=== PATIENT | female | born 1935 | race Caucasian/White ===

== ENCOUNTER 2017-10-03 05:16 | Inpatient (IN) | payer MEDICARE ==
[~2017-10-03] VITALS: Ht 157.5 cm; Wt 90.9 kg
[2017-10-03 06:01] VITALS: BP 129/74
[2017-10-03] MEDS ORDERED: MAG HYDROX/AL HYDROX/SIMETH 30 ML ORAL.SUSP PO PRN (06:30)
[2017-10-03] MEDS ORDERED: ACETAMINOPHEN 325 MG TABLET PO PRN (06:30)
[2017-10-03] MEDS ORDERED: MAGNESIUM HYDROXIDE 2,400 MG/30 ML ORAL.SUSP. PO PRN (06:30)
[2017-10-03] MEDS ORDERED: METHYL SALICYLATE/MENTHOL TOPICAL OINTMENT 29GM TUBE. TP PRN (06:30)
[2017-10-03 06:57] LABS: BASO % 0 % (0-3); EOS % 0 % (0-3); HEMATOCRIT 40.8 % (36.0-47.0); HEMOGLOBIN 14.2 g/dL (12.0-15.5); LYMPH # 0.6 x10^3/uL (1.0-4.8); LYMPH % 6 % (24-48); MEAN CORPUSCULAR HEMOGLOBIN 34 pg (25-35); MEAN CORPUSCULAR HGB CONC 35 g/dL (31-37); MEAN CORPUSCULAR VOLUME 96 fL (79-100); MONO # 0.4 x10^3/uL (0.0-1.1); MONO % 4 % (0-9); NEUT # 8.6 x10^3uL (1.8-7.7); NEUT % 89 % (31-73); PLATELET COUNT 323 x10^3/uL (140-400); RED BLOOD COUNT 4.23 x10^6/uL (3.50-5.40); RED CELL DISTRIBUTION WIDTH 13.4 % (11.5-14.5); WHITE BLOOD COUNT 9.6 x10^3/uL (4.0-11.0)
[2017-10-03 07:06] LABS: ALBUMIN 3.9 g/dL (3.4-5.0); ALBUMIN/GLOBULIN RATIO 0.9 (1.0-1.7); CALCIUM 9.6 mg/dL (8.5-10.1); CREATININE 1.3 mg/dL (0.6-1.0); GFR 39.4; POTASSIUM 4.4 mmol/L (3.5-5.1); TOTAL BILIRUBIN 0.4 mg/dL (0.2-1.0); TOTAL PROTEIN 8.3 g/dL (6.4-8.2)
[2017-10-03] MEDS ORDERED: SENNOSIDES/DOCUSATE 8.6/50MG TABLET. PO PRN (07:45)
[2017-10-03] MEDS ORDERED: ALBUTEROL SULFATE 8GM INHALER. IH PRN (07:45)
[2017-10-03] MEDS ORDERED: CYCL1DRO OU (08:06)
[2017-10-03] MEDS ORDERED: SENN-37 PO (08:06)
[2017-10-03] MEDS ORDERED: ALBU18HF IH (08:06)
[2017-10-03] MEDS ORDERED: DICL100G28 TP (08:06)
[2017-10-03] MEDS ORDERED: MUPI22OI2 TP (08:06)
[2017-10-03] MEDS ORDERED: ASPI1TAB31 PO (08:06)
[2017-10-03] MEDS ORDERED: TRIA15CR50 TP (08:06)
[2017-10-03] MEDS ORDERED: CLON0.5T11 PO (08:06)
[2017-10-03] MEDS ORDERED: POLY17PO5 PO (08:06)
[2017-10-03] MEDS ORDERED: BACL10TA PO (08:06)
[2017-10-03] MEDS ORDERED: CALC-30 PO (08:06)
[2017-10-03] MEDS ORDERED: CARB1DRO OU (08:06)
[2017-10-03] MEDS ORDERED: GLUC1TAB33 PO (08:06)
[2017-10-03] MEDS ORDERED: FLUT9.9S NS (08:06)
[2017-10-03] MEDS ORDERED: FISH12002 PO (08:06)
[2017-10-03] MEDS ORDERED: CYAN10005 PO (08:06)
[2017-10-03] MEDS ORDERED: MAGN400T3 PO (08:06)
[2017-10-03] MEDS ORDERED: LEVO112T2 PO (08:06)
[2017-10-03] MEDS ORDERED: CARB200T PO (08:06)
[2017-10-03] MEDS ORDERED: HYDR-963 PO (08:06)
[2017-10-03] MEDS ORDERED: NYST15CR TP (08:06)
[2017-10-03] MEDS ORDERED: RISP2TAB3 PO (08:06)
[2017-10-03] MEDS ORDERED: ESTR42.53 VG (08:06)
[2017-10-03] MEDS ORDERED: CLON2TAB9 PO (08:11)
[2017-10-03] MEDS ORDERED: LIDO700A39 TP (08:13)
[2017-10-03] MEDS ORDERED: clonazePAM 0.5 MG TABLET PO SCH ×3 (09:00→21:00)
[2017-10-03] MEDS: FLUTICASONE 50MCG/NASAL SPRAY 16GM BOTTLE. NS SCH (09:00)
[2017-10-03] MEDS ORDERED: NYSTATIN 100,000 UNIT/GM TOPICAL CREAM 15GM TUBE. TP PRN (09:00)
[2017-10-03] MEDS ORDERED: TRIAMCINOLONE ACETONIDE 0.1% TOPICAL CREAM 15GM TUBE. TP PRN (09:00)
[2017-10-03] MEDS: cycloSPORINE 0.05% OPTH 1 DROP DROPERETTE OU SCH ×2 (09:00→19:49)
[2017-10-03] MEDS ORDERED: ASA/APAP/CAFFEINE 250/250/65MG TABLET. PO PRN (09:00)
[2017-10-03] MEDS ORDERED: ALBUTEROL SULFATE 2.5 MG/3 ML NEBU. NEB PRN (09:00)
[2017-10-03] MEDS: LEVOTHYROXINE 112 MCG TABLET PO SCH (09:00)
[2017-10-03] MEDS ORDERED: MUPIROCIN 2% TOPICAL OINTMENT 22GM TUBE. TP PRN (09:00)
[2017-10-03] MEDS ORDERED: ONDANSETRON ODT 4 MG TAB.RAPDIS PO PRN (09:45)
--- NOTE | 2017-10-03 10:33 | EKG ---
[address] [address] Test Date: 2017-10-03 Test Time: 10:29:35 Pat Name: DINAH NEAL Department: Room: [facility] 1 Gender: F Client Services Director: : [id number] Requested By: JOHN HORTON Order Number: [id number] Reading MD: Nikos Chan MD Measurements Intervals [facility] Rate: 90 P: 44 ND: 150 QRS: -32 QRSD: 84 T: 27 QT: 378 QTc: 467 Interpretive Statements SINUS RHYTHM NON-SPECIFIC ST/T CHANGES Electronically Signed On 10-04-2017 7:52:45 CDT by Nikos Chan MD
[2017-10-03] MEDS: POLYETHYLENE GLYCOL 3350 17 GM PACKET. PO SCH (11:17)
[2017-10-03] MEDS: LIDOCAINE (700MG/PATCH) PATCH. TD SCH (11:17)
[2017-10-03] MEDS: CYANOCOBALAMIN (VITAMIN B-12) 1,000 MCG TABLET. PO SCH (11:18)
[2017-10-03] MEDS: MAGNESIUM OXIDE 400 MG TABLET PO SCH (11:18)
[2017-10-03] MEDS: CALCIUM CARB/VIT D3 500/200 TABLET PO SCH (11:18)
[2017-10-03] MEDS: OMEGA-3 FATTY ACIDS/FISH OIL 1,000 MG CAPSULE. PO SCH (11:18)
[2017-10-03] MEDS: GLUCOSAMINE/CHOND 500/400MG CAPSULE PO SCH (11:18)
[2017-10-03] MEDS: carBAMazepine 200 MG TABLET PO SCH ×2 (11:18→19:51)
[2017-10-03] MEDS ORDERED: BACLOFEN 10 MG TABLET PO SCH ×2 (12:00)
[2017-10-03 15:57] VITALS: BP 120/62
[2017-10-03] MEDS ORDERED: ESTRADIOL 0.01% VAGINAL CREAM 42.5GM TUBE. VG SCH (16:00)
[2017-10-03] MEDS ORDERED: ESTRADIOL 0.01% VAGINAL CREAM 42.5GM TUBE. VG PRN (16:00)
[2017-10-03 16:20] LABS: CARBAM 5.4 mcg/mL (4.0-12.0); THYROID STIM HORMONE (TSH) 1.733 uIU/mL (0.358-3.740)
[2017-10-03 17:08] LABS: BILIRUBIN,URINE NEG (NEG); CLARITY,URINE HAZY; COLOR,URINE YELLOW; GLUCOSE,URINE NEG (NEG)
[2017-10-03 17:09] LABS: BACTERIA,URINE FEW /HPF (0-FEW); HYALINE CASTS, URINE OCC /HPF; NITRITE,URINE NEG (NEG); SQUAMOUS EPITHELIAL CELL,UR MANY /LPF; UROBILINOGEN,URINE 0.2 mg/dL (0.2 mg/dL)
[2017-10-03] MEDS: HYDROcodone/APAP 10/325 1 TAB TABLET PO PRN (17:49)
[2017-10-03] MEDS: risperiDONE 2 MG TABLET. PO SCH (19:49)
[2017-10-03] MEDS: clonazePAM 1 MG TABLET PO SCH (19:49)
[2017-10-03] MEDS: BACLOFEN 10 MG TABLET PO SCH (19:50)
[2017-10-03 20:09] LABS: THYROXINE 6.1 ug/dL (4.5-12.0)
--- NOTE | 2017-10-03 20:35 | PDOC ---
Exam Note: Jermaine Note: Please also refer to the separate dictated note~for this date of service dictated separately.~Patient seen individually. Discussed the patient with Nursing staff reviewed the chart.~Reviewed interim history and current functioning. Reviewed vital signs,~Labs/ Radiology~and current medications noted below. Continue current treatment with the changes noted in the dictated addendum note Assessment: Vital Signs: Vital Signs Date Time Temp Pulse Resp B/P (MAP) Pulse Ox O2 Delivery O2 Flow Rate FiO2 10/03/17 18:49 16 95 Room Air 10/03/17 15:57 97.9 79 120/62 (81) Labs: Laboratory Tests Test 10/03/17 06:43 10/03/17 16:55 White Blood Count 9.6 x10^3/uL (4.0-11.0) Red Blood Count 4.23 x10^6/uL (3.50-5.40) Hemoglobin 14.2 g/dL (12.0-15.5) Hematocrit 40.8 % (36.0-47.0) Mean Corpuscular Volume 96 fL (79-100) Mean Corpuscular Hemoglobin 34 pg (25-35) Mean Corpuscular Hemoglobin Concent 35 g/dL (31-37) Red Cell Distribution Width 13.4 % (11.5-14.5) Platelet Count 323 x10^3/uL (140-400) Neutrophils (%) (Auto) 89 % (31-73) H Lymphocytes (%) (Auto) 6 % (24-48) L Monocytes (%) (Auto) 4 % (0-9) Eosinophils (%) (Auto) 0 % (0-3) Basophils (%) (Auto) 0 % (0-3) Neutrophils # (Auto) 8.6 x10^3uL (1.8-7.7) H Lymphocytes # (Auto) 0.6 x10^3/uL (1.0-4.8) L Monocytes # (Auto) 0.4 x10^3/uL (0.0-1.1) Eosinophils # (Auto) 0.0 x10^3/uL (0.0-0.7) Basophils # (Auto) 0.0 x10^3/uL (0.0-0.2) Sodium Level 139 mmol/L (136-145) Potassium Level 4.4 mmol/L (3.5-5.1) Chloride Level 100 mmol/L (98-107) Carbon Dioxide Level 33 mmol/L (21-32) H Anion Gap 6 (6-14) Blood Urea Nitrogen 12 mg/dL (7-20) Creatinine 1.3 mg/dL (0.6-1.0) H Estimated GFR (Cockcroft-Gault) 39.4 BUN/Creatinine Ratio 9 (6-20) Glucose Level 164 mg/dL (70-99) H Calcium Level 9.6 mg/dL (8.5-10.1) Magnesium Level 2.0 mg/dL (1.8-2.4) Total Bilirubin 0.4 mg/dL (0.2-1.0) Aspartate Amino Transferase (AST) 20 U/L (15-37) Alanine Aminotransferase (ALT) 22 U/L (14-59) Alkaline Phosphatase 109 U/L (46-116) Total Protein 8.3 g/dL (6.4-8.2) H Albumin 3.9 g/dL (3.4-5.0) Albumin/Globulin Ratio 0.9 (1.0-1.7) L Triglycerides Level 57 mg/dL (0-150) Cholesterol Level 284 mg/dL (0-200) H LDL Cholesterol, Calculated 201 mg/dL (0-100) H VLDL Cholesterol, Calculated 11 mg/dL (0-40) Non-HDL Cholesterol Calculated 212 mg/dL (0-129) H HDL Cholesterol 72 mg/dL (40-60) H Cholesterol/HDL Ratio 3.0 Thyroid Stimulating Hormone (TSH) 1.733 uIU/mL (0.358-3.740) Thyroxine (T4) 6.1 ug/dL (4.5-12.0) Total Triiodothyronine (TT3) 69 ng/dL (71-180) L Carbamazepine (Tegretol) Level 5.4 mcg/mL (4.0-12.0) Carbamazepine Last Dose Date 10/03/17 Carbamazepine Last Dose Time 1130 Treponema pallidum Antibody Nonreactive (Nonreactive) Urine Collection Type Unknown Urine Color Yellow Urine Clarity Hazy Urine pH 6.5 Urine Specific [place] 1.010 Urine Protein 100 mg/dl (NEG-TRACE) Urine Glucose (UA) Neg mg/dL (NEG) Urine Ketones (Stick) Neg mg/dL (NEG) Urine Blood Small (NEG) Urine Nitrite Neg (NEG) Urine Bilirubin Neg (NEG) Urine Urobilinogen Dipstick 0.2 mg/dL (0.2 mg/dL) Urine Leukocyte Esterase Neg (NEG) Urine RBC 1-2 /HPF (0-2) Urine WBC 1-4 /HPF (0-4) Urine Squamous Epithelial Cells Many /LPF Urine Bacteria Few /HPF (0-FEW) Urine Hyaline Casts Occ /HPF Urine Mucus Slight /LPF Current Medications: Meds: Current Medications Acetaminophen (Tylenol) 650 mg PRN Q6HRS PRN PO PAIN / TEMP; Start 10/03/17 at 06:30 Multi-Ingredient Ointment (Analgesic [place]) 1 stepan PRN QID PRN TP MUSCLE PAIN; Start 10/03/17 at 06:30 Al Hydroxide/Mg Hydroxide (Mylanta Plus Xs) 15 ml PRN AFTMEALHC PRN PO DYSPEPSIA; Start 10/03/17 at 06:30 Magnesium Hydroxide (Milk Of Magnesia) 2,400 mg PRN QHS PRN PO CONSTIPATION; Start 10/03/17 at 06:30 Albuterol Sulfate (Ventolin Hfa Inhaler) 2 puff PRN Q6HRS PRN IH FOR ASTHMA; Start 10/03/17 at 07:45; Status UNV Carbamazepine (TEGretol) 200 mg BID PO Last administered on 10/03/17at 19:51; Start 10/03/17 at 09:00 Clonazepam (KlonoPIN) 0.5 mg BID@0900,1700 PO Last administered on 10/03/17at 11 :18; Start 10/03/17 at 09:00; Stop 10/03/17 at 16:55; Status DC Clonazepam (KlonoPIN) 2 mg QHS PO ; Start 10/03/17 at 21:00; Stop 10/03/17 at 21 :00; Status DC Cyanocobalamin (Vitamin B-12) 1,000 mcg DAILY PO Last administered on at 11:18; Start 10/03/17 at 09:00 Cyclosporine (Restasis) 1 drop BID OU Last administered on 10/03/17at 19:49; Start 10/03/17 at 09:00 Diclofenac Sodium (Voltaren) 1 stepan PRN TID TP ; Start 10/03/17 at 07:45 Estradiol (Estrace) 1 stepan QSUTUTH VG ; Start 10/03/17 at 16:00; Stop 10/03/17 at 16:00; Status DC Levothyroxine Sodium (Synthroid) 112 mcg DAILY06 PO ; Start 10/03/17 at 09:00 Senna/Docusate Sodium (Senna Plus) 1 tab PRN BID PRN PO CONSTIPATION; Start at 07:45 Acetaminophen/ Aspirin/Caffeine (Excedrin Migraine) 2 tab Q24H PRN PO MIGRAINE HEADACHE; Start 10/03/17 at 09:00 Baclofen (Lioresal) 10 mg Q4HRS PO ; Start 10/03/17 at 12:00; Status Cancel Calcium/Vitamin D (Oscal D 500mg/ 200uts) 1 tab DAILY PO Last administered on at 11:18; Start 10/03/17 at 09:00 Artificial Tears (Refresh Classic) 1 drop PRN BID PRN OU DRY EYE; Start at 07:45 Fish Oil (Fish Oil) 1,000 mg DAILY PO Last administered on 10/03/17at 11:18; Start 10/03/17 at 09:00 Fluticasone Propionate (Flonase) 1 spray DAILY NS ; Start 10/03/17 at 09:00 Glucosamine/ Chondroitin (Glucosamine-Chondroitin 500/400mg) 1 cap DAILY PO Last administered on 10/03/17at 11:18; Start 10/03/17 at 09:00 Acetaminophen/ Hydrocodone Bitart (Lortab 10/325) 1 tab PRN Q4HRS PRN PO PAIN Last administered on 10/03/17at 17:49; Start 10/03/17 at 07:45 Lidocaine (Lidoderm) 1 patch DAILY TD Last administered on 10/03/17at 11:17; Start 10/03/17 at 09:00 Magnesium Oxide (Magnesium Oxide) 400 mg DAILY PO Last administered on at 11:18; Start 10/03/17 at 09:00 Mupirocin (Bactroban) 1 stepan PRN BID PRN TP NOSE SORES; Start 10/03/17 at 09:00 Nystatin (Mycostatin) 1 stepan PRN BID PRN TP YEAST/RASH; Start 10/03/17 at 09:00 Polyethylene Glycol (miraLAX) 17 gm DAILY PO Last administered on 10/03/17at 11: 17; Start 10/03/17 at 09:00 Risperidone (RisperDAL) 2 mg QHS PO Last administered on 10/03/17at 19:49; Start 10/03/17 at 21:00 Triamcinolone Acetonide (Kenalog) 1 stepan PRN TID PRN TP VAGINAL PAIN; Start at 09:00 Estradiol (Estrace) 1 stepan QSUTUTH PRN VG ITCHING; Start 10/03/17 at 16:00 Albuterol Sulfate (Ventolin) 2.5 mg PRN Q6HRS PRN NEB SHORTNESS OF BREATH; Start 10/03/17 at 09:00 Baclofen (Lioresal) 5 mg Q4HRS PO Last administered on 10/03/17at 11:21; Start 10/03/17 at 12:00; Stop 10/03/17 at 15:51; Status DC Ondansetron HCl (Zofran Odt) 4 mg PRN Q8HRS PRN PO NAUSEA/VOMITING Last administered on 10/03/17at 10:16; Start 10/03/17 at 09:45 Clonazepam (KlonoPIN) 1.5 mg QHS PO ; Start 10/03/17 at 21:00; Stop 10/03/17 at 21:00; Status DC Clonazepam (KlonoPIN) 1 mg QHS PO ; Start 10/06/17 at 21:00; Stop 10/06/17 at 21 :00; Status DC Clonazepam (KlonoPIN) 0.5 mg QHS PO ; Start 10/03/17 at 21:00; Stop 10/03/17 at 21:00; Status DC Clonazepam (KlonoPIN) 0.5 mg DAILY@1700 PO ; Start 10/03/17 at 17:00; Stop 10/03 at 17:00; Status DC Baclofen (Lioresal) 5 mg TID PO Last administered on 10/03/17at 19:50; Start at 21:00 Clonazepam (KlonoPIN) 0.5 mg DAILY PO ; Start 10/04/17 at 09:00; Stop 10/09/17 at 00:00 Clonazepam (KlonoPIN) 0.5 mg DAILY@1700 PO ; Start 10/04/17 at 17:00; Stop at 00:00 Clonazepam (KlonoPIN) 1.5 mg Taper QHS PO Last administered on 10/03/17at 19:49 ; Start 10/03/17 at 21:00; Stop 10/18/17 at 20:59 Olanzapine (ZyPREXA ZYDIS) 2.5 mg PRN Q2HR PRN PO PSYCHOSIS Last administered on 10/03/17at 17:43; Start 10/03/17 at 17:45 Divalproex Sodium (Depakote Er) 250 mg QHS PO Last administered on 10/03/17at 19 :49; Start 10/03/17 at 21:00; Stop 10/03/17 at 21:01 Divalproex Sodium (Depakote Er) 500 mg QHS PO ; Start 10/04/17 at 21:00 Active Scripts Active Reported Lidocaine 1 Each Adh..patch 1 Each TP DAILY Clonazepam 2 Mg Tablet 2 Mg PO QHS Diclofenac Sodium 100 Gm Gel..gram. 100 Gm TP PRN TID Estrace (Estradiol) 42.5 Gm Cream.appl 1 Stepan VG PRN 2X/WEEK Magnesium Oxide 400 Mg Tablet 400 Mg PO DAILY Baclofen 10 Mg Tablet 5 Mg PO Q4HRS Tegretol (Carbamazepine) 200 Mg Tablet 200 Mg PO BID Excedrin Migraine Caplet (Aspirin/Acetaminophen/Caffeine) 1 Each Tablet 2 Each PO PRN Q24HRS PRN Risperidone 2 Mg Tablet 2 Mg PO QHS Miralax (Polyethylene Glycol 3350) 17 Gm Powd.pack 1 Packet PO DAILY Synthroid (Levothyroxine Sodium) 112 Mcg Tablet 112 Mcg PO DAILYAC [place] 3-6-9 1,200 mg Softgel (Fish Oil/Borage/Flax/Om3,6,9#1) 1,200 Mg Capsule 1 Cap PO DAILY Vitamin B-12 (Cyanocobalamin (Vitamin B-12)) 1,000 Mcg Tablet 1,000 Mcg PO DAILY Calcium 500 + Vit D 400 Tablet (Calcium Carbonate/Vitamin D3) 1 Each Tablet 1 Tab PO DAILY Glucosamine Chondroitin Tab (Gluc Stephen/Chondro Stephen A/Vit C/Mn) 1 Each Tablet 1 Tab PO DAILY [place] 10-325 Tablet (Hydrocodone Bit/Acetaminophen) 1 Each Tablet 1 Tab PO PRN Q4HRS PRN Senokot-S Tablet (Sennosides/Docusate Sodium) 1 Each Tablet 1 Tab PO PRN BID PRN Flonase Allergy Relief (Fluticasone Propionate) 9.9 Ml [place].susp 1 Sprays NS DAILY Refresh Plus (Carboxymethylcellulose Sodium) 1 Each Droperette 1 Drop OU PRN BID PRN Restasis (Cyclosporine) 1 Each Droperette 1 Each OU BID Triamcinolone Acetonide 15 Gm Cream..g. 1 Stepan TP PRN TID PRN Mupirocin 22 Gm Oint...g. 1 Stepan TP PRN BID PRN Nystatin 15 Gm Cream..g. 1 Stepan TP PRN BID PRN Clonazepam 0.5 Mg Tablet 0.5 Mg PO BID@0900,1700 Ventolin Hfa Inhaler (Albuterol Sulfate) 18 Gm Hfa.aer.ad 2 Puff IH PRN Q6HRS PRN I have reviewed the current psychotropics carefully including drug interactions. Risk benefit ratio favors no change other than as noted in my dictated progress note. Diagnosis: Problems: (1) Delusion (2) Confusion RACHANA BENNETT MD Oct 03, 2017 20:35
[2017-10-03] MEDS ORDERED: clonazePAM 2 MG TABLET PO SCH ×2 (21:00)
[2017-10-03] MEDS ORDERED: DIVALPROEX ER 250 MG TAB.ER.24H. PO SCH (21:00)
--- NOTE | 2017-10-03 22:52 | HP ---
ADMIT DATE: 10/03/2017 PSYCHIATRIC ADMISSION HISTORY/EVALUATION This note covers elements not covered in my initial of 10/03/2017. IDENTIFYING DATA: The patient is an 82-year-old female who is referred to us from the Emergency Room at [facility] by the ER physician on a referral from Dr. Ronald Mcleod, the patient's outpatient psychiatrist after she was brought to the Emergency Room with worsening psychosis within the context of her history of schizoaffective disorder, bipolar type. The patient had been paranoid, had not slept in about 3 or 4 days. Her daughter recently and the was just 5 days back resulting in marked recurrence of her psychosis within the context of her above diagnosis. She believes people were trying to hurt her. She had barged into her neighbor's apartment and was brought into the Emergency Room, evaluated. She remained psychotic, hopeless, worthless, helpless. She lives alone at home and it was felt unsafe for her to be at home and she is referred for inpatient psychiatric stabilization, admitted by herself and coordination with her family. CHIEF COMPLAINT: ''My caregiver has been trying to poison me." HISTORY OF PRESENT ILLNESS: The patient has a long history of bipolar disorder, mixed with psychotic features versus schizoaffective disorder, bipolar type. Reportedly, [facility], one of which lasted about 6 months. More recently, she has been stable, going to outpatient treatment at [facility] in [place] by Dr. Mcleod. Following the of her daughter and the 5 days ago, she has had marked deterioration in her psychosis, paranoia, marked insomnia vacillation in appetite. No active suicidal or homicidal ideation. She had mood swings as well. Cognitively, she is reasonably intact. PAST PSYCHIATRIC HISTORY: As above and the patient was additionally hospitalized at the [facility] in 2017 and has been in outpatient psychiatric treatment at the [facility]. PAST MEDICAL HISTORY: Medical history is positive for chronic back pain, chronic kidney disease stage 2. ALLERGIES: DEMEROL, STADOL. CODE STATUS: Full code. ACCU-CHEKS: None. DIET: Regular. Takes medications whole. Ambulates ad yovanny with walker. CURRENT PSYCHOTROPICS: Risperdal 2 mg daily, Tegretol 200 mg b.i.d., Klonopin 0.5 mg 9:00 a.m., 5:00 p.m., 2 mg at bedtime. FAMILY HISTORY: Positive for bipolar disorder in her sister. SOCIAL HISTORY: The patient lives by herself. She has three living children, one who recently as noted above, and she has a fairly significant past history of alcohol abuse, none for perhaps 20 or 30 years. She lives alone in her apartment and has a caregiver who does her grocery, shopping and she states she does much of grocery shopping online and these are delivered to her at her apartment. REACTION TO HOSPITALIZATION: The patient accepting of it. ASSETS: Supportive family. She is cognitively reasonably intact. Had been called by the nursing staff around 2:00 a.m. this morning as the patient presented to the Emergency Room. Discussed with nursing staff at that time and earlier in the day today and she was also staffed at a treatment team meeting, meeting with the entire team morning of 10/03/2017, seen individually in the evening. REVIEW OF SYSTEMS: No CV, , pulmonary, eye, ENT system symptoms on review. Gait is unsteady with walker. MENTAL STATUS EXAM: Reasonably oriented. Speech is coherent, abstraction fair, computation impaired, language function intact, attention span short. Mood and affect remain somewhat labile and she is quite tearful, hopeless, worthless, depressed. Denies an active suicidal or homicidal ideation. She is extremely paranoid, psychotic. Intellect average. Insight fair. Judgment intact to standard questioning. IMPRESSION: Schizoaffective disorder, bipolar type, mixed with psychotic features versus depressed with psychotic features; anxiety disorder, unspecified; impulse control disorder, unspecified; past history of alcohol abuse. Rest as above. PLAN: Admit to Geropsychiatry Unit at [facility]. I will see the patient daily individually from a psychiatric standpoint, medical followup per Dr. Loera/Dr. Yates. We will reduce the bedtime Klonopin from 2 mg to 1.5 mg for 3 days, then 1 mg for 3 days, and after that stop the 9:00 a.m. Klonopin 0.5 mg in 3-day, after that stop the 5:00 p.m. Klonopin 0.5 mg, and then reduce the bedtime Klonopin gradually further till it is discontinued. She has a history of significant mood swings, schizoaffective disorder, and we will initiate treatment on Depakote ER 250 mg at bedtime 1 day, increasing to 500 mg at bedtime. Check CBC, CMP, valproic acid level, ammonia level in 4 days. Start Zyprexa 2.5 mg q. 2 hours p.r.n. psychosis, agitation, max 10 mg in 24 hours, and for now, continue Risperdal and Tegretol. Once the Depakote is stable, we will stop the Tegretol. Consider reducing Risperdal, but she remains psychotic. Estimated length of stay 10-12 days. DISCHARGE DISPOSITION: Back to her home to outpatient psychiatric followup. RACHANA BENNETT MD DR: GIGI/taya JOB#: [id number] / [id number]
--- NOTE | 2017-10-04 00:53 | CONS ---
DATE OF CONSULTATION: 10/03/2017 REASON FOR CONSULTATION: Medical management. HISTORY OF PRESENT ILLNESS: The patient is an 82-year-old female patient, who apparently was evaluated at [facility] Emergency Room. Apparently, her daughter called 911 as the patient reportedly have left her apartment in a halfway complex while in an escalated state and passed into another resident room and sat down. The patient has existing diagnosis of bipolar disorder for which she has received treatment at [facility] for many years. Her psychiatrist is Dr. Mcleod. She also has a long history of hospitalization at [facility], [facility] that was closed years ago and most recently at [facility] in 2017. The patient was extremely anxious and demanding. Her caregiver and her family were with her. She apparently has had suicidal ideation before; however, she currently denied any suicidal ideation, but family members report that the patient has been talking about joining Christina. Apparently her daughter, Christina recently with a late diagnosed illness. The was on 09/28/2017. She apparently was very close to her daughter, who lived in [place] and would spend time with the patient. Her daughters were fearful that their mother is now in a manic state after she lost her daughter and apparently the patient was agreed to be admitted for inpatient psychiatric stabilization. PAST MEDICAL HISTORY: Significant for hypothyroidism. She is known to have bipolar disorder as well as advanced osteoarthritis of her left hip joint. She is known to have hypothyroidism, chronic headache, stage 2 chronic kidney disease and chronic back pain. PAST SURGICAL HISTORY: Significant for total abdominal hysterectomy and bilateral salpingo-oophorectomy. She has had also colonoscopy. FAMILY HISTORY: Her daughter has mental illness and lung cancer. Her father also has had a malignant tumor. SOCIAL HISTORY: She is retired. She apparently does not drink alcohol and quit smoking years ago. She is currently living alone with home health aide. She started smoking when she was 37 years old and stopped when she was 52 years old. PHYSICAL EXAMINATION: GENERAL: When I examined her this afternoon, she was resting slightly propped up in bed, in no apparent distress. She was somewhat pale, but no jaundice or cyanosis. No lymphadenopathy, no thyromegaly. No jugular venous distension. No lower limb edema. VITAL SIGNS: Her heart rate was 79, blood pressure 120/62, temperature was 97.9, respiratory rate was 18 and oxygen saturation was 95%. HEAD, EYES, EARS, NOSE, and THROAT: Showed normocephalic, atraumatic. NECK: Supple. HEART: Showed normal first and second sounds. No gallop, rub or murmur. CHEST: Clear to auscultation. No crepitation or rhonchi. ABDOMEN: Distended, soft, and nontender. No guarding or rigidity. No organomegaly. Hernial orifice intact. Bowel sounds normal. NEUROLOGIC: She was awake, alert, and responding appropriately. Cranial nerves intact. EXTREMITIES: She moves her extremities without difficulty. LABORATORY DATA: Her lab work showed a white cell count 9600, hemoglobin 14, hematocrit 41, MCV 96, and platelet count of 323,000. Her chemistry showed a serum sodium of 139, potassium 4.4, chloride 100, bicarbonate 33, anion gap of 6, BUN 12, creatinine 1.3, estimated GFR was 39 mL per minute. Her glucose was 164, calcium was 9.6, magnesium 2. Total bilirubin, AST, ALT, and alkaline phosphatase were normal. Total protein was 8.3, albumin was 3.9. Her treponema pallidum antibody is nonreactive. IMPRESSION: In summary, this is an 82-year-old female patient, who was [facility] on account of increasing anxiety, bipolar disorder with eric. The patient has had suicidal ideation before and was admitted to [facility] in 2017. She lost her daughter only recently and was making comments that she would like to join her daughter, Christina. The patient signed self into voluntary psychiatric hospitalization. She has multiple medical problems including hypothyroidism, chronic kidney disease, chronic pain syndrome as well as constipation, so far, her lab work confirmed that she has chronic kidney disease with estimated GFR of 39 mL per minute. She is currently on levothyroxine; however, the TSH, T3 and T4 are still pending at the time of this dictation. From a medical point of view, the patient seems to be stable. I will obviously make sure that her thyroid function test is done. She is already on polyethylene glycol as well as Senna-S 1 capsule twice a day. She is also on milk of magnesia 30 mL p.o. daily p.r.n. for constipation. If she has not had any bowel movement by tomorrow, we will probably consider magnesium citrate. Thank you, Dr. Morales for allowing me to participate in the care of this patient. JOHN HORTON MD DR: JYOTI/taya JOB#: [id number] / [id number]
[2017-10-04 05:14] LABS: HEMOGLOBIN A1C 5.1 % (4.8-5.6)
[2017-10-04] MEDS: LEVOTHYROXINE 112 MCG TABLET PO SCH (05:38)
[2017-10-04 05:53] VITALS: BP 133/59
[2017-10-04] MEDS: cycloSPORINE 0.05% OPTH 1 DROP DROPERETTE OU SCH ×2 (07:54→20:00)
[2017-10-04] MEDS: carBAMazepine 200 MG TABLET PO SCH ×2 (07:54→20:08)
[2017-10-04] MEDS: GLUCOSAMINE/CHOND 500/400MG CAPSULE PO SCH (07:54)
[2017-10-04] MEDS: CYANOCOBALAMIN (VITAMIN B-12) 1,000 MCG TABLET. PO SCH (07:54)
[2017-10-04] MEDS: CALCIUM CARB/VIT D3 500/200 TABLET PO SCH (07:54)
[2017-10-04] MEDS: BACLOFEN 10 MG TABLET PO SCH ×3 (07:55→20:08)
[2017-10-04] MEDS: OMEGA-3 FATTY ACIDS/FISH OIL 1,000 MG CAPSULE. PO SCH (07:55)
[2017-10-04] MEDS: FLUTICASONE 50MCG/NASAL SPRAY 16GM BOTTLE. NS SCH (07:55)
[2017-10-04] MEDS: POLYETHYLENE GLYCOL 3350 17 GM PACKET. PO SCH (07:55)
[2017-10-04] MEDS: LIDOCAINE (700MG/PATCH) PATCH. TD SCH (07:57)
[2017-10-04] MEDS: MAGNESIUM OXIDE 400 MG TABLET PO SCH (07:57)
[2017-10-04] MEDS: clonazePAM 0.5 MG TABLET PO SCH ×2 (07:57→17:26)
[2017-10-04] MEDS: HYDROcodone/APAP 10/325 1 TAB TABLET PO PRN (15:00)
[2017-10-04 16:36] VITALS: BP 121/76
[2017-10-04] MEDS: DIVALPROEX ER 500 MG TAB.ER.24H PO SCH (20:00)
[2017-10-04] MEDS: clonazePAM 1 MG TABLET PO SCH (20:01)
[2017-10-04] MEDS: risperiDONE 2 MG TABLET. PO SCH (20:08)
[2017-10-05] MEDS: LEVOTHYROXINE 112 MCG TABLET PO SCH (05:50)
[2017-10-05 06:25] VITALS: BP 158/73
[2017-10-05] MEDS: LIDOCAINE (700MG/PATCH) PATCH. TD SCH (07:52)
[2017-10-05] MEDS: FLUTICASONE 50MCG/NASAL SPRAY 16GM BOTTLE. NS SCH (07:52)
[2017-10-05] MEDS: POLYETHYLENE GLYCOL 3350 17 GM PACKET. PO SCH (07:52)
[2017-10-05] MEDS: MAGNESIUM OXIDE 400 MG TABLET PO SCH (07:53)
[2017-10-05] MEDS: cycloSPORINE 0.05% OPTH 1 DROP DROPERETTE OU SCH ×2 (07:53→19:39)
[2017-10-05] MEDS: carBAMazepine 200 MG TABLET PO SCH ×2 (07:53→19:36)
[2017-10-05] MEDS: BACLOFEN 10 MG TABLET PO SCH ×3 (07:53→19:37)
[2017-10-05] MEDS: GLUCOSAMINE/CHOND 500/400MG CAPSULE PO SCH (07:53)
[2017-10-05] MEDS: CALCIUM CARB/VIT D3 500/200 TABLET PO SCH (07:53)
[2017-10-05] MEDS: OMEGA-3 FATTY ACIDS/FISH OIL 1,000 MG CAPSULE. PO SCH (07:53)
[2017-10-05] MEDS: CYANOCOBALAMIN (VITAMIN B-12) 1,000 MCG TABLET. PO SCH (07:53)
[2017-10-05] MEDS: clonazePAM 0.5 MG TABLET PO SCH ×2 (07:55→17:00)
[2017-10-05] MEDS: HYDROcodone/APAP 10/325 1 TAB TABLET PO PRN ×2 (10:34→19:47)
[2017-10-05 16:10] VITALS: BP 121/73
[2017-10-05] MEDS: DIVALPROEX ER 500 MG TAB.ER.24H PO SCH (19:37)
[2017-10-05] MEDS: risperiDONE 2 MG TABLET. PO SCH (19:37)
[2017-10-05] MEDS: clonazePAM 1 MG TABLET PO SCH (19:39)
[2017-10-05] MEDS: DICLOFENAC SODIUM 1% TOPICAL GEL 100GM TUBE. TP SCH (21:56)
--- NOTE | 2017-10-05 22:24 | PDOC ---
Exam Note: Jermaine Note: Please also refer to the separate dictated note~for this date of service dictated separately.~Patient seen individually. Discussed the patient with Nursing staff reviewed the chart.~Reviewed interim history and current functioning. Reviewed vital signs,~Labs/ Radiology~and current medications noted below. Continue current treatment with the changes noted in the dictated addendum note Assessment: Vital Signs: Vital Signs Date Time Temp Pulse Resp B/P (MAP) Pulse Ox O2 Delivery O2 Flow Rate FiO2 10/05/17 22:00 95 10/05/17 16:10 97.3 70 18 121/73 (89) 10/05/17 12:16 Room Air I&O Intake and Output 10/05/17 07:00 Intake Total 1080 ml Balance 1080 ml Intake Oral 1080 ml Current Medications: Meds: Current Medications Acetaminophen (Tylenol) 650 mg PRN Q6HRS PRN PO PAIN / TEMP; Start 10/03/17 at 06:30 Multi-Ingredient Ointment (Analgesic [place]) 1 stepan PRN QID PRN TP MUSCLE PAIN; Start 10/03/17 at 06:30 Al Hydroxide/Mg Hydroxide (Mylanta Plus Xs) 15 ml PRN AFTMEALHC PRN PO DYSPEPSIA; Start 10/03/17 at 06:30 Magnesium Hydroxide (Milk Of Magnesia) 2,400 mg PRN QHS PRN PO CONSTIPATION Last administered on 10/04/17at 08:01; Start 10/03/17 at 06:30 Albuterol Sulfate (Ventolin Hfa Inhaler) 2 puff PRN Q6HRS PRN IH FOR ASTHMA; Start 10/03/17 at 07:45; Status UNV Carbamazepine (TEGretol) 200 mg BID PO Last administered on 10/05/17at 19:36; Start 10/03/17 at 09:00 Clonazepam (KlonoPIN) 0.5 mg BID@0900,1700 PO Last administered on 10/03/17at 11 :18; Start 10/03/17 at 09:00; Stop 10/03/17 at 16:55; Status DC Clonazepam (KlonoPIN) 2 mg QHS PO ; Start 10/03/17 at 21:00; Stop 10/03/17 at 21 :00; Status DC Cyanocobalamin (Vitamin B-12) 1,000 mcg DAILY PO Last administered on 07:53; Start 10/03/17 at 09:00 Cyclosporine (Restasis) 1 drop BID OU Last administered on 10/05/17 19:39; Start 10/03/17 at 09:00 Diclofenac Sodium (Voltaren) 1 stepan PRN TID TP Last administered on 10/05/17 21:56; Start 10/03/17 at 07:45 Estradiol (Estrace) 1 stepan QSUTUTH VG ; Start 10/03/17 at 16:00; Stop 10/03/17 at 16:00; Status DC Levothyroxine Sodium (Synthroid) 112 mcg DAILY06 PO Last administered on 05:50; Start 10/03/17 at 09:00 Senna/Docusate Sodium (Senna Plus) 1 tab PRN BID PRN PO CONSTIPATION; Start at 07:45 Acetaminophen/ Aspirin/Caffeine (Excedrin Migraine) 2 tab Q24H PRN PO MIGRAINE HEADACHE Last administered on 10/05/17 14:16; Start 10/03/17 at 09:00 Baclofen (Lioresal) 10 mg Q4HRS PO ; Start 10/03/17 at 12:00; Status Cancel Calcium/Vitamin D (Oscal D 500mg/ 200uts) 1 tab DAILY PO Last administered on 07:53; Start 10/03/17 at 09:00 Artificial Tears (Refresh Classic) 1 drop PRN BID PRN OU DRY EYE; Start at 07:45 Fish Oil (Fish Oil) 1,000 mg DAILY PO Last administered on 10/05/17 07:53; Start 10/03/17 at 09:00 Fluticasone Propionate (Flonase) 1 spray DAILY NS Last administered on 07:52; Start 10/03/17 at 09:00 Glucosamine/ Chondroitin (Glucosamine-Chondroitin 500/400mg) 1 cap DAILY PO Last administered on 10/05/17 07:53; Start 10/03/17 at 09:00 Acetaminophen/ Hydrocodone Bitart (Lortab 10/325) 1 tab PRN Q4HRS PRN PO PAIN Last administered on 10/05/17 19:47; Start 10/03/17 at 07:45 Lidocaine (Lidoderm) 1 patch DAILY TD Last administered on 10/05/17at 07:52; Start 10/03/17 at 09:00 Magnesium Oxide (Magnesium Oxide) 400 mg DAILY PO Last administered on at 07:53; Start 10/03/17 at 09:00 Mupirocin (Bactroban) 1 stepan PRN BID PRN TP NOSE SORES; Start 10/03/17 at 09:00 Nystatin (Mycostatin) 1 stepan PRN BID PRN TP YEAST/RASH; Start 10/03/17 at 09:00 Polyethylene Glycol (miraLAX) 17 gm DAILY PO Last administered on 10/05/17at 07: 52; Start 10/03/17 at 09:00 Risperidone (RisperDAL) 2 mg QHS PO Last administered on 10/05/17at 19:37; Start 10/03/17 at 21:00 Triamcinolone Acetonide (Kenalog) 1 stepan PRN TID PRN TP VAGINAL PAIN; Start at 09:00 Estradiol (Estrace) 1 stepan QSUTUTH PRN VG ITCHING; Start 10/03/17 at 16:00 Albuterol Sulfate (Ventolin) 2.5 mg PRN Q6HRS PRN NEB SHORTNESS OF BREATH; Start 10/03/17 at 09:00 Baclofen (Lioresal) 5 mg Q4HRS PO Last administered on 10/03/17at 11:21; Start 10/03/17 at 12:00; Stop 10/03/17 at 15:51; Status DC Ondansetron HCl (Zofran Odt) 4 mg PRN Q8HRS PRN PO NAUSEA/VOMITING Last administered on 10/03/17at 10:16; Start 10/03/17 at 09:45 Clonazepam (KlonoPIN) 1.5 mg QHS PO ; Start 10/03/17 at 21:00; Stop 10/03/17 at 21:00; Status DC Clonazepam (KlonoPIN) 1 mg QHS PO ; Start 10/06/17 at 21:00; Stop 10/06/17 at 21 :00; Status DC Clonazepam (KlonoPIN) 0.5 mg QHS PO ; Start 10/03/17 at 21:00; Stop 10/03/17 at 21:00; Status DC Clonazepam (KlonoPIN) 0.5 mg DAILY@1700 PO ; Start 10/03/17 at 17:00; Stop 10/03 at 17:00; Status DC Baclofen (Lioresal) 5 mg TID PO Last administered on 10/05/17at 19:37; Start at 21:00 Clonazepam (KlonoPIN) 0.5 mg DAILY PO Last administered on 10/05/17at 07:55; Start 10/04/17 at 09:00; Stop 10/09/17 at 00:00 Clonazepam (KlonoPIN) 0.5 mg DAILY@1700 PO Last administered on 10/05/17 17:00 ; Start 10/04/17 at 17:00; Stop 10/12/17 at 00:00 Clonazepam (KlonoPIN) 1.5 mg Taper QHS PO Last administered on 10/05/17at 19:39 ; Start 10/03/17 at 21:00; Stop 10/18/17 at 20:59 Olanzapine (ZyPREXA ZYDIS) 2.5 mg PRN Q2HR PRN PO PSYCHOSIS Last administered on 10/04/17 15:00; Start 10/03/17 at 17:45 Divalproex Sodium (Depakote Er) 250 mg QHS PO Last administered on 10/03/17 19 :49; Start 10/03/17 at 21:00; Stop 10/03/17 at 21:01; Status DC Divalproex Sodium (Depakote Er) 500 mg QHS PO Last administered on 10/05/17 19 :37; Start 10/04/17 at 21:00 Active Scripts Active Reported Lidocaine 1 Each Adh..patch 1 Each TP DAILY Clonazepam 2 Mg Tablet 2 Mg PO QHS Diclofenac Sodium 100 Gm Gel..gram. 100 Gm TP PRN TID Estrace (Estradiol) 42.5 Gm Cream.appl 1 Stepan VG PRN 2X/WEEK Magnesium Oxide 400 Mg Tablet 400 Mg PO DAILY Baclofen 10 Mg Tablet 5 Mg PO Q4HRS Tegretol (Carbamazepine) 200 Mg Tablet 200 Mg PO BID Excedrin Migraine Caplet (Aspirin/Acetaminophen/Caffeine) 1 Each Tablet 2 Each PO PRN Q24HRS PRN Risperidone 2 Mg Tablet 2 Mg PO QHS Miralax (Polyethylene Glycol 3350) 17 Gm Powd.pack 1 Packet PO DAILY Synthroid (Levothyroxine Sodium) 112 Mcg Tablet 112 Mcg PO DAILYAC [place] 3-6-9 1,200 mg Softgel (Fish Oil/Borage/Flax/Om3,6,9#1) 1,200 Mg Capsule 1 Cap PO DAILY Vitamin B-12 (Cyanocobalamin (Vitamin B-12)) 1,000 Mcg Tablet 1,000 Mcg PO DAILY Calcium 500 + Vit D 400 Tablet (Calcium Carbonate/Vitamin D3) 1 Each Tablet 1 Tab PO DAILY Glucosamine Chondroitin Tab (Gluc Stephen/Chondro Stephen A/Vit C/Mn) 1 Each Tablet 1 Tab PO DAILY [place] 10-325 Tablet (Hydrocodone Bit/Acetaminophen) 1 Each Tablet 1 Tab PO PRN Q4HRS PRN Senokot-S Tablet (Sennosides/Docusate Sodium) 1 Each Tablet 1 Tab PO PRN BID PRN Flonase Allergy Relief (Fluticasone Propionate) 9.9 Ml [place].susp 1 Sprays NS DAILY Refresh Plus (Carboxymethylcellulose Sodium) 1 Each Droperette 1 Drop OU PRN BID PRN Restasis (Cyclosporine) 1 Each Droperette 1 Each OU BID Triamcinolone Acetonide 15 Gm Cream..g. 1 Stepan TP PRN TID PRN Mupirocin 22 Gm Oint...g. 1 Stepan TP PRN BID PRN Nystatin 15 Gm Cream..g. 1 Stepan TP PRN BID PRN Clonazepam 0.5 Mg Tablet 0.5 Mg PO BID@0900,1700 Ventolin Hfa Inhaler (Albuterol Sulfate) 18 Gm Hfa.aer.ad 2 Puff IH PRN Q6HRS PRN I have reviewed the current psychotropics carefully including drug interactions. Risk benefit ratio favors no change other than as noted in my dictated progress note. Diagnosis: Problems: (1) Confusion (2) Delusion (3) Bipolar affective, mixed, sev w/ psych (4) Anxiety disorder (5) Impulse control disorder RACHANA BENNETT MD Oct 05, 2017 22:24
[2017-10-06] MEDS: HYDROcodone/APAP 10/325 1 TAB TABLET PO PRN ×4 (04:42→22:11)
[2017-10-06] MEDS: LEVOTHYROXINE 112 MCG TABLET PO SCH (05:46)
[2017-10-06 06:09] VITALS: BP 161/89
[2017-10-06] MEDS: cycloSPORINE 0.05% OPTH 1 DROP DROPERETTE OU SCH ×2 (10:16→19:36)
[2017-10-06] MEDS: GLUCOSAMINE/CHOND 500/400MG CAPSULE PO SCH (10:16)
[2017-10-06] MEDS: LIDOCAINE (700MG/PATCH) PATCH. TD SCH (10:16)
[2017-10-06] MEDS: BACLOFEN 10 MG TABLET PO SCH ×3 (10:16→19:37)
[2017-10-06] MEDS: OMEGA-3 FATTY ACIDS/FISH OIL 1,000 MG CAPSULE. PO SCH (10:16)
[2017-10-06] MEDS: CYANOCOBALAMIN (VITAMIN B-12) 1,000 MCG TABLET. PO SCH (10:16)
[2017-10-06] MEDS: POLYETHYLENE GLYCOL 3350 17 GM PACKET. PO SCH ×2 (10:16→10:46)
[2017-10-06] MEDS: FLUTICASONE 50MCG/NASAL SPRAY 16GM BOTTLE. NS SCH (10:16)
[2017-10-06] MEDS: carBAMazepine 200 MG TABLET PO SCH ×2 (10:17→19:35)
[2017-10-06] MEDS: clonazePAM 0.5 MG TABLET PO SCH ×2 (10:17→16:24)
[2017-10-06] MEDS: MAGNESIUM OXIDE 400 MG TABLET PO SCH (10:17)
[2017-10-06] MEDS: CALCIUM CARB/VIT D3 500/200 TABLET PO SCH (10:17)
[2017-10-06 16:33] VITALS: BP 145/85
[2017-10-06] MEDS: risperiDONE 2 MG TABLET. PO SCH (19:35)
[2017-10-06] MEDS: DIVALPROEX ER 500 MG TAB.ER.24H PO SCH (19:35)
[2017-10-06] MEDS: clonazePAM 1 MG TABLET PO SCH (19:37)
--- NOTE | 2017-10-06 20:07 | PDOC ---
Exam Note: Jermaine Note: Late entry for date of service September.Please also refer to the separate dictated note~for this date of service dictated separately.~Patient seen individually. Discussed the patient with Nursing staff reviewed the chart.~ Reviewed interim history and current functioning. Reviewed vital signs,~Labs/ Radiology~and current medications noted below. Continue current treatment with the changes noted in the dictated addendum note Assessment: Vital Signs: VS - Last 72 Hours, by Label Date Time Temp Pulse Resp B/P (MAP) Pulse Ox O2 Delivery O2 Flow Rate FiO2 10/06/17 17:48 97 10/06/17 16:33 97.9 59 20 145/85 (105) 97 10/06/17 16:25 18 97 10/06/17 10:45 20 97 Room Air 10/06/17 06:09 97.1 76 20 161/89 (113) 96 Room Air 10/06/17 04:42 95 10/05/17 19:47 95 10/05/17 16:10 97.3 70 18 121/73 (89) 95 10/05/17 12:16 16 Room Air 10/05/17 10:34 16 Room Air 10/05/17 06:25 97.6 69 18 158/73 (101) 93 Room Air 10/04/17 16:36 97.7 80 22 121/76 (91) 96 Room Air 10/04/17 15:00 96 10/04/17 05:53 97.2 69 18 133/59 (83) 93 Vital Signs Date Time Temp Pulse Resp B/P (MAP) Pulse Ox O2 Delivery O2 Flow Rate FiO2 10/06/17 17:48 97 10/06/17 16:33 97.9 59 20 145/85 (105) 10/06/17 10:45 Room Air I&O Intake and Output 10/06/17 07:00 Intake Total 1678 ml Balance 1678 ml Intake Oral 1678 ml # Bowel Movements 2 Current Medications: Meds: Current Medications Acetaminophen (Tylenol) 650 mg PRN Q6HRS PRN PO PAIN / TEMP; Start 10/03/17 at 06:30 Multi-Ingredient Ointment (Analgesic [place]) 1 stepan PRN QID PRN TP MUSCLE PAIN; Start 10/03/17 at 06:30 Al Hydroxide/Mg Hydroxide (Mylanta Plus Xs) 15 ml PRN AFTMEALHC PRN PO DYSPEPSIA; Start 10/03/17 at 06:30 Magnesium Hydroxide (Milk Of Magnesia) 2,400 mg PRN QHS PRN PO CONSTIPATION Last administered on 10/04/17at 08:01; Start 10/03/17 at 06:30 Albuterol Sulfate (Ventolin Hfa Inhaler) 2 puff PRN Q6HRS PRN IH FOR ASTHMA; Start 10/03/17 at 07:45; Status UNV Carbamazepine (TEGretol) 200 mg BID PO Last administered on 10/06/17at 19:35; Start 10/03/17 at 09:00 Clonazepam (KlonoPIN) 0.5 mg BID@0900,1700 PO Last administered on 10/03/17at 11 :18; Start 10/03/17 at 09:00; Stop 10/03/17 at 16:55; Status DC Clonazepam (KlonoPIN) 2 mg QHS PO ; Start 10/03/17 at 21:00; Stop 10/03/17 at 21 :00; Status DC Cyanocobalamin (Vitamin B-12) 1,000 mcg DAILY PO Last administered on at 10:16; Start 10/03/17 at 09:00 Cyclosporine (Restasis) 1 drop BID OU Last administered on 10/06/17at 19:36; Start 10/03/17 at 09:00 Diclofenac Sodium (Voltaren) 1 stepan PRN TID TP Last administered on 10/05/17at 21:56; Start 10/03/17 at 07:45 Estradiol (Estrace) 1 stepan QSUTUTH VG ; Start 10/03/17 at 16:00; Stop 10/03/17 at 16:00; Status DC Levothyroxine Sodium (Synthroid) 112 mcg DAILY06 PO Last administered on at 05:46; Start 10/03/17 at 09:00 Senna/Docusate Sodium (Senna Plus) 1 tab PRN BID PRN PO CONSTIPATION; Start at 07:45 Acetaminophen/ Aspirin/Caffeine (Excedrin Migraine) 2 tab Q24H PRN PO MIGRAINE HEADACHE Last administered on 10/05/17at 14:16; Start 10/03/17 at 09:00 Baclofen (Lioresal) 10 mg Q4HRS PO ; Start 10/03/17 at 12:00; Status Cancel Calcium/Vitamin D (Oscal D 500mg/ 200uts) 1 tab DAILY PO Last administered on 10:17; Start 10/03/17 at 09:00 Artificial Tears (Refresh Classic) 1 drop PRN BID PRN OU DRY EYE; Start at 07:45 Fish Oil (Fish Oil) 1,000 mg DAILY PO Last administered on 10/06/17 10:16; Start 10/03/17 at 09:00 Fluticasone Propionate (Flonase) 1 spray DAILY NS Last administered on 10:16; Start 10/03/17 at 09:00 Glucosamine/ Chondroitin (Glucosamine-Chondroitin 500/400mg) 1 cap DAILY PO Last administered on 10/06/17 10:16; Start 10/03/17 at 09:00 Acetaminophen/ Hydrocodone Bitart (Lortab 10/325) 1 tab PRN Q4HRS PRN PO PAIN Last administered on 10/06/17 16:25; Start 10/03/17 at 07:45 Lidocaine (Lidoderm) 1 patch DAILY TD Last administered on 10/06/17 10:16; Start 10/03/17 at 09:00 Magnesium Oxide (Magnesium Oxide) 400 mg DAILY PO Last administered on 10:17; Start 10/03/17 at 09:00 Mupirocin (Bactroban) 1 stepan PRN BID PRN TP NOSE SORES; Start 10/03/17 at 09:00 Nystatin (Mycostatin) 1 stepan PRN BID PRN TP YEAST/RASH; Start 10/03/17 at 09:00 Polyethylene Glycol (miraLAX) 17 gm DAILY PO Last administered on 10/05/17 07: 52; Start 10/03/17 at 09:00 Risperidone (RisperDAL) 2 mg QHS PO Last administered on 10/06/17at 19:35; Start 10/03/17 at 21:00 Triamcinolone Acetonide (Kenalog) 1 stepan PRN TID PRN TP VAGINAL PAIN; Start at 09:00 Estradiol (Estrace) 1 stepan QSUTUTH PRN VG ITCHING; Start 10/03/17 at 16:00 Albuterol Sulfate (Ventolin) 2.5 mg PRN Q6HRS PRN NEB SHORTNESS OF BREATH; Start 10/03/17 at 09:00 Baclofen (Lioresal) 5 mg Q4HRS PO Last administered on 10/03/17at 11:21; Start 10/03/17 at 12:00; Stop 10/03/17 at 15:51; Status DC Ondansetron HCl (Zofran Odt) 4 mg PRN Q8HRS PRN PO NAUSEA/VOMITING Last administered on 10/03/17at 10:16; Start 10/03/17 at 09:45 Clonazepam (KlonoPIN) 1.5 mg QHS PO ; Start 10/03/17 at 21:00; Stop 10/03/17 at 21:00; Status DC Clonazepam (KlonoPIN) 1 mg QHS PO ; Start 10/06/17 at 21:00; Stop 10/06/17 at 21 :00; Status DC Clonazepam (KlonoPIN) 0.5 mg QHS PO ; Start 10/03/17 at 21:00; Stop 10/03/17 at 21:00; Status DC Clonazepam (KlonoPIN) 0.5 mg DAILY@1700 PO ; Start 10/03/17 at 17:00; Stop 10/03 at 17:00; Status DC Baclofen (Lioresal) 5 mg TID PO Last administered on 10/06/17at 19:37; Start at 21:00 Clonazepam (KlonoPIN) 0.5 mg DAILY PO Last administered on 10/06/17at 10:17; Start 10/04/17 at 09:00; Stop 10/09/17 at 00:00 Clonazepam (KlonoPIN) 0.5 mg DAILY@1700 PO Last administered on 10/06/17at 16:24 ; Start 10/04/17 at 17:00; Stop 10/12/17 at 00:00 Clonazepam (KlonoPIN) 1.5 mg Taper QHS PO Last administered on 10/06/17at 19:37 ; Start 10/03/17 at 21:00; Stop 10/18/17 at 20:59 Olanzapine (ZyPREXA ZYDIS) 2.5 mg PRN Q2HR PRN PO PSYCHOSIS Last administered on 10/04/17at 15:00; Start 10/03/17 at 17:45 Divalproex Sodium (Depakote Er) 250 mg QHS PO Last administered on 10/03/17at 19 :49; Start 10/03/17 at 21:00; Stop 10/03/17 at 21:01; Status DC Divalproex Sodium (Depakote Er) 500 mg QHS PO Last administered on 10/06/17at 19 :35; Start 10/04/17 at 21:00 Active Scripts Active Reported Lidocaine 1 Each Adh..patch 1 Each TP DAILY Clonazepam 2 Mg Tablet 2 Mg PO QHS Diclofenac Sodium 100 Gm Gel..gram. 100 Gm TP PRN TID Estrace (Estradiol) 42.5 Gm Cream.appl 1 Stepan VG PRN 2X/WEEK Magnesium Oxide 400 Mg Tablet 400 Mg PO DAILY Baclofen 10 Mg Tablet 5 Mg PO Q4HRS Tegretol (Carbamazepine) 200 Mg Tablet 200 Mg PO BID Excedrin Migraine Caplet (Aspirin/Acetaminophen/Caffeine) 1 Each Tablet 2 Each PO PRN Q24HRS PRN Risperidone 2 Mg Tablet 2 Mg PO QHS Miralax (Polyethylene Glycol 3350) 17 Gm Powd.pack 1 Packet PO DAILY Synthroid (Levothyroxine Sodium) 112 Mcg Tablet 112 Mcg PO DAILYAC [place] 3-6-9 1,200 mg Softgel (Fish Oil/Borage/Flax/Om3,6,9#1) 1,200 Mg Capsule 1 Cap PO DAILY Vitamin B-12 (Cyanocobalamin (Vitamin B-12)) 1,000 Mcg Tablet 1,000 Mcg PO DAILY Calcium 500 + Vit D 400 Tablet (Calcium Carbonate/Vitamin D3) 1 Each Tablet 1 Tab PO DAILY Glucosamine Chondroitin Tab (Gluc Stephen/Chondro Stephen A/Vit C/Mn) 1 Each Tablet 1 Tab PO DAILY [place] 10-325 Tablet (Hydrocodone Bit/Acetaminophen) 1 Each Tablet 1 Tab PO PRN Q4HRS PRN Senokot-S Tablet (Sennosides/Docusate Sodium) 1 Each Tablet 1 Tab PO PRN BID PRN Flonase Allergy Relief (Fluticasone Propionate) 9.9 Ml [place].susp 1 Sprays NS DAILY Refresh Plus (Carboxymethylcellulose Sodium) 1 Each Droperette 1 Drop OU PRN BID PRN Restasis (Cyclosporine) 1 Each Droperette 1 Each OU BID Triamcinolone Acetonide 15 Gm Cream..g. 1 Stepan TP PRN TID PRN Mupirocin 22 Gm Oint...g. 1 Stepan TP PRN BID PRN Nystatin 15 Gm Cream..g. 1 Stepan TP PRN BID PRN Clonazepam 0.5 Mg Tablet 0.5 Mg PO BID@0900,1700 Ventolin Hfa Inhaler (Albuterol Sulfate) 18 Gm Hfa.aer.ad 2 Puff IH PRN Q6HRS PRN I have reviewed the current psychotropics carefully including drug interactions. Risk benefit ratio favors no change other than as noted in my dictated progress note. Diagnosis: Problems: (1) Confusion (2) Delusion (3) Bipolar affective, mixed, sev w/ psych (4) Anxiety disorder (5) Impulse control disorder RACHANA BENNETT MD Oct 06, 2017 20:07
--- NOTE | 2017-10-06 20:10 | PDOC ---
Exam Note: Jermaine Note: Please also refer to the separate dictated note~for this date of service dictated separately.~Patient seen individually. Discussed the patient with Nursing staff reviewed the chart.~Reviewed interim history and current functioning. Reviewed vital signs,~Labs/ Radiology~and current medications noted below. Continue current treatment with the changes noted in the dictated addendum note Assessment: Vital Signs: Vital Signs Date Time Temp Pulse Resp B/P (MAP) Pulse Ox O2 Delivery O2 Flow Rate FiO2 10/06/17 17:48 97 10/06/17 16:33 97.9 59 20 145/85 (105) 10/06/17 10:45 Room Air I&O Intake and Output 10/06/17 07:00 Intake Total 1678 ml Balance 1678 ml Intake Oral 1678 ml # Bowel Movements 2 Current Medications: Meds: Current Medications Acetaminophen (Tylenol) 650 mg PRN Q6HRS PRN PO PAIN / TEMP; Start 10/03/17 at 06:30 Multi-Ingredient Ointment (Analgesic [place]) 1 stepan PRN QID PRN TP MUSCLE PAIN; Start 10/03/17 at 06:30 Al Hydroxide/Mg Hydroxide (Mylanta Plus Xs) 15 ml PRN AFTMEALHC PRN PO DYSPEPSIA; Start 10/03/17 at 06:30 Magnesium Hydroxide (Milk Of Magnesia) 2,400 mg PRN QHS PRN PO CONSTIPATION Last administered on 10/04/17at 08:01; Start 10/03/17 at 06:30 Albuterol Sulfate (Ventolin Hfa Inhaler) 2 puff PRN Q6HRS PRN IH FOR ASTHMA; Start 10/03/17 at 07:45; Status UNV Carbamazepine (TEGretol) 200 mg BID PO Last administered on 10/06/17at 19:35; Start 10/03/17 at 09:00 Clonazepam (KlonoPIN) 0.5 mg BID@0900,1700 PO Last administered on 10/03/17at 11 :18; Start 10/03/17 at 09:00; Stop 10/03/17 at 16:55; Status DC Clonazepam (KlonoPIN) 2 mg QHS PO ; Start 10/03/17 at 21:00; Stop 10/03/17 at 21 :00; Status DC Cyanocobalamin (Vitamin B-12) 1,000 mcg DAILY PO Last administered on 10:16; Start 10/03/17 at 09:00 Cyclosporine (Restasis) 1 drop BID OU Last administered on 10/06/17 19:36; Start 10/03/17 at 09:00 Diclofenac Sodium (Voltaren) 1 stepan PRN TID TP Last administered on 10/05/17 21:56; Start 10/03/17 at 07:45 Estradiol (Estrace) 1 stepan QSUTUTH VG ; Start 10/03/17 at 16:00; Stop 10/03/17 at 16:00; Status DC Levothyroxine Sodium (Synthroid) 112 mcg DAILY06 PO Last administered on 05:46; Start 10/03/17 at 09:00 Senna/Docusate Sodium (Senna Plus) 1 tab PRN BID PRN PO CONSTIPATION; Start at 07:45 Acetaminophen/ Aspirin/Caffeine (Excedrin Migraine) 2 tab Q24H PRN PO MIGRAINE HEADACHE Last administered on 10/05/17 14:16; Start 10/03/17 at 09:00 Baclofen (Lioresal) 10 mg Q4HRS PO ; Start 10/03/17 at 12:00; Status Cancel Calcium/Vitamin D (Oscal D 500mg/ 200uts) 1 tab DAILY PO Last administered on 10:17; Start 10/03/17 at 09:00 Artificial Tears (Refresh Classic) 1 drop PRN BID PRN OU DRY EYE; Start at 07:45 Fish Oil (Fish Oil) 1,000 mg DAILY PO Last administered on 10/06/17 10:16; Start 10/03/17 at 09:00 Fluticasone Propionate (Flonase) 1 spray DAILY NS Last administered on 10:16; Start 10/03/17 at 09:00 Glucosamine/ Chondroitin (Glucosamine-Chondroitin 500/400mg) 1 cap DAILY PO Last administered on 10/06/17 10:16; Start 10/03/17 at 09:00 Acetaminophen/ Hydrocodone Bitart (Lortab 10/325) 1 tab PRN Q4HRS PRN PO PAIN Last administered on 10/06/17 16:25; Start 10/03/17 at 07:45 Lidocaine (Lidoderm) 1 patch DAILY TD Last administered on 10/06/17at 10:16; Start 10/03/17 at 09:00 Magnesium Oxide (Magnesium Oxide) 400 mg DAILY PO Last administered on at 10:17; Start 10/03/17 at 09:00 Mupirocin (Bactroban) 1 stepan PRN BID PRN TP NOSE SORES; Start 10/03/17 at 09:00 Nystatin (Mycostatin) 1 stepan PRN BID PRN TP YEAST/RASH; Start 10/03/17 at 09:00 Polyethylene Glycol (miraLAX) 17 gm DAILY PO Last administered on 10/05/17at 07: 52; Start 10/03/17 at 09:00 Risperidone (RisperDAL) 2 mg QHS PO Last administered on 10/06/17at 19:35; Start 10/03/17 at 21:00 Triamcinolone Acetonide (Kenalog) 1 stepan PRN TID PRN TP VAGINAL PAIN; Start at 09:00 Estradiol (Estrace) 1 stepan QSUTUTH PRN VG ITCHING; Start 10/03/17 at 16:00 Albuterol Sulfate (Ventolin) 2.5 mg PRN Q6HRS PRN NEB SHORTNESS OF BREATH; Start 10/03/17 at 09:00 Baclofen (Lioresal) 5 mg Q4HRS PO Last administered on 10/03/17at 11:21; Start 10/03/17 at 12:00; Stop 10/03/17 at 15:51; Status DC Ondansetron HCl (Zofran Odt) 4 mg PRN Q8HRS PRN PO NAUSEA/VOMITING Last administered on 10/03/17at 10:16; Start 10/03/17 at 09:45 Clonazepam (KlonoPIN) 1.5 mg QHS PO ; Start 10/03/17 at 21:00; Stop 10/03/17 at 21:00; Status DC Clonazepam (KlonoPIN) 1 mg QHS PO ; Start 10/06/17 at 21:00; Stop 10/06/17 at 21 :00; Status DC Clonazepam (KlonoPIN) 0.5 mg QHS PO ; Start 10/03/17 at 21:00; Stop 10/03/17 at 21:00; Status DC Clonazepam (KlonoPIN) 0.5 mg DAILY@1700 PO ; Start 10/03/17 at 17:00; Stop 10/03 at 17:00; Status DC Baclofen (Lioresal) 5 mg TID PO Last administered on 10/06/17at 19:37; Start at 21:00 Clonazepam (KlonoPIN) 0.5 mg DAILY PO Last administered on 10/06/17at 10:17; Start 10/04/17 at 09:00; Stop 10/09/17 at 00:00 Clonazepam (KlonoPIN) 0.5 mg DAILY@1700 PO Last administered on 10/06/17 16:24 ; Start 10/04/17 at 17:00; Stop 10/12/17 at 00:00 Clonazepam (KlonoPIN) 1.5 mg Taper QHS PO Last administered on 10/06/17at 19:37 ; Start 10/03/17 at 21:00; Stop 10/18/17 at 20:59 Olanzapine (ZyPREXA ZYDIS) 2.5 mg PRN Q2HR PRN PO PSYCHOSIS Last administered on 10/04/17at 15:00; Start 10/03/17 at 17:45 Divalproex Sodium (Depakote Er) 250 mg QHS PO Last administered on 10/03/17 19 :49; Start 10/03/17 at 21:00; Stop 10/03/17 at 21:01; Status DC Divalproex Sodium (Depakote Er) 500 mg QHS PO Last administered on 10/06/17at 19 :35; Start 10/04/17 at 21:00 Active Scripts Active Reported Lidocaine 1 Each Adh..patch 1 Each TP DAILY Clonazepam 2 Mg Tablet 2 Mg PO QHS Diclofenac Sodium 100 Gm Gel..gram. 100 Gm TP PRN TID Estrace (Estradiol) 42.5 Gm Cream.appl 1 Stepan VG PRN 2X/WEEK Magnesium Oxide 400 Mg Tablet 400 Mg PO DAILY Baclofen 10 Mg Tablet 5 Mg PO Q4HRS Tegretol (Carbamazepine) 200 Mg Tablet 200 Mg PO BID Excedrin Migraine Caplet (Aspirin/Acetaminophen/Caffeine) 1 Each Tablet 2 Each PO PRN Q24HRS PRN Risperidone 2 Mg Tablet 2 Mg PO QHS Miralax (Polyethylene Glycol 3350) 17 Gm Powd.pack 1 Packet PO DAILY Synthroid (Levothyroxine Sodium) 112 Mcg Tablet 112 Mcg PO DAILYAC [place] 3-6-9 1,200 mg Softgel (Fish Oil/Borage/Flax/Om3,6,9#1) 1,200 Mg Capsule 1 Cap PO DAILY Vitamin B-12 (Cyanocobalamin (Vitamin B-12)) 1,000 Mcg Tablet 1,000 Mcg PO DAILY Calcium 500 + Vit D 400 Tablet (Calcium Carbonate/Vitamin D3) 1 Each Tablet 1 Tab PO DAILY Glucosamine Chondroitin Tab (Gluc Stephen/Chondro Stephen A/Vit C/Mn) 1 Each Tablet 1 Tab PO DAILY [place] 10-325 Tablet (Hydrocodone Bit/Acetaminophen) 1 Each Tablet 1 Tab PO PRN Q4HRS PRN Senokot-S Tablet (Sennosides/Docusate Sodium) 1 Each Tablet 1 Tab PO PRN BID PRN Flonase Allergy Relief (Fluticasone Propionate) 9.9 Ml [place].susp 1 Sprays NS DAILY Refresh Plus (Carboxymethylcellulose Sodium) 1 Each Droperette 1 Drop OU PRN BID PRN Restasis (Cyclosporine) 1 Each Droperette 1 Each OU BID Triamcinolone Acetonide 15 Gm Cream..g. 1 [place] TP PRN TID PRN Mupirocin 22 Gm Oint...g. 1 [place] TP PRN BID PRN Nystatin 15 Gm Cream..g. 1 [place] TP PRN BID PRN Clonazepam 0.5 Mg Tablet 0.5 Mg PO BID@0900,1700 Ventolin Hfa Inhaler (Albuterol Sulfate) 18 Gm Hfa.aer.ad 2 Puff IH PRN Q6HRS PRN I have reviewed the current psychotropics carefully including drug interactions. Risk benefit ratio favors no change other than as noted in my dictated progress note. Diagnosis: Problems: (1) Impulse control disorder (2) Schizoaffective disorder, bipolar type (3) Confusion (4) Delusion (5) Bipolar affective, mixed, sev w/ psych (6) Anxiety disorder RACHANA BENNETT MD Oct 06, 2017 20:10
[2017-10-06] MEDS ORDERED: clonazePAM 1 MG TABLET PO SCH (21:00)
[2017-10-07] MEDS: DICLOFENAC SODIUM 1% TOPICAL GEL 100GM TUBE. TP SCH (01:24)
--- NOTE | 2017-10-07 01:47 | PN ---
DATE: 10/04/2017 PSYCHIATRIC PROGRESS NOTE This is a late entry of 10/04/2017 covers elements not covered in my initial note. SUBJECTIVE: I met with the patient in the evening. The patient slept 9-3/4 hours previous evening, remains anxious, somewhat hyperverbal, hypomanic, tangential at times in a conversation. REVIEW OF SYSTEMS: No CV, , pulmonary, eye system symptoms on review. Gait unsteady with walker. MENTAL STATUS EXAM: Oriented to herself, situation. Speech coherent, rapid at times. Abstraction fair, computation impaired, language function intact, attention span short. Mood and affect remain somewhat labile, grandiose at times. LABORATORY DATA: Reviewed. IMPRESSION: Bipolar 1 disorder, manic with psychotic features, in partial remission. Rest unchanged. PLAN: Continue psychotropics from initial note. Depakote is being adjusted and once therapeutic, we will taper and stop Tegretol. MAN Fox BENNETT MD DR: GIGI/taya JOB#: [id number] / [id number]
[2017-10-07] MEDS: HYDROcodone/APAP 10/325 1 TAB TABLET PO PRN ×3 (04:40→19:21)
[2017-10-07 05:33] VITALS: BP 171/79
[2017-10-07] MEDS: LEVOTHYROXINE 112 MCG TABLET PO SCH (06:10)
[2017-10-07 07:11] LABS: BASO % 1 % (0-3); EOS # 0.1 x10^3/uL (0.0-0.7); EOS % 2 % (0-3); HEMATOCRIT 34.2 % (36.0-47.0); HEMOGLOBIN 11.8 g/dL (12.0-15.5); LYMPH # 1.9 x10^3/uL (1.0-4.8); LYMPH % 31 % (24-48); MEAN CORPUSCULAR HEMOGLOBIN 34 pg (25-35); MEAN CORPUSCULAR HGB CONC 35 g/dL (31-37); MEAN CORPUSCULAR VOLUME 98 fL (79-100); MONO # 0.5 x10^3/uL (0.0-1.1); MONO % 8 % (0-9); NEUT # 3.5 x10^3uL (1.8-7.7); NEUT % 58 % (31-73); PLATELET COUNT 260 x10^3/uL (140-400); RED CELL DISTRIBUTION WIDTH 13.9 % (11.5-14.5); WHITE BLOOD COUNT 6.1 x10^3/uL (4.0-11.0)
[2017-10-07 07:22] LABS: ALBUMIN 3.3 g/dL (3.4-5.0); ALBUMIN/GLOBULIN RATIO 0.9 (1.0-1.7); ALK PHOS 98 U/L (46-116); ALT (SGPT) 19 U/L (14-59); ANION GAP 5 (6-14); AST (SGOT) 21 U/L (15-37); BLOOD UREA NITROGEN 24 mg/dL (7-20); BUN/CREATININE RATIO 18 (6-20); CALCIUM 9.2 mg/dL (8.5-10.1); CARBON DIOXIDE 33 mmol/L (21-32); CHLORIDE 106 mmol/L (98-107); CREATININE 1.3 mg/dL (0.6-1.0); GFR 39.4; GLUCOSE 99 mg/dL (70-99); POTASSIUM 4.4 mmol/L (3.5-5.1); SODIUM 144 mmol/L (136-145); TOTAL BILIRUBIN 0.3 mg/dL (0.2-1.0); TOTAL PROTEIN 6.9 g/dL (6.4-8.2)
[2017-10-07 07:23] LABS: VAL ACID 26 mcg/mL (50-100)
[2017-10-07] MEDS: cycloSPORINE 0.05% OPTH 1 DROP DROPERETTE OU SCH ×2 (08:12→19:22)
[2017-10-07] MEDS: POLYETHYLENE GLYCOL 3350 17 GM PACKET. PO SCH (08:13)
[2017-10-07] MEDS: carBAMazepine 200 MG TABLET PO SCH ×2 (08:13→19:21)
[2017-10-07] MEDS: FLUTICASONE 50MCG/NASAL SPRAY 16GM BOTTLE. NS SCH (08:13)
[2017-10-07] MEDS: CALCIUM CARB/VIT D3 500/200 TABLET PO SCH (08:13)
[2017-10-07] MEDS: OMEGA-3 FATTY ACIDS/FISH OIL 1,000 MG CAPSULE. PO SCH (08:13)
[2017-10-07] MEDS: clonazePAM 0.5 MG TABLET PO SCH ×2 (08:13→17:23)
[2017-10-07] MEDS: LIDOCAINE (700MG/PATCH) PATCH. TD SCH (08:13)
[2017-10-07] MEDS: MAGNESIUM OXIDE 400 MG TABLET PO SCH (08:14)
[2017-10-07] MEDS: BACLOFEN 10 MG TABLET PO SCH ×3 (08:14→19:22)
[2017-10-07] MEDS: GLUCOSAMINE/CHOND 500/400MG CAPSULE PO SCH (08:14)
[2017-10-07] MEDS: CYANOCOBALAMIN (VITAMIN B-12) 1,000 MCG TABLET. PO SCH (08:14)
[2017-10-07 15:41] VITALS: BP 166/72
[2017-10-07] MEDS: clonazePAM 1 MG TABLET PO SCH (19:22)
[2017-10-07] MEDS: risperiDONE 2 MG TABLET. PO SCH (19:22)
[2017-10-07] MEDS: DIVALPROEX ER 250 MG TAB.ER.24H. PO SCH (19:43)
[2017-10-07] MEDS: ATORVASTATIN CALCIUM 10 MG TABLET. PO SCH (19:44)
--- NOTE | 2017-10-07 20:52 | PDOC ---
Exam Note: Jermaine Note: Please also refer to the separate dictated note~for this date of service dictated separately.~Patient seen individually. Discussed the patient with Nursing staff reviewed the chart.~Reviewed interim history and current functioning. Reviewed vital signs,~Labs/ Radiology~and current medications noted below. Continue current treatment with the changes noted in the dictated addendum note Assessment: Vital Signs: Vital Signs Date Time Temp Pulse Resp B/P (MAP) Pulse Ox O2 Delivery O2 Flow Rate FiO2 10/07/17 20:50 20 10/07/17 15:41 97.7 70 166/72 (103) 94 Room Air I&O Intake and Output 10/07/17 07:00 Intake Total 840 ml Balance 840 ml Intake Oral 840 ml Labs: Laboratory Tests Test 10/07/17 06:55 White Blood Count 6.1 x10^3/uL (4.0-11.0) Red Blood Count 3.50 x10^6/uL (3.50-5.40) Hemoglobin 11.8 g/dL (12.0-15.5) L Hematocrit 34.2 % (36.0-47.0) L Mean Corpuscular Volume 98 fL (79-100) Mean Corpuscular Hemoglobin 34 pg (25-35) Mean Corpuscular Hemoglobin Concent 35 g/dL (31-37) Red Cell Distribution Width 13.9 % (11.5-14.5) Platelet Count 260 x10^3/uL (140-400) Neutrophils (%) (Auto) 58 % (31-73) Lymphocytes (%) (Auto) 31 % (24-48) Monocytes (%) (Auto) 8 % (0-9) Eosinophils (%) (Auto) 2 % (0-3) Basophils (%) (Auto) 1 % (0-3) Neutrophils # (Auto) 3.5 x10^3uL (1.8-7.7) Lymphocytes # (Auto) 1.9 x10^3/uL (1.0-4.8) Monocytes # (Auto) 0.5 x10^3/uL (0.0-1.1) Eosinophils # (Auto) 0.1 x10^3/uL (0.0-0.7) Basophils # (Auto) 0.0 x10^3/uL (0.0-0.2) Sodium Level 144 mmol/L (136-145) Potassium Level 4.4 mmol/L (3.5-5.1) Chloride Level 106 mmol/L (98-107) Carbon Dioxide Level 33 mmol/L (21-32) H Anion Gap 5 (6-14) L Blood Urea Nitrogen 24 mg/dL (7-20) H Creatinine 1.3 mg/dL (0.6-1.0) H Estimated GFR (Cockcroft-Gault) 39.4 BUN/Creatinine Ratio 18 (6-20) Glucose Level 99 mg/dL (70-99) Calcium Level 9.2 mg/dL (8.5-10.1) Total Bilirubin 0.3 mg/dL (0.2-1.0) Aspartate Amino Transferase (AST) 21 U/L (15-37) Alanine Aminotransferase (ALT) 19 U/L (14-59) Alkaline Phosphatase 98 U/L (46-116) Total Protein 6.9 g/dL (6.4-8.2) Albumin 3.3 g/dL (3.4-5.0) L Albumin/Globulin Ratio 0.9 (1.0-1.7) L Valproic Acid Level 26 mcg/mL (50-100) L Valproic Acid Last Dose Date 10/06/17 Valproic Acid Last Dose Time 2100 Current Medications: Meds: Current Medications Acetaminophen (Tylenol) 650 mg PRN Q6HRS PRN PO PAIN / TEMP; Start 10/03/17 at 06:30 Multi-Ingredient Ointment (Analgesic [place]) 1 stepan PRN QID PRN TP MUSCLE PAIN; Start 10/03/17 at 06:30 Al Hydroxide/Mg Hydroxide (Mylanta Plus Xs) 15 ml PRN AFTMEALHC PRN PO DYSPEPSIA; Start 10/03/17 at 06:30 Magnesium Hydroxide (Milk Of Magnesia) 2,400 mg PRN QHS PRN PO CONSTIPATION Last administered on 10/04/17at 08:01; Start 10/03/17 at 06:30 Albuterol Sulfate (Ventolin Hfa Inhaler) 2 puff PRN Q6HRS PRN IH FOR ASTHMA; Start 10/03/17 at 07:45; Status UNV Carbamazepine (TEGretol) 200 mg BID PO Last administered on 10/07/17at 19:21; Start 10/03/17 at 09:00 Clonazepam (KlonoPIN) 0.5 mg BID@0900,1700 PO Last administered on 10/03/17at 11 :18; Start 10/03/17 at 09:00; Stop 10/03/17 at 16:55; Status DC Clonazepam (KlonoPIN) 2 mg QHS PO ; Start 10/03/17 at 21:00; Stop 10/03/17 at 21 :00; Status DC Cyanocobalamin (Vitamin B-12) 1,000 mcg DAILY PO Last administered on at 08:14; Start 10/03/17 at 09:00 Cyclosporine (Restasis) 1 drop BID OU Last administered on 10/07/17at 19:22; Start 10/03/17 at 09:00 Diclofenac Sodium (Voltaren) 1 stepan PRN TID TP Last administered on 10/07/17at 01:24; Start 10/03/17 at 07:45 Estradiol (Estrace) 1 stepan QSUTUTH VG ; Start 10/03/17 at 16:00; Stop 10/03/17 at 16:00; Status DC Levothyroxine Sodium (Synthroid) 112 mcg DAILY06 PO Last administered on at 06:10; Start 10/03/17 at 09:00 Senna/Docusate Sodium (Senna Plus) 1 tab PRN BID PRN PO CONSTIPATION; Start at 07:45 Acetaminophen/ Aspirin/Caffeine (Excedrin Migraine) 2 tab Q24H PRN PO MIGRAINE HEADACHE Last administered on 10/05/17at 14:16; Start 10/03/17 at 09:00 Baclofen (Lioresal) 10 mg Q4HRS PO ; Start 10/03/17 at 12:00; Status Cancel Calcium/Vitamin D (Oscal D 500mg/ 200uts) 1 tab DAILY PO Last administered on at 08:13; Start 10/03/17 at 09:00 Artificial Tears (Refresh Classic) 1 drop PRN BID PRN OU DRY EYE; Start at 07:45 Fish Oil (Fish Oil) 1,000 mg DAILY PO Last administered on 10/07/17at 08:13; Start 10/03/17 at 09:00 Fluticasone Propionate (Flonase) 1 spray DAILY NS Last administered on 08:13; Start 10/03/17 at 09:00 Glucosamine/ Chondroitin (Glucosamine-Chondroitin 500/400mg) 1 cap DAILY PO Last administered on 10/07/17 08:14; Start 10/03/17 at 09:00 Acetaminophen/ Hydrocodone Bitart (Lortab 10/325) 1 tab PRN Q4HRS PRN PO PAIN Last administered on 10/07/17 19:21; Start 10/03/17 at 07:45 Lidocaine (Lidoderm) 1 patch DAILY TD Last administered on 10/07/17 08:13; Start 10/03/17 at 09:00 Magnesium Oxide (Magnesium Oxide) 400 mg DAILY PO Last administered on 08:14; Start 10/03/17 at 09:00 Mupirocin (Bactroban) 1 stepan PRN BID PRN TP NOSE SORES; Start 10/03/17 at 09:00 Nystatin (Mycostatin) 1 stepan PRN BID PRN TP YEAST/RASH; Start 10/03/17 at 09:00 Polyethylene Glycol (miraLAX) 17 gm DAILY PO Last administered on 10/07/17 08: 13; Start 10/03/17 at 09:00 Risperidone (RisperDAL) 2 mg QHS PO Last administered on 10/07/17 19:22; Start 10/03/17 at 21:00 Triamcinolone Acetonide (Kenalog) 1 stepan PRN TID PRN TP VAGINAL PAIN; Start at 09:00 Estradiol (Estrace) 1 stepan QSUTUTH PRN VG ITCHING; Start 10/03/17 at 16:00 Albuterol Sulfate (Ventolin) 2.5 mg PRN Q6HRS PRN NEB SHORTNESS OF BREATH; Start 10/03/17 at 09:00 Baclofen (Lioresal) 5 mg Q4HRS PO Last administered on 10/03/17at 11:21; Start 10/03/17 at 12:00; Stop 10/03/17 at 15:51; Status DC Ondansetron HCl (Zofran Odt) 4 mg PRN Q8HRS PRN PO NAUSEA/VOMITING Last administered on 10/03/17at 10:16; Start 10/03/17 at 09:45 Clonazepam (KlonoPIN) 1.5 mg QHS PO ; Start 10/03/17 at 21:00; Stop 10/03/17 at 21:00; Status DC Clonazepam (KlonoPIN) 1 mg QHS PO ; Start 10/06/17 at 21:00; Stop 10/06/17 at 21 :00; Status DC Clonazepam (KlonoPIN) 0.5 mg QHS PO ; Start 10/03/17 at 21:00; Stop 10/03/17 at 21:00; Status DC Clonazepam (KlonoPIN) 0.5 mg DAILY@1700 PO ; Start 10/03/17 at 17:00; Stop 10/03 at 17:00; Status DC Baclofen (Lioresal) 5 mg TID PO Last administered on 10/07/17at 19:22; Start at 21:00 Clonazepam (KlonoPIN) 0.5 mg DAILY PO Last administered on 10/07/17at 08:13; Start 10/04/17 at 09:00; Stop 10/09/17 at 00:00 Clonazepam (KlonoPIN) 0.5 mg DAILY@1700 PO Last administered on 10/07/17at 17:23 ; Start 10/04/17 at 17:00; Stop 10/12/17 at 00:00 Clonazepam (KlonoPIN) 1 mg Taper QHS PO Last administered on 10/07/17at 19:22; Start 10/03/17 at 21:00; Stop 10/18/17 at 20:59 Olanzapine (ZyPREXA ZYDIS) 2.5 mg PRN Q2HR PRN PO PSYCHOSIS Last administered on 10/04/17at 15:00; Start 10/03/17 at 17:45 Divalproex Sodium (Depakote Er) 250 mg QHS PO Last administered on 10/03/17at 19 :49; Start 10/03/17 at 21:00; Stop 10/03/17 at 21:01; Status DC Divalproex Sodium (Depakote Er) 500 mg QHS PO Last administered on 10/06/17at 19 :35; Start 10/04/17 at 21:00; Stop 10/07/17 at 18:41; Status DC Atorvastatin Calcium (Lipitor) 10 mg QHS PO Last administered on 10/07/17at 19: 44; Start 10/07/17 at 21:00 Divalproex Sodium (Depakote Er) 750 mg QHS PO Last administered on 10/07/17at 19 :43; Start 10/07/17 at 21:00 Active Scripts Active Reported Lidocaine 1 Each Adh..patch 1 Each TP DAILY Clonazepam 2 Mg Tablet 2 Mg PO QHS Diclofenac Sodium 100 Gm Gel..gram. 100 Gm TP PRN TID Estrace (Estradiol) 42.5 Gm Cream.appl 1 Stepan VG PRN 2X/WEEK Magnesium Oxide 400 Mg Tablet 400 Mg PO DAILY Baclofen 10 Mg Tablet 5 Mg PO Q4HRS Tegretol (Carbamazepine) 200 Mg Tablet 200 Mg PO BID Excedrin Migraine Caplet (Aspirin/Acetaminophen/Caffeine) 1 Each Tablet 2 Each PO PRN Q24HRS PRN Risperidone 2 Mg Tablet 2 Mg PO QHS Miralax (Polyethylene Glycol 3350) 17 Gm Powd.pack 1 Packet PO DAILY Synthroid (Levothyroxine Sodium) 112 Mcg Tablet 112 Mcg PO DAILYAC [place] 3-6-9 1,200 mg Softgel (Fish Oil/Borage/Flax/Om3,6,9#1) 1,200 Mg Capsule 1 Cap PO DAILY Vitamin B-12 (Cyanocobalamin (Vitamin B-12)) 1,000 Mcg Tablet 1,000 Mcg PO DAILY Calcium 500 + Vit D 400 Tablet (Calcium Carbonate/Vitamin D3) 1 Each Tablet 1 Tab PO DAILY Glucosamine Chondroitin Tab (Gluc Stephen/Chondro Stephen A/Vit C/Mn) 1 Each Tablet 1 Tab PO DAILY [place] 10-325 Tablet (Hydrocodone Bit/Acetaminophen) 1 Each Tablet 1 Tab PO PRN Q4HRS PRN Senokot-S Tablet (Sennosides/Docusate Sodium) 1 Each Tablet 1 Tab PO PRN BID PRN Flonase Allergy Relief (Fluticasone Propionate) 9.9 Ml [place].susp 1 Sprays NS DAILY Refresh Plus (Carboxymethylcellulose Sodium) 1 Each Droperette 1 Drop OU PRN BID PRN Restasis (Cyclosporine) 1 Each Droperette 1 Each OU BID Triamcinolone Acetonide 15 Gm Cream..g. 1 Stepan TP PRN TID PRN Mupirocin 22 Gm Oint...g. 1 Ste[place] TP PRN BID PRN Nystatin 15 Gm Cream..g. 1 Stepan TP PRN BID PRN Clonazepam 0.5 Mg Tablet 0.5 Mg PO BID@0900,1700 Ventolin Hfa Inhaler (Albuterol Sulfate) 18 Gm Hfa.aer.ad 2 Puff IH PRN Q6HRS PRN I have reviewed the current psychotropics carefully including drug interactions. Risk benefit ratio favors no change other than as noted in my dictated progress note. Diagnosis: Problems: (1) Schizoaffective disorder, bipolar type (2) Impulse control disorder (3) Confusion (4) Delusion (5) Bipolar affective, mixed, sev w/ psych (6) Anxiety disorder (7) Impulse control disorder RACHANA BENNETT MD Oct 07, 2017 20:52
[2017-10-08] MEDS: HYDROcodone/APAP 10/325 1 TAB TABLET PO PRN ×3 (01:41→14:13)
--- NOTE | 2017-10-08 04:55 | PN ---
DATE: 10/06/2017 This is a late entry for 10/06/2017 covers elements not covered in my initial note. SUBJECTIVE: I met with the patient in the evening. The patient slept 7-1/4 hours previous night. I met with her in her room and later in the common area. She had many other questions about her diagnosis and Depakote. REVIEW OF SYSTEMS: Ambulation impaired with walker. No CV, , pulmonary, eye system symptoms on review. MENTAL STATUS EXAM: Reasonably oriented. Speech is coherent, abstraction fair, computation impaired, language function intact. Short-term memory has some deficits; otherwise, reasonably oriented. No suicidal or homicidal ideation. LABORATORY DATA: Reviewed. IMPRESSION: Unchanged from initial note. PLAN: No change from initial note. Adjust Depakote to reach therapeutic level. MAN Fox BENNETT MD DR: GIGI/taya JOB#: [id number] / [id number]
--- NOTE | 2017-10-08 05:03 | PN ---
DATE: 10/05/2017 This late entry 10/05/2017 covers elements not covered in my initial note. SUBJECTIVE: I met with the patient in the evening. The patient slept 7-3/4 hours previous evening. I met with her in her room. Tegretol level 5.4. She has been depressed, sad, talking about her daughter who , unable to comprehend this and processed this reasonably well. REVIEW OF SYSTEMS: Ambulation impaired with walker. No CV, , pulmonary, eye system symptoms on review. MENTAL STATUS EXAM: Reasonably oriented. Speech is coherent, a little pressured at times. Abstraction fair, computation impaired, language function intact. Short-term memory has some deficits. No suicidal or homicidal ideation. LABORATORY DATA: Reviewed. IMPRESSION: Bipolar 1 disorder, mixed versus schizoaffective disorder, bipolar type. Rest unchanged. PLAN: Continue psychotropics from initial note. Depakote is being adjusted to reach therapeutic level and then we will taper and stop the Tegretol. I discussed this at length with the patient, she had many questions about this. RACHANA BENNETT MD DR: GIGI/taya JOB#: [id number] / [id number]
[2017-10-08 05:36] VITALS: BP 161/89
[2017-10-08] MEDS: LEVOTHYROXINE 112 MCG TABLET PO SCH ×2 (06:01→08:43)
[2017-10-08] MEDS: carBAMazepine 200 MG TABLET PO SCH ×2 (08:42→20:03)
[2017-10-08] MEDS: MAGNESIUM OXIDE 400 MG TABLET PO SCH (08:42)
[2017-10-08] MEDS: OMEGA-3 FATTY ACIDS/FISH OIL 1,000 MG CAPSULE. PO SCH (08:43)
[2017-10-08] MEDS: GLUCOSAMINE/CHOND 500/400MG CAPSULE PO SCH (08:43)
[2017-10-08] MEDS: LIDOCAINE (700MG/PATCH) PATCH. TD SCH (08:43)
[2017-10-08] MEDS: CYANOCOBALAMIN (VITAMIN B-12) 1,000 MCG TABLET. PO SCH (08:43)
[2017-10-08] MEDS: BACLOFEN 10 MG TABLET PO SCH ×3 (08:43→20:02)
[2017-10-08] MEDS: POLYETHYLENE GLYCOL 3350 17 GM PACKET. PO SCH (08:43)
[2017-10-08] MEDS: cycloSPORINE 0.05% OPTH 1 DROP DROPERETTE OU SCH ×2 (08:43→20:03)
[2017-10-08] MEDS: CALCIUM CARB/VIT D3 500/200 TABLET PO SCH (08:43)
[2017-10-08] MEDS: clonazePAM 0.5 MG TABLET PO SCH ×2 (08:45→17:43)
[2017-10-08] MEDS: FLUTICASONE 50MCG/NASAL SPRAY 16GM BOTTLE. NS SCH (08:45)
[2017-10-08 16:11] VITALS: BP 162/83
[2017-10-08] MEDS: ATORVASTATIN CALCIUM 10 MG TABLET. PO SCH (20:02)
[2017-10-08] MEDS: DIVALPROEX ER 250 MG TAB.ER.24H. PO SCH (20:03)
[2017-10-08] MEDS: risperiDONE 2 MG TABLET. PO SCH (20:03)
[2017-10-08] MEDS: oxyCODONE ER 10 MG TAB.ER.12H PO SCH (20:05)
[2017-10-08] MEDS: MIRTAZAPINE 7.5 MG TABLET. PO SCH (20:05)
[2017-10-08] MEDS: clonazePAM 1 MG TABLET PO SCH (20:05)
--- NOTE | 2017-10-08 21:02 | PDOC ---
Exam Note: Jermaine Note: Please also refer to the separate dictated note~for this date of service dictated separately.~Patient seen individually. Discussed the patient with Nursing staff reviewed the chart.~Reviewed interim history and current functioning. Reviewed vital signs,~Labs/ Radiology~and current medications noted below. Continue current treatment with the changes noted in the dictated addendum note Assessment: Vital Signs: Vital Signs Date Time Temp Pulse Resp B/P (MAP) Pulse Ox O2 Delivery O2 Flow Rate FiO2 10/08/17 20:05 20 98 Room Air 10/08/17 16:11 97.2 67 162/83 (109) I&O Intake and Output 10/08/17 07:00 Intake Total 840 ml Balance 840 ml Intake Oral 840 ml # Bowel Movements 1 Current Medications: Meds: Current Medications Acetaminophen (Tylenol) 650 mg PRN Q6HRS PRN PO PAIN / TEMP; Start 10/03/17 at 06:30 Multi-Ingredient Ointment (Analgesic [place]) 1 stepan PRN QID PRN TP MUSCLE PAIN; Start 10/03/17 at 06:30 Al Hydroxide/Mg Hydroxide (Mylanta Plus Xs) 15 ml PRN AFTMEALHC PRN PO DYSPEPSIA; Start 10/03/17 at 06:30 Magnesium Hydroxide (Milk Of Magnesia) 2,400 mg PRN QHS PRN PO CONSTIPATION Last administered on 10/04/17at 08:01; Start 10/03/17 at 06:30 Albuterol Sulfate (Ventolin Hfa Inhaler) 2 puff PRN Q6HRS PRN IH FOR ASTHMA; Start 10/03/17 at 07:45; Status UNV Carbamazepine (TEGretol) 200 mg BID PO Last administered on 10/08/17at 20:03; Start 10/03/17 at 09:00 Clonazepam (KlonoPIN) 0.5 mg BID@0900,1700 PO Last administered on 10/03/17at 11 :18; Start 10/03/17 at 09:00; Stop 10/03/17 at 16:55; Status DC Clonazepam (KlonoPIN) 2 mg QHS PO ; Start 10/03/17 at 21:00; Stop 10/03/17 at 21 :00; Status DC Cyanocobalamin (Vitamin B-12) 1,000 mcg DAILY PO Last administered on 08:43; Start 10/03/17 at 09:00 Cyclosporine (Restasis) 1 drop BID OU Last administered on 10/08/17 20:03; Start 10/03/17 at 09:00 Diclofenac Sodium (Voltaren) 1 stepan PRN TID TP Last administered on 10/07/17 01:24; Start 10/03/17 at 07:45 Estradiol (Estrace) 1 stepan QSUTUTH VG ; Start 10/03/17 at 16:00; Stop 10/03/17 at 16:00; Status DC Levothyroxine Sodium (Synthroid) 112 mcg DAILY06 PO Last administered on 08:43; Start 10/03/17 at 09:00 Senna/Docusate Sodium (Senna Plus) 1 tab PRN BID PRN PO CONSTIPATION; Start at 07:45 Acetaminophen/ Aspirin/Caffeine (Excedrin Migraine) 2 tab Q24H PRN PO MIGRAINE HEADACHE Last administered on 10/05/17 14:16; Start 10/03/17 at 09:00 Baclofen (Lioresal) 10 mg Q4HRS PO ; Start 10/03/17 at 12:00; Status Cancel Calcium/Vitamin D (Oscal D 500mg/ 200uts) 1 tab DAILY PO Last administered on 08:43; Start 10/03/17 at 09:00 Artificial Tears (Refresh Classic) 1 drop PRN BID PRN OU DRY EYE; Start at 07:45 Fish Oil (Fish Oil) 1,000 mg DAILY PO Last administered on 10/08/17 08:43; Start 10/03/17 at 09:00 Fluticasone Propionate (Flonase) 1 spray DAILY NS Last administered on 08:45; Start 10/03/17 at 09:00 Glucosamine/ Chondroitin (Glucosamine-Chondroitin 500/400mg) 1 cap DAILY PO Last administered on 10/08/17 08:43; Start 10/03/17 at 09:00 Acetaminophen/ Hydrocodone Bitart (Lortab 10/325) 1 tab PRN Q4HRS PRN PO PAIN Last administered on 10/08/17 14:13; Start 10/03/17 at 07:45 Lidocaine (Lidoderm) 1 patch DAILY TD Last administered on 10/08/17at 08:43; Start 10/03/17 at 09:00 Magnesium Oxide (Magnesium Oxide) 400 mg DAILY PO Last administered on at 08:42; Start 10/03/17 at 09:00 Mupirocin (Bactroban) 1 stepan PRN BID PRN TP NOSE SORES; Start 10/03/17 at 09:00 Nystatin (Mycostatin) 1 stepan PRN BID PRN TP YEAST/RASH; Start 10/03/17 at 09:00 Polyethylene Glycol (miraLAX) 17 gm DAILY PO Last administered on 10/08/17at 08: 43; Start 10/03/17 at 09:00 Risperidone (RisperDAL) 2 mg QHS PO Last administered on 10/08/17at 20:03; Start 10/03/17 at 21:00 Triamcinolone Acetonide (Kenalog) 1 stepan PRN TID PRN TP VAGINAL PAIN; Start at 09:00 Estradiol (Estrace) 1 stepan QSUTUTH PRN VG ITCHING; Start 10/03/17 at 16:00 Albuterol Sulfate (Ventolin) 2.5 mg PRN Q6HRS PRN NEB SHORTNESS OF BREATH; Start 10/03/17 at 09:00 Baclofen (Lioresal) 5 mg Q4HRS PO Last administered on 10/03/17at 11:21; Start 10/03/17 at 12:00; Stop 10/03/17 at 15:51; Status DC Ondansetron HCl (Zofran Odt) 4 mg PRN Q8HRS PRN PO NAUSEA/VOMITING Last administered on 10/03/17at 10:16; Start 10/03/17 at 09:45 Clonazepam (KlonoPIN) 1.5 mg QHS PO ; Start 10/03/17 at 21:00; Stop 10/03/17 at 21:00; Status DC Clonazepam (KlonoPIN) 1 mg QHS PO ; Start 10/06/17 at 21:00; Stop 10/06/17 at 21 :00; Status DC Clonazepam (KlonoPIN) 0.5 mg QHS PO ; Start 10/03/17 at 21:00; Stop 10/03/17 at 21:00; Status DC Clonazepam (KlonoPIN) 0.5 mg DAILY@1700 PO ; Start 10/03/17 at 17:00; Stop 10/03 at 17:00; Status DC Baclofen (Lioresal) 5 mg TID PO Last administered on 10/08/17 20:02; Start at 21:00 Clonazepam (KlonoPIN) 0.5 mg DAILY PO Last administered on 10/08/17 08:45; Start 10/04/17 at 09:00; Stop 10/09/17 at 00:00 Clonazepam (KlonoPIN) 0.5 mg DAILY@1700 PO Last administered on 10/08/17 17:43 ; Start 10/04/17 at 17:00; Stop 10/12/17 at 00:00 Clonazepam (KlonoPIN) 1 mg Taper QHS PO Last administered on 10/08/17 20:05; Start 10/03/17 at 21:00; Stop 10/18/17 at 20:59 Olanzapine (ZyPREXA ZYDIS) 2.5 mg PRN Q2HR PRN PO PSYCHOSIS Last administered on 10/04/17 15:00; Start 10/03/17 at 17:45 Divalproex Sodium (Depakote Er) 250 mg QHS PO Last administered on 10/03/17 19 :49; Start 10/03/17 at 21:00; Stop 10/03/17 at 21:01; Status DC Divalproex Sodium (Depakote Er) 500 mg QHS PO Last administered on 10/06/17 19 :35; Start 10/04/17 at 21:00; Stop 10/07/17 at 18:41; Status DC Atorvastatin Calcium (Lipitor) 10 mg QHS PO Last administered on 10/08/17 20: 02; Start 10/07/17 at 21:00 Divalproex Sodium (Depakote Er) 750 mg QHS PO Last administered on 10/08/17 20 :03; Start 10/07/17 at 21:00 Oxycodone HCl (OxyCONTIN) 10 mg Q12HR PO Last administered on 10/08/17 20:05; Start 10/08/17 at 21:00 Mirtazapine (Remeron) 7.5 mg QHS PO Last administered on 8/28/18at 20:05; Start 10/08/17 at 21:00 Active Scripts Active Reported Lidocaine 1 Each Adh..patch 1 Each TP DAILY Clonazepam 2 Mg Tablet 2 Mg PO QHS Diclofenac Sodium 100 Gm Gel..gram. 100 Gm TP PRN TID Estrace (Estradiol) 42.5 Gm Cream.appl 1 Stepan VG PRN 2X/WEEK Magnesium Oxide 400 Mg Tablet 400 Mg PO DAILY Baclofen 10 Mg Tablet 5 Mg PO Q4HRS Tegretol (Carbamazepine) 200 Mg Tablet 200 Mg PO BID Excedrin Migraine Caplet (Aspirin/Acetaminophen/Caffeine) 1 Each Tablet 2 Each PO PRN Q24HRS PRN Risperidone 2 Mg Tablet 2 Mg PO QHS Miralax (Polyethylene Glycol 3350) 17 Gm Powd.pack 1 Packet PO DAILY Synthroid (Levothyroxine Sodium) 112 Mcg Tablet 112 Mcg PO DAILYAC [place] 3-6-9 1,200 mg Softgel (Fish Oil/Borage/Flax/Om3,6,9#1) 1,200 Mg Capsule 1 Cap PO DAILY Vitamin B-12 (Cyanocobalamin (Vitamin B-12)) 1,000 Mcg Tablet 1,000 Mcg PO DAILY Calcium 500 + Vit D 400 Tablet (Calcium Carbonate/Vitamin D3) 1 Each Tablet 1 Tab PO DAILY Glucosamine Chondroitin Tab (Gluc Stephen/Chondro Stephen A/Vit C/Mn) 1 Each Tablet 1 Tab PO DAILY [place] 10-325 Tablet (Hydrocodone Bit/Acetaminophen) 1 Each Tablet 1 Tab PO PRN Q4HRS PRN Senokot-S Tablet (Sennosides/Docusate Sodium) 1 Each Tablet 1 Tab PO PRN BID PRN Flonase Allergy Relief (Fluticasone Propionate) 9.9 Ml [place].susp 1 Sprays NS DAILY Refresh Plus (Carboxymethylcellulose Sodium) 1 Each Droperette 1 Drop OU PRN BID PRN Restasis (Cyclosporine) 1 Each Droperette 1 Each OU BID Triamcinolone Acetonide 15 Gm Cream..g. 1 [place] TP PRN TID PRN Mupirocin 22 Gm Oint...g. 1 Ste[place] TP PRN BID PRN Nystatin 15 Gm Cream..g. 1 Ste[place] TP PRN BID PRN Clonazepam 0.5 Mg Tablet 0.5 Mg PO BID@0900,1700 Ventolin Hfa Inhaler (Albuterol Sulfate) 18 Gm Hfa.aer.ad 2 Puff IH PRN Q6HRS PRN I have reviewed the current psychotropics carefully including drug interactions. Risk benefit ratio favors no change other than as noted in my dictated progress note. Diagnosis: Problems: (1) Schizoaffective disorder, bipolar type (2) Impulse control disorder (3) Confusion (4) Delusion (5) Bipolar affective, mixed, sev w/ psych (6) Anxiety disorder (7) Impulse control disorder RACHANA BENNETT MD Oct 08, 2017 21:02
--- NOTE | 2017-10-08 23:40 | PN ---
DATE: 10/07/2017 PSYCHIATRIC PROGRESS NOTE This is a late entry of 10/07/2017, covers elements not covered in my initial note. SUBJECTIVE: I met with the patient on 3 separate occasions as she requested to see me again. The patient slept 6-3/4 hours previous evening per nursing report. She has been needy, attention seeking, somewhat dramatic labile, snarky per nursing observation with ongoing mood lability. REVIEW OF SYSTEMS: Ambulation impaired with walker. No CV, , pulmonary, eye, ENT system symptoms on review. MENTAL STATUS EXAM: Oriented to herself and situation. Speech coherent, has some latency, is somewhat pressured at times. Abstraction fair, computation impaired, language function intact, attention span short. Mood and affect remain somewhat labile. LABORATORY DATA: Reviewed. IMPRESSION: Bipolar 1 disorder, mixed; anxiety disorder, unspecified; impulse control disorder, unspecified. PLAN: Valproic acid level low at 26, increase Depakote ER from 500 mg to 750 mg at bedtime. Check CBC, CMP, valproic acid level in 3 days. Continue rest unchanged per initial note. Once the valproic acid level is therapeutic, we will taper Tegretol. MAN Fox BENNETT MD DR: GIGI/taya JOB#: [id number] / [id number]
[2017-10-09] MEDS: HYDROcodone/APAP 10/325 1 TAB TABLET PO PRN ×3 (05:36→23:09)
[2017-10-09 06:00] VITALS: BP 129/63
[2017-10-09] MEDS: POLYETHYLENE GLYCOL 3350 17 GM PACKET. PO SCH (07:47)
[2017-10-09] MEDS: carBAMazepine 200 MG TABLET PO SCH ×2 (07:47→20:09)
[2017-10-09] MEDS: LIDOCAINE (700MG/PATCH) PATCH. TD SCH (07:47)
[2017-10-09] MEDS: CALCIUM CARB/VIT D3 500/200 TABLET PO SCH (07:47)
[2017-10-09] MEDS: GLUCOSAMINE/CHOND 500/400MG CAPSULE PO SCH (07:47)
[2017-10-09] MEDS: CYANOCOBALAMIN (VITAMIN B-12) 1,000 MCG TABLET. PO SCH (07:47)
[2017-10-09] MEDS: OMEGA-3 FATTY ACIDS/FISH OIL 1,000 MG CAPSULE. PO SCH (07:47)
[2017-10-09] MEDS: MAGNESIUM OXIDE 400 MG TABLET PO SCH (07:48)
[2017-10-09] MEDS: BACLOFEN 10 MG TABLET PO SCH ×3 (07:48→20:09)
[2017-10-09] MEDS: cycloSPORINE 0.05% OPTH 1 DROP DROPERETTE OU SCH ×2 (07:48→20:08)
[2017-10-09] MEDS: FLUTICASONE 50MCG/NASAL SPRAY 16GM BOTTLE. NS SCH (07:49)
[2017-10-09] MEDS: oxyCODONE ER 10 MG TAB.ER.12H PO SCH ×2 (07:49→20:08)
[2017-10-09 16:24] VITALS: BP 135/94
[2017-10-09] MEDS: clonazePAM 0.5 MG TABLET PO SCH (17:18)
--- NOTE | 2017-10-09 18:03 | PN ---
DATE: 10/08/2017 PSYCHIATRIC PROGRESS NOTE This is a late entry, 10/08/2017, covers elements not covered in my initial note. SUBJECTIVE: I met with the patient in the evening. The patient slept 4 hours previous evening, but has taken some naps during the day off and on. The patient remains quite somatic attention, seeking per nursing report and p.r.n. Lortab was changed to OxyContin b.i.d. per Dr. Loera and she is better with this less fixated on pain. REVIEW OF SYSTEMS: Ambulation impaired with a walker. No CV, , pulmonary, eye system symptoms on review. MENTAL STATUS EXAM: Reasonably oriented. Speech coherent, has some latency. Abstraction fair, computation impaired, language function intact, attention span short. Mood and affect at times somewhat labile still, but improved. LABORATORY DATA: Reviewed. IMPRESSION: Bipolar 1 disorder, mixed. Rest unchanged. PLAN: Start Remeron 7.5 mg p.o. at bedtime. Rest unchanged per initial note. Depakote has been adjusted to 750 at bedtime of the ER with repeat labs level on 10/10/2017. MAN Fox BENNETT MD DR: GIGI/taya JOB#: [id number] / [id number]
[2017-10-09] MEDS: MIRTAZAPINE 7.5 MG TABLET. PO SCH (20:08)
[2017-10-09] MEDS: DIVALPROEX ER 250 MG TAB.ER.24H. PO SCH (20:08)
[2017-10-09] MEDS: ATORVASTATIN CALCIUM 10 MG TABLET. PO SCH (20:09)
[2017-10-09] MEDS: clonazePAM 1 MG TABLET PO SCH (20:09)
[2017-10-09] MEDS: risperiDONE 2 MG TABLET. PO SCH (20:10)
--- NOTE | 2017-10-09 21:07 | PDOC ---
Exam Note: Jermaine Note: Please also refer to the separate dictated note~for this date of service dictated separately.~Patient seen individually. Discussed the patient with Nursing staff reviewed the chart.~Reviewed interim history and current functioning. Reviewed vital signs,~Labs/ Radiology~and current medications noted below. Continue current treatment with the changes noted in the dictated addendum note Assessment: Vital Signs: Vital Signs Date Time Temp Pulse Resp B/P (MAP) Pulse Ox O2 Delivery O2 Flow Rate FiO2 10/09/17 20:08 20 10/09/17 16:24 97.5 72 135/94 (108) 97 10/09/17 15:12 Room Air I&O Intake and Output 10/09/17 07:00 Intake Total 1320 ml Balance 1320 ml Intake Oral 1320 ml Current Medications: Meds: Current Medications Acetaminophen (Tylenol) 650 mg PRN Q6HRS PRN PO PAIN / TEMP; Start 10/03/17 at 06:30 Multi-Ingredient Ointment (Analgesic [place]) 1 stepan PRN QID PRN TP MUSCLE PAIN; Start 10/03/17 at 06:30 Al Hydroxide/Mg Hydroxide (Mylanta Plus Xs) 15 ml PRN AFTMEALHC PRN PO DYSPEPSIA; Start 10/03/17 at 06:30 Magnesium Hydroxide (Milk Of Magnesia) 2,400 mg PRN QHS PRN PO CONSTIPATION Last administered on 10/04/17at 08:01; Start 10/03/17 at 06:30 Albuterol Sulfate (Ventolin Hfa Inhaler) 2 puff PRN Q6HRS PRN IH FOR ASTHMA; Start 10/03/17 at 07:45; Status UNV Carbamazepine (TEGretol) 200 mg BID PO Last administered on 10/09/17at 20:09; Start 10/03/17 at 09:00 Clonazepam (KlonoPIN) 0.5 mg BID@0900,1700 PO Last administered on 10/03/17at 11 :18; Start 10/03/17 at 09:00; Stop 10/03/17 at 16:55; Status DC Clonazepam (KlonoPIN) 2 mg QHS PO ; Start 10/03/17 at 21:00; Stop 10/03/17 at 21 :00; Status DC Cyanocobalamin (Vitamin B-12) 1,000 mcg DAILY PO Last administered on 07:47; Start 10/03/17 at 09:00 Cyclosporine (Restasis) 1 drop BID OU Last administered on 10/09/17 20:08; Start 10/03/17 at 09:00 Diclofenac Sodium (Voltaren) 1 stepan PRN TID TP Last administered on 10/07/17 01:24; Start 10/03/17 at 07:45 Estradiol (Estrace) 1 stepan QSUTUTH VG ; Start 10/03/17 at 16:00; Stop 10/03/17 at 16:00; Status DC Levothyroxine Sodium (Synthroid) 112 mcg DAILY06 PO Last administered on 08:43; Start 10/03/17 at 09:00 Senna/Docusate Sodium (Senna Plus) 1 tab PRN BID PRN PO CONSTIPATION; Start at 07:45 Acetaminophen/ Aspirin/Caffeine (Excedrin Migraine) 2 tab Q24H PRN PO MIGRAINE HEADACHE Last administered on 10/05/17 14:16; Start 10/03/17 at 09:00 Baclofen (Lioresal) 10 mg Q4HRS PO ; Start 10/03/17 at 12:00; Status Cancel Calcium/Vitamin D (Oscal D 500mg/ 200uts) 1 tab DAILY PO Last administered on 07:47; Start 10/03/17 at 09:00 Artificial Tears (Refresh Classic) 1 drop PRN BID PRN OU DRY EYE; Start at 07:45 Fish Oil (Fish Oil) 1,000 mg DAILY PO Last administered on 10/09/17 07:47; Start 10/03/17 at 09:00 Fluticasone Propionate (Flonase) 1 spray DAILY NS Last administered on 07:49; Start 10/03/17 at 09:00 Glucosamine/ Chondroitin (Glucosamine-Chondroitin 500/400mg) 1 cap DAILY PO Last administered on 10/09/17 07:47; Start 10/03/17 at 09:00 Acetaminophen/ Hydrocodone Bitart (Lortab 10/325) 1 tab PRN Q4HRS PRN PO PAIN Last administered on 10/09/17 14:07; Start 10/03/17 at 07:45 Lidocaine (Lidoderm) 1 patch DAILY TD Last administered on 10/09/17at 07:47; Start 10/03/17 at 09:00 Magnesium Oxide (Magnesium Oxide) 400 mg DAILY PO Last administered on at 07:48; Start 10/03/17 at 09:00 Mupirocin (Bactroban) 1 stepan PRN BID PRN TP NOSE SORES; Start 10/03/17 at 09:00 Nystatin (Mycostatin) 1 stepan PRN BID PRN TP YEAST/RASH; Start 10/03/17 at 09:00 Polyethylene Glycol (miraLAX) 17 gm DAILY PO Last administered on 10/09/17at 07: 47; Start 10/03/17 at 09:00 Risperidone (RisperDAL) 2 mg QHS PO Last administered on 10/09/17at 20:10; Start 10/03/17 at 21:00 Triamcinolone Acetonide (Kenalog) 1 stepan PRN TID PRN TP VAGINAL PAIN; Start at 09:00 Estradiol (Estrace) 1 stepan QSUTUTH PRN VG ITCHING; Start 10/03/17 at 16:00 Albuterol Sulfate (Ventolin) 2.5 mg PRN Q6HRS PRN NEB SHORTNESS OF BREATH; Start 10/03/17 at 09:00 Baclofen (Lioresal) 5 mg Q4HRS PO Last administered on 10/03/17at 11:21; Start 10/03/17 at 12:00; Stop 10/03/17 at 15:51; Status DC Ondansetron HCl (Zofran Odt) 4 mg PRN Q8HRS PRN PO NAUSEA/VOMITING Last administered on 10/03/17at 10:16; Start 10/03/17 at 09:45 Clonazepam (KlonoPIN) 1.5 mg QHS PO ; Start 10/03/17 at 21:00; Stop 10/03/17 at 21:00; Status DC Clonazepam (KlonoPIN) 1 mg QHS PO ; Start 10/06/17 at 21:00; Stop 10/06/17 at 21 :00; Status DC Clonazepam (KlonoPIN) 0.5 mg QHS PO ; Start 10/03/17 at 21:00; Stop 10/03/17 at 21:00; Status DC Clonazepam (KlonoPIN) 0.5 mg DAILY@1700 PO ; Start 10/03/17 at 17:00; Stop 10/03 at 17:00; Status DC Baclofen (Lioresal) 5 mg TID PO Last administered on 10/09/17 20:09; Start at 21:00 Clonazepam (KlonoPIN) 0.5 mg DAILY PO Last administered on 10/08/17 08:45; Start 10/04/17 at 09:00; Stop 10/09/17 at 00:00; Status DC Clonazepam (KlonoPIN) 0.5 mg DAILY@1700 PO Last administered on 10/09/17 17:18 ; Start 10/04/17 at 17:00; Stop 10/12/17 at 00:00 Clonazepam (KlonoPIN) 1 mg Taper QHS PO Last administered on 10/09/17 20:09; Start 10/03/17 at 21:00; Stop 10/18/17 at 20:59 Olanzapine (ZyPREXA ZYDIS) 2.5 mg PRN Q2HR PRN PO PSYCHOSIS Last administered on 10/04/17 15:00; Start 10/03/17 at 17:45 Divalproex Sodium (Depakote Er) 250 mg QHS PO Last administered on 10/03/17at 19 :49; Start 10/03/17 at 21:00; Stop 10/03/17 at 21:01; Status DC Divalproex Sodium (Depakote Er) 500 mg QHS PO Last administered on 10/06/17at 19 :35; Start 10/04/17 at 21:00; Stop 10/07/17 at 18:41; Status DC Atorvastatin Calcium (Lipitor) 10 mg QHS PO Last administered on 10/09/17 20: 09; Start 10/07/17 at 21:00 Divalproex Sodium (Depakote Er) 750 mg QHS PO Last administered on 10/09/17 20 :08; Start 10/07/17 at 21:00 Oxycodone HCl (OxyCONTIN) 10 mg Q12HR PO Last administered on 10/09/17 20:08; Start 10/08/17 at 21:00 Mirtazapine (Remeron) 7.5 mg QHS PO Last administered on 10/09/17at 20:08; Start 10/08/17 at 21:00 Active Scripts Active Reported Lidocaine 1 Each Adh..patch 1 Each TP DAILY Clonazepam 2 Mg Tablet 2 Mg PO QHS Diclofenac Sodium 100 Gm Gel..gram. 100 Gm TP PRN TID Estrace (Estradiol) 42.5 Gm Cream.appl 1 Stepan VG PRN 2X/WEEK Magnesium Oxide 400 Mg Tablet 400 Mg PO DAILY Baclofen 10 Mg Tablet 5 Mg PO Q4HRS Tegretol (Carbamazepine) 200 Mg Tablet 200 Mg PO BID Excedrin Migraine Caplet (Aspirin/Acetaminophen/Caffeine) 1 Each Tablet 2 Each PO PRN Q24HRS PRN Risperidone 2 Mg Tablet 2 Mg PO QHS Miralax (Polyethylene Glycol 3350) 17 Gm Powd.pack 1 Packet PO DAILY Synthroid (Levothyroxine Sodium) 112 Mcg Tablet 112 Mcg PO DAILYAC [place] 3-6-9 1,200 mg Softgel (Fish Oil/Borage/Flax/Om3,6,9#1) 1,200 Mg Capsule 1 Cap PO DAILY Vitamin B-12 (Cyanocobalamin (Vitamin B-12)) 1,000 Mcg Tablet 1,000 Mcg PO DAILY Calcium 500 + Vit D 400 Tablet (Calcium Carbonate/Vitamin D3) 1 Each Tablet 1 Tab PO DAILY Glucosamine Chondroitin Tab (Gluc Stephen/Chondro Stephen A/Vit C/Mn) 1 Each Tablet 1 Tab PO DAILY [place] 10-325 Tablet (Hydrocodone Bit/Acetaminophen) 1 Each Tablet 1 Tab PO PRN Q4HRS PRN Senokot-S Tablet (Sennosides/Docusate Sodium) 1 Each Tablet 1 Tab PO PRN BID PRN Flonase Allergy Relief (Fluticasone Propionate) 9.9 Ml [place].susp 1 Sprays NS DAILY Refresh Plus (Carboxymethylcellulose Sodium) 1 Each Droperette 1 Drop OU PRN BID PRN Restasis (Cyclosporine) 1 Each Droperette 1 Each OU BID Triamcinolone Acetonide 15 Gm Cream..g. 1 Stepan TP PRN TID PRN Mupirocin 22 Gm Oint...g. 1 Stepan TP PRN BID PRN Nystatin 15 Gm Cream..g. 1 Stepan TP PRN BID PRN Clonazepam 0.5 Mg Tablet 0.5 Mg PO BID@0900,1700 Ventolin Hfa Inhaler (Albuterol Sulfate) 18 Gm Hfa.aer.ad 2 Puff IH PRN Q6HRS PRN I have reviewed the current psychotropics carefully including drug interactions. Risk benefit ratio favors no change other than as noted in my dictated progress note. Diagnosis: Problems: (1) Schizoaffective disorder, bipolar type (2) Impulse control disorder (3) Confusion (4) Delusion (5) Bipolar affective, mixed, sev w/ psych (6) Anxiety disorder (7) Impulse control disorder RACHANA BENNETT MD Oct 09, 2017 21:07
[2017-10-10] MEDS: LEVOTHYROXINE 112 MCG TABLET PO SCH (05:50)
[2017-10-10 06:01] VITALS: BP 109/67
[2017-10-10] MEDS: HYDROcodone/APAP 10/325 1 TAB TABLET PO PRN ×2 (06:35→16:31)
[2017-10-10 07:11] LABS: HEMATOCRIT 36.5 % (36.0-47.0); HEMOGLOBIN 12.5 g/dL (12.0-15.5); RED BLOOD COUNT 3.71 x10^6/uL (3.50-5.40); RED CELL DISTRIBUTION WIDTH 14.1 % (11.5-14.5)
[2017-10-10 07:23] LABS: ALBUMIN 3.5 g/dL (3.4-5.0); ALK PHOS 101 U/L (46-116); ALT (SGPT) 19 U/L (14-59); ANION GAP 7 (6-14); AST (SGOT) 16 U/L (15-37); BLOOD UREA NITROGEN 25 mg/dL (7-20); BUN/CREATININE RATIO 19 (6-20); CALCIUM 9.3 mg/dL (8.5-10.1); CARBON DIOXIDE 33 mmol/L (21-32); CHLORIDE 103 mmol/L (98-107); CREATININE 1.3 mg/dL (0.6-1.0); GFR 39.4; GLUCOSE 99 mg/dL (70-99); SODIUM 143 mmol/L (136-145); TOTAL BILIRUBIN 0.3 mg/dL (0.2-1.0)
[2017-10-10 07:25] LABS: VAL ACID 54 mcg/mL (50-100)
[2017-10-10] MEDS: OMEGA-3 FATTY ACIDS/FISH OIL 1,000 MG CAPSULE. PO SCH (08:22)
[2017-10-10] MEDS: cycloSPORINE 0.05% OPTH 1 DROP DROPERETTE OU SCH ×2 (08:22→20:08)
[2017-10-10] MEDS: BACLOFEN 10 MG TABLET PO SCH ×3 (08:22→20:09)
[2017-10-10] MEDS: carBAMazepine 200 MG TABLET PO SCH ×2 (08:22→20:12)
[2017-10-10] MEDS: POLYETHYLENE GLYCOL 3350 17 GM PACKET. PO SCH (08:22)
[2017-10-10] MEDS: MAGNESIUM OXIDE 400 MG TABLET PO SCH (08:23)
[2017-10-10] MEDS: CYANOCOBALAMIN (VITAMIN B-12) 1,000 MCG TABLET. PO SCH (08:23)
[2017-10-10] MEDS: CALCIUM CARB/VIT D3 500/200 TABLET PO SCH (08:23)
[2017-10-10] MEDS: LIDOCAINE (700MG/PATCH) PATCH. TD SCH (08:25)
[2017-10-10] MEDS: GLUCOSAMINE/CHOND 500/400MG CAPSULE PO SCH (08:25)
[2017-10-10] MEDS: oxyCODONE ER 10 MG TAB.ER.12H PO SCH ×2 (08:25→20:12)
[2017-10-10] MEDS: FLUTICASONE 50MCG/NASAL SPRAY 16GM BOTTLE. NS SCH (08:25)
[2017-10-10 16:19] VITALS: BP 114/67
[2017-10-10] MEDS: clonazePAM 0.5 MG TABLET PO SCH (16:31)
[2017-10-10] MEDS: DIVALPROEX ER 250 MG TAB.ER.24H. PO SCH (20:09)
[2017-10-10] MEDS: MIRTAZAPINE 7.5 MG TABLET. PO SCH (20:09)
[2017-10-10] MEDS: ATORVASTATIN CALCIUM 10 MG TABLET. PO SCH (20:09)
[2017-10-10] MEDS: risperiDONE 2 MG TABLET. PO SCH (20:10)
[2017-10-10] MEDS: clonazePAM 1 MG TABLET PO SCH (20:12)
--- NOTE | 2017-10-10 20:57 | PDOC ---
Exam Note: Jermaine Note: Please also refer to the separate dictated note~for this date of service dictated separately.~Patient seen individually. Discussed the patient with Nursing staff reviewed the chart.~Reviewed interim history and current functioning. Reviewed vital signs,~Labs/ Radiology~and current medications noted below. Continue current treatment with the changes noted in the dictated addendum note Assessment: Vital Signs: Vital Signs Date Time Temp Pulse Resp B/P (MAP) Pulse Ox O2 Delivery O2 Flow Rate FiO2 10/10/17 20:12 95 Room Air 10/10/17 16:19 97.9 70 16 114/67 (83) I&O Intake and Output 10/10/17 07:00 Intake Total 960 ml Balance 960 ml Intake Oral 960 ml Labs: Laboratory Tests Test 10/10/17 07:00 White Blood Count 6.0 x10^3/uL (4.0-11.0) Red Blood Count 3.71 x10^6/uL (3.50-5.40) Hemoglobin 12.5 g/dL (12.0-15.5) Hematocrit 36.5 % (36.0-47.0) Mean Corpuscular Volume 98 fL (79-100) Mean Corpuscular Hemoglobin 34 pg (25-35) Mean Corpuscular Hemoglobin Concent 34 g/dL (31-37) Red Cell Distribution Width 14.1 % (11.5-14.5) Platelet Count 256 x10^3/uL (140-400) Sodium Level 143 mmol/L (136-145) Potassium Level 4.0 mmol/L (3.5-5.1) Chloride Level 103 mmol/L (98-107) Carbon Dioxide Level 33 mmol/L (21-32) H Anion Gap 7 (6-14) Blood Urea Nitrogen 25 mg/dL (7-20) H Creatinine 1.3 mg/dL (0.6-1.0) H Estimated GFR (Cockcroft-Gault) 39.4 BUN/Creatinine Ratio 19 (6-20) Glucose Level 99 mg/dL (70-99) Calcium Level 9.3 mg/dL (8.5-10.1) Total Bilirubin 0.3 mg/dL (0.2-1.0) Aspartate Amino Transferase (AST) 16 U/L (15-37) Alanine Aminotransferase (ALT) 19 U/L (14-59) Alkaline Phosphatase 101 U/L (46-116) Total Protein 7.0 g/dL (6.4-8.2) Albumin 3.5 g/dL (3.4-5.0) Albumin/Globulin Ratio 1.0 (1.0-1.7) Valproic Acid Level 54 mcg/mL (50-100) Valproic Acid Last Dose Date 10/09/17 Valproic Acid Last Dose Time 2100 Current Medications: Meds: Current Medications Acetaminophen (Tylenol) 650 mg PRN Q6HRS PRN PO PAIN / TEMP; Start 10/03/17 at 06:30 Multi-Ingredient Ointment (Analgesic [place]) 1 stepan PRN QID PRN TP MUSCLE PAIN; Start 10/03/17 at 06:30 Al Hydroxide/Mg Hydroxide (Mylanta Plus Xs) 15 ml PRN AFTMEALHC PRN PO DYSPEPSIA; Start 10/03/17 at 06:30 Magnesium Hydroxide (Milk Of Magnesia) 2,400 mg PRN QHS PRN PO CONSTIPATION Last administered on 10/04/17at 08:01; Start 10/03/17 at 06:30 Albuterol Sulfate (Ventolin Hfa Inhaler) 2 puff PRN Q6HRS PRN IH FOR ASTHMA; Start 10/03/17 at 07:45; Status UNV Carbamazepine (TEGretol) 200 mg BID PO Last administered on 10/10/17at 08:22; Start 10/03/17 at 09:00; Stop 10/10/17 at 10:23; Status DC Clonazepam (KlonoPIN) 0.5 mg BID@0900,1700 PO Last administered on 10/03/17at 11 :18; Start 10/03/17 at 09:00; Stop 10/03/17 at 16:55; Status DC Clonazepam (KlonoPIN) 2 mg QHS PO ; Start 10/03/17 at 21:00; Stop 10/03/17 at 21 :00; Status DC Cyanocobalamin (Vitamin B-12) 1,000 mcg DAILY PO Last administered on at 08:23; Start 10/03/17 at 09:00 Cyclosporine (Restasis) 1 drop BID OU Last administered on 10/10/17at 20:08; Start 10/03/17 at 09:00 Diclofenac Sodium (Voltaren) 1 stepan PRN TID TP Last administered on 10/07/17 01:24; Start 10/03/17 at 07:45 Estradiol (Estrace) 1 stepan QSUTUTH VG ; Start 10/03/17 at 16:00; Stop 10/03/17 at 16:00; Status DC Levothyroxine Sodium (Synthroid) 112 mcg DAILY06 PO Last administered on 05:50; Start 10/03/17 at 09:00 Senna/Docusate Sodium (Senna Plus) 1 tab PRN BID PRN PO CONSTIPATION; Start at 07:45 Acetaminophen/ Aspirin/Caffeine (Excedrin Migraine) 2 tab Q24H PRN PO MIGRAINE HEADACHE Last administered on 10/05/17 14:16; Start 10/03/17 at 09:00 Baclofen (Lioresal) 10 mg Q4HRS PO ; Start 10/03/17 at 12:00; Status Cancel Calcium/Vitamin D (Oscal D 500mg/ 200uts) 1 tab DAILY PO Last administered on 08:23; Start 10/03/17 at 09:00 Artificial Tears (Refresh Classic) 1 drop PRN BID PRN OU DRY EYE; Start at 07:45 Fish Oil (Fish Oil) 1,000 mg DAILY PO Last administered on 10/10/17 08:22; Start 10/03/17 at 09:00 Fluticasone Propionate (Flonase) 1 spray DAILY NS Last administered on 07:49; Start 10/03/17 at 09:00 Glucosamine/ Chondroitin (Glucosamine-Chondroitin 500/400mg) 1 cap DAILY PO Last administered on 10/10/17 08:25; Start 10/03/17 at 09:00 Acetaminophen/ Hydrocodone Bitart (Lortab 10/325) 1 tab PRN Q4HRS PRN PO PAIN Last administered on 10/10/17 16:31; Start 10/03/17 at 07:45 Lidocaine (Lidoderm) 1 patch DAILY TD Last administered on 10/10/17 08:25; Start 10/03/17 at 09:00 Magnesium Oxide (Magnesium Oxide) 400 mg DAILY PO Last administered on 08:23; Start 10/03/17 at 09:00 Mupirocin (Bactroban) 1 stepan PRN BID PRN TP NOSE SORES; Start 10/03/17 at 09:00 Nystatin (Mycostatin) 1 stepan PRN BID PRN TP YEAST/RASH; Start 10/03/17 at 09:00 Polyethylene Glycol (miraLAX) 17 gm DAILY PO Last administered on 10/10/17at 08: 22; Start 10/03/17 at 09:00 Risperidone (RisperDAL) 2 mg QHS PO Last administered on 10/10/17at 20:10; Start 10/03/17 at 21:00 Triamcinolone Acetonide (Kenalog) 1 stepan PRN TID PRN TP VAGINAL PAIN; Start at 09:00 Estradiol (Estrace) 1 stepan QSUTUTH PRN VG ITCHING; Start 10/03/17 at 16:00 Albuterol Sulfate (Ventolin) 2.5 mg PRN Q6HRS PRN NEB SHORTNESS OF BREATH; Start 10/03/17 at 09:00 Baclofen (Lioresal) 5 mg Q4HRS PO Last administered on 10/03/17at 11:21; Start 10/03/17 at 12:00; Stop 10/03/17 at 15:51; Status DC Ondansetron HCl (Zofran Odt) 4 mg PRN Q8HRS PRN PO NAUSEA/VOMITING Last administered on 10/03/17at 10:16; Start 10/03/17 at 09:45 Clonazepam (KlonoPIN) 1.5 mg QHS PO ; Start 10/03/17 at 21:00; Stop 10/03/17 at 21:00; Status DC Clonazepam (KlonoPIN) 1 mg QHS PO ; Start 10/06/17 at 21:00; Stop 10/06/17 at 21 :00; Status DC Clonazepam (KlonoPIN) 0.5 mg QHS PO ; Start 10/03/17 at 21:00; Stop 10/03/17 at 21:00; Status DC Clonazepam (KlonoPIN) 0.5 mg DAILY@1700 PO ; Start 10/03/17 at 17:00; Stop 10/03 at 17:00; Status DC Baclofen (Lioresal) 5 mg TID PO Last administered on 10/10/17 20:09; Start at 21:00 Clonazepam (KlonoPIN) 0.5 mg DAILY PO Last administered on 10/08/17 08:45; Start 10/04/17 at 09:00; Stop 10/09/17 at 00:00; Status DC Clonazepam (KlonoPIN) 0.5 mg DAILY@1700 PO Last administered on 10/10/17 16:31 ; Start 10/04/17 at 17:00; Stop 10/12/17 at 00:00 Clonazepam (KlonoPIN) 1 mg Taper QHS PO Last administered on 10/10/17 20:12; Start 10/03/17 at 21:00; Stop 10/18/17 at 20:59 Olanzapine (ZyPREXA ZYDIS) 2.5 mg PRN Q2HR PRN PO PSYCHOSIS Last administered on 10/04/17 15:00; Start 10/03/17 at 17:45 Divalproex Sodium (Depakote Er) 250 mg QHS PO Last administered on 10/03/17 19 :49; Start 10/03/17 at 21:00; Stop 10/03/17 at 21:01; Status DC Divalproex Sodium (Depakote Er) 500 mg QHS PO Last administered on 10/06/17 19 :35; Start 10/04/17 at 21:00; Stop 10/07/17 at 18:41; Status DC Atorvastatin Calcium (Lipitor) 10 mg QHS PO Last administered on 10/10/17 20: 09; Start 10/07/17 at 21:00 Divalproex Sodium (Depakote Er) 750 mg QHS PO Last administered on 10/10/17 20 :09; Start 10/07/17 at 21:00 Oxycodone HCl (OxyCONTIN) 10 mg Q12HR PO Last administered on 10/10/17 20:12; Start 10/08/17 at 21:00 Mirtazapine (Remeron) 7.5 mg QHS PO Last administered on 10/10/17 20:09; Start 10/08/17 at 21:00 Carbamazepine (TEGretol) 200 mg HS PO Last administered on 10/10/17 20:12; Start 10/10/17 at 21:00; Stop 10/12/17 at 20:59 Active Scripts Active Reported Lidocaine 1 Each Adh..patch 1 Each TP DAILY Clonazepam 2 Mg Tablet 2 Mg PO QHS Diclofenac Sodium 100 Gm Gel..gram. 100 Gm TP PRN TID Estrace (Estradiol) 42.5 Gm Cream.appl 1 Stepan VG PRN 2X/WEEK Magnesium Oxide 400 Mg Tablet 400 Mg PO DAILY Baclofen 10 Mg Tablet 5 Mg PO Q4HRS Tegretol (Carbamazepine) 200 Mg Tablet 200 Mg PO BID Excedrin Migraine Caplet (Aspirin/Acetaminophen/Caffeine) 1 Each Tablet 2 Each PO PRN Q24HRS PRN Risperidone 2 Mg Tablet 2 Mg PO QHS Miralax (Polyethylene Glycol 3350) 17 Gm Powd.pack 1 Packet PO DAILY Synthroid (Levothyroxine Sodium) 112 Mcg Tablet 112 Mcg PO DAILYAC [place] 3-6-9 1,200 mg Softgel (Fish Oil/Borage/Flax/Om3,6,9#1) 1,200 Mg Capsule 1 Cap PO DAILY Vitamin B-12 (Cyanocobalamin (Vitamin B-12)) 1,000 Mcg Tablet 1,000 Mcg PO DAILY Calcium 500 + Vit D 400 Tablet (Calcium Carbonate/Vitamin D3) 1 Each Tablet 1 Tab PO DAILY Glucosamine Chondroitin Tab (Gluc Stephen/Chondro Stephen A/Vit C/Mn) 1 Each Tablet 1 Tab PO DAILY [place] 10-325 Tablet (Hydrocodone Bit/Acetaminophen) 1 Each Tablet 1 Tab PO PRN Q4HRS PRN Senokot-S Tablet (Sennosides/Docusate Sodium) 1 Each Tablet 1 Tab PO PRN BID PRN Flonase Allergy Relief (Fluticasone Propionate) 9.9 Ml [place].susp 1 Sprays NS DAILY Refresh Plus (Carboxymethylcellulose Sodium) 1 Each Droperette 1 Drop OU PRN BID PRN Restasis (Cyclosporine) 1 Each Droperette 1 Each OU BID Triamcinolone Acetonide 15 Gm Cream..g. 1 [place] TP PRN TID PRN Mupirocin 22 Gm Oint...g. 1 Ste[place] TP PRN BID PRN Nystatin 15 Gm Cream..g. 1 Ste[place] TP PRN BID PRN Clonazepam 0.5 Mg Tablet 0.5 Mg PO BID@0900,1700 Ventolin Hfa Inhaler (Albuterol Sulfate) 18 Gm Hfa.aer.ad 2 Puff IH PRN Q6HRS PRN I have reviewed the current psychotropics carefully including drug interactions. Risk benefit ratio favors no change other than as noted in my dictated progress note. Diagnosis: Problems: (1) Schizoaffective disorder, bipolar type (2) Impulse control disorder (3) Confusion (4) Delusion (5) Bipolar affective, mixed, sev w/ psych (6) Anxiety disorder (7) Impulse control disorder RACHANA BENNETT MD Oct 10, 2017 20:57
--- NOTE | 2017-10-11 02:56 | PN ---
DATE: 10/09/2017 This is a late entry for 10/09/2017 covers elements not covered in my initial note. SUBJECTIVE: I met with the patient in the evening. The patient slept 6-3/4 hours previous evening. She has complained of ongoing pain symptoms, difficulty ambulation with walker. She has been started on scheduled OxyContin and feels this is helpful. REVIEW OF SYSTEMS: No CV, , pulmonary, eye, ENT system symptoms on review. MENTAL STATUS EXAM: Reasonably oriented. Speech is coherent, abstraction fair, computation impaired, language function intact, attention span short. Mood and affect at times slightly labile, but improved. LABORATORY DATA: Reviewed. IMPRESSION: Unchanged from initial note. PLAN: No change from initial note. MAN Fox BENNETT MD DR: GIGI/taya JOB#: [id number] / [id number]
[2017-10-11] MEDS: HYDROcodone/APAP 10/325 1 TAB TABLET PO PRN ×3 (04:59→17:09)
[2017-10-11] MEDS: LEVOTHYROXINE 112 MCG TABLET PO SCH (05:22)
[2017-10-11 06:48] VITALS: BP 160/67
[2017-10-11] MEDS: GLUCOSAMINE/CHOND 500/400MG CAPSULE PO SCH (08:21)
[2017-10-11] MEDS: OMEGA-3 FATTY ACIDS/FISH OIL 1,000 MG CAPSULE. PO SCH (08:21)
[2017-10-11] MEDS: MAGNESIUM OXIDE 400 MG TABLET PO SCH (08:21)
[2017-10-11] MEDS: CYANOCOBALAMIN (VITAMIN B-12) 1,000 MCG TABLET. PO SCH (08:22)
[2017-10-11] MEDS: BACLOFEN 10 MG TABLET PO SCH ×3 (08:22→19:49)
[2017-10-11] MEDS: POLYETHYLENE GLYCOL 3350 17 GM PACKET. PO SCH (08:23)
[2017-10-11] MEDS: CALCIUM CARB/VIT D3 500/200 TABLET PO SCH (08:23)
[2017-10-11] MEDS: LIDOCAINE (700MG/PATCH) PATCH. TD SCH (08:23)
[2017-10-11] MEDS: cycloSPORINE 0.05% OPTH 1 DROP DROPERETTE OU SCH ×2 (08:23→19:50)
[2017-10-11] MEDS: FLUTICASONE 50MCG/NASAL SPRAY 16GM BOTTLE. NS SCH (08:24)
[2017-10-11] MEDS: oxyCODONE ER 10 MG TAB.ER.12H PO SCH ×2 (08:24→19:48)
[2017-10-11 15:47] VITALS: BP 106/63
[2017-10-11] MEDS: clonazePAM 0.5 MG TABLET PO SCH (17:09)
[2017-10-11] MEDS: DIVALPROEX ER 250 MG TAB.ER.24H. PO SCH (19:48)
[2017-10-11] MEDS: ATORVASTATIN CALCIUM 10 MG TABLET. PO SCH (19:48)
[2017-10-11] MEDS: risperiDONE 2 MG TABLET. PO SCH (19:48)
[2017-10-11] MEDS: MIRTAZAPINE 7.5 MG TABLET. PO SCH (19:48)
[2017-10-11] MEDS: clonazePAM 1 MG TABLET PO SCH (19:48)
[2017-10-11] MEDS: carBAMazepine 200 MG TABLET PO SCH (19:48)
--- NOTE | 2017-10-11 20:55 | PDOC ---
Exam Note: Jermaine Note: Please also refer to the separate dictated note~for this date of service dictated separately.~Patient seen individually. Discussed the patient with Nursing staff reviewed the chart.~Reviewed interim history and current functioning. Reviewed vital signs,~Labs/ Radiology~and current medications noted below. Continue current treatment with the changes noted in the dictated addendum note Assessment: Vital Signs: Vital Signs Date Time Temp Pulse Resp B/P (MAP) Pulse Ox O2 Delivery O2 Flow Rate FiO2 10/11/17 19:50 20 10/11/17 19:48 Room Air 10/11/17 17:09 98 10/11/17 15:47 97.4 71 106/63 (77) I&O Intake and Output 10/11/17 07:00 Intake Total 960 ml Balance 960 ml Intake Oral 960 ml Current Medications: Meds: Current Medications Acetaminophen (Tylenol) 650 mg PRN Q6HRS PRN PO PAIN / TEMP; Start 10/03/17 at 06:30 Multi-Ingredient Ointment (Analgesic [place]) 1 stepan PRN QID PRN TP MUSCLE PAIN; Start 10/03/17 at 06:30 Al Hydroxide/Mg Hydroxide (Mylanta Plus Xs) 15 ml PRN AFTMEALHC PRN PO DYSPEPSIA; Start 10/03/17 at 06:30 Magnesium Hydroxide (Milk Of Magnesia) 2,400 mg PRN QHS PRN PO CONSTIPATION Last administered on 10/04/17at 08:01; Start 10/03/17 at 06:30 Albuterol Sulfate (Ventolin Hfa Inhaler) 2 puff PRN Q6HRS PRN IH FOR ASTHMA; Start 10/03/17 at 07:45; Status UNV Carbamazepine (TEGretol) 200 mg BID PO Last administered on 10/10/17at 08:22; Start 10/03/17 at 09:00; Stop 10/10/17 at 10:23; Status DC Clonazepam (KlonoPIN) 0.5 mg BID@0900,1700 PO Last administered on 10/03/17at 11 :18; Start 10/03/17 at 09:00; Stop 10/03/17 at 16:55; Status DC Clonazepam (KlonoPIN) 2 mg QHS PO ; Start 10/03/17 at 21:00; Stop 10/03/17 at 21 :00; Status DC Cyanocobalamin (Vitamin B-12) 1,000 mcg DAILY PO Last administered on 08:22; Start 10/03/17 at 09:00 Cyclosporine (Restasis) 1 drop BID OU Last administered on 10/11/17at 19:50; Start 10/03/17 at 09:00 Diclofenac Sodium (Voltaren) 1 stepan PRN TID TP Last administered on 10/07/17 01:24; Start 10/03/17 at 07:45 Estradiol (Estrace) 1 stepan QSUTUTH VG ; Start 10/03/17 at 16:00; Stop 10/03/17 at 16:00; Status DC Levothyroxine Sodium (Synthroid) 112 mcg DAILY06 PO Last administered on 05:22; Start 10/03/17 at 09:00 Senna/Docusate Sodium (Senna Plus) 1 tab PRN BID PRN PO CONSTIPATION; Start at 07:45 Acetaminophen/ Aspirin/Caffeine (Excedrin Migraine) 2 tab Q24H PRN PO MIGRAINE HEADACHE Last administered on 10/05/17 14:16; Start 10/03/17 at 09:00 Baclofen (Lioresal) 10 mg Q4HRS PO ; Start 10/03/17 at 12:00; Status Cancel Calcium/Vitamin D (Oscal D 500mg/ 200uts) 1 tab DAILY PO Last administered on at 08:23; Start 10/03/17 at 09:00 Artificial Tears (Refresh Classic) 1 drop PRN BID PRN OU DRY EYE; Start at 07:45 Fish Oil (Fish Oil) 1,000 mg DAILY PO Last administered on 10/11/17 08:21; Start 10/03/17 at 09:00 Fluticasone Propionate (Flonase) 1 spray DAILY NS Last administered on 07:49; Start 10/03/17 at 09:00 Glucosamine/ Chondroitin (Glucosamine-Chondroitin 500/400mg) 1 cap DAILY PO Last administered on 10/11/17at 08:21; Start 10/03/17 at 09:00 Acetaminophen/ Hydrocodone Bitart (Lortab 10/325) 1 tab PRN Q4HRS PRN PO PAIN Last administered on 10/11/17at 17:09; Start 10/03/17 at 07:45 Lidocaine (Lidoderm) 1 patch DAILY TD Last administered on 10/11/17at 08:23; Start 10/03/17 at 09:00 Magnesium Oxide (Magnesium Oxide) 400 mg DAILY PO Last administered on at 08:21; Start 10/03/17 at 09:00 Mupirocin (Bactroban) 1 stepan PRN BID PRN TP NOSE SORES; Start 10/03/17 at 09:00 Nystatin (Mycostatin) 1 stepan PRN BID PRN TP YEAST/RASH; Start 10/03/17 at 09:00 Polyethylene Glycol (miraLAX) 17 gm DAILY PO Last administered on 10/11/17at 08: 23; Start 10/03/17 at 09:00 Risperidone (RisperDAL) 2 mg QHS PO Last administered on 10/11/17at 19:48; Start 10/03/17 at 21:00 Triamcinolone Acetonide (Kenalog) 1 stepan PRN TID PRN TP VAGINAL PAIN; Start at 09:00 Estradiol (Estrace) 1 stepan QSUTUTH PRN VG ITCHING; Start 10/03/17 at 16:00 Albuterol Sulfate (Ventolin) 2.5 mg PRN Q6HRS PRN NEB SHORTNESS OF BREATH; Start 10/03/17 at 09:00 Baclofen (Lioresal) 5 mg Q4HRS PO Last administered on 10/03/17at 11:21; Start 10/03/17 at 12:00; Stop 10/03/17 at 15:51; Status DC Ondansetron HCl (Zofran Odt) 4 mg PRN Q8HRS PRN PO NAUSEA/VOMITING Last administered on 10/03/17at 10:16; Start 10/03/17 at 09:45 Clonazepam (KlonoPIN) 1.5 mg QHS PO ; Start 10/03/17 at 21:00; Stop 10/03/17 at 21:00; Status DC Clonazepam (KlonoPIN) 1 mg QHS PO ; Start 10/06/17 at 21:00; Stop 10/06/17 at 21 :00; Status DC Clonazepam (KlonoPIN) 0.5 mg QHS PO ; Start 10/03/17 at 21:00; Stop 10/03/17 at 21:00; Status DC Clonazepam (KlonoPIN) 0.5 mg DAILY@1700 PO ; Start 10/03/17 at 17:00; Stop 10/03 at 17:00; Status DC Baclofen (Lioresal) 5 mg TID PO Last administered on 10/11/17 19:49; Start at 21:00 Clonazepam (KlonoPIN) 0.5 mg DAILY PO Last administered on 10/08/17at 08:45; Start 10/04/17 at 09:00; Stop 10/09/17 at 00:00; Status DC Clonazepam (KlonoPIN) 0.5 mg DAILY@1700 PO Last administered on 10/11/17 17:09 ; Start 10/04/17 at 17:00; Stop 10/12/17 at 00:00 Clonazepam (KlonoPIN) 1 mg Taper QHS PO Last administered on 10/11/17 19:48; Start 10/03/17 at 21:00; Stop 10/18/17 at 20:59 Olanzapine (ZyPREXA ZYDIS) 2.5 mg PRN Q2HR PRN PO PSYCHOSIS Last administered on 10/04/17 15:00; Start 10/03/17 at 17:45 Divalproex Sodium (Depakote Er) 250 mg QHS PO Last administered on 10/03/17 19 :49; Start 10/03/17 at 21:00; Stop 10/03/17 at 21:01; Status DC Divalproex Sodium (Depakote Er) 500 mg QHS PO Last administered on 10/06/17 19 :35; Start 10/04/17 at 21:00; Stop 10/07/17 at 18:41; Status DC Atorvastatin Calcium (Lipitor) 10 mg QHS PO Last administered on 10/11/17 19: 48; Start 10/07/17 at 21:00 Divalproex Sodium (Depakote Er) 750 mg QHS PO Last administered on 10/11/17 19 :48; Start 10/07/17 at 21:00 Oxycodone HCl (OxyCONTIN) 10 mg Q12HR PO Last administered on 10/11/17 19:48; Start 10/08/17 at 21:00 Mirtazapine (Remeron) 7.5 mg QHS PO Last administered on 10/11/17at 19:48; Start 10/08/17 at 21:00 Carbamazepine (TEGretol) 200 mg HS PO Last administered on 10/11/17at 19:48; Start 10/10/17 at 21:00; Stop 10/12/17 at 20:59 Active Scripts Active Reported Lidocaine 1 Each Adh..patch 1 Each TP DAILY Clonazepam 2 Mg Tablet 2 Mg PO QHS Diclofenac Sodium 100 Gm Gel..gram. 100 Gm TP PRN TID Estrace (Estradiol) 42.5 Gm Cream.appl 1 Stepan VG PRN 2X/WEEK Magnesium Oxide 400 Mg Tablet 400 Mg PO DAILY Baclofen 10 Mg Tablet 5 Mg PO Q4HRS Tegretol (Carbamazepine) 200 Mg Tablet 200 Mg PO BID Excedrin Migraine Caplet (Aspirin/Acetaminophen/Caffeine) 1 Each Tablet 2 Each PO PRN Q24HRS PRN Risperidone 2 Mg Tablet 2 Mg PO QHS Miralax (Polyethylene Glycol 3350) 17 Gm Powd.pack 1 Packet PO DAILY Synthroid (Levothyroxine Sodium) 112 Mcg Tablet 112 Mcg PO DAILYAC [place] 3-6-9 1,200 mg Softgel (Fish Oil/Borage/Flax/Om3,6,9#1) 1,200 Mg Capsule 1 Cap PO DAILY Vitamin B-12 (Cyanocobalamin (Vitamin B-12)) 1,000 Mcg Tablet 1,000 Mcg PO DAILY Calcium 500 + Vit D 400 Tablet (Calcium Carbonate/Vitamin D3) 1 Each Tablet 1 Tab PO DAILY Glucosamine Chondroitin Tab (Gluc Stephen/Chondro Stephen A/Vit C/Mn) 1 Each Tablet 1 Tab PO DAILY [place] 10-325 Tablet (Hydrocodone Bit/Acetaminophen) 1 Each Tablet 1 Tab PO PRN Q4HRS PRN Senokot-S Tablet (Sennosides/Docusate Sodium) 1 Each Tablet 1 Tab PO PRN BID PRN Flonase Allergy Relief (Fluticasone Propionate) 9.9 Ml [place].susp 1 Sprays NS DAILY Refresh Plus (Carboxymethylcellulose Sodium) 1 Each Droperette 1 Drop OU PRN BID PRN Restasis (Cyclosporine) 1 Each Droperette 1 Each OU BID Triamcinolone Acetonide 15 Gm Cream..g. 1 Stepan TP PRN TID PRN Mupirocin 22 Gm Oint...g. 1 Stepan TP PRN BID PRN Nystatin 15 Gm Cream..g. 1 Stepan TP PRN BID PRN Clonazepam 0.5 Mg Tablet 0.5 Mg PO BID@0900,1700 Ventolin Hfa Inhaler (Albuterol Sulfate) 18 Gm Hfa.aer.ad 2 Puff IH PRN Q6HRS PRN I have reviewed the current psychotropics carefully including drug interactions. Risk benefit ratio favors no change other than as noted in my dictated progress note. Diagnosis: Problems: (1) Schizoaffective disorder, bipolar type (2) Impulse control disorder (3) Confusion (4) Delusion (5) Bipolar affective, mixed, sev w/ psych (6) Anxiety disorder (7) Impulse control disorder RACHANA BENNETT MD Oct 11, 2017 20:55
[2017-10-11] MEDS: DICLOFENAC SODIUM 1% TOPICAL GEL 100GM TUBE. TP SCH (22:14)
--- NOTE | 2017-10-12 03:42 | PN ---
DATE: 10/10/2017 This is a late entry, 10/10/2017, covers the elements not covered in my initial note. SUBJECTIVE: I met with the patient in the evening, staffed at a treatment team meeting with the entire team and the patient attended this lengthy conference as did her daughter, Ana. Valproic acid level is 54, therapeutic. She has had a change in her narcotics and is on OxyContin b.i.d. Pain is better. I reviewed her history at length, discharge plans, outpatient treatment. Overall, she is less labile, less psychotic. REVIEW OF SYSTEMS: Ambulation impaired with walker. No CV, , pulmonary, eye system symptoms on review. She is quite clear. She wants some meds, at discharge called in to [facility] pharmacy, so that they can put it in a weekly plan. MENTAL STATUS EXAM: Reasonably oriented. Speech is coherent, abstraction fair, computation, able to do 3 steps on serial sevens, remembered 3/3 objects at 5 minutes. No active suicidal or homicidal ideation. Mood and affect appears improved. IMPRESSION: Unchanged from initial note. PLAN: Reduce Tegretol from 200 mg two times a day, down to 200 mg at bedtime for 3 days, then stop it since the Depakote is therapeutic. Continue rest unchanged from initial note. May consider reducing Risperdal in due course. RACHANA BENNETT MD DR: GIGI/taya JOB#: [id number] / [id number]
[2017-10-12 06:26] VITALS: BP 137/68
[2017-10-12] MEDS: HYDROcodone/APAP 10/325 1 TAB TABLET PO PRN (06:36)
[2017-10-12] MEDS: LEVOTHYROXINE 112 MCG TABLET PO SCH (06:36)
[2017-10-12] MEDS: FLUTICASONE 50MCG/NASAL SPRAY 16GM BOTTLE. NS SCH (07:59)
[2017-10-12] MEDS: OMEGA-3 FATTY ACIDS/FISH OIL 1,000 MG CAPSULE. PO SCH (08:02)
[2017-10-12] MEDS: cycloSPORINE 0.05% OPTH 1 DROP DROPERETTE OU SCH ×2 (08:02→20:23)
[2017-10-12] MEDS: GLUCOSAMINE/CHOND 500/400MG CAPSULE PO SCH (08:03)
[2017-10-12] MEDS: BACLOFEN 10 MG TABLET PO SCH ×5 (08:04→20:23)
[2017-10-12] MEDS: POLYETHYLENE GLYCOL 3350 17 GM PACKET. PO SCH (08:04)
[2017-10-12] MEDS: MAGNESIUM OXIDE 400 MG TABLET PO SCH (08:04)
[2017-10-12] MEDS: LIDOCAINE (700MG/PATCH) PATCH. TD SCH (08:05)
[2017-10-12] MEDS: CALCIUM CARB/VIT D3 500/200 TABLET PO SCH (08:05)
[2017-10-12] MEDS: CYANOCOBALAMIN (VITAMIN B-12) 1,000 MCG TABLET. PO SCH (08:05)
[2017-10-12] MEDS: oxyCODONE ER 10 MG TAB.ER.12H PO SCH ×2 (08:06→20:23)
[2017-10-12 16:44] VITALS: BP 145/84
[2017-10-12] MEDS: ATORVASTATIN CALCIUM 10 MG TABLET. PO SCH (20:22)
[2017-10-12] MEDS: MIRTAZAPINE 7.5 MG TABLET. PO SCH (20:22)
[2017-10-12] MEDS: clonazePAM 1 MG TABLET PO SCH (20:23)
[2017-10-12] MEDS: DIVALPROEX ER 250 MG TAB.ER.24H. PO SCH (20:23)
[2017-10-12] MEDS: risperiDONE 2 MG TABLET. PO SCH (20:23)
--- NOTE | 2017-10-12 23:10 | PDOC ---
Exam Note: Jermaine Note: Please also refer to the separate dictated note~for this date of service dictated separately.~Patient seen individually. Discussed the patient with Nursing staff reviewed the chart.~Reviewed interim history and current functioning. Reviewed vital signs,~Labs/ Radiology~and current medications noted below. Continue current treatment with the changes noted in the dictated addendum note Assessment: Vital Signs: Vital Signs Date Time Temp Pulse Resp B/P (MAP) Pulse Ox O2 Delivery O2 Flow Rate FiO2 10/12/17 20:23 95 10/12/17 16:44 97.3 86 20 145/84 (104) 10/12/17 12:07 Room Air I&O Intake and Output 10/12/17 07:00 Intake Total 965 ml Balance 965 ml Intake Oral 965 ml Current Medications: Meds: Current Medications Acetaminophen (Tylenol) 650 mg PRN Q6HRS PRN PO PAIN / TEMP; Start 10/03/17 at 06:30 Multi-Ingredient Ointment (Analgesic [place]) 1 stepan PRN QID PRN TP MUSCLE PAIN; Start 10/03/17 at 06:30 Al Hydroxide/Mg Hydroxide (Mylanta Plus Xs) 15 ml PRN AFTMEALHC PRN PO DYSPEPSIA; Start 10/03/17 at 06:30 Magnesium Hydroxide (Milk Of Magnesia) 2,400 mg PRN QHS PRN PO CONSTIPATION Last administered on 10/04/17at 08:01; Start 10/03/17 at 06:30 Albuterol Sulfate (Ventolin Hfa Inhaler) 2 puff PRN Q6HRS PRN IH FOR ASTHMA; Start 10/03/17 at 07:45; Status UNV Carbamazepine (TEGretol) 200 mg BID PO Last administered on 10/10/17at 08:22; Start 10/03/17 at 09:00; Stop 10/10/17 at 10:23; Status DC Clonazepam (KlonoPIN) 0.5 mg BID@0900,1700 PO Last administered on 10/03/17at 11 :18; Start 10/03/17 at 09:00; Stop 10/03/17 at 16:55; Status DC Clonazepam (KlonoPIN) 2 mg QHS PO ; Start 10/03/17 at 21:00; Stop 10/03/17 at 21 :00; Status DC Cyanocobalamin (Vitamin B-12) 1,000 mcg DAILY PO Last administered on 10/12/17 08:05; Start 10/03/17 at 09:00 Cyclosporine (Restasis) 1 drop BID OU Last administered on 10/12/17 20:23; Start 10/03/17 at 09:00 Diclofenac Sodium (Voltaren) 1 stepan PRN TID TP Last administered on 10/11/17 22:14; Start 10/03/17 at 07:45 Estradiol (Estrace) 1 stepan QSUTUTH VG ; Start 10/03/17 at 16:00; Stop 10/03/17 at 16:00; Status DC Levothyroxine Sodium (Synthroid) 112 mcg DAILY06 PO Last administered on 06:36; Start 10/03/17 at 09:00 Senna/Docusate Sodium (Senna Plus) 1 tab PRN BID PRN PO CONSTIPATION; Start at 07:45 Acetaminophen/ Aspirin/Caffeine (Excedrin Migraine) 2 tab Q24H PRN PO MIGRAINE HEADACHE Last administered on 10/05/17 14:16; Start 10/03/17 at 09:00 Baclofen (Lioresal) 10 mg Q4HRS PO ; Start 10/03/17 at 12:00; Status Cancel Calcium/Vitamin D (Oscal D 500mg/ 200uts) 1 tab DAILY PO Last administered on 08:05; Start 10/03/17 at 09:00 Artificial Tears (Refresh Classic) 1 drop PRN BID PRN OU DRY EYE; Start at 07:45 Fish Oil (Fish Oil) 1,000 mg DAILY PO Last administered on 10/12/17 08:02; Start 10/03/17 at 09:00 Fluticasone Propionate (Flonase) 1 spray DAILY NS Last administered on 07:59; Start 10/03/17 at 09:00 Glucosamine/ Chondroitin (Glucosamine-Chondroitin 500/400mg) 1 cap DAILY PO Last administered on 10/12/17 08:03; Start 10/03/17 at 09:00 Acetaminophen/ Hydrocodone Bitart (Lortab 10/325) 1 tab PRN Q4HRS PRN PO PAIN Last administered on 9/1/18at 06:36; Start 10/03/17 at 07:45 Lidocaine (Lidoderm) 1 patch DAILY TD Last administered on 10/12/17at 08:05; Start 10/03/17 at 09:00 Magnesium Oxide (Magnesium Oxide) 400 mg DAILY PO Last administered on at 08:04; Start 10/03/17 at 09:00 Mupirocin (Bactroban) 1 stepan PRN BID PRN TP NOSE SORES; Start 10/03/17 at 09:00 Nystatin (Mycostatin) 1 stepan PRN BID PRN TP YEAST/RASH; Start 10/03/17 at 09:00 Polyethylene Glycol (miraLAX) 17 gm DAILY PO Last administered on 10/12/17at 08: 04; Start 10/03/17 at 09:00 Risperidone (RisperDAL) 2 mg QHS PO Last administered on 10/12/17at 20:23; Start 10/03/17 at 21:00 Triamcinolone Acetonide (Kenalog) 1 stepan PRN TID PRN TP VAGINAL PAIN; Start at 09:00 Estradiol (Estrace) 1 stepan QSUTUTH PRN VG ITCHING; Start 10/03/17 at 16:00 Albuterol Sulfate (Ventolin) 2.5 mg PRN Q6HRS PRN NEB SHORTNESS OF BREATH; Start 10/03/17 at 09:00 Baclofen (Lioresal) 5 mg Q4HRS PO Last administered on 10/03/17at 11:21; Start 10/03/17 at 12:00; Stop 10/03/17 at 15:51; Status DC Ondansetron HCl (Zofran Odt) 4 mg PRN Q8HRS PRN PO NAUSEA/VOMITING Last administered on 10/03/17at 10:16; Start 10/03/17 at 09:45 Clonazepam (KlonoPIN) 1.5 mg QHS PO ; Start 10/03/17 at 21:00; Stop 10/03/17 at 21:00; Status DC Clonazepam (KlonoPIN) 1 mg QHS PO ; Start 10/06/17 at 21:00; Stop 10/06/17 at 21 :00; Status DC Clonazepam (KlonoPIN) 0.5 mg QHS PO ; Start 10/03/17 at 21:00; Stop 10/03/17 at 21:00; Status DC Clonazepam (KlonoPIN) 0.5 mg DAILY@1700 PO ; Start 10/03/17 at 17:00; Stop 10/03 at 17:00; Status DC Baclofen (Lioresal) 5 mg TID PO Last administered on 10/12/17 20:23; Start at 21:00 Clonazepam (KlonoPIN) 0.5 mg DAILY PO Last administered on 10/08/17at 08:45; Start 10/04/17 at 09:00; Stop 10/09/17 at 00:00; Status DC Clonazepam (KlonoPIN) 0.5 mg DAILY@1700 PO Last administered on 10/11/17at 17:09 ; Start 10/04/17 at 17:00; Stop 10/12/17 at 00:00; Status DC Clonazepam (KlonoPIN) 1 mg Taper QHS PO Last administered on 10/12/17 20:23; Start 10/03/17 at 21:00; Stop 10/18/17 at 20:59 Olanzapine (ZyPREXA ZYDIS) 2.5 mg PRN Q2HR PRN PO PSYCHOSIS Last administered on 10/04/17 15:00; Start 10/03/17 at 17:45 Divalproex Sodium (Depakote Er) 250 mg QHS PO Last administered on 10/03/17at 19 :49; Start 10/03/17 at 21:00; Stop 10/03/17 at 21:01; Status DC Divalproex Sodium (Depakote Er) 500 mg QHS PO Last administered on 10/06/17at 19 :35; Start 10/04/17 at 21:00; Stop 10/07/17 at 18:41; Status DC Atorvastatin Calcium (Lipitor) 10 mg QHS PO Last administered on 10/12/17 20:22 ; Start 10/07/17 at 21:00 Divalproex Sodium (Depakote Er) 750 mg QHS PO Last administered on 10/12/17 20: 23; Start 10/07/17 at 21:00 Oxycodone HCl (OxyCONTIN) 10 mg Q12HR PO Last administered on 10/12/17at 20:23; Start 10/08/17 at 21:00 Mirtazapine (Remeron) 7.5 mg QHS PO Last administered on 10/12/17at 20:22; Start 10/08/17 at 21:00 Carbamazepine (TEGretol) 200 mg HS PO Last administered on 10/11/17at 19:48; Start 10/10/17 at 21:00; Stop 10/12/17 at 20:59; Status DC Active Scripts Active Reported Lidocaine 1 Each Adh..patch 1 Each TP DAILY Clonazepam 2 Mg Tablet 2 Mg PO QHS Diclofenac Sodium 100 Gm Gel..gram. 100 Gm TP PRN TID Estrace (Estradiol) 42.5 Gm Cream.appl 1 Stepan VG PRN 2X/WEEK Magnesium Oxide 400 Mg Tablet 400 Mg PO DAILY Baclofen 10 Mg Tablet 5 Mg PO Q4HRS Tegretol (Carbamazepine) 200 Mg Tablet 200 Mg PO BID Excedrin Migraine Caplet (Aspirin/Acetaminophen/Caffeine) 1 Each Tablet 2 Each PO PRN Q24HRS PRN Risperidone 2 Mg Tablet 2 Mg PO QHS Miralax (Polyethylene Glycol 3350) 17 Gm Powd.pack 1 Packet PO DAILY Synthroid (Levothyroxine Sodium) 112 Mcg Tablet 112 Mcg PO DAILYAC [place] 3-6-9 1,200 mg Softgel (Fish Oil/Borage/Flax/Om3,6,9#1) 1,200 Mg Capsule 1 Cap PO DAILY Vitamin B-12 (Cyanocobalamin (Vitamin B-12)) 1,000 Mcg Tablet 1,000 Mcg PO DAILY Calcium 500 + Vit D 400 Tablet (Calcium Carbonate/Vitamin D3) 1 Each Tablet 1 Tab PO DAILY Glucosamine Chondroitin Tab (Gluc Stephen/Chondro Stephen A/Vit C/Mn) 1 Each Tablet 1 Tab PO DAILY [place] 10-325 Tablet (Hydrocodone Bit/Acetaminophen) 1 Each Tablet 1 Tab PO PRN Q4HRS PRN Senokot-S Tablet (Sennosides/Docusate Sodium) 1 Each Tablet 1 Tab PO PRN BID PRN Flonase Allergy Relief (Fluticasone Propionate) 9.9 Ml [place].susp 1 Sprays NS DAILY Refresh Plus (Carboxymethylcellulose Sodium) 1 Each Droperette 1 Drop OU PRN BID PRN Restasis (Cyclosporine) 1 Each Droperette 1 Each OU BID Triamcinolone Acetonide 15 Gm Cream..g. 1 Stepna TP PRN TID PRN Mupirocin 22 Gm Oint...g. 1 Stepan TP PRN BID PRN Nystatin 15 Gm Cream..g. 1 Stepan TP PRN BID PRN Clonazepam 0.5 Mg Tablet 0.5 Mg PO BID@0900,1700 Ventolin Hfa Inhaler (Albuterol Sulfate) 18 Gm Hfa.aer.ad 2 Puff IH PRN Q6HRS PRN I have reviewed the current psychotropics carefully including drug interactions. Risk benefit ratio favors no change other than as noted in my dictated progress note. Diagnosis: Problems: (1) Schizoaffective disorder, bipolar type (2) Impulse control disorder (3) Confusion (4) Delusion (5) Bipolar affective, mixed, sev w/ psych (6) Anxiety disorder (7) Impulse control disorder RACHANA BENNETT MD Oct 12, 2017 23:10
[2017-10-13] MEDS: LEVOTHYROXINE 112 MCG TABLET PO SCH (06:00)
[2017-10-13 06:42] VITALS: BP 118/66
[2017-10-13] MEDS: CALCIUM CARB/VIT D3 500/200 TABLET PO SCH (09:00)
[2017-10-13] MEDS: BACLOFEN 10 MG TABLET PO SCH ×3 (09:00→20:32)
[2017-10-13] MEDS: GLUCOSAMINE/CHOND 500/400MG CAPSULE PO SCH (09:00)
[2017-10-13] MEDS: POLYETHYLENE GLYCOL 3350 17 GM PACKET. PO SCH (09:00)
[2017-10-13] MEDS: FLUTICASONE 50MCG/NASAL SPRAY 16GM BOTTLE. NS SCH (09:00)
[2017-10-13] MEDS: LIDOCAINE (700MG/PATCH) PATCH. TD SCH (09:00)
[2017-10-13] MEDS: oxyCODONE ER 10 MG TAB.ER.12H PO SCH ×2 (09:00→20:32)
[2017-10-13] MEDS: cycloSPORINE 0.05% OPTH 1 DROP DROPERETTE OU SCH ×2 (09:00→20:33)
[2017-10-13] MEDS: CYANOCOBALAMIN (VITAMIN B-12) 1,000 MCG TABLET. PO SCH (09:00)
[2017-10-13] MEDS: OMEGA-3 FATTY ACIDS/FISH OIL 1,000 MG CAPSULE. PO SCH (09:00)
[2017-10-13] MEDS: MAGNESIUM OXIDE 400 MG TABLET PO SCH (09:00)
--- NOTE | 2017-10-13 11:28 | PN ---
DATE: 10/11/2017 PSYCHIATRIC PROGRESS NOTE This is a late entry 10/11/2017, covers elements not covered in my initial note. SUBJECTIVE: I met with the patient in the evening. The patient slept 6-3/4 hours previous evening, compliant with medications, going to various activities. REVIEW OF SYSTEMS: No CV, , pulmonary, eye system symptoms on review. Gait unsteady. MENTAL STATUS EXAM: Reasonably oriented. Speech is coherent, a little pressured at times. Abstraction fair, computation impaired, language function intact, attention span short. Mood and affect less labile. LABORATORY DATA: Reviewed. IMPRESSION: Unchanged from initial note. PLAN: No change from initial note. Adjust Depakote to reach therapeutic level. Valproic acid level currently is 54. MAN Fox BENNETT MD DR: GIGI/taya JOB#: [id number] / [id number]
--- NOTE | 2017-10-13 11:35 | PN ---
DATE: 10/12/2017 This late entry, 10/12/2017, covers elements not covered in my initial note. SUBJECTIVE: I met with the patient in the evening. The patient has some possible intermittent anxiety. I met with her in her room. REVIEW OF SYSTEMS: Ambulation impaired. No CV, , pulmonary, eye system symptoms on review. MENTAL STATUS EXAM: Reasonably oriented. Speech is coherent, a little pressured at times. Abstraction fair, computation impaired, language function intact, attention span short. Mood and affect somewhat anxious, but less labile. LABORATORY DATA: Reviewed. IMPRESSION: Unchanged from initial note. PLAN: No change from initial note. MAN Fox BENNETT MD DR: GIGI/taya JOB#: [id number] / [id number]
[2017-10-13] MEDS: HYDROcodone/APAP 10/325 1 TAB TABLET PO PRN (13:45)
[2017-10-13 16:11] VITALS: BP 137/81
[2017-10-13] MEDS: MIRTAZAPINE 7.5 MG TABLET. PO SCH (20:31)
[2017-10-13] MEDS: clonazePAM 1 MG TABLET PO SCH (20:32)
[2017-10-13] MEDS: risperiDONE 2 MG TABLET. PO SCH (20:32)
[2017-10-13] MEDS: ATORVASTATIN CALCIUM 10 MG TABLET. PO SCH (20:32)
[2017-10-13] MEDS: DIVALPROEX ER 250 MG TAB.ER.24H. PO SCH (20:33)
--- NOTE | 2017-10-13 20:53 | PDOC ---
Exam Note: Jermaine Note: Please also refer to the separate dictated note~for this date of service dictated separately.~Patient seen individually. Discussed the patient with Nursing staff reviewed the chart.~Reviewed interim history and current functioning. Reviewed vital signs,~Labs/ Radiology~and current medications noted below. Continue current treatment with the changes noted in the dictated addendum note Assessment: Vital Signs: Vital Signs Date Time Temp Pulse Resp B/P (MAP) Pulse Ox O2 Delivery O2 Flow Rate FiO2 10/13/17 20:32 96 10/13/17 16:11 98.0 84 20 137/81 (99) 10/12/17 12:07 Room Air I&O Intake and Output 10/13/17 07:00 Intake Total 1080 ml Balance 1080 ml Intake Oral 1080 ml # Voids 1 Current Medications: Meds: Current Medications Acetaminophen (Tylenol) 650 mg PRN Q6HRS PRN PO PAIN / TEMP; Start 10/03/17 at 06:30 Multi-Ingredient Ointment (Analgesic [place]) 1 stepan PRN QID PRN TP MUSCLE PAIN; Start 10/03/17 at 06:30 Al Hydroxide/Mg Hydroxide (Mylanta Plus Xs) 15 ml PRN AFTMEALHC PRN PO DYSPEPSIA; Start 10/03/17 at 06:30 Magnesium Hydroxide (Milk Of Magnesia) 2,400 mg PRN QHS PRN PO CONSTIPATION Last administered on 10/04/17at 08:01; Start 10/03/17 at 06:30 Albuterol Sulfate (Ventolin Hfa Inhaler) 2 puff PRN Q6HRS PRN IH FOR ASTHMA; Start 10/03/17 at 07:45; Status UNV Carbamazepine (TEGretol) 200 mg BID PO Last administered on 10/10/17at 08:22; Start 10/03/17 at 09:00; Stop 10/10/17 at 10:23; Status DC Clonazepam (KlonoPIN) 0.5 mg BID@0900,1700 PO Last administered on 10/03/17at 11 :18; Start 10/03/17 at 09:00; Stop 10/03/17 at 16:55; Status DC Clonazepam (KlonoPIN) 2 mg QHS PO ; Start 10/03/17 at 21:00; Stop 10/03/17 at 21 :00; Status DC Cyanocobalamin (Vitamin B-12) 1,000 mcg DAILY PO Last administered on 10/13/17 09:00; Start 10/03/17 at 09:00 Cyclosporine (Restasis) 1 drop BID OU Last administered on 10/13/17 20:33; Start 10/03/17 at 09:00 Diclofenac Sodium (Voltaren) 1 stepan PRN TID TP Last administered on 10/11/17 22:14; Start 10/03/17 at 07:45 Estradiol (Estrace) 1 stepan QSUTUTH VG ; Start 10/03/17 at 16:00; Stop 10/03/17 at 16:00; Status DC Levothyroxine Sodium (Synthroid) 112 mcg DAILY06 PO Last administered on 06:00; Start 10/03/17 at 09:00 Senna/Docusate Sodium (Senna Plus) 1 tab PRN BID PRN PO CONSTIPATION; Start at 07:45 Acetaminophen/ Aspirin/Caffeine (Excedrin Migraine) 2 tab Q24H PRN PO MIGRAINE HEADACHE Last administered on 10/05/17 14:16; Start 10/03/17 at 09:00 Baclofen (Lioresal) 10 mg Q4HRS PO ; Start 10/03/17 at 12:00; Status Cancel Calcium/Vitamin D (Oscal D 500mg/ 200uts) 1 tab DAILY PO Last administered on 09:00; Start 10/03/17 at 09:00 Artificial Tears (Refresh Classic) 1 drop PRN BID PRN OU DRY EYE; Start at 07:45 Fish Oil (Fish Oil) 1,000 mg DAILY PO Last administered on 10/13/17 09:00; Start 10/03/17 at 09:00 Fluticasone Propionate (Flonase) 1 spray DAILY NS Last administered on 09:00; Start 10/03/17 at 09:00 Glucosamine/ Chondroitin (Glucosamine-Chondroitin 500/400mg) 1 cap DAILY PO Last administered on 10/13/17 09:00; Start 10/03/17 at 09:00 Acetaminophen/ Hydrocodone Bitart (Lortab 10/325) 1 tab PRN Q4HRS PRN PO PAIN Last administered on 9/2/18at 13:45; Start 10/03/17 at 07:45 Lidocaine (Lidoderm) 1 patch DAILY TD Last administered on 10/13/17at 09:00; Start 10/03/17 at 09:00 Magnesium Oxide (Magnesium Oxide) 400 mg DAILY PO Last administered on at 09:00; Start 10/03/17 at 09:00 Mupirocin (Bactroban) 1 stepan PRN BID PRN TP NOSE SORES; Start 10/03/17 at 09:00 Nystatin (Mycostatin) 1 stepan PRN BID PRN TP YEAST/RASH; Start 10/03/17 at 09:00 Polyethylene Glycol (miraLAX) 17 gm DAILY PO Last administered on 10/13/17at 09: 00; Start 10/03/17 at 09:00 Risperidone (RisperDAL) 2 mg QHS PO Last administered on 10/13/17at 20:32; Start 10/03/17 at 21:00 Triamcinolone Acetonide (Kenalog) 1 stepan PRN TID PRN TP VAGINAL PAIN; Start at 09:00 Estradiol (Estrace) 1 stepan QSUTUTH PRN VG ITCHING; Start 10/03/17 at 16:00 Albuterol Sulfate (Ventolin) 2.5 mg PRN Q6HRS PRN NEB SHORTNESS OF BREATH; Start 10/03/17 at 09:00 Baclofen (Lioresal) 5 mg Q4HRS PO Last administered on 10/03/17at 11:21; Start 10/03/17 at 12:00; Stop 10/03/17 at 15:51; Status DC Ondansetron HCl (Zofran Odt) 4 mg PRN Q8HRS PRN PO NAUSEA/VOMITING Last administered on 10/03/17at 10:16; Start 10/03/17 at 09:45 Clonazepam (KlonoPIN) 1.5 mg QHS PO ; Start 10/03/17 at 21:00; Stop 10/03/17 at 21:00; Status DC Clonazepam (KlonoPIN) 1 mg QHS PO ; Start 10/06/17 at 21:00; Stop 10/06/17 at 21 :00; Status DC Clonazepam (KlonoPIN) 0.5 mg QHS PO ; Start 10/03/17 at 21:00; Stop 10/03/17 at 21:00; Status DC Clonazepam (KlonoPIN) 0.5 mg DAILY@1700 PO ; Start 10/03/17 at 17:00; Stop 10/03 at 17:00; Status DC Baclofen (Lioresal) 5 mg TID PO Last administered on 10/13/17 20:32; Start at 21:00 Clonazepam (KlonoPIN) 0.5 mg DAILY PO Last administered on 10/08/17at 08:45; Start 10/04/17 at 09:00; Stop 10/09/17 at 00:00; Status DC Clonazepam (KlonoPIN) 0.5 mg DAILY@1700 PO Last administered on 10/11/17 17:09 ; Start 10/04/17 at 17:00; Stop 10/12/17 at 00:00; Status DC Clonazepam (KlonoPIN) 1 mg Taper QHS PO Last administered on 10/13/17 20:32; Start 10/03/17 at 21:00; Stop 10/18/17 at 20:59 Olanzapine (ZyPREXA ZYDIS) 2.5 mg PRN Q2HR PRN PO PSYCHOSIS Last administered on 10/04/17 15:00; Start 10/03/17 at 17:45 Divalproex Sodium (Depakote Er) 250 mg QHS PO Last administered on 10/03/17 19 :49; Start 10/03/17 at 21:00; Stop 10/03/17 at 21:01; Status DC Divalproex Sodium (Depakote Er) 500 mg QHS PO Last administered on 10/06/17 19 :35; Start 10/04/17 at 21:00; Stop 10/07/17 at 18:41; Status DC Atorvastatin Calcium (Lipitor) 10 mg QHS PO Last administered on 10/13/17 20:32 ; Start 10/07/17 at 21:00 Divalproex Sodium (Depakote Er) 750 mg QHS PO Last administered on 10/13/17 20: 33; Start 10/07/17 at 21:00 Oxycodone HCl (OxyCONTIN) 10 mg Q12HR PO Last administered on 10/13/17 20:32; Start 10/08/17 at 21:00 Mirtazapine (Remeron) 7.5 mg QHS PO Last administered on 10/13/17at 20:31; Start 10/08/17 at 21:00 Carbamazepine (TEGretol) 200 mg HS PO Last administered on 10/11/17at 19:48; Start 10/10/17 at 21:00; Stop 10/12/17 at 20:59; Status DC Active Scripts Active Reported Lidocaine 1 Each Adh..patch 1 Each TP DAILY Clonazepam 2 Mg Tablet 2 Mg PO QHS Diclofenac Sodium 100 Gm Gel..gram. 100 Gm TP PRN TID Estrace (Estradiol) 42.5 Gm Cream.appl 1 Stepan VG PRN 2X/WEEK Magnesium Oxide 400 Mg Tablet 400 Mg PO DAILY Baclofen 10 Mg Tablet 5 Mg PO Q4HRS Tegretol (Carbamazepine) 200 Mg Tablet 200 Mg PO BID Excedrin Migraine Caplet (Aspirin/Acetaminophen/Caffeine) 1 Each Tablet 2 Each PO PRN Q24HRS PRN Risperidone 2 Mg Tablet 2 Mg PO QHS Miralax (Polyethylene Glycol 3350) 17 Gm Powd.pack 1 Packet PO DAILY Synthroid (Levothyroxine Sodium) 112 Mcg Tablet 112 Mcg PO DAILYAC [place] 3-6-9 1,200 mg Softgel (Fish Oil/Borage/Flax/Om3,6,9#1) 1,200 Mg Capsule 1 Cap PO DAILY Vitamin B-12 (Cyanocobalamin (Vitamin B-12)) 1,000 Mcg Tablet 1,000 Mcg PO DAILY Calcium 500 + Vit D 400 Tablet (Calcium Carbonate/Vitamin D3) 1 Each Tablet 1 Tab PO DAILY Glucosamine Chondroitin Tab (Gluc Stephen/Chondro Stephen A/Vit C/Mn) 1 Each Tablet 1 Tab PO DAILY [place] 10-325 Tablet (Hydrocodone Bit/Acetaminophen) 1 Each Tablet 1 Tab PO PRN Q4HRS PRN Senokot-S Tablet (Sennosides/Docusate Sodium) 1 Each Tablet 1 Tab PO PRN BID PRN Flonase Allergy Relief (Fluticasone Propionate) 9.9 Ml [place].susp 1 Sprays NS DAILY Refresh Plus (Carboxymethylcellulose Sodium) 1 Each Droperette 1 Drop OU PRN BID PRN Restasis (Cyclosporine) 1 Each Droperette 1 Each OU BID Triamcinolone Acetonide 15 Gm Cream..g. 1 Stepan TP PRN TID PRN Mupirocin 22 Gm Oint...g. 1 Stepan TP PRN BID PRN Nystatin 15 Gm Cream..g. 1 Stepan TP PRN BID PRN Clonazepam 0.5 Mg Tablet 0.5 Mg PO BID@0900,1700 Ventolin Hfa Inhaler (Albuterol Sulfate) 18 Gm Hfa.aer.ad 2 Puff IH PRN Q6HRS PRN I have reviewed the current psychotropics carefully including drug interactions. Risk benefit ratio favors no change other than as noted in my dictated progress note. Diagnosis: Problems: (1) Schizoaffective disorder, bipolar type (2) Impulse control disorder (3) Confusion (4) Delusion (5) Bipolar affective, mixed, sev w/ psych (6) Anxiety disorder (7) Impulse control disorder RACHANA BENNETT MD Oct 13, 2017 20:53
[2017-10-14] MEDS: LEVOTHYROXINE 112 MCG TABLET PO SCH (05:51)
[2017-10-14] MEDS: DICLOFENAC SODIUM 1% TOPICAL GEL 100GM TUBE. TP SCH (05:53)
[2017-10-14] MEDS: HYDROcodone/APAP 10/325 1 TAB TABLET PO PRN ×2 (06:14→16:36)
[2017-10-14 06:15] VITALS: BP 139/65
[2017-10-14] MEDS: cycloSPORINE 0.05% OPTH 1 DROP DROPERETTE OU SCH ×2 (07:26→20:43)
[2017-10-14] MEDS: BACLOFEN 10 MG TABLET PO SCH ×3 (07:26→20:44)
[2017-10-14] MEDS: MAGNESIUM OXIDE 400 MG TABLET PO SCH (07:26)
[2017-10-14] MEDS: POLYETHYLENE GLYCOL 3350 17 GM PACKET. PO SCH (07:26)
[2017-10-14] MEDS: CALCIUM CARB/VIT D3 500/200 TABLET PO SCH (07:26)
[2017-10-14] MEDS: LIDOCAINE (700MG/PATCH) PATCH. TD SCH (07:27)
[2017-10-14] MEDS: OMEGA-3 FATTY ACIDS/FISH OIL 1,000 MG CAPSULE. PO SCH (07:27)
[2017-10-14] MEDS: GLUCOSAMINE/CHOND 500/400MG CAPSULE PO SCH (07:27)
[2017-10-14] MEDS: CYANOCOBALAMIN (VITAMIN B-12) 1,000 MCG TABLET. PO SCH (07:27)
[2017-10-14] MEDS: oxyCODONE ER 10 MG TAB.ER.12H PO SCH ×2 (07:29→20:45)
[2017-10-14] MEDS: FLUTICASONE 50MCG/NASAL SPRAY 16GM BOTTLE. NS SCH (07:30)
[2017-10-14 16:33] VITALS: BP 155/66
[2017-10-14] MEDS: ATORVASTATIN CALCIUM 10 MG TABLET. PO SCH (20:43)
[2017-10-14] MEDS: DIVALPROEX ER 250 MG TAB.ER.24H. PO SCH (20:43)
[2017-10-14] MEDS: MIRTAZAPINE 7.5 MG TABLET. PO SCH (20:43)
[2017-10-14] MEDS: risperiDONE 2 MG TABLET. PO SCH (20:43)
[2017-10-14] MEDS: clonazePAM 1 MG TABLET PO SCH (20:45)
--- NOTE | 2017-10-14 20:54 | PDOC ---
Exam Note: Jermaine Note: Please also refer to the separate dictated note~for this date of service dictated separately.~Patient seen individually. Discussed the patient with Nursing staff reviewed the chart.~Reviewed interim history and current functioning. Reviewed vital signs,~Labs/ Radiology~and current medications noted below. Continue current treatment with the changes noted in the dictated addendum note Assessment: Vital Signs: Vital Signs Date Time Temp Pulse Resp B/P (MAP) Pulse Ox O2 Delivery O2 Flow Rate FiO2 10/14/17 20:45 98 10/14/17 16:36 18 10/14/17 16:33 97.8 88 155/66 (95) 10/12/17 12:07 Room Air I&O Intake and Output 10/14/17 07:00 Intake Total 1560 ml Balance 1560 ml Intake Oral 1560 ml # Voids 1 Current Medications: Meds: Current Medications Acetaminophen (Tylenol) 650 mg PRN Q6HRS PRN PO PAIN / TEMP; Start 10/03/17 at 06:30 Multi-Ingredient Ointment (Analgesic [place]) 1 stepan PRN QID PRN TP MUSCLE PAIN; Start 10/03/17 at 06:30 Al Hydroxide/Mg Hydroxide (Mylanta Plus Xs) 15 ml PRN AFTMEALHC PRN PO DYSPEPSIA; Start 10/03/17 at 06:30 Magnesium Hydroxide (Milk Of Magnesia) 2,400 mg PRN QHS PRN PO CONSTIPATION Last administered on 10/04/17at 08:01; Start 10/03/17 at 06:30 Albuterol Sulfate (Ventolin Hfa Inhaler) 2 puff PRN Q6HRS PRN IH FOR ASTHMA; Start 10/03/17 at 07:45; Status UNV Carbamazepine (TEGretol) 200 mg BID PO Last administered on 10/10/17at 08:22; Start 10/03/17 at 09:00; Stop 10/10/17 at 10:23; Status DC Clonazepam (KlonoPIN) 0.5 mg BID@0900,1700 PO Last administered on 10/03/17at 11 :18; Start 10/03/17 at 09:00; Stop 10/03/17 at 16:55; Status DC Clonazepam (KlonoPIN) 2 mg QHS PO ; Start 10/03/17 at 21:00; Stop 10/03/17 at 21 :00; Status DC Cyanocobalamin (Vitamin B-12) 1,000 mcg DAILY PO Last administered on 10/14/17 07:27; Start 10/03/17 at 09:00 Cyclosporine (Restasis) 1 drop BID OU Last administered on 10/14/17at 20:43; Start 10/03/17 at 09:00 Diclofenac Sodium (Voltaren) 1 stepan PRN TID TP Last administered on 10/14/17 05 :53; Start 10/03/17 at 07:45 Estradiol (Estrace) 1 stepan QSUTUTH VG ; Start 10/03/17 at 16:00; Stop 10/03/17 at 16:00; Status DC Levothyroxine Sodium (Synthroid) 112 mcg DAILY06 PO Last administered on 05:51; Start 10/03/17 at 09:00 Senna/Docusate Sodium (Senna Plus) 1 tab PRN BID PRN PO CONSTIPATION; Start at 07:45 Acetaminophen/ Aspirin/Caffeine (Excedrin Migraine) 2 tab Q24H PRN PO MIGRAINE HEADACHE Last administered on 10/05/17 14:16; Start 10/03/17 at 09:00 Baclofen (Lioresal) 10 mg Q4HRS PO ; Start 10/03/17 at 12:00; Status Cancel Calcium/Vitamin D (Oscal D 500mg/ 200uts) 1 tab DAILY PO Last administered on 07:26; Start 10/03/17 at 09:00 Artificial Tears (Refresh Classic) 1 drop PRN BID PRN OU DRY EYE; Start at 07:45 Fish Oil (Fish Oil) 1,000 mg DAILY PO Last administered on 10/14/17 07:27; Start 10/03/17 at 09:00 Fluticasone Propionate (Flonase) 1 spray DAILY NS Last administered on 07:30; Start 10/03/17 at 09:00 Glucosamine/ Chondroitin (Glucosamine-Chondroitin 500/400mg) 1 cap DAILY PO Last administered on 10/14/17 07:27; Start 10/03/17 at 09:00 Acetaminophen/ Hydrocodone Bitart (Lortab 10/325) 1 tab PRN Q4HRS PRN PO PAIN Last administered on 10/14/17 16:36; Start 10/03/17 at 07:45 Lidocaine (Lidoderm) 1 patch DAILY TD Last administered on 10/14/17 07:27; Start 10/03/17 at 09:00 Magnesium Oxide (Magnesium Oxide) 400 mg DAILY PO Last administered on 07:26; Start 10/03/17 at 09:00 Mupirocin (Bactroban) 1 stepan PRN BID PRN TP NOSE SORES; Start 10/03/17 at 09:00 Nystatin (Mycostatin) 1 stepan PRN BID PRN TP YEAST/RASH; Start 10/03/17 at 09:00 Polyethylene Glycol (miraLAX) 17 gm DAILY PO Last administered on 10/14/17 07: 26; Start 10/03/17 at 09:00 Risperidone (RisperDAL) 2 mg QHS PO Last administered on 10/14/17at 20:43; Start 10/03/17 at 21:00 Triamcinolone Acetonide (Kenalog) 1 stepan PRN TID PRN TP VAGINAL PAIN; Start at 09:00 Estradiol (Estrace) 1 stepan QSUTUTH PRN VG ITCHING; Start 10/03/17 at 16:00 Albuterol Sulfate (Ventolin) 2.5 mg PRN Q6HRS PRN NEB SHORTNESS OF BREATH; Start 10/03/17 at 09:00 Baclofen (Lioresal) 5 mg Q4HRS PO Last administered on 10/03/17at 11:21; Start 10/03/17 at 12:00; Stop 10/03/17 at 15:51; Status DC Ondansetron HCl (Zofran Odt) 4 mg PRN Q8HRS PRN PO NAUSEA/VOMITING Last administered on 10/03/17at 10:16; Start 10/03/17 at 09:45 Clonazepam (KlonoPIN) 1.5 mg QHS PO ; Start 10/03/17 at 21:00; Stop 10/03/17 at 21:00; Status DC Clonazepam (KlonoPIN) 1 mg QHS PO ; Start 10/06/17 at 21:00; Stop 10/06/17 at 21 :00; Status DC Clonazepam (KlonoPIN) 0.5 mg QHS PO ; Start 10/03/17 at 21:00; Stop 10/03/17 at 21:00; Status DC Clonazepam (KlonoPIN) 0.5 mg DAILY@1700 PO ; Start 10/03/17 at 17:00; Stop 10/03 at 17:00; Status DC Baclofen (Lioresal) 5 mg TID PO Last administered on 10/14/17 20:44; Start at 21:00 Clonazepam (KlonoPIN) 0.5 mg DAILY PO Last administered on 10/08/17at 08:45; Start 10/04/17 at 09:00; Stop 10/09/17 at 00:00; Status DC Clonazepam (KlonoPIN) 0.5 mg DAILY@1700 PO Last administered on 10/11/17 17:09 ; Start 10/04/17 at 17:00; Stop 10/12/17 at 00:00; Status DC Clonazepam (KlonoPIN) 1 mg Taper QHS PO Last administered on 10/14/17 20:45; Start 10/03/17 at 21:00; Stop 10/18/17 at 20:59 Olanzapine (ZyPREXA ZYDIS) 2.5 mg PRN Q2HR PRN PO PSYCHOSIS Last administered on 10/14/17 16:39; Start 10/03/17 at 17:45 Divalproex Sodium (Depakote Er) 250 mg QHS PO Last administered on 10/03/17 19 :49; Start 10/03/17 at 21:00; Stop 10/03/17 at 21:01; Status DC Divalproex Sodium (Depakote Er) 500 mg QHS PO Last administered on 10/06/17 19 :35; Start 10/04/17 at 21:00; Stop 10/07/17 at 18:41; Status DC Atorvastatin Calcium (Lipitor) 10 mg QHS PO Last administered on 10/14/17 20:43 ; Start 10/07/17 at 21:00 Divalproex Sodium (Depakote Er) 750 mg QHS PO Last administered on 10/14/17 20: 43; Start 10/07/17 at 21:00 Oxycodone HCl (OxyCONTIN) 10 mg Q12HR PO Last administered on 9/3/18at 20:45; Start 10/08/17 at 21:00 Mirtazapine (Remeron) 7.5 mg QHS PO Last administered on 10/14/17at 20:43; Start 10/08/17 at 21:00 Carbamazepine (TEGretol) 200 mg HS PO Last administered on 10/11/17at 19:48; Start 10/10/17 at 21:00; Stop 10/12/17 at 20:59; Status DC Active Scripts Active Reported Lidocaine 1 Each Adh..patch 1 Each TP DAILY Clonazepam 2 Mg Tablet 2 Mg PO QHS Diclofenac Sodium 100 Gm Gel..gram. 100 Gm TP PRN TID Estrace (Estradiol) 42.5 Gm Cream.appl 1 Stepan VG PRN 2X/WEEK Magnesium Oxide 400 Mg Tablet 400 Mg PO DAILY Baclofen 10 Mg Tablet 5 Mg PO Q4HRS Tegretol (Carbamazepine) 200 Mg Tablet 200 Mg PO BID Excedrin Migraine Caplet (Aspirin/Acetaminophen/Caffeine) 1 Each Tablet 2 Each PO PRN Q24HRS PRN Risperidone 2 Mg Tablet 2 Mg PO QHS Miralax (Polyethylene Glycol 3350) 17 Gm Powd.pack 1 Packet PO DAILY Synthroid (Levothyroxine Sodium) 112 Mcg Tablet 112 Mcg PO DAILYAC [place] 3-6-9 1,200 mg Softgel (Fish Oil/Borage/Flax/Om3,6,9#1) 1,200 Mg Capsule 1 Cap PO DAILY Vitamin B-12 (Cyanocobalamin (Vitamin B-12)) 1,000 Mcg Tablet 1,000 Mcg PO DAILY Calcium 500 + Vit D 400 Tablet (Calcium Carbonate/Vitamin D3) 1 Each Tablet 1 Tab PO DAILY Glucosamine Chondroitin Tab (Gluc Stephen/Chondro Stephen A/Vit C/Mn) 1 Each Tablet 1 Tab PO DAILY [place] 10-325 Tablet (Hydrocodone Bit/Acetaminophen) 1 Each Tablet 1 Tab PO PRN Q4HRS PRN Senokot-S Tablet (Sennosides/Docusate Sodium) 1 Each Tablet 1 Tab PO PRN BID PRN Flonase Allergy Relief (Fluticasone Propionate) 9.9 Ml [place].susp 1 Sprays NS DAILY Refresh Plus (Carboxymethylcellulose Sodium) 1 Each Droperette 1 Drop OU PRN BID PRN Restasis (Cyclosporine) 1 Each Droperette 1 Each OU BID Triamcinolone Acetonide 15 Gm Cream..g. 1 Ste[place] TP PRN TID PRN Mupirocin 22 Gm Oint...g. 1 Stepan TP PRN BID PRN Nystatin 15 Gm Cream..g. 1 Ste[place] TP PRN BID PRN Clonazepam 0.5 Mg Tablet 0.5 Mg PO BID@0900,1700 Ventolin Hfa Inhaler (Albuterol Sulfate) 18 Gm Hfa.aer.ad 2 Puff IH PRN Q6HRS PRN I have reviewed the current psychotropics carefully including drug interactions. Risk benefit ratio favors no change other than as noted in my dictated progress note. Diagnosis: Problems: (1) Schizoaffective disorder, bipolar type (2) Impulse control disorder (3) Confusion (4) Delusion (5) Bipolar affective, mixed, sev w/ psych (6) Anxiety disorder (7) Impulse control disorder RACHANA BENNETT MD Oct 14, 2017 20:53
[2017-10-15 05:49] VITALS: BP 165/71
[2017-10-15] MEDS: LEVOTHYROXINE 112 MCG TABLET PO SCH (05:58)
[2017-10-15 07:30] LABS: BASO % 1 % (0-3); EOS # 0.1 x10^3/uL (0.0-0.7); EOS % 1 % (0-3); HEMATOCRIT 37.1 % (36.0-47.0); HEMOGLOBIN 12.4 g/dL (12.0-15.5); LYMPH # 1.8 x10^3/uL (1.0-4.8); LYMPH % 29 % (24-48); MEAN CORPUSCULAR HEMOGLOBIN 33 pg (25-35); MEAN CORPUSCULAR HGB CONC 34 g/dL (31-37); MEAN CORPUSCULAR VOLUME 99 fL (79-100); MONO # 0.6 x10^3/uL (0.0-1.1); MONO % 10 % (0-9); NEUT # 3.8 x10^3uL (1.8-7.7); NEUT % 60 % (31-73); PLATELET COUNT 218 x10^3/uL (140-400); RED BLOOD COUNT 3.76 x10^6/uL (3.50-5.40); RED CELL DISTRIBUTION WIDTH 13.6 % (11.5-14.5); WHITE BLOOD COUNT 6.4 x10^3/uL (4.0-11.0)
[2017-10-15] MEDS: POLYVINYL ALCOHOL/POVIDONE/PF OPHTH SOLUTION DROPERETTE. OU PRN ×2 (07:37→07:44)
[2017-10-15] MEDS: BACLOFEN 10 MG TABLET PO SCH ×3 (07:38→20:09)
[2017-10-15] MEDS: MAGNESIUM OXIDE 400 MG TABLET PO SCH (07:38)
[2017-10-15] MEDS: CYANOCOBALAMIN (VITAMIN B-12) 1,000 MCG TABLET. PO SCH (07:38)
[2017-10-15] MEDS: OMEGA-3 FATTY ACIDS/FISH OIL 1,000 MG CAPSULE. PO SCH (07:38)
[2017-10-15] MEDS: oxyCODONE ER 10 MG TAB.ER.12H PO SCH ×2 (07:39→20:09)
[2017-10-15] MEDS: GLUCOSAMINE/CHOND 500/400MG CAPSULE PO SCH (07:39)
[2017-10-15] MEDS: POLYETHYLENE GLYCOL 3350 17 GM PACKET. PO SCH (07:40)
[2017-10-15] MEDS: CALCIUM CARB/VIT D3 500/200 TABLET PO SCH (07:40)
[2017-10-15] MEDS: LIDOCAINE (700MG/PATCH) PATCH. TD SCH (07:44)
[2017-10-15] MEDS: cycloSPORINE 0.05% OPTH 1 DROP DROPERETTE OU SCH ×2 (07:44→20:09)
[2017-10-15 07:50] LABS: ALBUMIN 3.4 g/dL (3.4-5.0); ALBUMIN/GLOBULIN RATIO 0.9 (1.0-1.7); CALCIUM 9.4 mg/dL (8.5-10.1); CREATININE 1.1 mg/dL (0.6-1.0); GFR 47.8; POTASSIUM 4.3 mmol/L (3.5-5.1); TOTAL BILIRUBIN 0.4 mg/dL (0.2-1.0); TOTAL PROTEIN 7.2 g/dL (6.4-8.2)
[2017-10-15] MEDS: FLUTICASONE 50MCG/NASAL SPRAY 16GM BOTTLE. NS SCH (09:00)
[2017-10-15] MEDS: HYDROcodone/APAP 10/325 1 TAB TABLET PO PRN ×2 (11:46→17:08)
[2017-10-15 16:45] VITALS: BP 104/72
[2017-10-15] MEDS: DIVALPROEX ER 250 MG TAB.ER.24H. PO SCH (20:09)
[2017-10-15] MEDS: risperiDONE 2 MG TABLET. PO SCH (20:09)
[2017-10-15] MEDS: ATORVASTATIN CALCIUM 10 MG TABLET. PO SCH (20:09)
[2017-10-15] MEDS: MIRTAZAPINE 7.5 MG TABLET. PO SCH (20:09)
[2017-10-15] MEDS: clonazePAM 1 MG TABLET PO SCH (20:10)
--- NOTE | 2017-10-15 20:57 | PDOC ---
Exam Note: Jermaine Note: Please also refer to the separate dictated note~for this date of service dictated separately.~Patient seen individually. Discussed the patient with Nursing staff reviewed the chart.~Reviewed interim history and current functioning. Reviewed vital signs,~Labs/ Radiology~and current medications noted below. Continue current treatment with the changes noted in the dictated addendum note Assessment: Vital Signs: Vital Signs Date Time Temp Pulse Resp B/P (MAP) Pulse Ox O2 Delivery O2 Flow Rate FiO2 10/15/17 20:09 18 95 10/15/17 16:45 97.4 96 104/72 (83) 10/12/17 12:07 Room Air I&O Intake and Output 10/15/17 07:00 Intake Total 1320 ml Balance 1320 ml Intake Oral 1320 ml # Voids 1 Labs: Laboratory Tests Test 10/15/17 07:09 White Blood Count 6.4 x10^3/uL (4.0-11.0) Red Blood Count 3.76 x10^6/uL (3.50-5.40) Hemoglobin 12.4 g/dL (12.0-15.5) Hematocrit 37.1 % (36.0-47.0) Mean Corpuscular Volume 99 fL (79-100) Mean Corpuscular Hemoglobin 33 pg (25-35) Mean Corpuscular Hemoglobin Concent 34 g/dL (31-37) Red Cell Distribution Width 13.6 % (11.5-14.5) Platelet Count 218 x10^3/uL (140-400) Neutrophils (%) (Auto) 60 % (31-73) Lymphocytes (%) (Auto) 29 % (24-48) Monocytes (%) (Auto) 10 % (0-9) H Eosinophils (%) (Auto) 1 % (0-3) Basophils (%) (Auto) 1 % (0-3) Neutrophils # (Auto) 3.8 x10^3uL (1.8-7.7) Lymphocytes # (Auto) 1.8 x10^3/uL (1.0-4.8) Monocytes # (Auto) 0.6 x10^3/uL (0.0-1.1) Eosinophils # (Auto) 0.1 x10^3/uL (0.0-0.7) Basophils # (Auto) 0.0 x10^3/uL (0.0-0.2) Sodium Level 143 mmol/L (136-145) Potassium Level 4.3 mmol/L (3.5-5.1) Chloride Level 104 mmol/L (98-107) Carbon Dioxide Level 33 mmol/L (21-32) H Anion Gap 6 (6-14) Blood Urea Nitrogen 18 mg/dL (7-20) Creatinine 1.1 mg/dL (0.6-1.0) H Estimated GFR (Cockcroft-Gault) 47.8 BUN/Creatinine Ratio 16 (6-20) Glucose Level 111 mg/dL (70-99) H Calcium Level 9.4 mg/dL (8.5-10.1) Total Bilirubin 0.4 mg/dL (0.2-1.0) Aspartate Amino Transferase (AST) 21 U/L (15-37) Alanine Aminotransferase (ALT) 22 U/L (14-59) Alkaline Phosphatase 89 U/L (46-116) Total Protein 7.2 g/dL (6.4-8.2) Albumin 3.4 g/dL (3.4-5.0) Albumin/Globulin Ratio 0.9 (1.0-1.7) L Current Medications: Meds: Current Medications Acetaminophen (Tylenol) 650 mg PRN Q6HRS PRN PO PAIN / TEMP; Start 10/03/17 at 06:30 Multi-Ingredient Ointment (Analgesic [place]) 1 stepan PRN QID PRN TP MUSCLE PAIN; Start 10/03/17 at 06:30 Al Hydroxide/Mg Hydroxide (Mylanta Plus Xs) 15 ml PRN AFTMEALHC PRN PO DYSPEPSIA; Start 10/03/17 at 06:30 Magnesium Hydroxide (Milk Of Magnesia) 2,400 mg PRN QHS PRN PO CONSTIPATION Last administered on 10/04/17at 08:01; Start 10/03/17 at 06:30 Albuterol Sulfate (Ventolin Hfa Inhaler) 2 puff PRN Q6HRS PRN IH FOR ASTHMA; Start 10/03/17 at 07:45; Status UNV Carbamazepine (TEGretol) 200 mg BID PO Last administered on 10/10/17at 08:22; Start 10/03/17 at 09:00; Stop 10/10/17 at 10:23; Status DC Clonazepam (KlonoPIN) 0.5 mg BID@0900,1700 PO Last administered on 10/03/17at 11 :18; Start 10/03/17 at 09:00; Stop 10/03/17 at 16:55; Status DC Clonazepam (KlonoPIN) 2 mg QHS PO ; Start 10/03/17 at 21:00; Stop 10/03/17 at 21 :00; Status DC Cyanocobalamin (Vitamin B-12) 1,000 mcg DAILY PO Last administered on 10/15/17at 07:38; Start 10/03/17 at 09:00 Cyclosporine (Restasis) 1 drop BID OU Last administered on 10/15/17at 20:09; Start 10/03/17 at 09:00 Diclofenac Sodium (Voltaren) 1 stepan PRN TID TP Last administered on 10/14/17at 05 :53; Start 10/03/17 at 07:45 Estradiol (Estrace) 1 stepan QSUTUTH VG ; Start 10/03/17 at 16:00; Stop 10/03/17 at 16:00; Status DC Levothyroxine Sodium (Synthroid) 112 mcg DAILY06 PO Last administered on at 05:58; Start 10/03/17 at 09:00 Senna/Docusate Sodium (Senna Plus) 1 tab PRN BID PRN PO CONSTIPATION; Start at 07:45 Acetaminophen/ Aspirin/Caffeine (Excedrin Migraine) 2 tab Q24H PRN PO MIGRAINE HEADACHE Last administered on 10/05/17at 14:16; Start 10/03/17 at 09:00 Baclofen (Lioresal) 10 mg Q4HRS PO ; Start 10/03/17 at 12:00; Status Cancel Calcium/Vitamin D (Oscal D 500mg/ 200uts) 1 tab DAILY PO Last administered on 07:40; Start 10/03/17 at 09:00 Artificial Tears (Refresh Classic) 1 drop PRN BID PRN OU DRY EYE Last administered on 10/15/17 07:44; Start 10/03/17 at 07:45 Fish Oil (Fish Oil) 1,000 mg DAILY PO Last administered on 10/15/17at 07:38; Start 10/03/17 at 09:00 Fluticasone Propionate (Flonase) 1 spray DAILY NS Last administered on 09:00; Start 10/03/17 at 09:00 Glucosamine/ Chondroitin (Glucosamine-Chondroitin 500/400mg) 1 cap DAILY PO Last administered on 10/15/17at 07:39; Start 10/03/17 at 09:00 Acetaminophen/ Hydrocodone Bitart (Lortab 10/325) 1 tab PRN Q4HRS PRN PO PAIN Last administered on 10/15/17 17:08; Start 10/03/17 at 07:45 Lidocaine (Lidoderm) 1 patch DAILY TD Last administered on 10/15/17 07:44; Start 10/03/17 at 09:00 Magnesium Oxide (Magnesium Oxide) 400 mg DAILY PO Last administered on 07:38; Start 10/03/17 at 09:00 Mupirocin (Bactroban) 1 stepan PRN BID PRN TP NOSE SORES; Start 10/03/17 at 09:00 Nystatin (Mycostatin) 1 stepan PRN BID PRN TP YEAST/RASH; Start 10/03/17 at 09:00 Polyethylene Glycol (miraLAX) 17 gm DAILY PO Last administered on 10/15/17at 07: 40; Start 10/03/17 at 09:00 Risperidone (RisperDAL) 2 mg QHS PO Last administered on 10/15/17at 20:09; Start 10/03/17 at 21:00 Triamcinolone Acetonide (Kenalog) 1 stepan PRN TID PRN TP VAGINAL PAIN; Start at 09:00 Estradiol (Estrace) 1 stepan QSUTUTH PRN VG ITCHING; Start 10/03/17 at 16:00 Albuterol Sulfate (Ventolin) 2.5 mg PRN Q6HRS PRN NEB SHORTNESS OF BREATH; Start 10/03/17 at 09:00 Baclofen (Lioresal) 5 mg Q4HRS PO Last administered on 10/03/17at 11:21; Start 10/03/17 at 12:00; Stop 10/03/17 at 15:51; Status DC Ondansetron HCl (Zofran Odt) 4 mg PRN Q8HRS PRN PO NAUSEA/VOMITING Last administered on 10/03/17at 10:16; Start 10/03/17 at 09:45 Clonazepam (KlonoPIN) 1.5 mg QHS PO ; Start 10/03/17 at 21:00; Stop 10/03/17 at 21:00; Status DC Clonazepam (KlonoPIN) 1 mg QHS PO ; Start 10/06/17 at 21:00; Stop 10/06/17 at 21 :00; Status DC Clonazepam (KlonoPIN) 0.5 mg QHS PO ; Start 10/03/17 at 21:00; Stop 10/03/17 at 21:00; Status DC Clonazepam (KlonoPIN) 0.5 mg DAILY@1700 PO ; Start 10/03/17 at 17:00; Stop 10/03 at 17:00; Status DC Baclofen (Lioresal) 5 mg TID PO Last administered on 10/15/17at 20:09; Start at 21:00 Clonazepam (KlonoPIN) 0.5 mg DAILY PO Last administered on 10/08/17at 08:45; Start 10/04/17 at 09:00; Stop 10/09/17 at 00:00; Status DC Clonazepam (KlonoPIN) 0.5 mg DAILY@1700 PO Last administered on 10/11/17at 17:09 ; Start 10/04/17 at 17:00; Stop 10/12/17 at 00:00; Status DC Clonazepam (KlonoPIN) 1 mg Taper QHS PO Last administered on 10/15/17at 20:10; Start 10/03/17 at 21:00; Stop 10/18/17 at 20:59 Olanzapine (ZyPREXA ZYDIS) 2.5 mg PRN Q2HR PRN PO PSYCHOSIS Last administered on 10/15/17at 07:40; Start 10/03/17 at 17:45 Divalproex Sodium (Depakote Er) 250 mg QHS PO Last administered on 10/03/17at 19 :49; Start 10/03/17 at 21:00; Stop 10/03/17 at 21:01; Status DC Divalproex Sodium (Depakote Er) 500 mg QHS PO Last administered on 10/06/17at 19 :35; Start 10/04/17 at 21:00; Stop 10/07/17 at 18:41; Status DC Atorvastatin Calcium (Lipitor) 10 mg QHS PO Last administered on 10/15/17 20:09 ; Start 10/07/17 at 21:00 Divalproex Sodium (Depakote Er) 750 mg QHS PO Last administered on 10/15/17 20: 09; Start 10/07/17 at 21:00 Oxycodone HCl (OxyCONTIN) 10 mg Q12HR PO Last administered on 10/15/17 20:09; Start 10/08/17 at 21:00 Mirtazapine (Remeron) 7.5 mg QHS PO Last administered on 10/15/17 20:09; Start 10/08/17 at 21:00 Carbamazepine (TEGretol) 200 mg HS PO Last administered on 10/11/17at 19:48; Start 10/10/17 at 21:00; Stop 10/12/17 at 20:59; Status DC Active Scripts Active Reported Lidocaine 1 Each Adh..patch 1 Each TP DAILY Clonazepam 2 Mg Tablet 2 Mg PO QHS Diclofenac Sodium 100 Gm Gel..gram. 100 Gm TP PRN TID Estrace (Estradiol) 42.5 Gm Cream.appl 1 Stepan VG PRN 2X/WEEK Magnesium Oxide 400 Mg Tablet 400 Mg PO DAILY Baclofen 10 Mg Tablet 5 Mg PO Q4HRS Tegretol (Carbamazepine) 200 Mg Tablet 200 Mg PO BID Excedrin Migraine Caplet (Aspirin/Acetaminophen/Caffeine) 1 Each Tablet 2 Each PO PRN Q24HRS PRN Risperidone 2 Mg Tablet 2 Mg PO QHS Miralax (Polyethylene Glycol 3350) 17 Gm Powd.pack 1 Packet PO DAILY Synthroid (Levothyroxine Sodium) 112 Mcg Tablet 112 Mcg PO DAILYAC [place] 3-6-9 1,200 mg Softgel (Fish Oil/Borage/Flax/Om3,6,9#1) 1,200 Mg Capsule 1 Cap PO DAILY Vitamin B-12 (Cyanocobalamin (Vitamin B-12)) 1,000 Mcg Tablet 1,000 Mcg PO DAILY Calcium 500 + Vit D 400 Tablet (Calcium Carbonate/Vitamin D3) 1 Each Tablet 1 Tab PO DAILY Glucosamine Chondroitin Tab (Gluc Stephen/Chondro Stephen A/Vit C/Mn) 1 Each Tablet 1 Tab PO DAILY [place] 10-325 Tablet (Hydrocodone Bit/Acetaminophen) 1 Each Tablet 1 Tab PO PRN Q4HRS PRN Senokot-S Tablet (Sennosides/Docusate Sodium) 1 Each Tablet 1 Tab PO PRN BID PRN Flonase Allergy Relief (Fluticasone Propionate) 9.9 Ml [place].susp 1 Sprays NS DAILY Refresh Plus (Carboxymethylcellulose Sodium) 1 Each Droperette 1 Drop OU PRN BID PRN Restasis (Cyclosporine) 1 Each Droperette 1 Each OU BID Triamcinolone Acetonide 15 Gm Cream..g. 1 Ste[place] TP PRN TID PRN Mupirocin 22 Gm Oint...g. 1 Ste[place] TP PRN BID PRN Nystatin 15 Gm Cream..g. 1 Stepan TP PRN BID PRN Clonazepam 0.5 Mg Tablet 0.5 Mg PO BID@0900,1700 Ventolin Hfa Inhaler (Albuterol Sulfate) 18 Gm Hfa.aer.ad 2 Puff IH PRN Q6HRS PRN I have reviewed the current psychotropics carefully including drug interactions. Risk benefit ratio favors no change other than as noted in my dictated progress note. Diagnosis: Problems: (1) Schizoaffective disorder, bipolar type (2) Impulse control disorder (3) Confusion (4) Delusion (5) Bipolar affective, mixed, sev w/ psych (6) Anxiety disorder (7) Impulse control disorder RACHANA BENNETT MD Oct 15, 2017 20:56
[2017-10-15] MEDS ORDERED: CLON1TAB4 PO (23:23)
[2017-10-15] MEDS ORDERED: DIVA500T4 PO (23:53)
[2017-10-15] MEDS ORDERED: ATOR10TA60 PO (23:55)
[2017-10-15] MEDS ORDERED: ACET325T9 PO (23:55)
[2017-10-15] MEDS ORDERED: MAG30ORA2 PO (23:56)
[2017-10-15] MEDS ORDERED: MAGN2400 PO (23:57)
[2017-10-16] MEDS ORDERED: MAGN400T3 PO
[2017-10-16] MEDS ORDERED: METH29OI TP (00:01)
[2017-10-16] MEDS ORDERED: MIRT15TA3 PO (00:02)
[2017-10-16] MEDS ORDERED: OLAN5TAB5 PO (00:04)
[2017-10-16] MEDS ORDERED: ONDA4TAB12 PO (00:05)
[2017-10-16] MEDS ORDERED: CARB15DR3 OU (00:06)
[2017-10-16] MEDS ORDERED: OXYC10TA45 PO (00:07)
--- NOTE | 2017-10-16 01:41 | PN ---
DATE: 10/13/2017 PSYCHIATRIC PROGRESS NOTE This is a late entry of 10/13/2017, covers elements not covered in my initial note. SUBJECTIVE: I met with the patient in the evening. The patient slept 6-1/2 hours previous evening. Per nursing report, she has had intermittent hallucinations at times, somewhat worse during the day, received Zyprexa, which seemed to help. Sabi came to visit her per nursing report. At times per nursing report, she was tearful and dramatic "I hurt." Per nursing report at times, she is rude, looked at her watch telling the nursing staff, they were late for 2 minutes to give her her medications and apologized about this. No CV, , pulmonary, eye system symptoms on review. MENTAL STATUS EXAM: Reasonably oriented. Speech coherent, abstraction fair. Computation, able to do one step serial 7. No active suicidal or homicidal ideation. LABORATORY DATA: Labs reviewed. IMPRESSION: Unchanged from initial note. PLAN: No change from initial note. RACHANA BENNETT MD DR: GIGI/taya JOB#: [id number] / [id number]
--- NOTE | 2017-10-16 02:02 | PN ---
DATE: 10/03/2017 This is a late entry 10/14/2017, covers elements not covered in my initial note. SUBJECTIVE: I met with the patient in the evening. Previous night, the patient is quite rude, laughing at staff, irritable, was tearful in the morning, stated she wanted to cry, stating she was feeling sick, watched movies. She slept 6 hours, received Zyprexa p.r.n., which seemed to help. REVIEW OF SYSTEMS: Ambulation impaired with walker. Complains of occasional back pain. No CV, , pulmonary, eye system symptoms on review. MENTAL STATUS EXAM: Reasonably oriented. Speech coherent, abstraction fair, computation able to do two steps on serial 7's. Insight fair. Judgment intact to standard questioning. Mood and affect remain somewhat labile, anxious, dysphoric at times, but generally improved. No suicidal or homicidal ideation. LABORATORY DATA: Reviewed. IMPRESSION: Unchanged from initial note. PLAN: No change from initial note. RACHANA BENNETT MD DR: GIGI/taya JOB#: [id number] / [id number]
[2017-10-16] MEDS: LEVOTHYROXINE 112 MCG TABLET PO SCH (06:08)
[2017-10-16 06:22] VITALS: BP 127/66
[2017-10-16] MEDS: MAGNESIUM OXIDE 400 MG TABLET PO SCH (07:25)
[2017-10-16] MEDS: GLUCOSAMINE/CHOND 500/400MG CAPSULE PO SCH (07:25)
[2017-10-16] MEDS: POLYETHYLENE GLYCOL 3350 17 GM PACKET. PO SCH (07:26)
[2017-10-16] MEDS: CYANOCOBALAMIN (VITAMIN B-12) 1,000 MCG TABLET. PO SCH (07:26)
[2017-10-16] MEDS: BACLOFEN 10 MG TABLET PO SCH ×2 (07:26→12:01)
[2017-10-16] MEDS: cycloSPORINE 0.05% OPTH 1 DROP DROPERETTE OU SCH (07:26)
[2017-10-16] MEDS: CALCIUM CARB/VIT D3 500/200 TABLET PO SCH (07:26)
[2017-10-16] MEDS: FLUTICASONE 50MCG/NASAL SPRAY 16GM BOTTLE. NS SCH (07:26)
[2017-10-16] MEDS: OMEGA-3 FATTY ACIDS/FISH OIL 1,000 MG CAPSULE. PO SCH (07:26)
[2017-10-16] MEDS: LIDOCAINE (700MG/PATCH) PATCH. TD SCH (07:28)
[2017-10-16] MEDS: oxyCODONE ER 10 MG TAB.ER.12H PO SCH (07:28)
[2017-10-16] MEDS ORDERED: OMEG-33 PO (09:19)
[2017-10-16] MEDS: HYDROcodone/APAP 10/325 1 TAB TABLET PO PRN ×2 (10:43→15:38)
[2017-10-16] MEDS: DICLOFENAC SODIUM 1% TOPICAL GEL 100GM TUBE. TP SCH (10:44)
--- NOTE | 2017-10-16 20:48 | PDOC ---
Exam Note: Jermaine Note: Please also refer to the separate dictated note~for this date of service dictated separately.~Patient seen individually. Discussed the patient with Nursing staff reviewed the chart.~Reviewed interim history and current functioning. Reviewed vital signs,~Labs/ Radiology~and current medications noted below. Continue current treatment with the changes noted in the dictated addendum note Assessment: Vital Signs: Vital Signs Date Time Temp Pulse Resp B/P (MAP) Pulse Ox O2 Delivery O2 Flow Rate FiO2 10/16/17 15:38 20 Room Air 10/16/17 06:22 98.2 83 127/66 (86) 93 I&O Intake and Output 10/16/17 07:00 Intake Total 960 ml Balance 960 ml Intake Oral 960 ml Current Medications: Meds: Current Medications Acetaminophen (Tylenol) 650 mg PRN Q6HRS PRN PO PAIN / TEMP; Start 10/03/17 at 06:30; Stop 10/16/17 at 16:11; Status DC Multi-Ingredient Ointment (Analgesic [place]) 1 stepan PRN QID PRN TP MUSCLE PAIN; Start 10/03/17 at 06:30; Stop 10/16/17 at 16:11; Status DC Al Hydroxide/Mg Hydroxide (Mylanta Plus Xs) 15 ml PRN AFTMEALHC PRN PO DYSPEPSIA; Start 10/03/17 at 06:30; Stop 10/16/17 at 16:11; Status DC Magnesium Hydroxide (Milk Of Magnesia) 2,400 mg PRN QHS PRN PO CONSTIPATION Last administered on 10/04/17at 08:01; Start 10/03/17 at 06:30; Stop 10/16/17 at 16:11; Status DC Albuterol Sulfate (Ventolin Hfa Inhaler) 2 puff PRN Q6HRS PRN IH FOR ASTHMA; Start 10/03/17 at 07:45; Status UNV Carbamazepine (TEGretol) 200 mg BID PO Last administered on 10/10/17at 08:22; Start 10/03/17 at 09:00; Stop 10/10/17 at 10:23; Status DC Clonazepam (KlonoPIN) 0.5 mg BID@0900,1700 PO Last administered on 10/03/17at 11 :18; Start 10/03/17 at 09:00; Stop 10/03/17 at 16:55; Status DC Clonazepam (KlonoPIN) 2 mg QHS PO ; Start 10/03/17 at 21:00; Stop 10/03/17 at 21 :00; Status DC Cyanocobalamin (Vitamin B-12) 1,000 mcg DAILY PO Last administered on 10/16/17 07:26; Start 10/03/17 at 09:00; Stop 10/16/17 at 16:11; Status DC Cyclosporine (Restasis) 1 drop BID OU Last administered on 10/16/17at 07:26; Start 10/03/17 at 09:00; Stop 10/16/17 at 16:11; Status DC Diclofenac Sodium (Voltaren) 1 stepan PRN TID TP Last administered on 10/16/17at 10 :44; Start 10/03/17 at 07:45; Stop 10/16/17 at 16:11; Status DC Estradiol (Estrace) 1 stepan QSUTUTH VG ; Start 10/03/17 at 16:00; Stop 10/03/17 at 16:00; Status DC Levothyroxine Sodium (Synthroid) 112 mcg DAILY06 PO Last administered on 06:08; Start 10/03/17 at 09:00; Stop 10/16/17 at 16:11; Status DC Senna/Docusate Sodium (Senna Plus) 1 tab PRN BID PRN PO CONSTIPATION; Start at 07:45; Stop 10/16/17 at 16:11; Status DC Acetaminophen/ Aspirin/Caffeine (Excedrin Migraine) 2 tab Q24H PRN PO MIGRAINE HEADACHE Last administered on 10/05/17at 14:16; Start 10/03/17 at 09:00; Stop 10/16/17 at 16:11; Status DC Baclofen (Lioresal) 10 mg Q4HRS PO ; Start 10/03/17 at 12:00; Status Cancel Calcium/Vitamin D (Oscal D 500mg/ 200uts) 1 tab DAILY PO Last administered on at 07:26; Start 10/03/17 at 09:00; Stop 10/16/17 at 16:11; Status DC Artificial Tears (Refresh Classic) 1 drop PRN BID PRN OU DRY EYE Last administered on 10/15/17at 07:44; Start 10/03/17 at 07:45; Stop 10/16/17 at 16:11; Status DC Fish Oil (Fish Oil) 1,000 mg DAILY PO Last administered on 10/16/17at 07:26; Start 10/03/17 at 09:00; Stop 10/16/17 at 16:11; Status DC Fluticasone Propionate (Flonase) 1 spray DAILY NS Last administered on at 07:26; Start 10/03/17 at 09:00; Stop 10/16/17 at 16:11; Status DC Glucosamine/ Chondroitin (Glucosamine-Chondroitin 500/400mg) 1 cap DAILY PO Last administered on 10/16/17at 07:25; Start 10/03/17 at 09:00; Stop 10/16/17 at 16 :11; Status DC Acetaminophen/ Hydrocodone Bitart (Lortab 10/325) 1 tab PRN Q4HRS PRN PO PAIN Last administered on 10/16/17at 15:38; Start 10/03/17 at 07:45; Stop 10/16/17 at 16 :11; Status DC Lidocaine (Lidoderm) 1 patch DAILY TD Last administered on 10/16/17at 07:28; Start 10/03/17 at 09:00; Stop 10/16/17 at 16:11; Status DC Magnesium Oxide (Magnesium Oxide) 400 mg DAILY PO Last administered on at 07:25; Start 10/03/17 at 09:00; Stop 10/16/17 at 16:11; Status DC Mupirocin (Bactroban) 1 stepan PRN BID PRN TP NOSE SORES; Start 10/03/17 at 09:00 ; Stop 10/16/17 at 16:11; Status DC Nystatin (Mycostatin) 1 stepan PRN BID PRN TP YEAST/RASH; Start 10/03/17 at 09:00 ; Stop 10/16/17 at 16:11; Status DC Polyethylene Glycol (miraLAX) 17 gm DAILY PO Last administered on 10/16/17at 07: 26; Start 10/03/17 at 09:00; Stop 10/16/17 at 16:11; Status DC Risperidone (RisperDAL) 2 mg QHS PO Last administered on 10/15/17at 20:09; Start 10/03/17 at 21:00; Stop 10/16/17 at 16:11; Status DC Triamcinolone Acetonide (Kenalog) 1 stepan PRN TID PRN TP VAGINAL PAIN; Start at 09:00; Stop 10/16/17 at 16:11; Status DC Estradiol (Estrace) 1 stepan QSUTUTH PRN VG ITCHING; Start 10/03/17 at 16:00; Stop 10/16/17 at 16:11; Status DC Albuterol Sulfate (Ventolin) 2.5 mg PRN Q6HRS PRN NEB SHORTNESS OF BREATH; Start 10/03/17 at 09:00; Stop 10/16/17 at 16:11; Status DC Baclofen (Lioresal) 5 mg Q4HRS PO Last administered on 10/03/17at 11:21; Start 10/03/17 at 12:00; Stop 10/03/17 at 15:51; Status DC Ondansetron HCl (Zofran Odt) 4 mg PRN Q8HRS PRN PO NAUSEA/VOMITING Last administered on 10/03/17at 10:16; Start 10/03/17 at 09:45; Stop 10/16/17 at 16:11 ; Status DC Clonazepam (KlonoPIN) 1.5 mg QHS PO ; Start 10/03/17 at 21:00; Stop 10/03/17 at 21:00; Status DC Clonazepam (KlonoPIN) 1 mg QHS PO ; Start 10/06/17 at 21:00; Stop 10/06/17 at 21 :00; Status DC Clonazepam (KlonoPIN) 0.5 mg QHS PO ; Start 10/03/17 at 21:00; Stop 10/03/17 at 21:00; Status DC Clonazepam (KlonoPIN) 0.5 mg DAILY@1700 PO ; Start 10/03/17 at 17:00; Stop 10/03 at 17:00; Status DC Baclofen (Lioresal) 5 mg TID PO Last administered on 10/16/17at 12:01; Start at 21:00; Stop 10/16/17 at 16:11; Status DC Clonazepam (KlonoPIN) 0.5 mg DAILY PO Last administered on 10/08/17at 08:45; Start 10/04/17 at 09:00; Stop 10/09/17 at 00:00; Status DC Clonazepam (KlonoPIN) 0.5 mg DAILY@1700 PO Last administered on 10/11/17at 17:09 ; Start 10/04/17 at 17:00; Stop 10/12/17 at 00:00; Status DC Clonazepam (KlonoPIN) 0.5 mg Taper QHS PO Last administered on 10/15/17at 20:10; Start 10/03/17 at 21:00; Stop 10/16/17 at 16:12; Status DC Olanzapine (ZyPREXA ZYDIS) 2.5 mg PRN Q2HR PRN PO PSYCHOSIS Last administered on 10/16/17at 01:39; Start 10/03/17 at 17:45; Stop 10/16/17 at 16:12; Status DC Divalproex Sodium (Depakote Er) 250 mg QHS PO Last administered on 10/03/17at 19 :49; Start 10/03/17 at 21:00; Stop 10/03/17 at 21:01; Status DC Divalproex Sodium (Depakote Er) 500 mg QHS PO Last administered on 10/06/17at 19 :35; Start 10/04/17 at 21:00; Stop 10/07/17 at 18:41; Status DC Atorvastatin Calcium (Lipitor) 10 mg QHS PO Last administered on 10/15/17 20:09 ; Start 10/07/17 at 21:00; Stop 10/16/17 at 16:12; Status DC Divalproex Sodium (Depakote Er) 750 mg QHS PO Last administered on 10/15/17 20: 09; Start 10/07/17 at 21:00; Stop 10/16/17 at 16:12; Status DC Oxycodone HCl (OxyCONTIN) 10 mg Q12HR PO Last administered on 10/16/17at 07:28; Start 10/08/17 at 21:00; Stop 10/16/17 at 16:12; Status DC Mirtazapine (Remeron) 7.5 mg QHS PO Last administered on 10/15/17 20:09; Start 10/08/17 at 21:00; Stop 10/16/17 at 16:12; Status DC Carbamazepine (TEGretol) 200 mg HS PO Last administered on 10/11/17at 19:48; Start 10/10/17 at 21:00; Stop 10/12/17 at 20:59; Status DC Active Scripts Active Reported [place] 3 1,000 Mg Softgel ([place]-3 Fatty Acids/Fish Oil) 1 Each Capsule 1 Each PO DAILY Oxycontin (Oxycodone HCl) 10 Mg Tab.er.12h 10 Mg PO Q12HR Refresh Optive Eye Drops (Carboxymethylcellulos/Glycerin) 15 Ml Drops 1 Ml OU PRN BID PRN Ondansetron Odt (Ondansetron) 4 Mg Tab.rapdis 4 Mg PO PRN Q8HRS PRN Zyprexa Zydis (Olanzapine) 5 Mg Tab.rapdis 2.5 Mg PO PRN Q2HR PRN Mirtazapine 15 Mg Tablet 7.5 Mg PO QHS Analgesic [place] (Methyl Salicylate/Menthol) 28 Gm Oint...g. 1 Ste[place] TP PRN QID PRN Magnesium Oxide 400 Mg Tablet 400 Mg PO DAILY Milk Of Magnesia (Magnesium Hydroxide) 2,400 Mg/10 Ml Oral.susp 2,400 Mg PO PRN QHS PRN Mag-Al Plus Xs Suspension (Mag Hydrox/Al Hydrox/Simeth) 30 Ml Oral.susp 15 Ml PO PRN AFTMEALHC PRN Atorvastatin Calcium 10 Mg Tablet 10 Mg PO QHS Tylenol (Acetaminophen) 325 Mg Tablet 650 Mg PO PRN Q6HRS PRN Depakote Er (Divalproex Sodium) 500 Mg Tab.er.24h 750 Mg PO QHS Clonazepam 1 Mg Tablet 0.5 Mg PO QHS Lidocaine 1 Each Adh..patch 1 Each TP DAILY Diclofenac Sodium 100 Gm Gel..gram. 100 Gm TP PRN TID Estrace (Estradiol) 42.5 Gm Cream.appl 1 Stepan VG Baclofen 10 Mg Tablet 5 Mg PO TID Excedrin Migraine Caplet (Aspirin/Acetaminophen/Caffeine) 1 Each Tablet 2 Each PO PRN Q24HRS PRN Risperidone 2 Mg Tablet 2 Mg PO QHS Miralax (Polyethylene Glycol 3350) 17 Gm Powd.pack 1 Packet PO DAILY Synthroid (Levothyroxine Sodium) 112 Mcg Tablet 112 Mcg PO DAILYAC Vitamin B-12 (Cyanocobalamin (Vitamin B-12)) 1,000 Mcg Tablet 1,000 Mcg PO DAILY Calcium 500 + Vit D 400 Tablet (Calcium Carbonate/Vitamin D3) 1 Each Tablet 1 Tab PO DAILY Glucosamine Chondroitin Tab (Gluc Stephen/Chondro Stephen A/Vit C/Mn) 1 Each Tablet 1 Tab PO DAILY [place] 10-325 Tablet (Hydrocodone Bit/Acetaminophen) 1 Each Tablet 1 Tab PO PRN Q4HRS PRN Senokot-S Tablet (Sennosides/Docusate Sodium) 1 Each Tablet 1 Tab PO PRN BID PRN Flonase Allergy Relief (Fluticasone Propionate) 9.9 Ml [place].susp 1 Sprays NS DAILY Restasis (Cyclosporine) 1 Each Droperette 1 Each OU BID Triamcinolone Acetonide 15 Gm Cream..g. 1 [place] TP PRN TID PRN Mupirocin 22 Gm Oint...g. 1 [place] TP PRN BID PRN Nystatin 15 Gm Cream..g. 1 [place] TP PRN BID PRN Ventolin Hfa Inhaler (Albuterol Sulfate) 18 Gm Hfa.aer.ad 2 Puff IH PRN Q6HRS PRN I have reviewed the current psychotropics carefully including drug interactions. Risk benefit ratio favors no change other than as noted in my dictated progress note. Diagnosis: Problems: (1) Schizoaffective disorder, bipolar type (2) Impulse control disorder (3) Confusion (4) Delusion (5) Bipolar affective, mixed, sev w/ psych (6) Anxiety disorder (7) Impulse control disorder RACHANA BENNETT MD Oct 16, 2017 20:48
--- NOTE | 2017-10-16 23:09 | PN ---
DATE: 10/15/2017 PSYCHIATRIC PROGRESS NOTE This late entry 10/15/2017 covers elements not covered in my initial note. SUBJECTIVE: Met with the patient in the evening. The patient slept 7-1/2 hours previous evening. She is somewhat tearful in the morning, then did well the rest of the day. Overall, mood lability is improved. REVIEW OF SYSTEMS: Ambulation is impaired with walker. No CV, , pulmonary, eye, ENT system symptoms on review. MENTAL STATUS EXAM: Oriented, reasonably well to place, person and situation. Speech is coherent, less pressured. Abstraction fair. Computation able to do 2 steps and serial sevens, remembered 3/3 objects at 3 minutes. No active suicidal or homicidal ideation. Mood and affect is improved. IMPRESSION: Unchanged from initial note. PLAN: No change from initial note. MAN Fox BENNETT MD DR: GIGI/taya JOB#: [id number] / [id number]
--- NOTE | 2017-10-18 12:52 | DS ---
DATE OF DISCHARGE: 10/16/2017 DISCHARGE SUMMARY/PSYCHIATRIC PROGRESS NOTE This late entry 10/16/2017 covers elements not covered in my initial note. REASON FOR ADMISSION: Please refer to the admission history for details. Briefly, the patient is an 82-year-old female, who presented to the [facility] Emergency Room from her home on account of marked paranoia, significant insomnia, reporting recently that her daughter said people are trying to hurt her. She barged into the neighbor's apartment psychotic with increase in her mood swings with the past diagnosis of bipolar disorder for which she had been in treatment at the [facility] in [place]. She had failed all of the outpatient interventions, was deemed a potential danger due to her behaviors unmanageable, referred for inpatient psychiatric stabilization. SIGNIFICANT FINDINGS AND CLINICAL COURSE: Following admission, the patient was seen daily individually by myself from a psychiatric standpoint, medical followup with Dr. Loera/Dr. Yates. She was quite manic, labile, anxious, agitated at admission and paranoid. Adjustments were made in her psychotropics. She seemed to respond to a combination of Risperdal 2 mg at bedtime, Klonopin, which had been tapered and stopped, Depakote ER 750 mg at bedtime with the therapeutic valproic acid level of 54, Zyprexa p.r.n., Remeron 7.5 mg p.o. at bedtime. REVIEW OF SYSTEMS: Prior to discharge on 10/16/2017, ambulation is impaired with walker. No CV, , pulmonary, eye, ENT system symptoms on review. MENTAL STATUS EXAM: Reasonably oriented. Speech is coherent, less pressured. Abstraction fair, computation impaired, language function is intact, attention span short. Mood and affect improved. No suicidal or homicidal ideation: Psychotic symptoms appeared to have subsided. CONDITION AT DISCHARGE: Improved. FINAL DIAGNOSES: Bipolar 1 disorder, mixed with psychotic features, in partial remission; anxiety disorder, unspecified; impulse control disorder, unspecified. Rest is unchanged from admission. DISCHARGE MEDICATIONS: Please refer to the MRAD. DISCHARGE INSTRUCTIONS: Outpatient psychiatric followup at the [facility] with Dr. Mcleod, medical followup with her primary care physician. Time for discharge day management greater than 30 minutes. MAN Fox BENNETT MD DR: GIGI/taya JOB#: [id number] / [id number]
== END 2017-10-16 16:11 | disposition home health service (06) | DRG 885 ==
LOC: GEROPSY 05:49
PROVIDERS: ADMIT Psychiatry & Neurology Psychiatry; ATTEND Psychiatry & Neurology Psychiatry
DX: F25.0 Schizoaffective disorder, bipolar type (principal); R45.851 Suicidal ideations; F41.9 Anxiety disorder, unspecified; E03.9 Hypothyroidism, unspecified; F17.200 Nicotine dependence, unspecified, uncomplicated; F63.9 Impulse disorder, unspecified; G89.4 Chronic pain syndrome; K59.00 Constipation, unspecified; M16.12 Unilateral primary osteoarthritis, left hip; N18.2 Chronic kidney disease, stage 2 (mild); Z60.2 Problems related to living alone; Z79.899 Other long term (current) drug therapy; F10.10 Alcohol abuse, uncomplicated; G47.00 Insomnia, unspecified; Z80.1 Family history of malignant neoplasm of trachea, bronchus and lung; Z81.8 Family history of other mental and behavioral disorders; Z90.710 Acquired absence of both cervix and uterus
CPT/HCPCS: 36415; 80053; 80061; 80156; 80164; 81001; 83036; 83735; 84436; 84443; 84480; 85025; 85027; 86592; 93005; Q0162; 97110; 97116; 97140; 97530; 97535

== ENCOUNTER 2017-10-26 23:47 | Inpatient (IN) | payer MEDICARE ==
[~2017-10-26] VITALS: Ht 157.5 cm; Wt 93.0 kg
[~2017-10-26 23:47] MED LIST: ACET325T9 PO; ALBU18HF IH; ASPI1TAB31 PO; ATOR10TA60 PO; BACL10TA PO; CALC-30 PO; CARB15DR3 OU; CARB1DRO OU; CARB200T PO; CLON0.5T11 PO; CLON1TAB4 PO; CLON2TAB9 PO; CYAN10005 PO; CYCL1DRO OU; DICL100G28 TP; DIVA500T4 PO; ESTR42.53 VG; FISH12002 PO; FLUT9.9S NS; GLUC1TAB33 PO; HYDR-963 PO; LEVO112T2 PO; LIDO700A39 TP; MAG30ORA2 PO; MAGN2400 PO; MAGN400T3 PO; METH29OI TP; MIRT15TA3 PO; MUPI22OI2 TP; NYST15CR TP; OLAN5TAB5 PO; OMEG-33 PO; ONDA4TAB12 PO; OXYC10TA45 PO; POLY17PO5 PO; RISP2TAB3 PO; SENN-37 PO; TRIA15CR50 TP
[2017-10-27 11:27] VITALS: BP 130/64
[2017-10-27] MEDS ORDERED: MAG HYDROX/AL HYDROX/SIMETH 30 ML ORAL.SUSP PO PRN (11:45)
[2017-10-27] MEDS ORDERED: ACETAMINOPHEN 325 MG TABLET PO PRN (11:45)
[2017-10-27] MEDS ORDERED: MAGNESIUM HYDROXIDE 2,400 MG/30 ML ORAL.SUSP. PO PRN (11:45)
[2017-10-27] MEDS ORDERED: ASA/APAP/CAFFEINE 250/250/65MG TABLET. PO PRN (13:00)
[2017-10-27] MEDS ORDERED: TRIAMCINOLONE ACETONIDE 0.1% TOPICAL CREAM 15GM TUBE. TP PRN (13:15)
[2017-10-27] MEDS ORDERED: POLYVINYL ALCOHOL/POVIDONE/PF OPHTH SOLUTION DROPERETTE. OU PRN (13:15)
[2017-10-27] MEDS: BACLOFEN 10 MG TABLET PO SCH ×2 (13:55→21:14)
--- NOTE | 2017-10-27 16:34 | EKG ---
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
[2017-10-27 16:41] VITALS: BP 136/64
[2017-10-27] MEDS: HYDROcodone/APAP 10/325 1 TAB TABLET PO PRN (17:20)
--- NOTE | 2017-10-27 19:41 | HP ---
ADMIT DATE: 10/27/2017 PSYCHIATRIC ADMISSION HISTORY AND EVALUATION This note covers elements not covered in my initial note of 10/27/2017. IDENTIFYING DATA: The patient is an 82-year-old female, who was referred back to us from [facility] Emergency Room, where she presented from home on account of increased anxiety and having visual hallucinations. She lives alone at home, has been going to outpatient treatment at [facility] and has had 2 psychiatric visits since she was discharged from here a couple of weeks back. She is not sleeping, has very poor appetite, feels unsafe, living at home consequent to her hallucinations, though she denies active suicidal ideation. She does have a history of bipolar disorder and is referred back to us from the Emergency Room for inpatient psychiatric stabilization. SUBJECTIVE: I met with the patient evening of 10/27/2017. CHIEF COMPLAINT: "I have been having hallucinations. I have been very anxious. I can't go on like this." HISTORY OF PRESENT ILLNESS: The patient has a history of bipolar disorder versus schizoaffective disorder. She was last here with us inpatient 10/03/2017 to 10/16/2017 and her psychotropics were adjusted then. She was returned to outpatient treatment at [facility]. She has a past history of alcohol over usage as well. PAST PSYCHIATRIC HISTORY: She has been treated at [facility] by Dr. Mcleod. PAST MEDICAL HISTORY: Positive for chronic back pain, chronic kidney disease stage 2, chronic constipation, and hypothyroidism. FAMILY HISTORY: Noncontributory. Bipolar disorder in her sister. SOCIAL HISTORY: Past history of alcohol abuse. No physical, sexual or elder abuse history is noted. Not known to be a perpetrator. ALLERGIES: DEMEROL, STADOL. CODE STATUS: Full code. ACCU-CHEKS: None. DIET: Regular, ambulates ad yovanny with walker. CURRENT PSYCHOTROPICS: The patient had been tapered off her Klonopin during her last hospitalization here, but she is back on Klonopin via the [facility] 1 mg a day, Depakote 1000 mg p.o. at bedtime, Risperdal 2 mg at bedtime, and Zyprexa p.r.n. SOCIAL HISTORY: The patient lives at home by herself. Her daughter was involved in her care. No physical, sexual or elder abuse history is noted. Not known to be a perpetrator. MENTAL STATUS EXAMINATION: The patient was seen individually evening of 10/27/2017. She readily recognized me. She is quite anxious, has good eye contact, paranoid, and suspicious. Speech coherent, at times pressured. Abstraction fair, computation impaired, language function intact, attention span short. Mood and affect remained somewhat anxious, labile. No active suicidal or homicidal ideation. Intellect average. Insight fair. Judgment intact. IMPRESSION: Schizoaffective disorder, bipolar type, mixed with psychotic features; bipolar 1 disorder, mixed with psychotic features; anxiety disorder, unspecified. Rest as above. TREATMENT PLAN: Admit to geropsychiatry unit at [facility]. I will see her daily individually from a psychiatric standpoint. Medical followup with Dr. Loera/Dr. Yates. Continue the patient on her current psychotropics, observe baseline, then adjust as clinically indicated. Estimated length of stay 10-12 days. Discharge plans, may need to involve an assisted living placement rather than living alone by herself. We will have to just reassess all of that as the hospitalization progresses. We will also get past psychiatric records from [facility]. MAN Fox BENNETT MD DR: GIGI/taya JOB#: [id number] / [id number]
[2017-10-27] MEDS ORDERED: NYSTATIN 100,000 UNIT/GM TOPICAL CREAM 15GM TUBE. TP PRN (21:00)
--- NOTE | 2017-10-27 21:05 | PDOC ---
Exam Note: Jermaine Note: Please also refer to the separate dictated note~for this date of service dictated separately.~Patient seen individually. Discussed the patient with Nursing staff reviewed the chart.~Reviewed interim history and current functioning. Reviewed vital signs,~Labs/ Radiology~and current medications noted below. Continue current treatment with the changes noted in the dictated addendum note Assessment: Vital Signs: Vital Signs Date Time Temp Pulse Resp B/P (MAP) Pulse Ox O2 Delivery O2 Flow Rate FiO2 10/27/17 18:20 18 10/27/17 16:41 97.1 98 136/64 (88) 95 Current Medications: Meds: Current Medications Influenza Virus Vaccine (Afluria Trivalent 9400-5983 Syringe) 0.5 ml ONCE ONCE VAX IM ; Start 10/28/17 at 09:00; Stop 10/28/17 at 09:01 Acetaminophen (Tylenol) 650 mg PRN Q6HRS PRN PO PAIN / TEMP; Start 10/27/17 at 11:45 Multi-Ingredient Ointment (Analgesic [place]) 1 stepan PRN QID PRN TP MUSCLE PAIN; Start 10/27/17 at 11:45 Al Hydroxide/Mg Hydroxide (Mylanta Plus Xs) 15 ml PRN AFTMEALHC PRN PO DYSPEPSIA; Start 10/27/17 at 11:45 Magnesium Hydroxide (Milk Of Magnesia) 2,400 mg PRN QHS PRN PO CONSTIPATION; Start 10/27/17 at 11:45 Cyanocobalamin (Vitamin B-12) 1,000 mcg DAILY PO ; Start 10/28/17 at 09:00 Cyclosporine (Restasis) 1 drop BID OU ; Start 10/27/17 at 21:00 Diclofenac Sodium (Voltaren) 1 stepan PRN TID PRN TP PAIN; Start 10/27/17 at 12:30 Levothyroxine Sodium (Synthroid) 112 mcg DAILYAC PO ; Start 10/28/17 at 07:30 Oxycodone HCl (OxyCONTIN) 10 mg Q12HR PO ; Start 10/27/17 at 21:00 Acetaminophen/ Aspirin/Caffeine (Excedrin Migraine) 2 tab PRN Q24HRS PRN PO MIGRAINE HEADACHE; Start 10/27/17 at 13:00 Baclofen (Lioresal) 5 mg TID PO Last administered on 10/27/17at 13:55; Start at 14:00 Artificial Tears (Refresh Classic) 1 drop PRN BID PRN OU DRY EYE; Start at 13:15 Fluticasone Propionate (Flonase) 1 spray DAILY NS ; Start 10/28/17 at 09:00 Glucosamine/ Chondroitin (Glucosamine-Chondroitin 500/400mg) 1 cap DAILY PO ; Start 10/28/17 at 09:00 Acetaminophen/ Hydrocodone Bitart (Lortab 10/325) 1 tab PRN Q4HRS PRN PO PAIN Last administered on 10/27/17at 17:20; Start 10/27/17 at 13:15 Magnesium Oxide (Magnesium Oxide) 400 mg DAILY PO ; Start 10/28/17 at 09:00 Nystatin (Mycostatin) 1 stepan PRN BID PRN TP RASH ON GROIN; Start 10/27/17 at 21: 00 Fish Oil (Fish Oil) 1,000 mg DAILY PO ; Start 10/28/17 at 09:00 Polyethylene Glycol (miraLAX) 17 gm DAILY PO ; Start 10/28/17 at 09:00 Triamcinolone Acetonide (Kenalog) 1 stepan PRN TID PRN TP VAGINAL PAIN; Start at 13:15 Olanzapine (ZyPREXA ZYDIS) 2.5 mg PRN Q2HR PRN PO PSYCHOSIS; Start 10/27/17 at 12:45 Clonazepam (KlonoPIN) 1 mg QHS PO ; Start 10/27/17 at 21:00 Divalproex Sodium (Depakote Er) 1,000 mg QHS PO ; Start 10/27/17 at 21:00 Risperidone (RisperDAL) 2 mg QHS PO ; Start 10/27/17 at 21:00 Estradiol (Estrace) 1 stepan WEEKLY VG ; Start 11/03/17 at 09:00 Active Scripts Active Reported [place] 3 1,000 Mg Softgel ([place]-3 Fatty Acids/Fish Oil) 1 Each Capsule 1 Each PO DAILY Oxycontin (Oxycodone HCl) 10 Mg Tab.er.12h 10 Mg PO Q12HR Refresh Optive Eye Drops (Carboxymethylcellulos/Glycerin) 15 Ml Drops 1 Ml OU PRN BID PRN Zyprexa Zydis (Olanzapine) 5 Mg Tab.rapdis 2.5 Mg PO PRN Q2HR PRN Magnesium Oxide 400 Mg Tablet 400 Mg PO DAILY Depakote Er (Divalproex Sodium) 500 Mg Tab.er.24h 1,000 Mg PO QHS Clonazepam 1 Mg Tablet 1 Mg PO QHS Diclofenac Sodium 100 Gm Gel..gram. 100 Gm TP PRN TID Estrace (Estradiol) 42.5 Gm Cream.appl 1 Stepan VG Baclofen 10 Mg Tablet 5 Mg PO TID Excedrin Migraine Caplet (Aspirin/Acetaminophen/Caffeine) 1 Each Tablet 2 Each PO PRN Q24HRS PRN Risperidone 2 Mg Tablet 2 Mg PO QHS Miralax (Polyethylene Glycol 3350) 17 Gm Powd.pack 1 Packet PO DAILY Synthroid (Levothyroxine Sodium) 112 Mcg Tablet 112 Mcg PO DAILYAC Vitamin B-12 (Cyanocobalamin (Vitamin B-12)) 1,000 Mcg Tablet 1,000 Mcg PO DAILY Glucosamine Chondroitin Tab (Gluc Stephen/Chondro Stephen A/Vit C/Mn) 1 Each Tablet 1 Tab PO DAILY [place] 10-325 Tablet (Hydrocodone Bit/Acetaminophen) 1 Each Tablet 1 Tab PO PRN Q4HRS PRN Flonase Allergy Relief (Fluticasone Propionate) 9.9 Ml [place].susp 1 Sprays NS DAILY Restasis (Cyclosporine) 1 Each Droperette 1 Each OU BID Triamcinolone Acetonide 15 Gm Cream..g. 1 Stepan TP PRN TID PRN Nystatin 15 Gm Cream..g. 1 Stepan TP PRN BID PRN I have reviewed the current psychotropics carefully including drug interactions. Risk benefit ratio favors no change other than as noted in my dictated progress note. Diagnosis: Problems: (1) Confusion (2) Delusion (3) Bipolar affective, mixed, sev w/ psych (4) Anxiety disorder (5) Impulse control disorder (6) Schizoaffective disorder, bipolar type (7) Impulse control disorder RACHANA BENNETT MD Oct 27, 2017 21:05
[2017-10-27] MEDS: DIVALPROEX ER 500 MG TAB.ER.24H PO SCH (21:13)
[2017-10-27] MEDS: clonazePAM 1 MG TABLET PO SCH (21:14)
[2017-10-27] MEDS: oxyCODONE ER 10 MG TAB.ER.12H PO SCH (21:14)
[2017-10-27] MEDS: cycloSPORINE 0.05% OPTH 1 DROP DROPERETTE OU SCH (21:14)
[2017-10-27] MEDS: risperiDONE 2 MG TABLET. PO SCH (21:14)
[2017-10-28] MEDS: HYDROcodone/APAP 10/325 1 TAB TABLET PO PRN ×2 (05:21→16:30)
[2017-10-28 06:45] VITALS: BP 137/88
[2017-10-28] MEDS ORDERED: LEVOTHYROXINE 112 MCG TABLET PO SCH (07:30)
[2017-10-28 08:15] LABS: BASO % 0 % (0-3); EOS # 0.1 x10^3/uL (0.0-0.7); EOS % 2 % (0-3); HEMATOCRIT 37.1 % (36.0-47.0); HEMOGLOBIN 12.4 g/dL (12.0-15.5); LYMPH # 1.8 x10^3/uL (1.0-4.8); LYMPH % 26 % (24-48); MEAN CORPUSCULAR HEMOGLOBIN 34 pg (25-35); MEAN CORPUSCULAR HGB CONC 33 g/dL (31-37); MEAN CORPUSCULAR VOLUME 101 fL (79-100); MONO # 0.7 x10^3/uL (0.0-1.1); MONO % 9 % (0-9); NEUT # 4.4 x10^3uL (1.8-7.7); NEUT % 63 % (31-73); PLATELET COUNT 247 x10^3/uL (140-400); RED BLOOD COUNT 3.67 x10^6/uL (3.50-5.40); RED CELL DISTRIBUTION WIDTH 14.2 % (11.5-14.5)
[2017-10-28 08:30] LABS: ALBUMIN 3.5 g/dL (3.4-5.0); ALBUMIN/GLOBULIN RATIO 0.9 (1.0-1.7); CALCIUM 8.9 mg/dL (8.5-10.1); CREATININE 1.3 mg/dL (0.6-1.0); GFR 39.4; MAGNESIUM 2.2 mg/dL (1.8-2.4); POTASSIUM 4.1 mmol/L (3.5-5.1); TOTAL BILIRUBIN 0.4 mg/dL (0.2-1.0); TOTAL PROTEIN 7.3 g/dL (6.4-8.2)
[2017-10-28 08:31] LABS: VAL ACID 81 mcg/mL (50-100)
[2017-10-28] MEDS: GLUCOSAMINE/CHOND 500/400MG CAPSULE PO SCH (09:50)
[2017-10-28] MEDS: BACLOFEN 10 MG TABLET PO SCH ×3 (09:50→19:54)
[2017-10-28] MEDS: cycloSPORINE 0.05% OPTH 1 DROP DROPERETTE OU SCH ×2 (09:50→19:52)
[2017-10-28] MEDS: OMEGA-3 FATTY ACIDS/FISH OIL 1,000 MG CAPSULE. PO SCH (09:50)
[2017-10-28] MEDS: FLUTICASONE 50MCG/NASAL SPRAY 16GM BOTTLE. NS SCH (09:50)
[2017-10-28] MEDS: MAGNESIUM OXIDE 400 MG TABLET PO SCH (09:51)
[2017-10-28] MEDS: POLYETHYLENE GLYCOL 3350 17 GM PACKET. PO SCH (09:51)
[2017-10-28] MEDS: CYANOCOBALAMIN (VITAMIN B-12) 1,000 MCG TABLET. PO SCH (09:52)
[2017-10-28] MEDS: oxyCODONE ER 10 MG TAB.ER.12H PO SCH ×2 (09:52→19:54)
[2017-10-28 15:56] VITALS: BP 132/66
[2017-10-28 18:09] LABS: THYROXINE 8.2 ug/dL (4.5-12.0)
[2017-10-28] MEDS: DIVALPROEX ER 500 MG TAB.ER.24H PO SCH (19:53)
[2017-10-28] MEDS: clonazePAM 1 MG TABLET PO SCH (19:54)
[2017-10-28] MEDS: risperiDONE 2 MG TABLET. PO SCH (19:54)
--- NOTE | 2017-10-28 20:57 | PDOC ---
Exam Note: Jermaine Note: Please also refer to the separate dictated note~for this date of service dictated separately.~Patient seen individually. Discussed the patient with Nursing staff reviewed the chart.~Reviewed interim history and current functioning. Reviewed vital signs,~Labs/ Radiology~and current medications noted below. Continue current treatment with the changes noted in the dictated addendum note Assessment: Vital Signs: Vital Signs Date Time Temp Pulse Resp B/P (MAP) Pulse Ox O2 Delivery O2 Flow Rate FiO2 10/28/17 19:54 18 93 Room Air 10/28/17 15:56 98.0 73 132/66 (88) I&O Intake and Output 10/28/17 07:00 Intake Total 720 ml Balance 720 ml Intake Oral 720 ml Labs: Laboratory Tests Test 10/28/17 08:04 White Blood Count 7.0 x10^3/uL (4.0-11.0) Red Blood Count 3.67 x10^6/uL (3.50-5.40) Hemoglobin 12.4 g/dL (12.0-15.5) Hematocrit 37.1 % (36.0-47.0) Mean Corpuscular Volume 101 fL (79-100) H Mean Corpuscular Hemoglobin 34 pg (25-35) Mean Corpuscular Hemoglobin Concent 33 g/dL (31-37) Red Cell Distribution Width 14.2 % (11.5-14.5) Platelet Count 247 x10^3/uL (140-400) Neutrophils (%) (Auto) 63 % (31-73) Lymphocytes (%) (Auto) 26 % (24-48) Monocytes (%) (Auto) 9 % (0-9) Eosinophils (%) (Auto) 2 % (0-3) Basophils (%) (Auto) 0 % (0-3) Neutrophils # (Auto) 4.4 x10^3uL (1.8-7.7) Lymphocytes # (Auto) 1.8 x10^3/uL (1.0-4.8) Monocytes # (Auto) 0.7 x10^3/uL (0.0-1.1) Eosinophils # (Auto) 0.1 x10^3/uL (0.0-0.7) Basophils # (Auto) 0.0 x10^3/uL (0.0-0.2) Sodium Level 139 mmol/L (136-145) Potassium Level 4.1 mmol/L (3.5-5.1) Chloride Level 102 mmol/L (98-107) Carbon Dioxide Level 35 mmol/L (21-32) H Anion Gap 2 (6-14) L Blood Urea Nitrogen 19 mg/dL (7-20) Creatinine 1.3 mg/dL (0.6-1.0) H Estimated GFR (Cockcroft-Gault) 39.4 BUN/Creatinine Ratio 15 (6-20) Glucose Level 114 mg/dL (70-99) H Calcium Level 8.9 mg/dL (8.5-10.1) Magnesium Level 2.2 mg/dL (1.8-2.4) Total Bilirubin 0.4 mg/dL (0.2-1.0) Aspartate Amino Transferase (AST) 18 U/L (15-37) Alanine Aminotransferase (ALT) 24 U/L (14-59) Alkaline Phosphatase 82 U/L (46-116) Total Protein 7.3 g/dL (6.4-8.2) Albumin 3.5 g/dL (3.4-5.0) Albumin/Globulin Ratio 0.9 (1.0-1.7) L Thyroid Stimulating Hormone (TSH) 0.947 uIU/mL (0.358-3.740) Thyroxine (T4) 8.2 ug/dL (4.5-12.0) Total Triiodothyronine (TT3) 102 ng/dL (71-180) Valproic Acid Level 81 mcg/mL (50-100) Valproic Acid Last Dose Date 10/27/17 Valproic Acid Last Dose Time 2100 Current Medications: Meds: Current Medications Influenza Virus Vaccine (Afluria Trivalent 6526-4047 Syringe) 0.5 ml ONCE ONCE VAX IM Last administered on 10/28/17at 10:00; Start 10/28/17 at 09:00; Stop at 09:01; Status DC Acetaminophen (Tylenol) 650 mg PRN Q6HRS PRN PO PAIN / TEMP; Start 10/27/17 at 11:45 Multi-Ingredient Ointment (Analgesic [place]) 1 stepan PRN QID PRN TP MUSCLE PAIN; Start 10/27/17 at 11:45 Al Hydroxide/Mg Hydroxide (Mylanta Plus Xs) 15 ml PRN AFTMEALHC PRN PO DYSPEPSIA; Start 10/27/17 at 11:45 Magnesium Hydroxide (Milk Of Magnesia) 2,400 mg PRN QHS PRN PO CONSTIPATION; Start 10/27/17 at 11:45 Cyanocobalamin (Vitamin B-12) 1,000 mcg DAILY PO Last administered on at 09:52; Start 10/28/17 at 09:00 Cyclosporine (Restasis) 1 drop BID OU Last administered on 10/28/17at 19:52; Start 10/27/17 at 21:00 Diclofenac Sodium (Voltaren) 1 stepan PRN TID PRN TP PAIN; Start 10/27/17 at 12:30 Levothyroxine Sodium (Synthroid) 112 mcg DAILYAC PO Last administered on at 09:49; Start 10/28/17 at 07:30; Stop 10/28/17 at 13:11; Status DC Oxycodone HCl (OxyCONTIN) 10 mg Q12HR PO Last administered on 10/28/17at 19:54; Start 10/27/17 at 21:00 Acetaminophen/ Aspirin/Caffeine (Excedrin Migraine) 2 tab PRN Q24HRS PRN PO MIGRAINE HEADACHE; Start 10/27/17 at 13:00 Baclofen (Lioresal) 5 mg TID PO Last administered on 10/28/17at 19:54; Start at 14:00 Artificial Tears (Refresh Classic) 1 drop PRN BID PRN OU DRY EYE; Start at 13:15 Fluticasone Propionate (Flonase) 1 spray DAILY NS Last administered on at 09:50; Start 10/28/17 at 09:00 Glucosamine/ Chondroitin (Glucosamine-Chondroitin 500/400mg) 1 cap DAILY PO Last administered on 10/28/17at 09:50; Start 10/28/17 at 09:00 Acetaminophen/ Hydrocodone Bitart (Lortab 10/325) 1 tab PRN Q4HRS PRN PO PAIN Last administered on 10/28/17at 16:30; Start 10/27/17 at 13:15 Magnesium Oxide (Magnesium Oxide) 400 mg DAILY PO Last administered on at 09:51; Start 10/28/17 at 09:00 Nystatin (Mycostatin) 1 stepan PRN BID PRN TP RASH ON GROIN; Start 10/27/17 at 21: 00 Fish Oil (Fish Oil) 1,000 mg DAILY PO Last administered on 10/28/17at 09:50; Start 10/28/17 at 09:00 Polyethylene Glycol (miraLAX) 17 gm DAILY PO Last administered on 10/28/17at 09: 51; Start 10/28/17 at 09:00 Triamcinolone Acetonide (Kenalog) 1 stepan PRN TID PRN TP VAGINAL PAIN; Start at 13:15 Olanzapine (ZyPREXA ZYDIS) 2.5 mg PRN Q2HR PRN PO PSYCHOSIS; Start 10/27/17 at 12:45 Clonazepam (KlonoPIN) 1 mg QHS PO Last administered on 10/28/17at 19:54; Start 10/27/17 at 21:00 Divalproex Sodium (Depakote Er) 1,000 mg QHS PO Last administered on 10/28/17at 19:53; Start 10/27/17 at 21:00 Risperidone (RisperDAL) 2 mg QHS PO Last administered on 10/28/17at 19:54; Start 10/27/17 at 21:00 Estradiol (Estrace) 1 stepan WEEKLY VG ; Start 11/03/17 at 09:00 Levothyroxine Sodium (Synthroid) 112 mcg DAILYAC PO ; Start 10/29/17 at 06:00 Active Scripts Active Reported [place] 3 1,000 Mg Softgel ([place]-3 Fatty Acids/Fish Oil) 1 Each Capsule 1 Each PO DAILY Oxycontin (Oxycodone HCl) 10 Mg Tab.er.12h 10 Mg PO Q12HR Refresh Optive Eye Drops (Carboxymethylcellulos/Glycerin) 15 Ml Drops 1 Ml OU PRN BID PRN Zyprexa Zydis (Olanzapine) 5 Mg Tab.rapdis 2.5 Mg PO PRN Q2HR PRN Magnesium Oxide 400 Mg Tablet 400 Mg PO DAILY Depakote Er (Divalproex Sodium) 500 Mg Tab.er.24h 1,000 Mg PO QHS Clonazepam 1 Mg Tablet 1 Mg PO QHS Diclofenac Sodium 100 Gm Gel..gram. 100 Gm TP PRN TID Estrace (Estradiol) 42.5 Gm Cream.appl 1 Stepan VG Baclofen 10 Mg Tablet 5 Mg PO TID Excedrin Migraine Caplet (Aspirin/Acetaminophen/Caffeine) 1 Each Tablet 2 Each PO PRN Q24HRS PRN Risperidone 2 Mg Tablet 2 Mg PO QHS Miralax (Polyethylene Glycol 3350) 17 Gm Powd.pack 1 Packet PO DAILY Synthroid (Levothyroxine Sodium) 112 Mcg Tablet 112 Mcg PO DAILYAC Vitamin B-12 (Cyanocobalamin (Vitamin B-12)) 1,000 Mcg Tablet 1,000 Mcg PO DAILY Glucosamine Chondroitin Tab (Gluc Stephen/Chondro Stephen A/Vit C/Mn) 1 Each Tablet 1 Tab PO DAILY [place] 10-325 Tablet (Hydrocodone Bit/Acetaminophen) 1 Each Tablet 1 Tab PO PRN Q4HRS PRN Flonase Allergy Relief (Fluticasone Propionate) 9.9 Ml [place].susp 1 Sprays NS DAILY Restasis (Cyclosporine) 1 Each Droperette 1 Each OU BID Triamcinolone Acetonide 15 Gm Cream..g. 1 Stepan TP PRN TID PRN Nystatin 15 Gm Cream..g. 1 Stepan TP PRN BID PRN I have reviewed the current psychotropics carefully including drug interactions. Risk benefit ratio favors no change other than as noted in my dictated progress note. Diagnosis: Problems: (1) Confusion (2) Delusion (3) Bipolar affective, mixed, sev w/ psych (4) Anxiety disorder (5) Impulse control disorder (6) Schizoaffective disorder, bipolar type (7) Impulse control disorder RACHANA BENNETT MD Oct 28, 2017 20:57
--- NOTE | 2017-10-28 22:57 | CONS ---
DATE OF CONSULTATION: 10/28/2017 REASON FOR CONSULTATION: Medical management. HISTORY OF PRESENT ILLNESS: The patient is an 82-year-old female patient who was apparently seen at [facility] Emergency Room where she was seen with increased anxiety, visual hallucination, stated that she does not feel safe, but denied any suicidal ideation, not sleeping, very poor appetite, stated that she feels that she was in other world that is detached from this and was feeling as if she is crawling out of her skin and could not take it anymore and she came to the Emergency Room for further evaluation. When she was seen and was admitted [facility] for [facility] stabilization, she was actually here only recently. In fact, she was discharged on 10/18/2017. At that time, she was admitted for again extreme anxiety with suicidal ideation after her daughter, Christina has . PAST MEDICAL HISTORY: Significant for hypothyroidism, bipolar disorder, advanced osteoarthritis of the left hip joint. She is known to have chronic headache, stage 2 chronic kidney disease and chronic back pain. PAST SURGICAL HISTORY: Significant for total abdominal hysterectomy and bilateral salpingo-oophorectomy. She has had also colonoscopy. FAMILY HISTORY: Her daughter has mental illness and lung cancer. Her father also had malignant tumor. SOCIAL HISTORY: She is retired and apparently does not drink alcohol and quit smoking years ago. She is currently living alone with home health aide. She apparently started smoking when she was 37 years old and stopped when she was 52 years old. REVIEW OF SYSTEMS: As per history of present illness. PHYSICAL EXAMINATION GENERAL: When I examined her, she was sitting comfortably in her chair in no apparent respiratory distress. She was pale, but no jaundice or cyanosis. No lymphadenopathy, no thyromegaly. No jugular venous distension. No lower limb edema. VITAL SIGNS: His heart rate was 76, blood pressure 137/88, temperature was 99.3, respiratory rate was 18 and oxygen saturation was 95%. HEENT: Showed normocephalic, atraumatic. NECK: Supple. HEART: Showed normal first and second heart sounds with no gallop, rub or murmur. CHEST: Clear to auscultation. No crepitation or rhonchi. ABDOMEN: Distended, soft, nontender. NEUROLOGIC: She is awake, alert, responding appropriately. All cranial nerves intact. She ambulates without assistance or assistive devices. LABORATORY DATA: As of this morning showed a white cell count of 7000, hemoglobin 12, hematocrit 37, MCV 101, and platelet count of 247,000. Her chemistry showed a serum sodium of 139, potassium 4.1, chloride 102, bicarbonate 35, anion gap of 2, BUN 19, creatinine 1.3, estimated GFR was 39 mL per minute. Her glucose was 114, calcium was 8.9, magnesium was 2.2. Total bilirubin, AST, ALT, alkaline phosphatase were normal. Her total protein was 7.3, albumin 3.5. IMPRESSION: In summary, this is an 82-year-old female patient who was admitted [facility] on account of increasing anxiety and visual hallucination, not sleeping with a very poor appetite. She is here for inpatient psychiatric stabilization. Medically, she seemed to be stable. All her lab works are within acceptable range. I will definitely continue with all her medication and follow all her lab work that are still pending and make any necessary recommendation. Thank you, Dr. Morales, for allowing me to participate in the care of this patient. JOHN HORTON MD DR: JYOTI/taya JOB#: [id number] / [id number]
[2017-10-29] MEDS: HYDROcodone/APAP 10/325 1 TAB TABLET PO PRN ×2 (01:33→06:22)
[2017-10-29] MEDS: DICLOFENAC SODIUM 1% TOPICAL GEL 100GM TUBE. TP PRN (03:58)
[2017-10-29 06:07] VITALS: BP 119/63
[2017-10-29] MEDS: LEVOTHYROXINE 112 MCG TABLET PO SCH ×2 (06:22→07:30)
[2017-10-29] MEDS: CYANOCOBALAMIN (VITAMIN B-12) 1,000 MCG TABLET. PO SCH (08:14)
[2017-10-29] MEDS: GLUCOSAMINE/CHOND 500/400MG CAPSULE PO SCH (08:14)
[2017-10-29] MEDS: MAGNESIUM OXIDE 400 MG TABLET PO SCH (08:15)
[2017-10-29] MEDS: OMEGA-3 FATTY ACIDS/FISH OIL 1,000 MG CAPSULE. PO SCH (08:15)
[2017-10-29] MEDS: POLYETHYLENE GLYCOL 3350 17 GM PACKET. PO SCH (08:16)
[2017-10-29] MEDS: FLUTICASONE 50MCG/NASAL SPRAY 16GM BOTTLE. NS SCH (08:16)
[2017-10-29] MEDS: cycloSPORINE 0.05% OPTH 1 DROP DROPERETTE OU SCH ×2 (08:16→20:09)
[2017-10-29] MEDS: BACLOFEN 10 MG TABLET PO SCH ×3 (08:16→20:10)
[2017-10-29] MEDS: oxyCODONE ER 10 MG TAB.ER.12H PO SCH ×2 (08:18→20:10)
[2017-10-29 15:56] VITALS: BP 131/88
[2017-10-29] MEDS: DIVALPROEX ER 500 MG TAB.ER.24H PO SCH (20:09)
[2017-10-29] MEDS: risperiDONE 2 MG TABLET. PO SCH (20:10)
[2017-10-29] MEDS: clonazePAM 1 MG TABLET PO SCH (20:10)
--- NOTE | 2017-10-29 20:56 | PDOC ---
Exam Note: Jermaine Note: Please also refer to the separate dictated note~for this date of service dictated separately.~Patient seen individually. Discussed the patient with Nursing staff reviewed the chart.~Reviewed interim history and current functioning. Reviewed vital signs,~Labs/ Radiology~and current medications noted below. Continue current treatment with the changes noted in the dictated addendum note Assessment: Vital Signs: Vital Signs Date Time Temp Pulse Resp B/P (MAP) Pulse Ox O2 Delivery O2 Flow Rate FiO2 10/29/17 20:10 18 94 10/29/17 15:56 97.6 76 131/88 (102) 10/29/17 06:22 Room Air I&O Intake and Output 10/29/17 07:00 Intake Total 1080 ml Balance 1080 ml Intake Oral 1080 ml Current Medications: Meds: Current Medications Influenza Virus Vaccine (Afluria Trivalent 3250-3158 Syringe) 0.5 ml ONCE ONCE VAX IM Last administered on 10/28/17at 10:00; Start 10/28/17 at 09:00; Stop at 09:01; Status DC Acetaminophen (Tylenol) 650 mg PRN Q6HRS PRN PO PAIN / TEMP; Start 10/27/17 at 11:45 Multi-Ingredient Ointment (Analgesic [place]) 1 stepan PRN QID PRN TP MUSCLE PAIN; Start 10/27/17 at 11:45 Al Hydroxide/Mg Hydroxide (Mylanta Plus Xs) 15 ml PRN AFTMEALHC PRN PO DYSPEPSIA; Start 10/27/17 at 11:45 Magnesium Hydroxide (Milk Of Magnesia) 2,400 mg PRN QHS PRN PO CONSTIPATION; Start 10/27/17 at 11:45 Cyanocobalamin (Vitamin B-12) 1,000 mcg DAILY PO Last administered on at 08:14; Start 10/28/17 at 09:00 Cyclosporine (Restasis) 1 drop BID OU Last administered on 10/29/17at 20:09; Start 10/27/17 at 21:00 Diclofenac Sodium (Voltaren) 1 stepan PRN TID PRN TP PAIN Last administered on at 03:58; Start 10/27/17 at 12:30 Levothyroxine Sodium (Synthroid) 112 mcg DAILYAC PO Last administered on at 09:49; Start 10/28/17 at 07:30; Stop 10/28/17 at 13:11; Status DC Oxycodone HCl (OxyCONTIN) 10 mg Q12HR PO Last administered on 10/29/17at 20:10; Start 10/27/17 at 21:00 Acetaminophen/ Aspirin/Caffeine (Excedrin Migraine) 2 tab PRN Q24HRS PRN PO MIGRAINE HEADACHE; Start 10/27/17 at 13:00 Baclofen (Lioresal) 5 mg TID PO Last administered on 10/29/17at 20:10; Start at 14:00 Artificial Tears (Refresh Classic) 1 drop PRN BID PRN OU DRY EYE; Start at 13:15 Fluticasone Propionate (Flonase) 1 spray DAILY NS Last administered on at 08:16; Start 10/28/17 at 09:00 Glucosamine/ Chondroitin (Glucosamine-Chondroitin 500/400mg) 1 cap DAILY PO Last administered on 10/29/17at 08:14; Start 10/28/17 at 09:00 Acetaminophen/ Hydrocodone Bitart (Lortab 10/325) 1 tab PRN Q4HRS PRN PO PAIN Last administered on 10/29/17at 06:22; Start 10/27/17 at 13:15 Magnesium Oxide (Magnesium Oxide) 400 mg DAILY PO Last administered on at 08:15; Start 10/28/17 at 09:00 Nystatin (Mycostatin) 1 stepan PRN BID PRN TP RASH ON GROIN; Start 10/27/17 at 21: 00 Fish Oil (Fish Oil) 1,000 mg DAILY PO Last administered on 10/29/17at 08:15; Start 10/28/17 at 09:00 Polyethylene Glycol (miraLAX) 17 gm DAILY PO Last administered on 10/29/17at 08: 16; Start 10/28/17 at 09:00 Triamcinolone Acetonide (Kenalog) 1 stepan PRN TID PRN TP VAGINAL PAIN; Start at 13:15 Olanzapine (ZyPREXA ZYDIS) 2.5 mg PRN Q2HR PRN PO PSYCHOSIS; Start 10/27/17 at 12:45 Clonazepam (KlonoPIN) 1 mg QHS PO Last administered on 10/29/17at 20:10; Start 10/27/17 at 21:00 Divalproex Sodium (Depakote Er) 1,000 mg QHS PO Last administered on 10/29/17at 20:09; Start 10/27/17 at 21:00 Risperidone (RisperDAL) 2 mg QHS PO Last administered on 10/29/17at 20:10; Start 10/27/17 at 21:00 Estradiol (Estrace) 1 stepan WEEKLY VG ; Start 11/03/17 at 09:00 Levothyroxine Sodium (Synthroid) 112 mcg DAILYAC PO Last administered on at 06:22; Start 10/29/17 at 06:00 Sertraline HCl (Zoloft) 25 mg BID92 PO ; Start 10/30/17 at 09:00 Active Scripts Active Reported [place] 3 1,000 Mg Softgel ([place]-3 Fatty Acids/Fish Oil) 1 Each Capsule 1 Each PO DAILY Oxycontin (Oxycodone HCl) 10 Mg Tab.er.12h 10 Mg PO Q12HR Refresh Optive Eye Drops (Carboxymethylcellulos/Glycerin) 15 Ml Drops 1 Ml OU PRN BID PRN Zyprexa Zydis (Olanzapine) 5 Mg Tab.rapdis 2.5 Mg PO PRN Q2HR PRN Magnesium Oxide 400 Mg Tablet 400 Mg PO DAILY Depakote Er (Divalproex Sodium) 500 Mg Tab.er.24h 1,000 Mg PO QHS Clonazepam 1 Mg Tablet 1 Mg PO QHS Diclofenac Sodium 100 Gm Gel..gram. 100 Gm TP PRN TID Estrace (Estradiol) 42.5 Gm Cream.appl 1 Stepan VG Baclofen 10 Mg Tablet 5 Mg PO TID Excedrin Migraine Caplet (Aspirin/Acetaminophen/Caffeine) 1 Each Tablet 2 Each PO PRN Q24HRS PRN Risperidone 2 Mg Tablet 2 Mg PO QHS Miralax (Polyethylene Glycol 3350) 17 Gm Powd.pack 1 Packet PO DAILY Synthroid (Levothyroxine Sodium) 112 Mcg Tablet 112 Mcg PO DAILYAC Vitamin B-12 (Cyanocobalamin (Vitamin B-12)) 1,000 Mcg Tablet 1,000 Mcg PO DAILY Glucosamine Chondroitin Tab (Gluc Stephen/Chondro Stephen A/Vit C/Mn) 1 Each Tablet 1 Tab PO DAILY [place] 10-325 Tablet (Hydrocodone Bit/Acetaminophen) 1 Each Tablet 1 Tab PO PRN Q4HRS PRN Flonase Allergy Relief (Fluticasone Propionate) 9.9 Ml [place].susp 1 Sprays NS DAILY Restasis (Cyclosporine) 1 Each Droperette 1 Each OU BID Triamcinolone Acetonide 15 Gm Cream..g. 1 Stepan TP PRN TID PRN Nystatin 15 Gm Cream..g. 1 Stepan TP PRN BID PRN I have reviewed the current psychotropics carefully including drug interactions. Risk benefit ratio favors no change other than as noted in my dictated progress note. Diagnosis: Problems: (1) Confusion (2) Delusion (3) Bipolar affective, mixed, sev w/ psych (4) Anxiety disorder (5) Impulse control disorder (6) Schizoaffective disorder, bipolar type (7) Impulse control disorder RACHANA BENNETT MD Oct 29, 2017 20:56
--- NOTE | 2017-10-29 23:28 | PN ---
DATE: 10/28/2017 PSYCHIATRIC PROGRESS NOTE This is a late entry of 10/28/2017, covers elements not covered in my initial note. SUBJECTIVE: I met with the patient in the evening. The patient slept 5 hours previous night. She remains somewhat withdrawn, but appropriate, somewhat depressed. REVIEW OF SYSTEMS: No CV, , pulmonary, eye, ENT system symptoms on review. MENTAL STATUS EXAM: The patient is reasonably oriented. Speech has some latency, coherent. Abstraction fair, computation impaired, language function intact, attention span short. Mood and affect somewhat dysphoric. We discussed possibility of assisted living placement. She is agreeable to this. LABORATORY DATA: Labs reviewed. IMPRESSION: Bipolar 1 disorder, mixed with psychotic features versus depressed; anxiety disorder, unspecified. Rest unchanged. PLAN: Continue current psychotropics. May add low dose Zoloft if depressive symptoms persist. MAN Fox BENNETT MD DR: GIGI/taya JOB#: [id number] / [id number]
[2017-10-30] MEDS: HYDROcodone/APAP 10/325 1 TAB TABLET PO PRN ×2 (05:12→15:25)
[2017-10-30 06:00] VITALS: BP 149/72
[2017-10-30] MEDS: OMEGA-3 FATTY ACIDS/FISH OIL 1,000 MG CAPSULE. PO SCH (07:50)
[2017-10-30] MEDS: GLUCOSAMINE/CHOND 500/400MG CAPSULE PO SCH (07:50)
[2017-10-30] MEDS: MAGNESIUM OXIDE 400 MG TABLET PO SCH (07:50)
[2017-10-30] MEDS: POLYETHYLENE GLYCOL 3350 17 GM PACKET. PO SCH (07:50)
[2017-10-30] MEDS: LEVOTHYROXINE 112 MCG TABLET PO SCH (07:50)
[2017-10-30] MEDS: FLUTICASONE 50MCG/NASAL SPRAY 16GM BOTTLE. NS SCH (07:50)
[2017-10-30] MEDS: BACLOFEN 10 MG TABLET PO SCH ×3 (07:50→20:44)
[2017-10-30] MEDS: CYANOCOBALAMIN (VITAMIN B-12) 1,000 MCG TABLET. PO SCH (07:51)
[2017-10-30] MEDS: cycloSPORINE 0.05% OPTH 1 DROP DROPERETTE OU SCH ×2 (07:51→20:43)
[2017-10-30] MEDS: oxyCODONE ER 10 MG TAB.ER.12H PO SCH ×2 (07:52→20:44)
[2017-10-30] MEDS: SERTRALINE 25 MG TABLET. PO SCH ×2 (07:52→15:25)
[2017-10-30 17:00] VITALS: BP 138/58
[2017-10-30] MEDS: DIVALPROEX ER 500 MG TAB.ER.24H PO SCH (20:43)
[2017-10-30] MEDS: clonazePAM 1 MG TABLET PO SCH (20:43)
[2017-10-30] MEDS: risperiDONE 2 MG TABLET. PO SCH (20:43)
--- NOTE | 2017-10-30 21:16 | PDOC ---
Exam Note: Jermaine Note: Please also refer to the separate dictated note~for this date of service dictated separately.~Patient seen individually. Discussed the patient with Nursing staff reviewed the chart.~Reviewed interim history and current functioning. Reviewed vital signs,~Labs/ Radiology~and current medications noted below. Continue current treatment with the changes noted in the dictated addendum note Assessment: Vital Signs: Vital Signs Date Time Temp Pulse Resp B/P (MAP) Pulse Ox O2 Delivery O2 Flow Rate FiO2 10/30/17 20:44 16 95 Room Air 10/30/17 17:00 98.2 76 138/58 (84) I&O Intake and Output 10/30/17 07:00 Intake Total 1800 ml Balance 1800 ml Intake Oral 1800 ml Current Medications: Meds: Current Medications Influenza Virus Vaccine (Afluria Trivalent 3321-6384 Syringe) 0.5 ml ONCE ONCE VAX IM Last administered on 10/28/17at 10:00; Start 10/28/17 at 09:00; Stop at 09:01; Status DC Acetaminophen (Tylenol) 650 mg PRN Q6HRS PRN PO PAIN / TEMP; Start 10/27/17 at 11:45 Multi-Ingredient Ointment (Analgesic [place]) 1 stepan PRN QID PRN TP MUSCLE PAIN; Start 10/27/17 at 11:45 Al Hydroxide/Mg Hydroxide (Mylanta Plus Xs) 15 ml PRN AFTMEALHC PRN PO DYSPEPSIA; Start 10/27/17 at 11:45 Magnesium Hydroxide (Milk Of Magnesia) 2,400 mg PRN QHS PRN PO CONSTIPATION; Start 10/27/17 at 11:45 Cyanocobalamin (Vitamin B-12) 1,000 mcg DAILY PO Last administered on at 07:51; Start 10/28/17 at 09:00 Cyclosporine (Restasis) 1 drop BID OU Last administered on 10/30/17at 20:43; Start 10/27/17 at 21:00 Diclofenac Sodium (Voltaren) 1 stepan PRN TID PRN TP PAIN Last administered on at 03:58; Start 10/27/17 at 12:30 Levothyroxine Sodium (Synthroid) 112 mcg DAILYAC PO Last administered on at 09:49; Start 10/28/17 at 07:30; Stop 10/28/17 at 13:11; Status DC Oxycodone HCl (OxyCONTIN) 10 mg Q12HR PO Last administered on 10/30/17at 20:44; Start 10/27/17 at 21:00 Acetaminophen/ Aspirin/Caffeine (Excedrin Migraine) 2 tab PRN Q24HRS PRN PO MIGRAINE HEADACHE; Start 10/27/17 at 13:00 Baclofen (Lioresal) 5 mg TID PO Last administered on 10/30/17at 20:44; Start at 14:00 Artificial Tears (Refresh Classic) 1 drop PRN BID PRN OU DRY EYE; Start at 13:15 Fluticasone Propionate (Flonase) 1 spray DAILY NS Last administered on at 07:50; Start 10/28/17 at 09:00 Glucosamine/ Chondroitin (Glucosamine-Chondroitin 500/400mg) 1 cap DAILY PO Last administered on 10/30/17at 07:50; Start 10/28/17 at 09:00 Acetaminophen/ Hydrocodone Bitart (Lortab 10/325) 1 tab PRN Q4HRS PRN PO PAIN Last administered on 10/30/17at 15:25; Start 10/27/17 at 13:15 Magnesium Oxide (Magnesium Oxide) 400 mg DAILY PO Last administered on at 07:50; Start 10/28/17 at 09:00 Nystatin (Mycostatin) 1 stepan PRN BID PRN TP RASH ON GROIN; Start 10/27/17 at 21: 00 Fish Oil (Fish Oil) 1,000 mg DAILY PO Last administered on 10/30/17at 07:50; Start 10/28/17 at 09:00 Polyethylene Glycol (miraLAX) 17 gm DAILY PO Last administered on 10/30/17at 07: 50; Start 10/28/17 at 09:00 Triamcinolone Acetonide (Kenalog) 1 setpan PRN TID PRN TP VAGINAL PAIN; Start at 13:15 Olanzapine (ZyPREXA ZYDIS) 2.5 mg PRN Q2HR PRN PO PSYCHOSIS Last administered on 10/30/17at 11:09; Start 10/27/17 at 12:45 Clonazepam (KlonoPIN) 1 mg QHS PO Last administered on 10/30/17at 20:43; Start 10/27/17 at 21:00 Divalproex Sodium (Depakote Er) 1,000 mg QHS PO Last administered on 10/30/17at 20:43; Start 10/27/17 at 21:00 Risperidone (RisperDAL) 2 mg QHS PO Last administered on 10/30/17at 20:43; Start 10/27/17 at 21:00 Estradiol (Estrace) 1 stepan WEEKLY VG ; Start 11/03/17 at 09:00 Levothyroxine Sodium (Synthroid) 112 mcg DAILYAC PO Last administered on at 07:50; Start 10/29/17 at 06:00 Sertraline HCl (Zoloft) 25 mg BID92 PO Last administered on 10/30/17at 15:25; Start 10/30/17 at 09:00 Active Scripts Active Reported [place] 3 1,000 Mg Softgel ([place]-3 Fatty Acids/Fish Oil) 1 Each Capsule 1 Each PO DAILY Oxycontin (Oxycodone HCl) 10 Mg Tab.er.12h 10 Mg PO Q12HR Refresh Optive Eye Drops (Carboxymethylcellulos/Glycerin) 15 Ml Drops 1 Ml OU PRN BID PRN Zyprexa Zydis (Olanzapine) 5 Mg Tab.rapdis 2.5 Mg PO PRN Q2HR PRN Magnesium Oxide 400 Mg Tablet 400 Mg PO DAILY Depakote Er (Divalproex Sodium) 500 Mg Tab.er.24h 1,000 Mg PO QHS Clonazepam 1 Mg Tablet 1 Mg PO QHS Diclofenac Sodium 100 Gm Gel..gram. 100 Gm TP PRN TID Estrace (Estradiol) 42.5 Gm Cream.appl 1 Stepan VG Baclofen 10 Mg Tablet 5 Mg PO TID Excedrin Migraine Caplet (Aspirin/Acetaminophen/Caffeine) 1 Each Tablet 2 Each PO PRN Q24HRS PRN Risperidone 2 Mg Tablet 2 Mg PO QHS Miralax (Polyethylene Glycol 3350) 17 Gm Powd.pack 1 Packet PO DAILY Synthroid (Levothyroxine Sodium) 112 Mcg Tablet 112 Mcg PO DAILYAC Vitamin B-12 (Cyanocobalamin (Vitamin B-12)) 1,000 Mcg Tablet 1,000 Mcg PO DAILY Glucosamine Chondroitin Tab (Gluc Stephen/Chondro Stephen A/Vit C/Mn) 1 Each Tablet 1 Tab PO DAILY [place] 10-325 Tablet (Hydrocodone Bit/Acetaminophen) 1 Each Tablet 1 Tab PO PRN Q4HRS PRN Flonase Allergy Relief (Fluticasone Propionate) 9.9 Ml [place].susp 1 Sprays NS DAILY Restasis (Cyclosporine) 1 Each Droperette 1 Each OU BID Triamcinolone Acetonide 15 Gm Cream..g. 1 Stepan TP PRN TID PRN Nystatin 15 Gm Cream..g. 1 Stepan TP PRN BID PRN I have reviewed the current psychotropics carefully including drug interactions. Risk benefit ratio favors no change other than as noted in my dictated progress note. Diagnosis: Problems: (1) Confusion (2) Delusion (3) Bipolar affective, mixed, sev w/ psych (4) Anxiety disorder (5) Impulse control disorder (6) Schizoaffective disorder, bipolar type (7) Impulse control disorder RACHANA BENNETT MD Oct 30, 2017 21:16
--- NOTE | 2017-10-30 23:47 | PN ---
DATE: 10/29/2017 This is a late entry for 10/29/2017 and covers elements not covered in my initial note of 10/29/2017. SUBJECTIVE: I met with the patient in the evening. The patient slept 6 hours previous night. She is compliant with her bedtime medications, somewhat anxious, restless, labile, depressed and sad at times, tearful, crying in groups. Valproic acid level is 81, AST, ALT unremarkable. We addressed the option of moving to an assisted living and she is agreeable to it. REVIEW OF SYSTEMS: No CV, , pulmonary, eye, ENT system symptoms on review. Gait unsteady with a walker. MENTAL STATUS EXAM: Reasonably oriented. Speech is coherent, abstraction fair, computation impaired, language function intact, attention span short. Mood and affect remain somewhat depressed, anxious. LABORATORY DATA: Reviewed. IMPRESSION: Schizoaffective disorder, bipolar type, depressed versus bipolar 1 disorder, depressed; anxiety disorder, unspecified. PLAN: Add Zoloft 25 mg a day for her mood and anxiety symptoms. Continue Depakote ER 1000 at bedtime, level therapeutic at 81. Risperdal 2 mg at bedtime. We will adjust as clinically indicated. RACHANA BENNETT MD DR: GIGI/taya JOB#: [id number] / [id number]
[2017-10-31 06:00] VITALS: BP 167/76
[2017-10-31] MEDS: HYDROcodone/APAP 10/325 1 TAB TABLET PO PRN ×2 (06:33→14:42)
[2017-10-31] MEDS: GLUCOSAMINE/CHOND 500/400MG CAPSULE PO SCH (10:28)
[2017-10-31] MEDS: FLUTICASONE 50MCG/NASAL SPRAY 16GM BOTTLE. NS SCH (10:28)
[2017-10-31] MEDS: OMEGA-3 FATTY ACIDS/FISH OIL 1,000 MG CAPSULE. PO SCH (10:28)
[2017-10-31] MEDS: cycloSPORINE 0.05% OPTH 1 DROP DROPERETTE OU SCH ×2 (10:28→20:42)
[2017-10-31] MEDS: LEVOTHYROXINE 112 MCG TABLET PO SCH (10:28)
[2017-10-31] MEDS: BACLOFEN 10 MG TABLET PO SCH ×3 (10:29→20:43)
[2017-10-31] MEDS: POLYETHYLENE GLYCOL 3350 17 GM PACKET. PO SCH (10:29)
[2017-10-31] MEDS: MAGNESIUM OXIDE 400 MG TABLET PO SCH (10:29)
[2017-10-31] MEDS: SERTRALINE 25 MG TABLET. PO SCH ×2 (10:29→14:36)
[2017-10-31] MEDS: CYANOCOBALAMIN (VITAMIN B-12) 1,000 MCG TABLET. PO SCH (10:29)
[2017-10-31] MEDS: oxyCODONE ER 10 MG TAB.ER.12H PO SCH ×2 (10:38→20:45)
[2017-10-31 16:54] VITALS: BP 100/55
[2017-10-31] MEDS: risperiDONE 2 MG TABLET. PO SCH (20:43)
[2017-10-31] MEDS: DIVALPROEX ER 500 MG TAB.ER.24H PO SCH (20:43)
[2017-10-31] MEDS: clonazePAM 1 MG TABLET PO SCH (20:45)
--- NOTE | 2017-10-31 20:49 | PDOC ---
Exam Note: Jermaine Note: Please also refer to the separate dictated note~for this date of service dictated separately.~Patient seen individually. Discussed the patient with Nursing staff reviewed the chart.~Reviewed interim history and current functioning. Reviewed vital signs,~Labs/ Radiology~and current medications noted below. Continue current treatment with the changes noted in the dictated addendum note Assessment: Vital Signs: Vital Signs Date Time Temp Pulse Resp B/P (MAP) Pulse Ox O2 Delivery O2 Flow Rate FiO2 10/31/17 20:45 98 10/31/17 16:54 97.5 67 18 100/55 (70) 10/31/17 06:33 Room Air I&O Intake and Output 10/31/17 07:00 Intake Total 1920 ml Balance 1920 ml Intake Oral 1920 ml # Voids 1 Current Medications: Meds: Current Medications Influenza Virus Vaccine (Afluria Trivalent [id number] Syringe) 0.5 ml ONCE ONCE VAX IM Last administered on 10/28/17at 10:00; Start 10/28/17 at 09:00; Stop at 09:01; Status DC Acetaminophen (Tylenol) 650 mg PRN Q6HRS PRN PO PAIN / TEMP; Start 10/27/17 at 11:45 Multi-Ingredient Ointment (Analgesic [place]) 1 stepan PRN QID PRN TP MUSCLE PAIN; Start 10/27/17 at 11:45 Al Hydroxide/Mg Hydroxide (Mylanta Plus Xs) 15 ml PRN AFTMEALHC PRN PO DYSPEPSIA; Start 10/27/17 at 11:45 Magnesium Hydroxide (Milk Of Magnesia) 2,400 mg PRN QHS PRN PO CONSTIPATION; Start 10/27/17 at 11:45 Cyanocobalamin (Vitamin B-12) 1,000 mcg DAILY PO Last administered on at 10:29; Start 10/28/17 at 09:00 Cyclosporine (Restasis) 1 drop BID OU Last administered on 10/31/17at 20:42; Start 10/27/17 at 21:00 Diclofenac Sodium (Voltaren) 1 stepan PRN TID PRN TP PAIN Last administered on at 03:58; Start 10/27/17 at 12:30 Levothyroxine Sodium (Synthroid) 112 mcg DAILYAC PO Last administered on at 09:49; Start 10/28/17 at 07:30; Stop 10/28/17 at 13:11; Status DC Oxycodone HCl (OxyCONTIN) 10 mg Q12HR PO Last administered on 10/31/17at 20:45; Start 10/27/17 at 21:00 Acetaminophen/ Aspirin/Caffeine (Excedrin Migraine) 2 tab PRN Q24HRS PRN PO MIGRAINE HEADACHE; Start 10/27/17 at 13:00 Baclofen (Lioresal) 5 mg TID PO Last administered on 10/31/17at 20:43; Start at 14:00 Artificial Tears (Refresh Classic) 1 drop PRN BID PRN OU DRY EYE; Start at 13:15 Fluticasone Propionate (Flonase) 1 spray DAILY NS Last administered on 10:28; Start 10/28/17 at 09:00 Glucosamine/ Chondroitin (Glucosamine-Chondroitin 500/400mg) 1 cap DAILY PO Last administered on 10/31/17at 10:28; Start 10/28/17 at 09:00 Acetaminophen/ Hydrocodone Bitart (Lortab 10/325) 1 tab PRN Q4HRS PRN PO PAIN Last administered on 10/31/17 14:42; Start 10/27/17 at 13:15 Magnesium Oxide (Magnesium Oxide) 400 mg DAILY PO Last administered on at 10:29; Start 10/28/17 at 09:00 Nystatin (Mycostatin) 1 stepan PRN BID PRN TP RASH ON GROIN; Start 10/27/17 at 21: 00 Fish Oil (Fish Oil) 1,000 mg DAILY PO Last administered on 10/31/17at 10:28; Start 10/28/17 at 09:00 Polyethylene Glycol (miraLAX) 17 gm DAILY PO Last administered on 10/31/17 10: 29; Start 10/28/17 at 09:00 Triamcinolone Acetonide (Kenalog) 1 stepan PRN TID PRN TP VAGINAL PAIN; Start at 13:15 Olanzapine (ZyPREXA ZYDIS) 2.5 mg PRN Q2HR PRN PO PSYCHOSIS Last administered on 10/30/17at 11:09; Start 9/16/18 at 12:45 Clonazepam (KlonoPIN) 1 mg QHS PO Last administered on 10/31/17at 20:45; Start 10/27/17 at 21:00 Divalproex Sodium (Depakote Er) 1,000 mg QHS PO Last administered on 10/31/17at 20:43; Start 10/27/17 at 21:00 Risperidone (RisperDAL) 2 mg QHS PO Last administered on 10/31/17 20:43; Start 10/27/17 at 21:00 Estradiol (Estrace) 1 stepan WEEKLY VG ; Start 11/03/17 at 09:00 Levothyroxine Sodium (Synthroid) 112 mcg DAILYAC PO Last administered on 10:28; Start 10/29/17 at 06:00 Sertraline HCl (Zoloft) 25 mg BID92 PO Last administered on 10/31/17 14:36; Start 10/30/17 at 09:00 Active Scripts Active Reported [place] 3 1,000 Mg Softgel ([place]-3 Fatty Acids/Fish Oil) 1 Each Capsule 1 Each PO DAILY Oxycontin (Oxycodone HCl) 10 Mg Tab.er.12h 10 Mg PO Q12HR Refresh Optive Eye Drops (Carboxymethylcellulos/Glycerin) 15 Ml Drops 1 Ml OU PRN BID PRN Zyprexa Zydis (Olanzapine) 5 Mg Tab.rapdis 2.5 Mg PO PRN Q2HR PRN Magnesium Oxide 400 Mg Tablet 400 Mg PO DAILY Depakote Er (Divalproex Sodium) 500 Mg Tab.er.24h 1,000 Mg PO QHS Clonazepam 1 Mg Tablet 1 Mg PO QHS Diclofenac Sodium 100 Gm Gel..gram. 100 Gm TP PRN TID Estrace (Estradiol) 42.5 Gm Cream.appl 1 Stepan VG Baclofen 10 Mg Tablet 5 Mg PO TID Excedrin Migraine Caplet (Aspirin/Acetaminophen/Caffeine) 1 Each Tablet 2 Each PO PRN Q24HRS PRN Risperidone 2 Mg Tablet 2 Mg PO QHS Miralax (Polyethylene Glycol 3350) 17 Gm Powd.pack 1 Packet PO DAILY Synthroid (Levothyroxine Sodium) 112 Mcg Tablet 112 Mcg PO DAILYAC Vitamin B-12 (Cyanocobalamin (Vitamin B-12)) 1,000 Mcg Tablet 1,000 Mcg PO DAILY Glucosamine Chondroitin Tab (Gluc [place]/Chondro [place] A/Vit C/Mn) 1 Each Tablet 1 Tab PO DAILY [place] 10-325 Tablet (Hydrocodone Bit/Acetaminophen) 1 Each Tablet 1 Tab PO PRN Q4HRS PRN Flonase Allergy Relief (Fluticasone Propionate) 9.9 Ml [place].susp 1 Sprays NS DAILY Restasis (Cyclosporine) 1 Each Droperette 1 Each OU BID Triamcinolone Acetonide 15 Gm Cream..g. 1 Stepan TP PRN TID PRN Nystatin 15 Gm Cream..g. 1 Stepan TP PRN BID PRN I have reviewed the current psychotropics carefully including drug interactions. Risk benefit ratio favors no change other than as noted in my dictated progress note. Diagnosis: Problems: (1) Confusion (2) Delusion (3) Bipolar affective, mixed, sev w/ psych (4) Anxiety disorder (5) Impulse control disorder (6) Schizoaffective disorder, bipolar type (7) Impulse control disorder RACHANA BENNETT MD Oct 31, 2017 20:49
[2017-11-01] MEDS: HYDROcodone/APAP 10/325 1 TAB TABLET PO PRN ×2 (05:56→11:03)
[2017-11-01 06:48] VITALS: BP 125/60
[2017-11-01] MEDS: cycloSPORINE 0.05% OPTH 1 DROP DROPERETTE OU SCH ×2 (10:04→20:00)
[2017-11-01] MEDS: POLYETHYLENE GLYCOL 3350 17 GM PACKET. PO SCH (10:04)
[2017-11-01] MEDS: oxyCODONE ER 10 MG TAB.ER.12H PO SCH ×2 (10:04→20:00)
[2017-11-01] MEDS: SERTRALINE 25 MG TABLET. PO SCH ×2 (10:04→14:25)
[2017-11-01] MEDS: LEVOTHYROXINE 112 MCG TABLET PO SCH (10:04)
[2017-11-01] MEDS: CYANOCOBALAMIN (VITAMIN B-12) 1,000 MCG TABLET. PO SCH (10:04)
[2017-11-01] MEDS: GLUCOSAMINE/CHOND 500/400MG CAPSULE PO SCH (10:04)
[2017-11-01] MEDS: OMEGA-3 FATTY ACIDS/FISH OIL 1,000 MG CAPSULE. PO SCH (10:04)
[2017-11-01] MEDS: BACLOFEN 10 MG TABLET PO SCH ×3 (10:05→20:00)
[2017-11-01] MEDS: MAGNESIUM OXIDE 400 MG TABLET PO SCH (10:05)
[2017-11-01] MEDS: FLUTICASONE 50MCG/NASAL SPRAY 16GM BOTTLE. NS SCH (10:09)
[2017-11-01 16:57] VITALS: BP 109/53
[2017-11-01] MEDS: DIVALPROEX ER 500 MG TAB.ER.24H PO SCH (20:00)
[2017-11-01] MEDS: risperiDONE 2 MG TABLET. PO SCH (20:01)
[2017-11-01] MEDS: clonazePAM 1 MG TABLET PO SCH (20:01)
--- NOTE | 2017-11-01 20:57 | PDOC ---
Exam Note: Jermaine Note: Please also refer to the separate dictated note~for this date of service dictated separately.~Patient seen individually. Discussed the patient with Nursing staff reviewed the chart.~Reviewed interim history and current functioning. Reviewed vital signs,~Labs/ Radiology~and current medications noted below. Continue current treatment with the changes noted in the dictated addendum note Assessment: Vital Signs: Vital Signs Date Time Temp Pulse Resp B/P (MAP) Pulse Ox O2 Delivery O2 Flow Rate FiO2 11/01/17 20:00 97 11/01/17 16:57 97.6 69 20 109/53 (71) 11/01/17 05:56 Room Air I&O Intake and Output 11/01/17 07:00 Intake Total 940 ml Balance 940 ml Intake Oral 940 ml Current Medications: Meds: Current Medications Influenza Virus Vaccine (Afluria Trivalent 1173-6396 Syringe) 0.5 ml ONCE ONCE VAX IM Last administered on 10/28/17at 10:00; Start 10/28/17 at 09:00; Stop at 09:01; Status DC Acetaminophen (Tylenol) 650 mg PRN Q6HRS PRN PO PAIN / TEMP; Start 10/27/17 at 11:45 Multi-Ingredient Ointment (Analgesic [place]) 1 stepan PRN QID PRN TP MUSCLE PAIN; Start 10/27/17 at 11:45 Al Hydroxide/Mg Hydroxide (Mylanta Plus Xs) 15 ml PRN AFTMEALHC PRN PO DYSPEPSIA; Start 10/27/17 at 11:45 Magnesium Hydroxide (Milk Of Magnesia) 2,400 mg PRN QHS PRN PO CONSTIPATION; Start 10/27/17 at 11:45 Cyanocobalamin (Vitamin B-12) 1,000 mcg DAILY PO Last administered on at 10:04; Start 10/28/17 at 09:00 Cyclosporine (Restasis) 1 drop BID OU Last administered on 11/01/17at 20:00; Start 10/27/17 at 21:00 Diclofenac Sodium (Voltaren) 1 stepan PRN TID PRN TP PAIN Last administered on at 03:58; Start 10/27/17 at 12:30 Levothyroxine Sodium (Synthroid) 112 mcg DAILYAC PO Last administered on at 09:49; Start 10/28/17 at 07:30; Stop 10/28/17 at 13:11; Status DC Oxycodone HCl (OxyCONTIN) 10 mg Q12HR PO Last administered on 11/01/17at 20:00; Start 10/27/17 at 21:00 Acetaminophen/ Aspirin/Caffeine (Excedrin Migraine) 2 tab PRN Q24HRS PRN PO MIGRAINE HEADACHE; Start 10/27/17 at 13:00 Baclofen (Lioresal) 5 mg TID PO Last administered on 11/01/17at 20:00; Start at 14:00 Artificial Tears (Refresh Classic) 1 drop PRN BID PRN OU DRY EYE; Start at 13:15 Fluticasone Propionate (Flonase) 1 spray DAILY NS Last administered on at 10:09; Start 10/28/17 at 09:00 Glucosamine/ Chondroitin (Glucosamine-Chondroitin 500/400mg) 1 cap DAILY PO Last administered on 11/01/17at 10:04; Start 10/28/17 at 09:00 Acetaminophen/ Hydrocodone Bitart (Lortab 10/325) 1 tab PRN Q4HRS PRN PO PAIN Last administered on 11/01/17 11:03; Start 10/27/17 at 13:15 Magnesium Oxide (Magnesium Oxide) 400 mg DAILY PO Last administered on at 10:05; Start 10/28/17 at 09:00 Nystatin (Mycostatin) 1 stepan PRN BID PRN TP RASH ON GROIN; Start 10/27/17 at 21: 00 Fish Oil (Fish Oil) 1,000 mg DAILY PO Last administered on 11/01/17at 10:04; Start 10/28/17 at 09:00 Polyethylene Glycol (miraLAX) 17 gm DAILY PO Last administered on 11/01/17at 10: 04; Start 10/28/17 at 09:00 Triamcinolone Acetonide (Kenalog) 1 stepan PRN TID PRN TP VAGINAL PAIN; Start at 13:15 Olanzapine (ZyPREXA ZYDIS) 2.5 mg PRN Q2HR PRN PO PSYCHOSIS Last administered on 10/30/17at 11:09; Start 10/27/17 at 12:45 Clonazepam (KlonoPIN) 1 mg QHS PO Last administered on 11/01/17at 20:01; Start 10/27/17 at 21:00 Divalproex Sodium (Depakote Er) 1,000 mg QHS PO Last administered on 11/01/17at 20:00; Start 10/27/17 at 21:00 Risperidone (RisperDAL) 2 mg QHS PO Last administered on 11/01/17at 20:01; Start 10/27/17 at 21:00 Estradiol (Estrace) 1 stepan WEEKLY VG ; Start 11/03/17 at 09:00 Levothyroxine Sodium (Synthroid) 112 mcg DAILYAC PO Last administered on at 10:04; Start 10/29/17 at 06:00; Stop 11/01/17 at 15:52; Status DC Sertraline HCl (Zoloft) 25 mg BID92 PO Last administered on 11/01/17at 14:25; Start 10/30/17 at 09:00 Levothyroxine Sodium (Synthroid) 112 mcg DAILY06 PO ; Start 11/02/17 at 06:00 Active Scripts Active Reported [place] 3 1,000 Mg Softgel ([place]-3 Fatty Acids/Fish Oil) 1 Each Capsule 1 Each PO DAILY Oxycontin (Oxycodone HCl) 10 Mg Tab.er.12h 10 Mg PO Q12HR Refresh Optive Eye Drops (Carboxymethylcellulos/Glycerin) 15 Ml Drops 1 Ml OU PRN BID PRN Zyprexa Zydis (Olanzapine) 5 Mg Tab.rapdis 2.5 Mg PO PRN Q2HR PRN Magnesium Oxide 400 Mg Tablet 400 Mg PO DAILY Depakote Er (Divalproex Sodium) 500 Mg Tab.er.24h 1,000 Mg PO QHS Clonazepam 1 Mg Tablet 1 Mg PO QHS Diclofenac Sodium 100 Gm Gel..gram. 100 Gm TP PRN TID Estrace (Estradiol) 42.5 Gm Cream.appl 1 Stepan VG Baclofen 10 Mg Tablet 5 Mg PO TID Excedrin Migraine Caplet (Aspirin/Acetaminophen/Caffeine) 1 Each Tablet 2 Each PO PRN Q24HRS PRN Risperidone 2 Mg Tablet 2 Mg PO QHS Miralax (Polyethylene Glycol 3350) 17 Gm Powd.pack 1 Packet PO DAILY Synthroid (Levothyroxine Sodium) 112 Mcg Tablet 112 Mcg PO DAILYAC Vitamin B-12 (Cyanocobalamin (Vitamin B-12)) 1,000 Mcg Tablet 1,000 Mcg PO DAILY Glucosamine Chondroitin Tab (Gluc Stephen/Chondro Stephen A/Vit C/Mn) 1 Each Tablet 1 Tab PO DAILY [place] 10-325 Tablet (Hydrocodone Bit/Acetaminophen) 1 Each Tablet 1 Tab PO PRN Q4HRS PRN Flonase Allergy Relief (Fluticasone Propionate) 9.9 Ml [place].susp 1 Sprays NS DAILY Restasis (Cyclosporine) 1 Each Droperette 1 Each OU BID Triamcinolone Acetonide 15 Gm Cream..g. 1 Stepan TP PRN TID PRN Nystatin 15 Gm Cream..g. 1 Stepan TP PRN BID PRN I have reviewed the current psychotropics carefully including drug interactions. Risk benefit ratio favors no change other than as noted in my dictated progress note. Diagnosis: Problems: (1) Confusion (2) Delusion (3) Bipolar affective, mixed, sev w/ psych (4) Anxiety disorder (5) Impulse control disorder (6) Schizoaffective disorder, bipolar type (7) Impulse control disorder RACHANA BENNETT MD Nov 01, 2017 20:57
--- NOTE | 2017-11-02 00:06 | PN ---
DATE: 10/30/2017 This is a late entry for 10/30/2017 covers elements not covered in my initial note. SUBJECTIVE: I met with the patient in the evening. The patient slept 7-1/2 hours previous evening, was agitated, somewhat paranoid in the evening, received Zyprexa at 11:00 p.m. then did well after that. She is less tearful. REVIEW OF SYSTEMS: Ambulation impaired, with walker. No CV, , pulmonary, eye system symptoms on review. MENTAL STATUS EXAM: Reasonably oriented. Speech coherent, abstraction fair, computation impaired, language function intact. Mood and affect is improved. LABORATORY DATA: Reviewed. IMPRESSION: Unchanged from initial note. PLAN: No change from initial note, may need to increase Zoloft gradually. MAN Fox BENNETT MD DR: GIGI/taya JOB#: [id number] / [id number]
--- NOTE | 2017-11-02 00:10 | PN ---
DATE: 10/31/2017 This is a late entry for 10/31/2017 covers elements not covered in my initial note. SUBJECTIVE: I met with the patient in the evening, staffed at a treatment team meeting with the entire team in the morning. Lengthy discussion about the patient's request to go to a more structured facility rather than returning home. She is less tearful. REVIEW OF SYSTEMS: Ambulation impaired with walker. No CV, , pulmonary, eye system symptoms on review. MENTAL STATUS EXAM: Reasonably oriented. Speech is coherent, abstraction fair, computation impaired, language function intact. Mood and affect still somewhat depressed, labile at times, but showing improvement. LABORATORY DATA: Reviewed. IMPRESSION: Unchanged from initial note. PLAN: No change from initial note. May need to increase Zoloft in due course. MAN Fox BENNETT MD DR: GIGI/taya JOB#: [id number] / [id number]
[2017-11-02] MEDS: HYDROcodone/APAP 10/325 1 TAB TABLET PO PRN ×3 (01:22→13:30)
[2017-11-02] MEDS: LEVOTHYROXINE 112 MCG TABLET PO SCH (05:37)
[2017-11-02 06:52] VITALS: BP 120/76
[2017-11-02] MEDS: BACLOFEN 10 MG TABLET PO SCH ×3 (09:24→20:11)
[2017-11-02] MEDS: MAGNESIUM OXIDE 400 MG TABLET PO SCH (09:24)
[2017-11-02] MEDS: GLUCOSAMINE/CHOND 500/400MG CAPSULE PO SCH (09:24)
[2017-11-02] MEDS: FLUTICASONE 50MCG/NASAL SPRAY 16GM BOTTLE. NS SCH (09:24)
[2017-11-02] MEDS: OMEGA-3 FATTY ACIDS/FISH OIL 1,000 MG CAPSULE. PO SCH (09:24)
[2017-11-02] MEDS: cycloSPORINE 0.05% OPTH 1 DROP DROPERETTE OU SCH ×2 (09:24→20:11)
[2017-11-02] MEDS: POLYETHYLENE GLYCOL 3350 17 GM PACKET. PO SCH (09:24)
[2017-11-02] MEDS: CYANOCOBALAMIN (VITAMIN B-12) 1,000 MCG TABLET. PO SCH (09:25)
[2017-11-02] MEDS: oxyCODONE ER 10 MG TAB.ER.12H PO SCH ×2 (09:25→20:12)
[2017-11-02] MEDS: SERTRALINE 25 MG TABLET. PO SCH ×2 (09:26→13:30)
[2017-11-02 16:39] VITALS: BP 105/70
[2017-11-02] MEDS: clonazePAM 1 MG TABLET PO SCH (20:11)
[2017-11-02] MEDS: DIVALPROEX ER 500 MG TAB.ER.24H PO SCH (20:11)
[2017-11-02] MEDS: risperiDONE 2 MG TABLET. PO SCH (20:12)
--- NOTE | 2017-11-02 23:08 | PDOC ---
Exam Note: Jermaine Note: Please also refer to the separate dictated note~for this date of service dictated separately.~Patient seen individually. Discussed the patient with Nursing staff reviewed the chart.~Reviewed interim history and current functioning. Reviewed vital signs,~Labs/ Radiology~and current medications noted below. Continue current treatment with the changes noted in the dictated addendum note Assessment: Vital Signs: Vital Signs Date Time Temp Pulse Resp B/P (MAP) Pulse Ox O2 Delivery O2 Flow Rate FiO2 11/02/17 20:12 91 11/02/17 16:39 96.7 72 18 105/70 (82) 11/02/17 06:30 Room Air I&O Intake and Output 11/02/17 07:00 Intake Total 1280 ml Balance 1280 ml Intake Oral 1280 ml Current Medications: Meds: Current Medications Influenza Virus Vaccine (Afluria Trivalent [id number] Syringe) 0.5 ml ONCE ONCE VAX IM Last administered on 10/28/17at 10:00; Start 10/28/17 at 09:00; Stop at 09:01; Status DC Acetaminophen (Tylenol) 650 mg PRN Q6HRS PRN PO PAIN / TEMP; Start 10/27/17 at 11:45 Multi-Ingredient Ointment (Analgesic [place]) 1 stepan PRN QID PRN TP MUSCLE PAIN; Start 10/27/17 at 11:45 Al Hydroxide/Mg Hydroxide (Mylanta Plus Xs) 15 ml PRN AFTMEALHC PRN PO DYSPEPSIA; Start 10/27/17 at 11:45 Magnesium Hydroxide (Milk Of Magnesia) 2,400 mg PRN QHS PRN PO CONSTIPATION; Start 10/27/17 at 11:45 Cyanocobalamin (Vitamin B-12) 1,000 mcg DAILY PO Last administered on at 09:25; Start 10/28/17 at 09:00 Cyclosporine (Restasis) 1 drop BID OU Last administered on 11/02/17at 20:11; Start 10/27/17 at 21:00 Diclofenac Sodium (Voltaren) 1 stepan PRN TID PRN TP PAIN Last administered on at 03:58; Start 10/27/17 at 12:30 Levothyroxine Sodium (Synthroid) 112 mcg DAILYAC PO Last administered on at 09:49; Start 10/28/17 at 07:30; Stop 10/28/17 at 13:11; Status DC Oxycodone HCl (OxyCONTIN) 10 mg Q12HR PO Last administered on 11/02/17 20:12; Start 10/27/17 at 21:00 Acetaminophen/ Aspirin/Caffeine (Excedrin Migraine) 2 tab PRN Q24HRS PRN PO MIGRAINE HEADACHE; Start 10/27/17 at 13:00 Baclofen (Lioresal) 5 mg TID PO Last administered on 11/02/17at 20:11; Start at 14:00 Artificial Tears (Refresh Classic) 1 drop PRN BID PRN OU DRY EYE; Start at 13:15 Fluticasone Propionate (Flonase) 1 spray DAILY NS Last administered on 09:24; Start 10/28/17 at 09:00 Glucosamine/ Chondroitin (Glucosamine-Chondroitin 500/400mg) 1 cap DAILY PO Last administered on 11/02/17 09:24; Start 10/28/17 at 09:00 Acetaminophen/ Hydrocodone Bitart (Lortab 10/325) 1 tab PRN Q4HRS PRN PO PAIN Last administered on 11/02/17 13:30; Start 10/27/17 at 13:15 Magnesium Oxide (Magnesium Oxide) 400 mg DAILY PO Last administered on 09:24; Start 10/28/17 at 09:00 Nystatin (Mycostatin) 1 stepan PRN BID PRN TP RASH ON GROIN; Start 10/27/17 at 21: 00 Fish Oil (Fish Oil) 1,000 mg DAILY PO Last administered on 11/02/17 09:24; Start 10/28/17 at 09:00 Polyethylene Glycol (miraLAX) 17 gm DAILY PO Last administered on 11/02/17 09: 24; Start 10/28/17 at 09:00 Triamcinolone Acetonide (Kenalog) 1 stepan PRN TID PRN TP VAGINAL PAIN; Start at 13:15 Olanzapine (ZyPREXA ZYDIS) 2.5 mg PRN Q2HR PRN PO PSYCHOSIS Last administered on 10/30/17at 11:09; Start 10/27/17 at 12:45 Clonazepam (KlonoPIN) 1 mg QHS PO Last administered on 11/02/17at 20:11; Start 10/27/17 at 21:00 Divalproex Sodium (Depakote Er) 1,000 mg QHS PO Last administered on 11/02/17at 20:11; Start 10/27/17 at 21:00 Risperidone (RisperDAL) 2 mg QHS PO Last administered on 11/02/17at 20:12; Start 10/27/17 at 21:00 Estradiol (Estrace) 1 stepan WEEKLY VG ; Start 11/03/17 at 09:00 Levothyroxine Sodium (Synthroid) 112 mcg DAILYAC PO Last administered on at 10:04; Start 10/29/17 at 06:00; Stop 11/01/17 at 15:52; Status DC Sertraline HCl (Zoloft) 25 mg BID92 PO Last administered on 11/02/17at 13:30; Start 10/30/17 at 09:00 Levothyroxine Sodium (Synthroid) 112 mcg DAILY06 PO Last administered on at 05:37; Start 11/02/17 at 06:00 Active Scripts Active Reported [place] 3 1,000 Mg Softgel ([place]-3 Fatty Acids/Fish Oil) 1 Each Capsule 1 Each PO DAILY Oxycontin (Oxycodone HCl) 10 Mg Tab.er.12h 10 Mg PO Q12HR Refresh Optive Eye Drops (Carboxymethylcellulos/Glycerin) 15 Ml Drops 1 Ml OU PRN BID PRN Zyprexa Zydis (Olanzapine) 5 Mg Tab.rapdis 2.5 Mg PO PRN Q2HR PRN Magnesium Oxide 400 Mg Tablet 400 Mg PO DAILY Depakote Er (Divalproex Sodium) 500 Mg Tab.er.24h 1,000 Mg PO QHS Clonazepam 1 Mg Tablet 1 Mg PO QHS Diclofenac Sodium 100 Gm Gel..gram. 100 Gm TP PRN TID Estrace (Estradiol) 42.5 Gm Cream.appl 1 Stepan VG Baclofen 10 Mg Tablet 5 Mg PO TID Excedrin Migraine Caplet (Aspirin/Acetaminophen/Caffeine) 1 Each Tablet 2 Each PO PRN Q24HRS PRN Risperidone 2 Mg Tablet 2 Mg PO QHS Miralax (Polyethylene Glycol 3350) 17 Gm Powd.pack 1 Packet PO DAILY Synthroid (Levothyroxine Sodium) 112 Mcg Tablet 112 Mcg PO DAILYAC Vitamin B-12 (Cyanocobalamin (Vitamin B-12)) 1,000 Mcg Tablet 1,000 Mcg PO DAILY Glucosamine Chondroitin Tab (Gluc [place]/Chondro Stephen A/Vit C/Mn) 1 Each Tablet 1 Tab PO DAILY [place] 10-325 Tablet (Hydrocodone Bit/Acetaminophen) 1 Each Tablet 1 Tab PO PRN Q4HRS PRN Flonase Allergy Relief (Fluticasone Propionate) 9.9 Ml [place].susp 1 Sprays NS DAILY Restasis (Cyclosporine) 1 Each Droperette 1 Each OU BID Triamcinolone Acetonide 15 Gm Cream..g. 1 Stepan TP PRN TID PRN Nystatin 15 Gm Cream..g. 1 Stepan TP PRN BID PRN I have reviewed the current psychotropics carefully including drug interactions. Risk benefit ratio favors no change other than as noted in my dictated progress note. Diagnosis: Problems: (1) Confusion (2) Delusion (3) Bipolar affective, mixed, sev w/ psych (4) Anxiety disorder (5) Impulse control disorder (6) Schizoaffective disorder, bipolar type (7) Impulse control disorder RACHANA BENNETT MD Nov 02, 2017 23:08
[2017-11-03] MEDS: HYDROcodone/APAP 10/325 1 TAB TABLET PO PRN ×2 (05:20→14:40)
[2017-11-03] MEDS: LEVOTHYROXINE 112 MCG TABLET PO SCH (05:20)
[2017-11-03 06:31] VITALS: BP 130/74
[2017-11-03 08:18] LABS: BASO % 0 % (0-3); EOS # 0.1 x10^3/uL (0.0-0.7); EOS % 2 % (0-3); HEMATOCRIT 34.5 % (36.0-47.0); HEMOGLOBIN 11.6 g/dL (12.0-15.5); LYMPH # 1.1 x10^3/uL (1.0-4.8); LYMPH % 18 % (24-48); MEAN CORPUSCULAR HEMOGLOBIN 34 pg (25-35); MEAN CORPUSCULAR HGB CONC 34 g/dL (31-37); MEAN CORPUSCULAR VOLUME 101 fL (79-100); MONO # 0.7 x10^3/uL (0.0-1.1); MONO % 11 % (0-9); NEUT # 4.2 x10^3uL (1.8-7.7); NEUT % 69 % (31-73); PLATELET COUNT 199 x10^3/uL (140-400); RED BLOOD COUNT 3.43 x10^6/uL (3.50-5.40); RED CELL DISTRIBUTION WIDTH 13.7 % (11.5-14.5); WHITE BLOOD COUNT 6.1 x10^3/uL (4.0-11.0)
[2017-11-03 08:36] LABS: ALBUMIN 3.3 g/dL (3.4-5.0); CALCIUM 9.2 mg/dL (8.5-10.1); CREATININE 1.2 mg/dL (0.6-1.0); GFR 43.2; MAGNESIUM 2.1 mg/dL (1.8-2.4); POTASSIUM 4.2 mmol/L (3.5-5.1); TOTAL BILIRUBIN 0.3 mg/dL (0.2-1.0); TOTAL PROTEIN 6.7 g/dL (6.4-8.2)
[2017-11-03] MEDS: ESTRADIOL 0.01% VAGINAL CREAM 42.5GM TUBE. VG SCH (09:00)
[2017-11-03] MEDS: POLYETHYLENE GLYCOL 3350 17 GM PACKET. PO SCH (09:00)
[2017-11-03] MEDS: GLUCOSAMINE/CHOND 500/400MG CAPSULE PO SCH (09:58)
[2017-11-03] MEDS: FLUTICASONE 50MCG/NASAL SPRAY 16GM BOTTLE. NS SCH (09:58)
[2017-11-03] MEDS: cycloSPORINE 0.05% OPTH 1 DROP DROPERETTE OU SCH ×2 (09:58→20:50)
[2017-11-03] MEDS: OMEGA-3 FATTY ACIDS/FISH OIL 1,000 MG CAPSULE. PO SCH (09:58)
[2017-11-03] MEDS: BACLOFEN 10 MG TABLET PO SCH ×3 (09:58→20:50)
[2017-11-03] MEDS: CYANOCOBALAMIN (VITAMIN B-12) 1,000 MCG TABLET. PO SCH (09:59)
[2017-11-03] MEDS: MAGNESIUM OXIDE 400 MG TABLET PO SCH (09:59)
[2017-11-03] MEDS: SERTRALINE 25 MG TABLET. PO SCH ×2 (09:59→14:40)
[2017-11-03] MEDS: oxyCODONE ER 10 MG TAB.ER.12H PO SCH ×2 (10:00→20:49)
[2017-11-03 16:48] VITALS: BP 114/70
--- NOTE | 2017-11-03 18:55 | PN ---
DATE: 11/01/2017 PSYCHIATRIC PROGRESS NOTE This late entry 11/01/2017 covers elements, not covered in my initial note. SUBJECTIVE: I met with the patient in the evening. Overall, the patient slept 8 hours previous night, compliant with medications, pleasant, somewhat depressed at times. Unsure about her placement options. We addressed at length and the assisted living may be an appropriate option for her in [place]. REVIEW OF SYSTEMS: Ambulation impaired with walker. No CV, , pulmonary, eye system symptoms on review. MENTAL STATUS EXAM: Oriented to herself and situation. Speech is coherent, abstraction fair, computation impaired, able to do 2 steps of serial 7's. Memory is reasonable. No suicidal or homicidal ideation. Mood is somewhat dysphoric. LABORATORY DATA: Reviewed. IMPRESSION: Unchanged from initial note. PLAN: No change from initial note. MAN Fox BENNETT MD DR: GIGI/taya JOB#: [id number] / [id number]
[2017-11-03] MEDS: risperiDONE 2 MG TABLET. PO SCH (20:49)
[2017-11-03] MEDS: DIVALPROEX ER 500 MG TAB.ER.24H PO SCH (20:49)
[2017-11-03] MEDS: clonazePAM 1 MG TABLET PO SCH (20:49)
--- NOTE | 2017-11-03 21:10 | PDOC ---
Exam Note: Jermaine Note: Please also refer to the separate dictated note~for this date of service dictated separately.~Patient seen individually. Discussed the patient with Nursing staff reviewed the chart.~Reviewed interim history and current functioning. Reviewed vital signs,~Labs/ Radiology~and current medications noted below. Continue current treatment with the changes noted in the dictated addendum note Assessment: Vital Signs: Vital Signs Date Time Temp Pulse Resp B/P (MAP) Pulse Ox O2 Delivery O2 Flow Rate FiO2 11/03/17 16:48 97.9 87 18 114/70 (85) 96 11/03/17 06:31 Room Air I&O Intake and Output 11/03/17 07:00 Intake Total 1080 ml Balance 1080 ml Intake Oral 1080 ml Labs: Laboratory Tests Test 11/03/17 07:56 White Blood Count 6.1 x10^3/uL (4.0-11.0) Red Blood Count 3.43 x10^6/uL (3.50-5.40) L Hemoglobin 11.6 g/dL (12.0-15.5) L Hematocrit 34.5 % (36.0-47.0) L Mean Corpuscular Volume 101 fL (79-100) H Mean Corpuscular Hemoglobin 34 pg (25-35) Mean Corpuscular Hemoglobin Concent 34 g/dL (31-37) Red Cell Distribution Width 13.7 % (11.5-14.5) Platelet Count 199 x10^3/uL (140-400) Neutrophils (%) (Auto) 69 % (31-73) Lymphocytes (%) (Auto) 18 % (24-48) L Monocytes (%) (Auto) 11 % (0-9) H Eosinophils (%) (Auto) 2 % (0-3) Basophils (%) (Auto) 0 % (0-3) Neutrophils # (Auto) 4.2 x10^3uL (1.8-7.7) Lymphocytes # (Auto) 1.1 x10^3/uL (1.0-4.8) Monocytes # (Auto) 0.7 x10^3/uL (0.0-1.1) Eosinophils # (Auto) 0.1 x10^3/uL (0.0-0.7) Basophils # (Auto) 0.0 x10^3/uL (0.0-0.2) Sodium Level 142 mmol/L (136-145) Potassium Level 4.2 mmol/L (3.5-5.1) Chloride Level 105 mmol/L (98-107) Carbon Dioxide Level 35 mmol/L (21-32) H Anion Gap 2 (6-14) L Blood Urea Nitrogen 18 mg/dL (7-20) Creatinine 1.2 mg/dL (0.6-1.0) H Estimated GFR (Cockcroft-Gault) 43.2 BUN/Creatinine Ratio 15 (6-20) Glucose Level 104 mg/dL (70-99) H Calcium Level 9.2 mg/dL (8.5-10.1) Magnesium Level 2.1 mg/dL (1.8-2.4) Total Bilirubin 0.3 mg/dL (0.2-1.0) Aspartate Amino Transferase (AST) 18 U/L (15-37) Alanine Aminotransferase (ALT) 24 U/L (14-59) Alkaline Phosphatase 74 U/L (46-116) Total Protein 6.7 g/dL (6.4-8.2) Albumin 3.3 g/dL (3.4-5.0) L Albumin/Globulin Ratio 1.0 (1.0-1.7) Current Medications: Meds: Current Medications Influenza Virus Vaccine (Afluria Trivalent [id number] Syringe) 0.5 ml ONCE ONCE VAX IM Last administered on 10/28/17at 10:00; Start 10/28/17 at 09:00; Stop at 09:01; Status DC Acetaminophen (Tylenol) 650 mg PRN Q6HRS PRN PO PAIN / TEMP; Start 10/27/17 at 11:45 Multi-Ingredient Ointment (Analgesic [place]) 1 stepan PRN QID PRN TP MUSCLE PAIN; Start 10/27/17 at 11:45 Al Hydroxide/Mg Hydroxide (Mylanta Plus Xs) 15 ml PRN AFTMEALHC PRN PO DYSPEPSIA; Start 10/27/17 at 11:45 Magnesium Hydroxide (Milk Of Magnesia) 2,400 mg PRN QHS PRN PO CONSTIPATION; Start 10/27/17 at 11:45 Cyanocobalamin (Vitamin B-12) 1,000 mcg DAILY PO Last administered on at 09:59; Start 10/28/17 at 09:00 Cyclosporine (Restasis) 1 drop BID OU Last administered on 11/03/17 20:50; Start 10/27/17 at 21:00 Diclofenac Sodium (Voltaren) 1 stepan PRN TID PRN TP PAIN Last administered on 03:58; Start 10/27/17 at 12:30 Levothyroxine Sodium (Synthroid) 112 mcg DAILYAC PO Last administered on at 09:49; Start 10/28/17 at 07:30; Stop 10/28/17 at 13:11; Status DC Oxycodone HCl (OxyCONTIN) 10 mg Q12HR PO Last administered on 11/03/17 20:49; Start 10/27/17 at 21:00 Acetaminophen/ Aspirin/Caffeine (Excedrin Migraine) 2 tab PRN Q24HRS PRN PO MIGRAINE HEADACHE; Start 10/27/17 at 13:00 Baclofen (Lioresal) 5 mg TID PO Last administered on 11/03/17at 20:50; Start at 14:00 Artificial Tears (Refresh Classic) 1 drop PRN BID PRN OU DRY EYE; Start at 13:15 Fluticasone Propionate (Flonase) 1 spray DAILY NS Last administered on 09:58; Start 10/28/17 at 09:00 Glucosamine/ Chondroitin (Glucosamine-Chondroitin 500/400mg) 1 cap DAILY PO Last administered on 11/03/17 09:58; Start 10/28/17 at 09:00 Acetaminophen/ Hydrocodone Bitart (Lortab 10/325) 1 tab PRN Q4HRS PRN PO PAIN Last administered on 11/03/17 14:40; Start 10/27/17 at 13:15 Magnesium Oxide (Magnesium Oxide) 400 mg DAILY PO Last administered on 09:59; Start 10/28/17 at 09:00 Nystatin (Mycostatin) 1 stepan PRN BID PRN TP RASH ON GROIN; Start 10/27/17 at 21: 00 Fish Oil (Fish Oil) 1,000 mg DAILY PO Last administered on 11/03/17 09:58; Start 10/28/17 at 09:00 Polyethylene Glycol (miraLAX) 17 gm DAILY PO Last administered on 11/02/17at 09: 24; Start 10/28/17 at 09:00 Triamcinolone Acetonide (Kenalog) 1 stepan PRN TID PRN TP VAGINAL PAIN; Start at 13:15 Olanzapine (ZyPREXA ZYDIS) 2.5 mg PRN Q2HR PRN PO PSYCHOSIS Last administered on 10/30/17at 11:09; Start 10/27/17 at 12:45 Clonazepam (KlonoPIN) 1 mg QHS PO Last administered on 11/03/17at 20:49; Start 10/27/17 at 21:00 Divalproex Sodium (Depakote Er) 1,000 mg QHS PO Last administered on 11/03/17at 20:49; Start 10/27/17 at 21:00 Risperidone (RisperDAL) 2 mg QHS PO Last administered on 11/03/17at 20:49; Start 10/27/17 at 21:00 Estradiol (Estrace) 1 stepan WEEKLY VG ; Start 11/03/17 at 09:00 Levothyroxine Sodium (Synthroid) 112 mcg DAILYAC PO Last administered on at 10:04; Start 10/29/17 at 06:00; Stop 11/01/17 at 15:52; Status DC Sertraline HCl (Zoloft) 25 mg BID92 PO Last administered on 11/03/17at 14:40; Start 10/30/17 at 09:00 Levothyroxine Sodium (Synthroid) 112 mcg DAILY06 PO Last administered on at 05:20; Start 11/02/17 at 06:00 Active Scripts Active Reported [place] 3 1,000 Mg Softgel ([place]-3 Fatty Acids/Fish Oil) 1 Each Capsule 1 Each PO DAILY Oxycontin (Oxycodone HCl) 10 Mg Tab.er.12h 10 Mg PO Q12HR Refresh Optive Eye Drops (Carboxymethylcellulos/Glycerin) 15 Ml Drops 1 Ml OU PRN BID PRN Zyprexa Zydis (Olanzapine) 5 Mg Tab.rapdis 2.5 Mg PO PRN Q2HR PRN Magnesium Oxide 400 Mg Tablet 400 Mg PO DAILY Depakote Er (Divalproex Sodium) 500 Mg Tab.er.24h 1,000 Mg PO QHS Clonazepam 1 Mg Tablet 1 Mg PO QHS Diclofenac Sodium 100 Gm Gel..gram. 100 Gm TP PRN TID Estrace (Estradiol) 42.5 Gm Cream.appl 1 Stepan VG Baclofen 10 Mg Tablet 5 Mg PO TID Excedrin Migraine Caplet (Aspirin/Acetaminophen/Caffeine) 1 Each Tablet 2 Each PO PRN Q24HRS PRN Risperidone 2 Mg Tablet 2 Mg PO QHS Miralax (Polyethylene Glycol 3350) 17 Gm Powd.pack 1 Packet PO DAILY Synthroid (Levothyroxine Sodium) 112 Mcg Tablet 112 Mcg PO DAILYAC Vitamin B-12 (Cyanocobalamin (Vitamin B-12)) 1,000 Mcg Tablet 1,000 Mcg PO DAILY Glucosamine Chondroitin Tab (Gluc Stephen/Chondro Stephen A/Vit C/Mn) 1 Each Tablet 1 Tab PO DAILY [place] 10-325 Tablet (Hydrocodone Bit/Acetaminophen) 1 Each Tablet 1 Tab PO PRN Q4HRS PRN Flonase Allergy Relief (Fluticasone Propionate) 9.9 Ml [place].susp 1 Sprays NS DAILY Restasis (Cyclosporine) 1 Each Droperette 1 Each OU BID Triamcinolone Acetonide 15 Gm Cream..g. 1 Stepan TP PRN TID PRN Nystatin 15 Gm Cream..g. 1 Stepan TP PRN BID PRN I have reviewed the current psychotropics carefully including drug interactions. Risk benefit ratio favors no change other than as noted in my dictated progress note. Diagnosis: Problems: (1) Confusion (2) Delusion (3) Bipolar affective, mixed, sev w/ psych (4) Anxiety disorder (5) Impulse control disorder (6) Schizoaffective disorder, bipolar type (7) Impulse control disorder RACHANA BENNETT MD Nov 03, 2017 21:10
[2017-11-04] MEDS: DICLOFENAC SODIUM 1% TOPICAL GEL 100GM TUBE. TP PRN ×2 (05:08→09:24)
[2017-11-04] MEDS: LEVOTHYROXINE 112 MCG TABLET PO SCH (05:08)
[2017-11-04] MEDS: HYDROcodone/APAP 10/325 1 TAB TABLET PO PRN ×2 (05:08→13:26)
[2017-11-04 06:13] VITALS: BP 144/85
[2017-11-04] MEDS: MAGNESIUM OXIDE 400 MG TABLET PO SCH (09:20)
[2017-11-04] MEDS: SERTRALINE 25 MG TABLET. PO SCH ×2 (09:20→13:33)
[2017-11-04] MEDS: GLUCOSAMINE/CHOND 500/400MG CAPSULE PO SCH (09:20)
[2017-11-04] MEDS: CYANOCOBALAMIN (VITAMIN B-12) 1,000 MCG TABLET. PO SCH (09:20)
[2017-11-04] MEDS: OMEGA-3 FATTY ACIDS/FISH OIL 1,000 MG CAPSULE. PO SCH (09:20)
[2017-11-04] MEDS: cycloSPORINE 0.05% OPTH 1 DROP DROPERETTE OU SCH ×2 (09:21→19:42)
[2017-11-04] MEDS: BACLOFEN 10 MG TABLET PO SCH ×3 (09:22→19:43)
[2017-11-04] MEDS: POLYETHYLENE GLYCOL 3350 17 GM PACKET. PO SCH (09:22)
[2017-11-04] MEDS: FLUTICASONE 50MCG/NASAL SPRAY 16GM BOTTLE. NS SCH (09:24)
[2017-11-04] MEDS: oxyCODONE ER 10 MG TAB.ER.12H PO SCH ×2 (09:25→19:42)
[2017-11-04 16:17] VITALS: BP 129/77
[2017-11-04] MEDS: risperiDONE 2 MG TABLET. PO SCH (19:42)
[2017-11-04] MEDS: clonazePAM 1 MG TABLET PO SCH (19:43)
[2017-11-04] MEDS: DIVALPROEX ER 500 MG TAB.ER.24H PO SCH (19:43)
--- NOTE | 2017-11-04 21:18 | PN ---
DATE: 11/01/2017 This is a late entry for 11/01/2017 covers elements not covered in my initial note. SUBJECTIVE: I met with the patient in the evening. Overall, the patient is doing reasonably well per nursing report. She gets a little depressed and anxious at times, but more interactive in groups. No suicidal or homicidal ideation. REVIEW OF SYSTEMS: Impaired ambulation with walker. No CV, , pulmonary, eye system symptoms on review. MENTAL STATUS EXAM: Reasonably oriented. Speech is coherent, has some latency. Abstraction fair, computation impaired. No suicidal ideation. LABORATORY DATA: Reviewed. IMPRESSION: Unchanged from initial note. PLAN: No change from initial note. MAN Fox BENNETT MD DR: GIGI/taya JOB#: [id number] / [id number]
--- NOTE | 2017-11-04 22:45 | PN ---
DATE: 11/02/2017 This is a late entry for 11/02/2017 covers elements not covered in my initial note. SUBJECTIVE: I met with the patient in the evening. The patient slept 6-3/4 hours previous night. She is somewhat withdrawn, but doing better, still says she is depressed, but less so than before. REVIEW OF SYSTEMS: Ambulation impaired with walker. No CV, , pulmonary, eye system symptoms on review. MENTAL STATUS EXAM: Reasonably oriented. Speech is coherent, abstraction fair, computation able to do two step serial 7's. No suicidal or homicidal ideation. LABORATORY DATA: Reviewed. IMPRESSION: Unchanged from initial note. PLAN: No change from initial note. RACHANA BENNETT MD DR: GIGI/taya JOB#: [id number] / [id number]
--- NOTE | 2017-11-04 22:47 | PN ---
DATE: 11/03/2017 This is a late entry for 11/03/2017 covers elements not covered in my initial note. SUBJECTIVE: I met with the patient in the evening. The patient slept 5-1/4 hours previous night, did well during the day and night, had a bowel movement. States she is less depressed. REVIEW OF SYSTEMS: Ambulation impaired. No CV, , pulmonary, eye system symptoms on review. MENTAL STATUS EXAM: Reasonably oriented. Speech is coherent, abstraction fair, computation impaired, language function intact. Mood and affect is improved. IMPRESSION: Unchanged from initial note. PLAN: No change from initial note. MAN Fox BENNETT MD DR: GIGI/taya JOB#: [id number] / [id number]
--- NOTE | 2017-11-04 22:52 | PDOC ---
Exam Note: Jermaine Note: Please also refer to the separate dictated note~for this date of service dictated separately.~Patient seen individually. Discussed the patient with Nursing staff reviewed the chart.~Reviewed interim history and current functioning. Reviewed vital signs,~Labs/ Radiology~and current medications noted below. Continue current treatment with the changes noted in the dictated addendum note Assessment: Vital Signs: Vital Signs Date Time Temp Pulse Resp B/P (MAP) Pulse Ox O2 Delivery O2 Flow Rate FiO2 11/04/17 19:42 16 97 11/04/17 16:17 98.0 71 129/77 (94) Room Air I&O Intake and Output 11/04/17 07:00 Intake Total 1200 ml Balance 1200 ml Intake Oral 1200 ml Current Medications: Meds: Current Medications Influenza Virus Vaccine (Afluria Trivalent [id number] Syringe) 0.5 ml ONCE ONCE VAX IM Last administered on 10/28/17at 10:00; Start 10/28/17 at 09:00; Stop at 09:01; Status DC Acetaminophen (Tylenol) 650 mg PRN Q6HRS PRN PO PAIN / TEMP; Start 10/27/17 at 11:45 Multi-Ingredient Ointment (Analgesic [place]) 1 stepan PRN QID PRN TP MUSCLE PAIN; Start 10/27/17 at 11:45 Al Hydroxide/Mg Hydroxide (Mylanta Plus Xs) 15 ml PRN AFTMEALHC PRN PO DYSPEPSIA; Start 10/27/17 at 11:45 Magnesium Hydroxide (Milk Of Magnesia) 2,400 mg PRN QHS PRN PO CONSTIPATION; Start 10/27/17 at 11:45 Cyanocobalamin (Vitamin B-12) 1,000 mcg DAILY PO Last administered on at 09:20; Start 10/28/17 at 09:00 Cyclosporine (Restasis) 1 drop BID OU Last administered on 11/04/17at 19:42; Start 10/27/17 at 21:00 Diclofenac Sodium (Voltaren) 1 stepan PRN TID PRN TP PAIN Last administered on at 09:24; Start 10/27/17 at 12:30 Levothyroxine Sodium (Synthroid) 112 mcg DAILYAC PO Last administered on at 09:49; Start 10/28/17 at 07:30; Stop 10/28/17 at 13:11; Status DC Oxycodone HCl (OxyCONTIN) 10 mg Q12HR PO Last administered on 11/04/17at 19:42; Start 10/27/17 at 21:00 Acetaminophen/ Aspirin/Caffeine (Excedrin Migraine) 2 tab PRN Q24HRS PRN PO MIGRAINE HEADACHE; Start 10/27/17 at 13:00 Baclofen (Lioresal) 5 mg TID PO Last administered on 11/04/17at 19:43; Start at 14:00 Artificial Tears (Refresh Classic) 1 drop PRN BID PRN OU DRY EYE; Start at 13:15 Fluticasone Propionate (Flonase) 1 spray DAILY NS Last administered on 09:24; Start 10/28/17 at 09:00 Glucosamine/ Chondroitin (Glucosamine-Chondroitin 500/400mg) 1 cap DAILY PO Last administered on 11/04/17 09:20; Start 10/28/17 at 09:00 Acetaminophen/ Hydrocodone Bitart (Lortab 10/325) 1 tab PRN Q4HRS PRN PO PAIN Last administered on 11/04/17 13:26; Start 10/27/17 at 13:15 Magnesium Oxide (Magnesium Oxide) 400 mg DAILY PO Last administered on 09:20; Start 10/28/17 at 09:00 Nystatin (Mycostatin) 1 stepan PRN BID PRN TP RASH ON GROIN; Start 10/27/17 at 21: 00 Fish Oil (Fish Oil) 1,000 mg DAILY PO Last administered on 11/04/17at 09:20; Start 10/28/17 at 09:00 Polyethylene Glycol (miraLAX) 17 gm DAILY PO Last administered on 11/04/17 09: 22; Start 10/28/17 at 09:00 Triamcinolone Acetonide (Kenalog) 1 stepan PRN TID PRN TP VAGINAL PAIN; Start at 13:15 Olanzapine (ZyPREXA ZYDIS) 2.5 mg PRN Q2HR PRN PO PSYCHOSIS Last administered on 10/30/17at 11:09; Start 10/27/17 at 12:45 Clonazepam (KlonoPIN) 1 mg QHS PO Last administered on 11/04/17 19:43; Start 10/27/17 at 21:00 Divalproex Sodium (Depakote Er) 1,000 mg QHS PO Last administered on 11/04/17 19:43; Start 10/27/17 at 21:00 Risperidone (RisperDAL) 2 mg QHS PO Last administered on 11/04/17 19:42; Start 10/27/17 at 21:00 Estradiol (Estrace) 1 stepan WEEKLY VG ; Start 11/03/17 at 09:00 Levothyroxine Sodium (Synthroid) 112 mcg DAILYAC PO Last administered on at 10:04; Start 10/29/17 at 06:00; Stop 11/01/17 at 15:52; Status DC Sertraline HCl (Zoloft) 25 mg BID92 PO Last administered on 11/04/17at 13:33; Start 10/30/17 at 09:00 Levothyroxine Sodium (Synthroid) 112 mcg DAILY06 PO Last administered on at 05:08; Start 11/02/17 at 06:00 Active Scripts Active Reported [place] 3 1,000 Mg Softgel ([place]-3 Fatty Acids/Fish Oil) 1 Each Capsule 1 Each PO DAILY Oxycontin (Oxycodone HCl) 10 Mg Tab.er.12h 10 Mg PO Q12HR Refresh Optive Eye Drops (Carboxymethylcellulos/Glycerin) 15 Ml Drops 1 Ml OU PRN BID PRN Zyprexa Zydis (Olanzapine) 5 Mg Tab.rapdis 2.5 Mg PO PRN Q2HR PRN Magnesium Oxide 400 Mg Tablet 400 Mg PO DAILY Depakote Er (Divalproex Sodium) 500 Mg Tab.er.24h 1,000 Mg PO QHS Clonazepam 1 Mg Tablet 1 Mg PO QHS Diclofenac Sodium 100 Gm Gel..gram. 100 Gm TP PRN TID Estrace (Estradiol) 42.5 Gm Cream.appl 1 Stepan VG Baclofen 10 Mg Tablet 5 Mg PO TID Excedrin Migraine Caplet (Aspirin/Acetaminophen/Caffeine) 1 Each Tablet 2 Each PO PRN Q24HRS PRN Risperidone 2 Mg Tablet 2 Mg PO QHS Miralax (Polyethylene Glycol 3350) 17 Gm Powd.pack 1 Packet PO DAILY Synthroid (Levothyroxine Sodium) 112 Mcg Tablet 112 Mcg PO DAILYAC Vitamin B-12 (Cyanocobalamin (Vitamin B-12)) 1,000 Mcg Tablet 1,000 Mcg PO DAILY Glucosamine Chondroitin Tab (Gluc Stephen/Chondro Stephen A/Vit C/Mn) 1 Each Tablet 1 Tab PO DAILY [place] 10-325 Tablet (Hydrocodone Bit/Acetaminophen) 1 Each Tablet 1 Tab PO PRN Q4HRS PRN Flonase Allergy Relief (Fluticasone Propionate) 9.9 Ml [place].susp 1 Sprays NS DAILY Restasis (Cyclosporine) 1 Each Droperette 1 Each OU BID Triamcinolone Acetonide 15 Gm Cream..g. 1 Stepan TP PRN TID PRN Nystatin 15 Gm Cream..g. 1 Stepan TP PRN BID PRN I have reviewed the current psychotropics carefully including drug interactions. Risk benefit ratio favors no change other than as noted in my dictated progress note. Diagnosis: Problems: (1) Confusion (2) Delusion (3) Bipolar affective, mixed, sev w/ psych (4) Anxiety disorder (5) Impulse control disorder (6) Schizoaffective disorder, bipolar type (7) Impulse control disorder RACHANA BENNETT MD Nov 04, 2017 22:52
[2017-11-05] MEDS: HYDROcodone/APAP 10/325 1 TAB TABLET PO PRN ×4 (03:01→13:25)
[2017-11-05] MEDS: LEVOTHYROXINE 112 MCG TABLET PO SCH (05:24)
[2017-11-05 05:54] VITALS: BP 151/80
[2017-11-05] MEDS: GLUCOSAMINE/CHOND 500/400MG CAPSULE PO SCH (09:03)
[2017-11-05] MEDS: POLYETHYLENE GLYCOL 3350 17 GM PACKET. PO SCH (09:03)
[2017-11-05] MEDS: SERTRALINE 25 MG TABLET. PO SCH ×2 (09:03→13:24)
[2017-11-05] MEDS: cycloSPORINE 0.05% OPTH 1 DROP DROPERETTE OU SCH ×2 (09:03→20:52)
[2017-11-05] MEDS: BACLOFEN 10 MG TABLET PO SCH ×3 (09:03→20:55)
[2017-11-05] MEDS: MAGNESIUM OXIDE 400 MG TABLET PO SCH (09:03)
[2017-11-05] MEDS: CYANOCOBALAMIN (VITAMIN B-12) 1,000 MCG TABLET. PO SCH (09:03)
[2017-11-05] MEDS: OMEGA-3 FATTY ACIDS/FISH OIL 1,000 MG CAPSULE. PO SCH (09:03)
[2017-11-05] MEDS: FLUTICASONE 50MCG/NASAL SPRAY 16GM BOTTLE. NS SCH (09:03)
[2017-11-05] MEDS: oxyCODONE ER 10 MG TAB.ER.12H PO SCH ×2 (09:12→20:56)
[2017-11-05 15:49] VITALS: BP 109/70
[2017-11-05] MEDS: DIVALPROEX ER 500 MG TAB.ER.24H PO SCH (20:53)
[2017-11-05] MEDS: risperiDONE 2 MG TABLET. PO SCH (20:53)
[2017-11-05] MEDS: clonazePAM 1 MG TABLET PO SCH (20:53)
--- NOTE | 2017-11-05 21:02 | PDOC ---
Exam Note: Jermaine Note: Please also refer to the separate dictated note~for this date of service dictated separately.~Patient seen individually. Discussed the patient with Nursing staff reviewed the chart.~Reviewed interim history and current functioning. Reviewed vital signs,~Labs/ Radiology~and current medications noted below. Continue current treatment with the changes noted in the dictated addendum note Assessment: Vital Signs: Vital Signs Date Time Temp Pulse Resp B/P (MAP) Pulse Ox O2 Delivery O2 Flow Rate FiO2 11/05/17 20:56 18 93 Room Air 11/05/17 15:49 97.8 69 109/70 (83) I&O Intake and Output 11/05/17 07:00 Intake Total 1320 ml Balance 1320 ml Intake Oral 1320 ml Current Medications: Meds: Current Medications Influenza Virus Vaccine (Afluria Trivalent [id number] Syringe) 0.5 ml ONCE ONCE VAX IM Last administered on 10/28/17at 10:00; Start 10/28/17 at 09:00; Stop at 09:01; Status DC Acetaminophen (Tylenol) 650 mg PRN Q6HRS PRN PO PAIN / TEMP; Start 10/27/17 at 11:45 Multi-Ingredient Ointment (Analgesic [place]) 1 stepan PRN QID PRN TP MUSCLE PAIN; Start 10/27/17 at 11:45 Al Hydroxide/Mg Hydroxide (Mylanta Plus Xs) 15 ml PRN AFTMEALHC PRN PO DYSPEPSIA; Start 10/27/17 at 11:45 Magnesium Hydroxide (Milk Of Magnesia) 2,400 mg PRN QHS PRN PO CONSTIPATION; Start 10/27/17 at 11:45 Cyanocobalamin (Vitamin B-12) 1,000 mcg DAILY PO Last administered on at 09:03; Start 10/28/17 at 09:00 Cyclosporine (Restasis) 1 drop BID OU Last administered on 11/05/17at 20:52; Start 10/27/17 at 21:00 Diclofenac Sodium (Voltaren) 1 stepan PRN TID PRN TP PAIN Last administered on at 09:24; Start 10/27/17 at 12:30 Levothyroxine Sodium (Synthroid) 112 mcg DAILYAC PO Last administered on at 09:49; Start 10/28/17 at 07:30; Stop 10/28/17 at 13:11; Status DC Oxycodone HCl (OxyCONTIN) 10 mg Q12HR PO Last administered on 11/05/17at 20:56; Start 10/27/17 at 21:00 Acetaminophen/ Aspirin/Caffeine (Excedrin Migraine) 2 tab PRN Q24HRS PRN PO MIGRAINE HEADACHE; Start 10/27/17 at 13:00 Baclofen (Lioresal) 5 mg TID PO Last administered on 11/05/17 20:55; Start at 14:00 Artificial Tears (Refresh Classic) 1 drop PRN BID PRN OU DRY EYE; Start at 13:15 Fluticasone Propionate (Flonase) 1 spray DAILY NS Last administered on 09:03; Start 10/28/17 at 09:00 Glucosamine/ Chondroitin (Glucosamine-Chondroitin 500/400mg) 1 cap DAILY PO Last administered on 11/05/17 09:03; Start 10/28/17 at 09:00 Acetaminophen/ Hydrocodone Bitart (Lortab 10/325) 1 tab PRN Q4HRS PRN PO PAIN Last administered on 11/05/17 13:25; Start 10/27/17 at 13:15 Magnesium Oxide (Magnesium Oxide) 400 mg DAILY PO Last administered on 09:03; Start 10/28/17 at 09:00 Nystatin (Mycostatin) 1 stepan PRN BID PRN TP RASH ON GROIN; Start 10/27/17 at 21: 00 Fish Oil (Fish Oil) 1,000 mg DAILY PO Last administered on 11/05/17 09:03; Start 10/28/17 at 09:00 Polyethylene Glycol (miraLAX) 17 gm DAILY PO Last administered on 11/05/17 09: 03; Start 10/28/17 at 09:00 Triamcinolone Acetonide (Kenalog) 1 stepan PRN TID PRN TP VAGINAL PAIN; Start at 13:15 Olanzapine (ZyPREXA ZYDIS) 2.5 mg PRN Q2HR PRN PO PSYCHOSIS Last administered on 10/30/17at 11:09; Start 10/27/17 at 12:45 Clonazepam (KlonoPIN) 1 mg QHS PO Last administered on 11/05/17 20:53; Start 10/27/17 at 21:00 Divalproex Sodium (Depakote Er) 1,000 mg QHS PO Last administered on 11/05/17 20:53; Start 10/27/17 at 21:00 Risperidone (RisperDAL) 2 mg QHS PO Last administered on 11/05/17 20:53; Start 10/27/17 at 21:00 Estradiol (Estrace) 1 stepan WEEKLY VG ; Start 11/03/17 at 09:00 Levothyroxine Sodium (Synthroid) 112 mcg DAILYAC PO Last administered on at 10:04; Start 10/29/17 at 06:00; Stop 11/01/17 at 15:52; Status DC Sertraline HCl (Zoloft) 25 mg BID92 PO Last administered on 11/05/17 13:24; Start 10/30/17 at 09:00; Stop 11/05/17 at 17:36; Status DC Levothyroxine Sodium (Synthroid) 112 mcg DAILY06 PO Last administered on at 05:24; Start 11/02/17 at 06:00 Fluvoxamine Maleate (Luvox) 25 mg HS PO Last administered on 11/05/17at 20:56; Start 11/05/17 at 21:00 Active Scripts Active Reported [place] 3 1,000 Mg Softgel ([place]-3 Fatty Acids/Fish Oil) 1 Each Capsule 1 Each PO DAILY Oxycontin (Oxycodone HCl) 10 Mg Tab.er.12h 10 Mg PO Q12HR Refresh Optive Eye Drops (Carboxymethylcellulos/Glycerin) 15 Ml Drops 1 Ml OU PRN BID PRN Zyprexa Zydis (Olanzapine) 5 Mg Tab.rapdis 2.5 Mg PO PRN Q2HR PRN Magnesium Oxide 400 Mg Tablet 400 Mg PO DAILY Depakote Er (Divalproex Sodium) 500 Mg Tab.er.24h 1,000 Mg PO QHS Clonazepam 1 Mg Tablet 1 Mg PO QHS Diclofenac Sodium 100 Gm Gel..gram. 100 Gm TP PRN TID Estrace (Estradiol) 42.5 Gm Cream.appl 1 Stepan VG Baclofen 10 Mg Tablet 5 Mg PO TID Excedrin Migraine Caplet (Aspirin/Acetaminophen/Caffeine) 1 Each Tablet 2 Each PO PRN Q24HRS PRN Risperidone 2 Mg Tablet 2 Mg PO QHS Miralax (Polyethylene Glycol 3350) 17 Gm Powd.pack 1 Packet PO DAILY Synthroid (Levothyroxine Sodium) 112 Mcg Tablet 112 Mcg PO DAILYAC Vitamin B-12 (Cyanocobalamin (Vitamin B-12)) 1,000 Mcg Tablet 1,000 Mcg PO DAILY Glucosamine Chondroitin Tab (Gluc Stephen/Chondro Stephen A/Vit C/Mn) 1 Each Tablet 1 Tab PO DAILY [place] 10-325 Tablet (Hydrocodone Bit/Acetaminophen) 1 Each Tablet 1 Tab PO PRN Q4HRS PRN Flonase Allergy Relief (Fluticasone Propionate) 9.9 Ml [place].susp 1 Sprays NS DAILY Restasis (Cyclosporine) 1 Each Droperette 1 Each OU BID Triamcinolone Acetonide 15 Gm Cream..g. 1 Stepan TP PRN TID PRN Nystatin 15 Gm Cream..g. 1 Stepan TP PRN BID PRN I have reviewed the current psychotropics carefully including drug interactions. Risk benefit ratio favors no change other than as noted in my dictated progress note. Diagnosis: Problems: (1) Confusion (2) Delusion (3) Bipolar affective, mixed, sev w/ psych (4) Anxiety disorder (5) Impulse control disorder (6) Schizoaffective disorder, bipolar type (7) Impulse control disorder RACHANA BENNETT MD Nov 05, 2017 21:02
--- NOTE | 2017-11-06 03:36 | PN ---
DATE: 11/04/2017 This is a late entry for 11/04/2017 covers elements not covered in my initial note. SUBJECTIVE: I met with the patient in the evening of 11/04/2017. Per nursing report, the patient slept 6-3/4 hours previous night. She has been cooperative, still gets a little dysphoric at times, but is doing better on Zoloft 25 mg a day. REVIEW OF SYSTEMS: Ambulation impaired with walker. No CV, , pulmonary, eye, ENT system symptoms on review. MENTAL STATUS EXAM: Oriented to herself and situation. Speech has some latency, coherent. Abstraction fair, computation impaired, language function intact, attention span short. Mood and affect is improved. LABORATORY DATA: Reviewed. IMPRESSION: Bipolar 1 disorder, depressed with psychotic features in partial remission. Rest unchanged. PLAN: We discussed increasing the Zoloft and pros and cons of this. When she heard about possible exacerbation of eric, she said she felt better enough at the current dosage. We would not increase it. Maintain Depakote 1000 mg at bedtime, Klonopin 1 mg at bedtime, Risperdal 2 mg at bedtime, Zyprexa p.r.n. Adjust further as clinically indicated. RACHANA BENNETT MD DR: GIGI/taya JOB#: [id number] / [id number]
[2017-11-06 05:41] VITALS: BP 126/83
[2017-11-06] MEDS: LEVOTHYROXINE 112 MCG TABLET PO SCH (05:50)
[2017-11-06] MEDS: POLYETHYLENE GLYCOL 3350 17 GM PACKET. PO SCH (08:22)
[2017-11-06] MEDS: CYANOCOBALAMIN (VITAMIN B-12) 1,000 MCG TABLET. PO SCH (08:22)
[2017-11-06] MEDS: BACLOFEN 10 MG TABLET PO SCH ×3 (08:23→20:33)
[2017-11-06] MEDS: GLUCOSAMINE/CHOND 500/400MG CAPSULE PO SCH (08:23)
[2017-11-06] MEDS: cycloSPORINE 0.05% OPTH 1 DROP DROPERETTE OU SCH ×2 (08:23→20:33)
[2017-11-06] MEDS: OMEGA-3 FATTY ACIDS/FISH OIL 1,000 MG CAPSULE. PO SCH (08:23)
[2017-11-06] MEDS: FLUTICASONE 50MCG/NASAL SPRAY 16GM BOTTLE. NS SCH (08:25)
[2017-11-06] MEDS: MAGNESIUM OXIDE 400 MG TABLET PO SCH (08:25)
[2017-11-06] MEDS: oxyCODONE ER 10 MG TAB.ER.12H PO SCH ×2 (08:25→20:33)
[2017-11-06] MEDS: HYDROcodone/APAP 10/325 1 TAB TABLET PO PRN (15:15)
[2017-11-06 16:32] VITALS: BP 128/85
[2017-11-06] MEDS: risperiDONE 2 MG TABLET. PO SCH (20:33)
[2017-11-06] MEDS: clonazePAM 1 MG TABLET PO SCH (20:33)
[2017-11-06] MEDS: DIVALPROEX ER 500 MG TAB.ER.24H PO SCH (20:34)
--- NOTE | 2017-11-06 20:52 | PDOC ---
Exam Note: Jermaine Note: Please also refer to the separate dictated note~for this date of service dictated separately.~Patient seen individually. Discussed the patient with Nursing staff reviewed the chart.~Reviewed interim history and current functioning. Reviewed vital signs,~Labs/ Radiology~and current medications noted below. Continue current treatment with the changes noted in the dictated addendum note Assessment: Vital Signs: Vital Signs Date Time Temp Pulse Resp B/P (MAP) Pulse Ox O2 Delivery O2 Flow Rate FiO2 11/06/17 20:33 16 92 11/06/17 16:32 98.4 75 128/85 (99) 11/05/17 20:56 Room Air I&O Intake and Output 11/06/17 07:00 Intake Total 1200 ml Balance 1200 ml Intake Oral 1200 ml Current Medications: Meds: Current Medications Influenza Virus Vaccine (Afluria Trivalent [id number] Syringe) 0.5 ml ONCE ONCE VAX IM Last administered on 10/28/17at 10:00; Start 10/28/17 at 09:00; Stop at 09:01; Status DC Acetaminophen (Tylenol) 650 mg PRN Q6HRS PRN PO PAIN / TEMP; Start 10/27/17 at 11:45 Multi-Ingredient Ointment (Analgesic [place]) 1 stepan PRN QID PRN TP MUSCLE PAIN; Start 10/27/17 at 11:45 Al Hydroxide/Mg Hydroxide (Mylanta Plus Xs) 15 ml PRN AFTMEALHC PRN PO DYSPEPSIA; Start 10/27/17 at 11:45 Magnesium Hydroxide (Milk Of Magnesia) 2,400 mg PRN QHS PRN PO CONSTIPATION; Start 10/27/17 at 11:45 Cyanocobalamin (Vitamin B-12) 1,000 mcg DAILY PO Last administered on at 08:22; Start 10/28/17 at 09:00 Cyclosporine (Restasis) 1 drop BID OU Last administered on 11/06/17at 20:33; Start 10/27/17 at 21:00 Diclofenac Sodium (Voltaren) 1 stepan PRN TID PRN TP PAIN Last administered on at 09:24; Start 10/27/17 at 12:30 Levothyroxine Sodium (Synthroid) 112 mcg DAILYAC PO Last administered on at 09:49; Start 10/28/17 at 07:30; Stop 10/28/17 at 13:11; Status DC Oxycodone HCl (OxyCONTIN) 10 mg Q12HR PO Last administered on 11/06/17at 20:33; Start 10/27/17 at 21:00 Acetaminophen/ Aspirin/Caffeine (Excedrin Migraine) 2 tab PRN Q24HRS PRN PO MIGRAINE HEADACHE; Start 10/27/17 at 13:00 Baclofen (Lioresal) 5 mg TID PO Last administered on 11/06/17at 20:33; Start at 14:00 Artificial Tears (Refresh Classic) 1 drop PRN BID PRN OU DRY EYE; Start at 13:15 Fluticasone Propionate (Flonase) 1 spray DAILY NS Last administered on 08:25; Start 10/28/17 at 09:00 Glucosamine/ Chondroitin (Glucosamine-Chondroitin 500/400mg) 1 cap DAILY PO Last administered on 11/06/17at 08:23; Start 10/28/17 at 09:00 Acetaminophen/ Hydrocodone Bitart (Lortab 10/325) 1 tab PRN Q4HRS PRN PO PAIN Last administered on 11/06/17at 15:15; Start 10/27/17 at 13:15 Magnesium Oxide (Magnesium Oxide) 400 mg DAILY PO Last administered on at 08:25; Start 10/28/17 at 09:00 Nystatin (Mycostatin) 1 stepan PRN BID PRN TP RASH ON GROIN; Start 10/27/17 at 21: 00 Fish Oil (Fish Oil) 1,000 mg DAILY PO Last administered on 11/06/17at 08:23; Start 10/28/17 at 09:00 Polyethylene Glycol (miraLAX) 17 gm DAILY PO Last administered on 11/06/17at 08: 22; Start 10/28/17 at 09:00 Triamcinolone Acetonide (Kenalog) 1 stepan PRN TID PRN TP VAGINAL PAIN; Start at 13:15 Olanzapine (ZyPREXA ZYDIS) 2.5 mg PRN Q2HR PRN PO PSYCHOSIS Last administered on 10/30/17at 11:09; Start 10/27/17 at 12:45 Clonazepam (KlonoPIN) 1 mg QHS PO Last administered on 11/06/17at 20:33; Start 10/27/17 at 21:00 Divalproex Sodium (Depakote Er) 1,000 mg QHS PO Last administered on 11/06/17at 20:34; Start 10/27/17 at 21:00 Risperidone (RisperDAL) 2 mg QHS PO Last administered on 11/06/17at 20:33; Start 10/27/17 at 21:00 Estradiol (Estrace) 1 stepan WEEKLY VG ; Start 11/03/17 at 09:00 Levothyroxine Sodium (Synthroid) 112 mcg DAILYAC PO Last administered on at 10:04; Start 10/29/17 at 06:00; Stop 11/01/17 at 15:52; Status DC Sertraline HCl (Zoloft) 25 mg BID92 PO Last administered on 11/05/17at 13:24; Start 10/30/17 at 09:00; Stop 11/05/17 at 17:36; Status DC Levothyroxine Sodium (Synthroid) 112 mcg DAILY06 PO Last administered on at 05:50; Start 11/02/17 at 06:00 Fluvoxamine Maleate (Luvox) 25 mg HS PO Last administered on 11/06/17at 20:33; Start 11/05/17 at 21:00 Active Scripts Active Reported [place] 3 1,000 Mg Softgel ([place]-3 Fatty Acids/Fish Oil) 1 Each Capsule 1 Each PO DAILY Oxycontin (Oxycodone HCl) 10 Mg Tab.er.12h 10 Mg PO Q12HR Refresh Optive Eye Drops (Carboxymethylcellulos/Glycerin) 15 Ml Drops 1 Ml OU PRN BID PRN Zyprexa Zydis (Olanzapine) 5 Mg Tab.rapdis 2.5 Mg PO PRN Q2HR PRN Magnesium Oxide 400 Mg Tablet 400 Mg PO DAILY Depakote Er (Divalproex Sodium) 500 Mg Tab.er.24h 1,000 Mg PO QHS Clonazepam 1 Mg Tablet 1 Mg PO QHS Diclofenac Sodium 100 Gm Gel..gram. 100 Gm TP PRN TID Estrace (Estradiol) 42.5 Gm Cream.appl 1 Stepan VG Baclofen 10 Mg Tablet 5 Mg PO TID Excedrin Migraine Caplet (Aspirin/Acetaminophen/Caffeine) 1 Each Tablet 2 Each PO PRN Q24HRS PRN Risperidone 2 Mg Tablet 2 Mg PO QHS Miralax (Polyethylene Glycol 3350) 17 Gm Powd.pack 1 Packet PO DAILY Synthroid (Levothyroxine Sodium) 112 Mcg Tablet 112 Mcg PO DAILYAC Vitamin B-12 (Cyanocobalamin (Vitamin B-12)) 1,000 Mcg Tablet 1,000 Mcg PO DAILY Glucosamine Chondroitin Tab (Gluc [place]/Chondro [place] A/Vit C/Mn) 1 Each Tablet 1 Tab PO DAILY [place] 10-325 Tablet (Hydrocodone Bit/Acetaminophen) 1 Each Tablet 1 Tab PO PRN Q4HRS PRN Flonase Allergy Relief (Fluticasone Propionate) 9.9 Ml [place].susp 1 Sprays NS DAILY Restasis (Cyclosporine) 1 Each Droperette 1 Each OU BID Triamcinolone Acetonide 15 Gm Cream..g. 1 Stepan TP PRN TID PRN Nystatin 15 Gm Cream..g. 1 Stepan TP PRN BID PRN I have reviewed the current psychotropics carefully including drug interactions. Risk benefit ratio favors no change other than as noted in my dictated progress note. Diagnosis: Problems: (1) Confusion (2) Delusion (3) Bipolar affective, mixed, sev w/ psych (4) Anxiety disorder (5) Impulse control disorder (6) Schizoaffective disorder, bipolar type (7) Impulse control disorder RACHANA BENNETT MD Nov 06, 2017 20:52
--- NOTE | 2017-11-06 23:44 | PN ---
DATE: 11/05/2017 This is a late entry for 11/05/2017 covers elements not covered in my initial note. SUBJECTIVE: I met with the patient in the evening. Overall, the patient has been somewhat obsessive regarding her pain medications, standing at the nursing station prior to the administration time of her pain meds, quite ruminative about this. REVIEW OF SYSTEMS: Positive for the pain, impaired ambulation with walker. No CV, , pulmonary, eye, ENT system symptoms on review. MENTAL STATUS EXAM: The patient is reasonably oriented. Speech is coherent. Abstraction fair. Computation able to do two step serial 7's. No suicidal or homicidal ideation. Mood and affect remain somewhat anxious, obsessive. LABORATORY DATA: Reviewed. IMPRESSION: Bipolar 1 disorder, depressed with psychotic features, obsessive-compulsive disorder, anxiety disorder, unspecified, chronic pain, past history of alcohol abuse. PLAN: Change the Zoloft to Luvox 25 mg p.o. at bedtime for her obsessive thought processes. Maintain Klonopin, Risperdal, Depakote at current dosage. Valproic acid level therapeutic at 81. RACHANA BENNETT MD DR: GIGI/taya JOB#: [id number] / [id number]
[2017-11-07 05:27] VITALS: BP 105/71
[2017-11-07] MEDS: LEVOTHYROXINE 112 MCG TABLET PO SCH (05:57)
[2017-11-07] MEDS: cycloSPORINE 0.05% OPTH 1 DROP DROPERETTE OU SCH ×2 (08:10→20:05)
[2017-11-07] MEDS: FLUTICASONE 50MCG/NASAL SPRAY 16GM BOTTLE. NS SCH (08:10)
[2017-11-07] MEDS: OMEGA-3 FATTY ACIDS/FISH OIL 1,000 MG CAPSULE. PO SCH (08:10)
[2017-11-07] MEDS: GLUCOSAMINE/CHOND 500/400MG CAPSULE PO SCH (08:10)
[2017-11-07] MEDS: POLYETHYLENE GLYCOL 3350 17 GM PACKET. PO SCH (08:10)
[2017-11-07] MEDS: MAGNESIUM OXIDE 400 MG TABLET PO SCH (08:11)
[2017-11-07] MEDS: CYANOCOBALAMIN (VITAMIN B-12) 1,000 MCG TABLET. PO SCH (08:11)
[2017-11-07] MEDS: BACLOFEN 10 MG TABLET PO SCH ×3 (08:11→20:05)
[2017-11-07] MEDS: oxyCODONE ER 10 MG TAB.ER.12H PO SCH ×2 (08:13→20:06)
[2017-11-07] MEDS: HYDROcodone/APAP 10/325 1 TAB TABLET PO PRN ×3 (10:21→23:59)
[2017-11-07 15:59] VITALS: BP 101/67
[2017-11-07] MEDS: risperiDONE 2 MG TABLET. PO SCH (20:05)
[2017-11-07] MEDS: DIVALPROEX ER 500 MG TAB.ER.24H PO SCH (20:05)
[2017-11-07] MEDS: clonazePAM 1 MG TABLET PO SCH (20:05)
--- NOTE | 2017-11-07 20:31 | PDOC ---
Exam Note: Jermaine Note: Please also refer to the separate dictated note~for this date of service dictated separately.~Patient seen individually. Discussed the patient with Nursing staff reviewed the chart.~Reviewed interim history and current functioning. Reviewed vital signs,~Labs/ Radiology~and current medications noted below. Continue current treatment with the changes noted in the dictated addendum note Assessment: Vital Signs: Vital Signs Date Time Temp Pulse Resp B/P (MAP) Pulse Ox O2 Delivery O2 Flow Rate FiO2 11/07/17 20:06 94 11/07/17 15:59 98.0 69 20 101/67 (78) Room Air I&O Intake and Output 11/07/17 07:00 Intake Total 1380 ml Balance 1380 ml Intake Oral 1380 ml Current Medications: Meds: Current Medications Influenza Virus Vaccine (Afluria Trivalent 7680-1114 Syringe) 0.5 ml ONCE ONCE VAX IM Last administered on 10/28/17at 10:00; Start 10/28/17 at 09:00; Stop at 09:01; Status DC Acetaminophen (Tylenol) 650 mg PRN Q6HRS PRN PO PAIN / TEMP; Start 10/27/17 at 11:45 Multi-Ingredient Ointment (Analgesic [place]) 1 stepan PRN QID PRN TP MUSCLE PAIN; Start 10/27/17 at 11:45 Al Hydroxide/Mg Hydroxide (Mylanta Plus Xs) 15 ml PRN AFTMEALHC PRN PO DYSPEPSIA; Start 10/27/17 at 11:45 Magnesium Hydroxide (Milk Of Magnesia) 2,400 mg PRN QHS PRN PO CONSTIPATION; Start 10/27/17 at 11:45 Cyanocobalamin (Vitamin B-12) 1,000 mcg DAILY PO Last administered on at 08:11; Start 10/28/17 at 09:00 Cyclosporine (Restasis) 1 drop BID OU Last administered on 11/07/17at 20:05; Start 10/27/17 at 21:00 Diclofenac Sodium (Voltaren) 1 stepan PRN TID PRN TP PAIN Last administered on at 09:24; Start 10/27/17 at 12:30 Levothyroxine Sodium (Synthroid) 112 mcg DAILYAC PO Last administered on at 09:49; Start 10/28/17 at 07:30; Stop 10/28/17 at 13:11; Status DC Oxycodone HCl (OxyCONTIN) 10 mg Q12HR PO Last administered on 11/07/17at 20:06; Start 10/27/17 at 21:00 Acetaminophen/ Aspirin/Caffeine (Excedrin Migraine) 2 tab PRN Q24HRS PRN PO MIGRAINE HEADACHE; Start 10/27/17 at 13:00 Baclofen (Lioresal) 5 mg TID PO Last administered on 11/07/17at 20:05; Start at 14:00 Artificial Tears (Refresh Classic) 1 drop PRN BID PRN OU DRY EYE; Start at 13:15 Fluticasone Propionate (Flonase) 1 spray DAILY NS Last administered on 08:10; Start 10/28/17 at 09:00 Glucosamine/ Chondroitin (Glucosamine-Chondroitin 500/400mg) 1 cap DAILY PO Last administered on 11/07/17at 08:10; Start 10/28/17 at 09:00 Acetaminophen/ Hydrocodone Bitart (Lortab 10/325) 1 tab PRN Q4HRS PRN PO PAIN Last administered on 11/07/17 14:26; Start 10/27/17 at 13:15 Magnesium Oxide (Magnesium Oxide) 400 mg DAILY PO Last administered on at 08:11; Start 10/28/17 at 09:00 Nystatin (Mycostatin) 1 stepan PRN BID PRN TP RASH ON GROIN; Start 10/27/17 at 21: 00 Fish Oil (Fish Oil) 1,000 mg DAILY PO Last administered on 11/07/17at 08:10; Start 10/28/17 at 09:00 Polyethylene Glycol (miraLAX) 17 gm DAILY PO Last administered on 11/07/17 08: 10; Start 10/28/17 at 09:00 Triamcinolone Acetonide (Kenalog) 1 stepan PRN TID PRN TP VAGINAL PAIN; Start at 13:15 Olanzapine (ZyPREXA ZYDIS) 2.5 mg PRN Q2HR PRN PO PSYCHOSIS Last administered on 10/30/17at 11:09; Start 10/27/17 at 12:45 Clonazepam (KlonoPIN) 1 mg QHS PO Last administered on 11/07/17at 20:05; Start 10/27/17 at 21:00 Divalproex Sodium (Depakote Er) 1,000 mg QHS PO Last administered on 11/07/17at 20:05; Start 10/27/17 at 21:00 Risperidone (RisperDAL) 2 mg QHS PO Last administered on 11/07/17at 20:05; Start 10/27/17 at 21:00 Estradiol (Estrace) 1 stepan WEEKLY VG ; Start 11/03/17 at 09:00 Levothyroxine Sodium (Synthroid) 112 mcg DAILYAC PO Last administered on at 10:04; Start 10/29/17 at 06:00; Stop 11/01/17 at 15:52; Status DC Sertraline HCl (Zoloft) 25 mg BID92 PO Last administered on 11/05/17at 13:24; Start 10/30/17 at 09:00; Stop 11/05/17 at 17:36; Status DC Levothyroxine Sodium (Synthroid) 112 mcg DAILY06 PO Last administered on at 05:57; Start 11/02/17 at 06:00 Fluvoxamine Maleate (Luvox) 25 mg HS PO Last administered on 11/07/17at 20:06; Start 11/05/17 at 21:00 Active Scripts Active Reported [place] 3 1,000 Mg Softgel ([place]-3 Fatty Acids/Fish Oil) 1 Each Capsule 1 Each PO DAILY Oxycontin (Oxycodone HCl) 10 Mg Tab.er.12h 10 Mg PO Q12HR Refresh Optive Eye Drops (Carboxymethylcellulos/Glycerin) 15 Ml Drops 1 Ml OU PRN BID PRN Zyprexa Zydis (Olanzapine) 5 Mg Tab.rapdis 2.5 Mg PO PRN Q2HR PRN Magnesium Oxide 400 Mg Tablet 400 Mg PO DAILY Depakote Er (Divalproex Sodium) 500 Mg Tab.er.24h 1,000 Mg PO QHS Clonazepam 1 Mg Tablet 1 Mg PO QHS Diclofenac Sodium 100 Gm Gel..gram. 100 Gm TP PRN TID Estrace (Estradiol) 42.5 Gm Cream.appl 1 Stepan VG Baclofen 10 Mg Tablet 5 Mg PO TID Excedrin Migraine Caplet (Aspirin/Acetaminophen/Caffeine) 1 Each Tablet 2 Each PO PRN Q24HRS PRN Risperidone 2 Mg Tablet 2 Mg PO QHS Miralax (Polyethylene Glycol 3350) 17 Gm Powd.pack 1 Packet PO DAILY Synthroid (Levothyroxine Sodium) 112 Mcg Tablet 112 Mcg PO DAILYAC Vitamin B-12 (Cyanocobalamin (Vitamin B-12)) 1,000 Mcg Tablet 1,000 Mcg PO DAILY Glucosamine Chondroitin Tab (Gluc Stephen/Chondro Stephen A/Vit C/Mn) 1 Each Tablet 1 Tab PO DAILY [place] 10-325 Tablet (Hydrocodone Bit/Acetaminophen) 1 Each Tablet 1 Tab PO PRN Q4HRS PRN Flonase Allergy Relief (Fluticasone Propionate) 9.9 Ml [place].susp 1 Sprays NS DAILY Restasis (Cyclosporine) 1 Each Droperette 1 Each OU BID Triamcinolone Acetonide 15 Gm Cream..g. 1 Stepan TP PRN TID PRN Nystatin 15 Gm Cream..g. 1 Stepan TP PRN BID PRN I have reviewed the current psychotropics carefully including drug interactions. Risk benefit ratio favors no change other than as noted in my dictated progress note. Diagnosis: Problems: (1) Confusion (2) Delusion (3) Bipolar affective, mixed, sev w/ psych (4) Anxiety disorder (5) Impulse control disorder (6) Schizoaffective disorder, bipolar type (7) Impulse control disorder RACHANA BENNETT MD Nov 07, 2017 20:31
[2017-11-08] MEDS: DICLOFENAC SODIUM 1% TOPICAL GEL 100GM TUBE. TP PRN (01:01)
[2017-11-08] MEDS: LEVOTHYROXINE 112 MCG TABLET PO SCH (04:57)
[2017-11-08] MEDS: HYDROcodone/APAP 10/325 1 TAB TABLET PO PRN ×3 (04:57→21:45)
[2017-11-08 05:54] VITALS: BP 157/93
[2017-11-08] MEDS: GLUCOSAMINE/CHOND 500/400MG CAPSULE PO SCH (09:31)
[2017-11-08] MEDS: CYANOCOBALAMIN (VITAMIN B-12) 1,000 MCG TABLET. PO SCH (09:31)
[2017-11-08] MEDS: OMEGA-3 FATTY ACIDS/FISH OIL 1,000 MG CAPSULE. PO SCH (09:31)
[2017-11-08] MEDS: MAGNESIUM OXIDE 400 MG TABLET PO SCH (09:31)
[2017-11-08] MEDS: POLYETHYLENE GLYCOL 3350 17 GM PACKET. PO SCH (09:31)
[2017-11-08] MEDS: cycloSPORINE 0.05% OPTH 1 DROP DROPERETTE OU SCH ×2 (09:32→20:00)
[2017-11-08] MEDS: BACLOFEN 10 MG TABLET PO SCH ×3 (09:32→20:00)
[2017-11-08] MEDS: FLUTICASONE 50MCG/NASAL SPRAY 16GM BOTTLE. NS SCH (09:34)
[2017-11-08] MEDS: oxyCODONE ER 10 MG TAB.ER.12H PO SCH ×2 (09:34→20:02)
[2017-11-08] MEDS: NYSTATIN TOPICAL POWDER 15GM BOTTLE. TP PRN ×2 (14:07→20:02)
[2017-11-08 16:07] VITALS: BP 106/67
[2017-11-08] MEDS: DIVALPROEX ER 500 MG TAB.ER.24H PO SCH (20:00)
[2017-11-08] MEDS: risperiDONE 2 MG TABLET. PO SCH (20:01)
[2017-11-08] MEDS: clonazePAM 1 MG TABLET PO SCH (20:02)
--- NOTE | 2017-11-08 20:50 | PDOC ---
Exam Note: Jermaine Note: Please also refer to the separate dictated note~for this date of service dictated separately.~Patient seen individually. Discussed the patient with Nursing staff reviewed the chart.~Reviewed interim history and current functioning. Reviewed vital signs,~Labs/ Radiology~and current medications noted below. Continue current treatment with the changes noted in the dictated addendum note Assessment: Vital Signs: Vital Signs Date Time Temp Pulse Resp B/P (MAP) Pulse Ox O2 Delivery O2 Flow Rate FiO2 11/08/17 20:02 95 11/08/17 16:07 98.3 75 17 106/67 (80) Room Air I&O Intake and Output 11/08/17 07:00 Intake Total 600 ml Balance 600 ml Intake Oral 600 ml # Bowel Movements 1 Current Medications: Meds: Current Medications Influenza Virus Vaccine (Afluria Trivalent 6296-2780 Syringe) 0.5 ml ONCE ONCE VAX IM Last administered on 10/28/17at 10:00; Start 10/28/17 at 09:00; Stop at 09:01; Status DC Acetaminophen (Tylenol) 650 mg PRN Q6HRS PRN PO PAIN / TEMP; Start 10/27/17 at 11:45 Multi-Ingredient Ointment (Analgesic [place]) 1 stepan PRN QID PRN TP MUSCLE PAIN; Start 10/27/17 at 11:45 Al Hydroxide/Mg Hydroxide (Mylanta Plus Xs) 15 ml PRN AFTMEALHC PRN PO DYSPEPSIA; Start 10/27/17 at 11:45 Magnesium Hydroxide (Milk Of Magnesia) 2,400 mg PRN QHS PRN PO CONSTIPATION; Start 10/27/17 at 11:45 Cyanocobalamin (Vitamin B-12) 1,000 mcg DAILY PO Last administered on at 09:31; Start 10/28/17 at 09:00 Cyclosporine (Restasis) 1 drop BID OU Last administered on 11/08/17at 20:00; Start 10/27/17 at 21:00 Diclofenac Sodium (Voltaren) 1 stepan PRN TID PRN TP PAIN Last administered on at 01:01; Start 10/27/17 at 12:30 Levothyroxine Sodium (Synthroid) 112 mcg DAILYAC PO Last administered on at 09:49; Start 10/28/17 at 07:30; Stop 10/28/17 at 13:11; Status DC Oxycodone HCl (OxyCONTIN) 10 mg Q12HR PO Last administered on 11/08/17at 20:02; Start 10/27/17 at 21:00 Acetaminophen/ Aspirin/Caffeine (Excedrin Migraine) 2 tab PRN Q24HRS PRN PO MIGRAINE HEADACHE; Start 10/27/17 at 13:00 Baclofen (Lioresal) 5 mg TID PO Last administered on 11/08/17at 20:00; Start at 14:00 Artificial Tears (Refresh Classic) 1 drop PRN BID PRN OU DRY EYE; Start at 13:15 Fluticasone Propionate (Flonase) 1 spray DAILY NS Last administered on 09:34; Start 10/28/17 at 09:00 Glucosamine/ Chondroitin (Glucosamine-Chondroitin 500/400mg) 1 cap DAILY PO Last administered on 11/08/17 09:31; Start 10/28/17 at 09:00 Acetaminophen/ Hydrocodone Bitart (Lortab 10/325) 1 tab PRN Q4HRS PRN PO PAIN Last administered on 11/08/17 14:05; Start 10/27/17 at 13:15 Magnesium Oxide (Magnesium Oxide) 400 mg DAILY PO Last administered on 09:31; Start 10/28/17 at 09:00 Nystatin (Mycostatin) 1 stepan PRN BID PRN TP RASH ON GROIN; Start 10/27/17 at 21: 00 Fish Oil (Fish Oil) 1,000 mg DAILY PO Last administered on 11/08/17 09:31; Start 10/28/17 at 09:00 Polyethylene Glycol (miraLAX) 17 gm DAILY PO Last administered on 11/08/17 09: 31; Start 10/28/17 at 09:00 Triamcinolone Acetonide (Kenalog) 1 stepan PRN TID PRN TP VAGINAL PAIN; Start at 13:15 Olanzapine (ZyPREXA ZYDIS) 2.5 mg PRN Q2HR PRN PO PSYCHOSIS Last administered on 10/30/17at 11:09; Start 10/27/17 at 12:45 Clonazepam (KlonoPIN) 1 mg QHS PO Last administered on 11/08/17 20:02; Start 10/27/17 at 21:00 Divalproex Sodium (Depakote Er) 1,000 mg QHS PO Last administered on 11/08/17 20:00; Start 10/27/17 at 21:00 Risperidone (RisperDAL) 2 mg QHS PO Last administered on 11/08/17at 20:01; Start 10/27/17 at 21:00 Estradiol (Estrace) 1 stepan WEEKLY VG ; Start 11/03/17 at 09:00 Levothyroxine Sodium (Synthroid) 112 mcg DAILYAC PO Last administered on at 10:04; Start 10/29/17 at 06:00; Stop 11/01/17 at 15:52; Status DC Sertraline HCl (Zoloft) 25 mg BID92 PO Last administered on 11/05/17 13:24; Start 10/30/17 at 09:00; Stop 11/05/17 at 17:36; Status DC Levothyroxine Sodium (Synthroid) 112 mcg DAILY06 PO Last administered on 04:57; Start 11/02/17 at 06:00 Fluvoxamine Maleate (Luvox) 25 mg HS PO Last administered on 11/08/17 20:00; Start 11/05/17 at 21:00 Nystatin (Nystop) 1 stepan PRN BID PRN TP RASH Last administered on 11/08/17 20: 02; Start 11/08/17 at 14:15 Active Scripts Active Reported [place] 3 1,000 Mg Softgel ([place]-3 Fatty Acids/Fish Oil) 1 Each Capsule 1 Each PO DAILY Oxycontin (Oxycodone HCl) 10 Mg Tab.er.12h 10 Mg PO Q12HR Refresh Optive Eye Drops (Carboxymethylcellulos/Glycerin) 15 Ml Drops 1 Ml OU PRN BID PRN Zyprexa Zydis (Olanzapine) 5 Mg Tab.rapdis 2.5 Mg PO PRN Q2HR PRN Magnesium Oxide 400 Mg Tablet 400 Mg PO DAILY Depakote Er (Divalproex Sodium) 500 Mg Tab.er.24h 1,000 Mg PO QHS Clonazepam 1 Mg Tablet 1 Mg PO QHS Diclofenac Sodium 100 Gm Gel..gram. 100 Gm TP PRN TID Estrace (Estradiol) 42.5 Gm Cream.appl 1 Stepan VG Baclofen 10 Mg Tablet 5 Mg PO TID Excedrin Migraine Caplet (Aspirin/Acetaminophen/Caffeine) 1 Each Tablet 2 Each PO PRN Q24HRS PRN Risperidone 2 Mg Tablet 2 Mg PO QHS Miralax (Polyethylene Glycol 3350) 17 Gm Powd.pack 1 Packet PO DAILY Synthroid (Levothyroxine Sodium) 112 Mcg Tablet 112 Mcg PO DAILYAC Vitamin B-12 (Cyanocobalamin (Vitamin B-12)) 1,000 Mcg Tablet 1,000 Mcg PO DAILY Glucosamine Chondroitin Tab (Gluc [place]/Chondro [place] A/Vit C/Mn) 1 Each Tablet 1 Tab PO DAILY [place] 10-325 Tablet (Hydrocodone Bit/Acetaminophen) 1 Each Tablet 1 Tab PO PRN Q4HRS PRN Flonase Allergy Relief (Fluticasone Propionate) 9.9 Ml [place].susp 1 Sprays NS DAILY Restasis (Cyclosporine) 1 Each Droperette 1 Each OU BID Triamcinolone Acetonide 15 Gm Cream..g. 1 Stepan TP PRN TID PRN Nystatin 15 Gm Cream..g. 1 Stepan TP PRN BID PRN I have reviewed the current psychotropics carefully including drug interactions. Risk benefit ratio favors no change other than as noted in my dictated progress note. Diagnosis: Problems: (1) Confusion (2) Delusion (3) Bipolar affective, mixed, sev w/ psych (4) Anxiety disorder (5) Impulse control disorder (6) Schizoaffective disorder, bipolar type (7) Impulse control disorder RACHANA BENNETT MD Nov 08, 2017 20:50
--- NOTE | 2017-11-08 22:24 | PN ---
DATE: 11/06/2017 This is a late entry for 11/06/2017 covers elements not covered in my initial note. SUBJECTIVE: I met with the patient in the evening. The patient slept 8-1/4 hours previous evening. She is quite anxious in the mornings, received some PRNs to help with this, somewhat obsessive regarding her pain and fixates on this per nursing report. REVIEW OF SYSTEMS: Complains of her chronic pain and impaired ambulation with walker. No CV, , pulmonary, eye, ENT system symptoms on review. MENTAL STATUS EXAM: Reasonably oriented. Speech has some latency, coherent. Abstraction fair, computation impaired, language function intact. Mood and affect somewhat anxious, at times, but overall improved. LABORATORY DATA: Reviewed. IMPRESSION: Bipolar 1 disorder, depressed, in partial remission; anxiety disorder, unspecified. Rest unchanged. PLAN: Continue Depakote ER 1000 mg at bedtime, level therapeutic at 81, Klonopin 1 mg at bedtime, Risperdal 2 mg at bedtime, Luvox 25 mg at bedtime, may need to increase this gradually. MAN Fox BENNETT MD DR: GIGI/taya JOB#: [id number] / [id number]
--- NOTE | 2017-11-09 00:45 | PN ---
DATE: 11/07/2017 This is a late entry for 11/07/2017 covers elements not covered in my initial note. SUBJECTIVE: I met with the patient in the evening, staffed at a treatment team meeting with the entire team in the morning. The patient's daughter, Kelly attended the treatment team meeting as did the patient. We had a lengthy discussion about her diagnosis of guilt feelings about her past. Disposition plans perhaps to an independent living or assisted living, which the daughter is looking into. The patient slept 7 hours previous evening. REVIEW OF SYSTEMS: No CV, , pulmonary, eye system symptoms on review. Gait unsteady with walker. MENTAL STATUS EXAM: Reasonably oriented. Speech is coherent, abstraction fair, computation able to do one step in serial 7's. No suicidal or homicidal ideation. Mood and affect somewhat withdrawn, but showing improvement. LABORATORY DATA: Reviewed. IMPRESSION: Unchanged from initial note. PLAN: Continue psychotropics from initial note including Depakote 1000 mg at bedtime, level therapeutic at 81, Klonopin 1 mg at bedtime, Risperdal 2 mg at bedtime, Luvox being increased to 50 mg a day. Adjust further as clinically indicated. RACHANA BENNETT MD DR: GIGI/taya JOB#: [id number] / [id number]
[2017-11-09] MEDS: LEVOTHYROXINE 112 MCG TABLET PO SCH (05:43)
[2017-11-09] MEDS: HYDROcodone/APAP 10/325 1 TAB TABLET PO PRN ×3 (05:43→23:47)
[2017-11-09] MEDS: NYSTATIN TOPICAL POWDER 15GM BOTTLE. TP PRN ×2 (05:54→19:34)
[2017-11-09 05:57] VITALS: BP 121/72
[2017-11-09] MEDS: BACLOFEN 10 MG TABLET PO SCH ×3 (09:26→19:35)
[2017-11-09] MEDS: cycloSPORINE 0.05% OPTH 1 DROP DROPERETTE OU SCH ×2 (09:26→19:35)
[2017-11-09] MEDS: MAGNESIUM OXIDE 400 MG TABLET PO SCH (09:26)
[2017-11-09] MEDS: OMEGA-3 FATTY ACIDS/FISH OIL 1,000 MG CAPSULE. PO SCH (09:26)
[2017-11-09] MEDS: GLUCOSAMINE/CHOND 500/400MG CAPSULE PO SCH (09:26)
[2017-11-09] MEDS: FLUTICASONE 50MCG/NASAL SPRAY 16GM BOTTLE. NS SCH (09:26)
[2017-11-09] MEDS: CYANOCOBALAMIN (VITAMIN B-12) 1,000 MCG TABLET. PO SCH (09:27)
[2017-11-09] MEDS: POLYETHYLENE GLYCOL 3350 17 GM PACKET. PO SCH (09:27)
[2017-11-09] MEDS: oxyCODONE ER 10 MG TAB.ER.12H PO SCH ×2 (09:28→19:36)
[2017-11-09 12:18] LABS: BASO % 0 % (0-3); EOS # 0.1 x10^3/uL (0.0-0.7); EOS % 1 % (0-3); HEMATOCRIT 36.1 % (36.0-47.0); HEMOGLOBIN 12.1 g/dL (12.0-15.5); LYMPH # 1.1 x10^3/uL (1.0-4.8); LYMPH % 22 % (24-48); MEAN CORPUSCULAR HEMOGLOBIN 34 pg (25-35); MEAN CORPUSCULAR HGB CONC 33 g/dL (31-37); MEAN CORPUSCULAR VOLUME 101 fL (79-100); MONO # 0.5 x10^3/uL (0.0-1.1); MONO % 10 % (0-9); NEUT # 3.4 x10^3uL (1.8-7.7); NEUT % 67 % (31-73); PLATELET COUNT 176 x10^3/uL (140-400); RED BLOOD COUNT 3.56 x10^6/uL (3.50-5.40); RED CELL DISTRIBUTION WIDTH 13.6 % (11.5-14.5); WHITE BLOOD COUNT 5.1 x10^3/uL (4.0-11.0)
[2017-11-09 12:24] LABS: ALBUMIN 3.2 g/dL (3.4-5.0); ALBUMIN/GLOBULIN RATIO 0.9 (1.0-1.7); CREATININE 1.3 mg/dL (0.6-1.0); GFR 39.4; POTASSIUM 4.5 mmol/L (3.5-5.1); TOTAL BILIRUBIN 0.2 mg/dL (0.2-1.0); TOTAL PROTEIN 6.9 g/dL (6.4-8.2)
[2017-11-09 15:59] VITALS: BP 121/80
[2017-11-09] MEDS: DIVALPROEX ER 500 MG TAB.ER.24H PO SCH (19:34)
[2017-11-09] MEDS: risperiDONE 2 MG TABLET. PO SCH (19:35)
[2017-11-09] MEDS: clonazePAM 1 MG TABLET PO SCH (19:36)
--- NOTE | 2017-11-09 23:07 | PDOC ---
Exam Note: Jermaine Note: Please also refer to the separate dictated note~for this date of service dictated separately.~Patient seen individually. Discussed the patient with Nursing staff reviewed the chart.~Reviewed interim history and current functioning. Reviewed vital signs,~Labs/ Radiology~and current medications noted below. Continue current treatment with the changes noted in the dictated addendum note Assessment: Vital Signs: Vital Signs Date Time Temp Pulse Resp B/P (MAP) Pulse Ox O2 Delivery O2 Flow Rate FiO2 11/09/17 19:36 98 11/09/17 15:59 97.8 70 20 121/80 (94) 11/09/17 05:57 Room Air I&O Intake and Output 11/09/17 07:00 Intake Total 1080 ml Balance 1080 ml Intake Oral 1080 ml Labs: Laboratory Tests Test 11/09/17 11:28 White Blood Count 5.1 x10^3/uL (4.0-11.0) Red Blood Count 3.56 x10^6/uL (3.50-5.40) Hemoglobin 12.1 g/dL (12.0-15.5) Hematocrit 36.1 % (36.0-47.0) Mean Corpuscular Volume 101 fL (79-100) H Mean Corpuscular Hemoglobin 34 pg (25-35) Mean Corpuscular Hemoglobin Concent 33 g/dL (31-37) Red Cell Distribution Width 13.6 % (11.5-14.5) Platelet Count 176 x10^3/uL (140-400) Neutrophils (%) (Auto) 67 % (31-73) Lymphocytes (%) (Auto) 22 % (24-48) L Monocytes (%) (Auto) 10 % (0-9) H Eosinophils (%) (Auto) 1 % (0-3) Basophils (%) (Auto) 0 % (0-3) Neutrophils # (Auto) 3.4 x10^3uL (1.8-7.7) Lymphocytes # (Auto) 1.1 x10^3/uL (1.0-4.8) Monocytes # (Auto) 0.5 x10^3/uL (0.0-1.1) Eosinophils # (Auto) 0.1 x10^3/uL (0.0-0.7) Basophils # (Auto) 0.0 x10^3/uL (0.0-0.2) Sodium Level 141 mmol/L (136-145) Potassium Level 4.5 mmol/L (3.5-5.1) Chloride Level 102 mmol/L (98-107) Carbon Dioxide Level 37 mmol/L (21-32) H Anion Gap 2 (6-14) L Blood Urea Nitrogen 18 mg/dL (7-20) Creatinine 1.3 mg/dL (0.6-1.0) H Estimated GFR (Cockcroft-Gault) 39.4 BUN/Creatinine Ratio 14 (6-20) Glucose Level 122 mg/dL (70-99) H Calcium Level 9.0 mg/dL (8.5-10.1) Total Bilirubin 0.2 mg/dL (0.2-1.0) Aspartate Amino Transferase (AST) 16 U/L (15-37) Alanine Aminotransferase (ALT) 22 U/L (14-59) Alkaline Phosphatase 81 U/L (46-116) Total Protein 6.9 g/dL (6.4-8.2) Albumin 3.2 g/dL (3.4-5.0) L Albumin/Globulin Ratio 0.9 (1.0-1.7) L Current Medications: Meds: Current Medications Influenza Virus Vaccine (Afluria Trivalent [id number] Syringe) 0.5 ml ONCE ONCE VAX IM Last administered on 10/28/17at 10:00; Start 10/28/17 at 09:00; Stop at 09:01; Status DC Acetaminophen (Tylenol) 650 mg PRN Q6HRS PRN PO PAIN / TEMP; Start 10/27/17 at 11:45 Multi-Ingredient Ointment (Analgesic [place]) 1 stepan PRN QID PRN TP MUSCLE PAIN; Start 10/27/17 at 11:45 Al Hydroxide/Mg Hydroxide (Mylanta Plus Xs) 15 ml PRN AFTMEALHC PRN PO DYSPEPSIA; Start 10/27/17 at 11:45 Magnesium Hydroxide (Milk Of Magnesia) 2,400 mg PRN QHS PRN PO CONSTIPATION; Start 10/27/17 at 11:45 Cyanocobalamin (Vitamin B-12) 1,000 mcg DAILY PO Last administered on at 09:27; Start 10/28/17 at 09:00 Cyclosporine (Restasis) 1 drop BID OU Last administered on 11/09/17 19:35; Start 10/27/17 at 21:00 Diclofenac Sodium (Voltaren) 1 stepan PRN TID PRN TP PAIN Last administered on 01:01; Start 10/27/17 at 12:30 Levothyroxine Sodium (Synthroid) 112 mcg DAILYAC PO Last administered on 09:49; Start 10/28/17 at 07:30; Stop 10/28/17 at 13:11; Status DC Oxycodone HCl (OxyCONTIN) 10 mg Q12HR PO Last administered on 11/09/17 19:36; Start 10/27/17 at 21:00 Acetaminophen/ Aspirin/Caffeine (Excedrin Migraine) 2 tab PRN Q24HRS PRN PO MIGRAINE HEADACHE; Start 10/27/17 at 13:00 Baclofen (Lioresal) 5 mg TID PO Last administered on 11/09/17 19:35; Start at 14:00 Artificial Tears (Refresh Classic) 1 drop PRN BID PRN OU DRY EYE; Start at 13:15 Fluticasone Propionate (Flonase) 1 spray DAILY NS Last administered on 09:26; Start 10/28/17 at 09:00 Glucosamine/ Chondroitin (Glucosamine-Chondroitin 500/400mg) 1 cap DAILY PO Last administered on 11/09/17 09:26; Start 10/28/17 at 09:00 Acetaminophen/ Hydrocodone Bitart (Lortab 10/325) 1 tab PRN Q4HRS PRN PO PAIN Last administered on 11/09/17 13:48; Start 10/27/17 at 13:15 Magnesium Oxide (Magnesium Oxide) 400 mg DAILY PO Last administered on 09:26; Start 10/28/17 at 09:00 Nystatin (Mycostatin) 1 stepan PRN BID PRN TP RASH ON GROIN; Start 10/27/17 at 21: 00 Fish Oil (Fish Oil) 1,000 mg DAILY PO Last administered on 11/09/17 09:26; Start 10/28/17 at 09:00 Polyethylene Glycol (miraLAX) 17 gm DAILY PO Last administered on 11/09/17 09: 27; Start 10/28/17 at 09:00 Triamcinolone Acetonide (Kenalog) 1 stepan PRN TID PRN TP VAGINAL PAIN; Start at 13:15 Olanzapine (ZyPREXA ZYDIS) 2.5 mg PRN Q2HR PRN PO PSYCHOSIS Last administered on 10/30/17 11:09; Start 10/27/17 at 12:45 Clonazepam (KlonoPIN) 1 mg QHS PO Last administered on 11/09/17 19:36; Start 10/27/17 at 21:00 Divalproex Sodium (Depakote Er) 1,000 mg QHS PO Last administered on 11/09/17 19:34; Start 10/27/17 at 21:00 Risperidone (RisperDAL) 2 mg QHS PO Last administered on 11/09/17 19:35; Start 10/27/17 at 21:00 Estradiol (Estrace) 1 stepan WEEKLY VG ; Start 11/03/17 at 09:00 Levothyroxine Sodium (Synthroid) 112 mcg DAILYAC PO Last administered on 10:04; Start 10/29/17 at 06:00; Stop 11/01/17 at 15:52; Status DC Sertraline HCl (Zoloft) 25 mg BID92 PO Last administered on 11/05/17 13:24; Start 10/30/17 at 09:00; Stop 11/05/17 at 17:36; Status DC Levothyroxine Sodium (Synthroid) 112 mcg DAILY06 PO Last administered on 05:43; Start 11/02/17 at 06:00 Fluvoxamine Maleate (Luvox) 25 mg HS PO Last administered on 11/09/17 19:35; Start 11/05/17 at 21:00 Nystatin (Nystop) 1 stepan PRN BID PRN TP RASH Last administered on 11/09/17 19: 34; Start 11/08/17 at 14:15 Active Scripts Active Reported [place] 3 1,000 Mg Softgel ([place]-3 Fatty Acids/Fish Oil) 1 Each Capsule 1 Each PO DAILY Oxycontin (Oxycodone HCl) 10 Mg Tab.er.12h 10 Mg PO Q12HR Refresh Optive Eye Drops (Carboxymethylcellulos/Glycerin) 15 Ml Drops 1 Ml OU PRN BID PRN Zyprexa Zydis (Olanzapine) 5 Mg Tab.rapdis 2.5 Mg PO PRN Q2HR PRN Magnesium Oxide 400 Mg Tablet 400 Mg PO DAILY Depakote Er (Divalproex Sodium) 500 Mg Tab.er.24h 1,000 Mg PO QHS Clonazepam 1 Mg Tablet 1 Mg PO QHS Diclofenac Sodium 100 Gm Gel..gram. 100 Gm TP PRN TID Estrace (Estradiol) 42.5 Gm Cream.appl 1 Stepan VG Baclofen 10 Mg Tablet 5 Mg PO TID Excedrin Migraine Caplet (Aspirin/Acetaminophen/Caffeine) 1 Each Tablet 2 Each PO PRN Q24HRS PRN Risperidone 2 Mg Tablet 2 Mg PO QHS Miralax (Polyethylene Glycol 3350) 17 Gm Powd.pack 1 Packet PO DAILY Synthroid (Levothyroxine Sodium) 112 Mcg Tablet 112 Mcg PO DAILYAC Vitamin B-12 (Cyanocobalamin (Vitamin B-12)) 1,000 Mcg Tablet 1,000 Mcg PO DAILY Glucosamine Chondroitin Tab (Gluc [place]/Chondro [place] A/Vit C/Mn) 1 Each Tablet 1 Tab PO DAILY [place] 10-325 Tablet (Hydrocodone Bit/Acetaminophen) 1 Each Tablet 1 Tab PO PRN Q4HRS PRN Flonase Allergy Relief (Fluticasone Propionate) 9.9 Ml [place].susp 1 Sprays NS DAILY Restasis (Cyclosporine) 1 Each Droperette 1 Each OU BID Triamcinolone Acetonide 15 Gm Cream..g. 1 Stepan TP PRN TID PRN Nystatin 15 Gm Cream..g. 1 Stepan TP PRN BID PRN I have reviewed the current psychotropics carefully including drug interactions. Risk benefit ratio favors no change other than as noted in my dictated progress note. Diagnosis: Problems: (1) Confusion (2) Delusion (3) Bipolar affective, mixed, sev w/ psych (4) Anxiety disorder (5) Impulse control disorder (6) Schizoaffective disorder, bipolar type (7) Impulse control disorder RACHANA BENNETT MD Nov 09, 2017 23:07
[2017-11-10] MEDS: HYDROcodone/APAP 10/325 1 TAB TABLET PO PRN ×2 (03:43→13:48)
[2017-11-10 05:49] VITALS: BP 96/61
[2017-11-10] MEDS: LEVOTHYROXINE 112 MCG TABLET PO SCH (06:34)
[2017-11-10] MEDS: FLUTICASONE 50MCG/NASAL SPRAY 16GM BOTTLE. NS SCH (08:12)
[2017-11-10] MEDS: GLUCOSAMINE/CHOND 500/400MG CAPSULE PO SCH (08:13)
[2017-11-10] MEDS: OMEGA-3 FATTY ACIDS/FISH OIL 1,000 MG CAPSULE. PO SCH (08:13)
[2017-11-10] MEDS: cycloSPORINE 0.05% OPTH 1 DROP DROPERETTE OU SCH ×2 (08:13→20:56)
[2017-11-10] MEDS: BACLOFEN 10 MG TABLET PO SCH ×3 (08:16→20:53)
[2017-11-10] MEDS: MAGNESIUM OXIDE 400 MG TABLET PO SCH (08:16)
[2017-11-10] MEDS: POLYETHYLENE GLYCOL 3350 17 GM PACKET. PO SCH (08:17)
[2017-11-10] MEDS: CYANOCOBALAMIN (VITAMIN B-12) 1,000 MCG TABLET. PO SCH (08:18)
[2017-11-10] MEDS: oxyCODONE ER 10 MG TAB.ER.12H PO SCH ×2 (08:18→20:55)
[2017-11-10] MEDS: ESTRADIOL 0.01% VAGINAL CREAM 42.5GM TUBE. VG SCH (08:18)
[2017-11-10 15:21] VITALS: BP 125/78
--- NOTE | 2017-11-10 17:51 | PN ---
DATE: 11/08/2017 PSYCHIATRIC PROGRESS NOTE This is a late entry of 11/08/2017, covers elements not covered in my initial note. SUBJECTIVE: I met with the patient in the evening. The patient slept 5-1/2 hours previous night. She has appeared somewhat depressed at times, makes some hesitant statement that she is not sure about future plans and that is right with God or jew that she went with a younger man. She feels guilty and wonders what effect this had on her daughters since the patient left jew and thereafter the daughters left the jew as well. Processed this with her. REVIEW OF SYSTEMS: Ambulation impaired, in wheelchair. No CV, , pulmonary, eye system symptoms on review. MENTAL STATUS EXAM: Oriented reasonably to place and situation. Speech is coherent, has some latency. Abstraction fair. Computation, able to do two steps on serial 7's. No suicidal or homicidal ideation. Memory is reasonable. Mood remains dysphoric, somewhat obsessive at times. LABORATORY DATA: Reviewed. IMPRESSION: Schizoaffective disorder, bipolar type, mixed versus depressed, in partial remission. Rest unchanged. PLAN: No change from initial note. MAN Fox BENNETT MD DR: GIGI/taya JOB#: [id number] / [id number]
--- NOTE | 2017-11-10 20:08 | PDOC ---
Exam Note: Jermaine Note: Please also refer to the separate dictated note~for this date of service dictated separately.~Patient seen individually. Discussed the patient with Nursing staff reviewed the chart.~Reviewed interim history and current functioning. Reviewed vital signs,~Labs/ Radiology~and current medications noted below. Continue current treatment with the changes noted in the dictated addendum note Assessment: Vital Signs: Vital Signs Date Time Temp Pulse Resp B/P (MAP) Pulse Ox O2 Delivery O2 Flow Rate FiO2 11/10/17 15:21 97.8 74 20 125/78 (94) 97 11/10/17 13:48 Room Air I&O Intake and Output 11/10/17 07:00 Intake Total 600 ml Balance 600 ml Intake Oral 600 ml Current Medications: Meds: Current Medications Influenza Virus Vaccine (Afluria Trivalent 6749-1454 Syringe) 0.5 ml ONCE ONCE VAX IM Last administered on 10/28/17at 10:00; Start 10/28/17 at 09:00; Stop at 09:01; Status DC Acetaminophen (Tylenol) 650 mg PRN Q6HRS PRN PO PAIN / TEMP; Start 10/27/17 at 11:45 Multi-Ingredient Ointment (Analgesic [place]) 1 stepan PRN QID PRN TP MUSCLE PAIN; Start 10/27/17 at 11:45 Al Hydroxide/Mg Hydroxide (Mylanta Plus Xs) 15 ml PRN AFTMEALHC PRN PO DYSPEPSIA; Start 10/27/17 at 11:45 Magnesium Hydroxide (Milk Of Magnesia) 2,400 mg PRN QHS PRN PO CONSTIPATION; Start 10/27/17 at 11:45 Cyanocobalamin (Vitamin B-12) 1,000 mcg DAILY PO Last administered on at 08:18; Start 10/28/17 at 09:00 Cyclosporine (Restasis) 1 drop BID OU Last administered on 11/10/17at 08:13; Start 10/27/17 at 21:00 Diclofenac Sodium (Voltaren) 1 stepan PRN TID PRN TP PAIN Last administered on at 01:01; Start 10/27/17 at 12:30 Levothyroxine Sodium (Synthroid) 112 mcg DAILYAC PO Last administered on at 09:49; Start 10/28/17 at 07:30; Stop 10/28/17 at 13:11; Status DC Oxycodone HCl (OxyCONTIN) 10 mg Q12HR PO Last administered on 11/10/17 08:18; Start 10/27/17 at 21:00 Acetaminophen/ Aspirin/Caffeine (Excedrin Migraine) 2 tab PRN Q24HRS PRN PO MIGRAINE HEADACHE; Start 10/27/17 at 13:00 Baclofen (Lioresal) 5 mg TID PO Last administered on 11/10/17 13:48; Start at 14:00 Artificial Tears (Refresh Classic) 1 drop PRN BID PRN OU DRY EYE; Start at 13:15 Fluticasone Propionate (Flonase) 1 spray DAILY NS Last administered on 08:12; Start 10/28/17 at 09:00 Glucosamine/ Chondroitin (Glucosamine-Chondroitin 500/400mg) 1 cap DAILY PO Last administered on 11/10/17 08:13; Start 10/28/17 at 09:00 Acetaminophen/ Hydrocodone Bitart (Lortab 10/325) 1 tab PRN Q4HRS PRN PO PAIN Last administered on 11/10/17 13:48; Start 10/27/17 at 13:15 Magnesium Oxide (Magnesium Oxide) 400 mg DAILY PO Last administered on 08:16; Start 10/28/17 at 09:00 Nystatin (Mycostatin) 1 stepan PRN BID PRN TP RASH ON GROIN; Start 10/27/17 at 21: 00 Fish Oil (Fish Oil) 1,000 mg DAILY PO Last administered on 11/10/17at 08:13; Start 10/28/17 at 09:00 Polyethylene Glycol (miraLAX) 17 gm DAILY PO Last administered on 11/09/17at 09: 27; Start 10/28/17 at 09:00 Triamcinolone Acetonide (Kenalog) 1 stepan PRN TID PRN TP VAGINAL PAIN; Start at 13:15 Olanzapine (ZyPREXA ZYDIS) 2.5 mg PRN Q2HR PRN PO PSYCHOSIS Last administered on 10/30/17at 11:09; Start 10/27/17 at 12:45 Clonazepam (KlonoPIN) 1 mg QHS PO Last administered on 11/09/17 19:36; Start 10/27/17 at 21:00 Divalproex Sodium (Depakote Er) 1,000 mg QHS PO Last administered on 11/09/17 19:34; Start 10/27/17 at 21:00 Risperidone (RisperDAL) 2 mg QHS PO Last administered on 11/09/17 19:35; Start 10/27/17 at 21:00 Estradiol (Estrace) 1 stepan WEEKLY VG ; Start 11/03/17 at 09:00 Levothyroxine Sodium (Synthroid) 112 mcg DAILYAC PO Last administered on at 10:04; Start 10/29/17 at 06:00; Stop 11/01/17 at 15:52; Status DC Sertraline HCl (Zoloft) 25 mg BID92 PO Last administered on 11/05/17 13:24; Start 10/30/17 at 09:00; Stop 11/05/17 at 17:36; Status DC Levothyroxine Sodium (Synthroid) 112 mcg DAILY06 PO Last administered on at 06:34; Start 11/02/17 at 06:00 Fluvoxamine Maleate (Luvox) 25 mg HS PO Last administered on 11/09/17 19:35; Start 11/05/17 at 21:00 Nystatin (Nystop) 1 stepan PRN BID PRN TP RASH Last administered on 11/09/17 19: 34; Start 11/08/17 at 14:15 Nystatin (Mycostatin) 1 stepan BID TP ; Start 11/10/17 at 21:00 Active Scripts Active Reported [place] 3 1,000 Mg Softgel ([place]-3 Fatty Acids/Fish Oil) 1 Each Capsule 1 Each PO DAILY Oxycontin (Oxycodone HCl) 10 Mg Tab.er.12h 10 Mg PO Q12HR Refresh Optive Eye Drops (Carboxymethylcellulos/Glycerin) 15 Ml Drops 1 Ml OU PRN BID PRN Zyprexa Zydis (Olanzapine) 5 Mg Tab.rapdis 2.5 Mg PO PRN Q2HR PRN Magnesium Oxide 400 Mg Tablet 400 Mg PO DAILY Depakote Er (Divalproex Sodium) 500 Mg Tab.er.24h 1,000 Mg PO QHS Clonazepam 1 Mg Tablet 1 Mg PO QHS Diclofenac Sodium 100 Gm Gel..gram. 100 Gm TP PRN TID Estrace (Estradiol) 42.5 Gm Cream.appl 1 Stepan VG Baclofen 10 Mg Tablet 5 Mg PO TID Excedrin Migraine Caplet (Aspirin/Acetaminophen/Caffeine) 1 Each Tablet 2 Each PO PRN Q24HRS PRN Risperidone 2 Mg Tablet 2 Mg PO QHS Miralax (Polyethylene Glycol 3350) 17 Gm Powd.pack 1 Packet PO DAILY Synthroid (Levothyroxine Sodium) 112 Mcg Tablet 112 Mcg PO DAILYAC Vitamin B-12 (Cyanocobalamin (Vitamin B-12)) 1,000 Mcg Tablet 1,000 Mcg PO DAILY Glucosamine Chondroitin Tab (Gluc Stephen/Chondro Stephen A/Vit C/Mn) 1 Each Tablet 1 Tab PO DAILY [place] 10-325 Tablet (Hydrocodone Bit/Acetaminophen) 1 Each Tablet 1 Tab PO PRN Q4HRS PRN Flonase Allergy Relief (Fluticasone Propionate) 9.9 Ml [place].susp 1 Sprays NS DAILY Restasis (Cyclosporine) 1 Each Droperette 1 Each OU BID Triamcinolone Acetonide 15 Gm Cream..g. 1 Stepan TP PRN TID PRN Nystatin 15 Gm Cream..g. 1 Stepan TP PRN BID PRN I have reviewed the current psychotropics carefully including drug interactions. Risk benefit ratio favors no change other than as noted in my dictated progress note. Diagnosis: Problems: (1) Confusion (2) Delusion (3) Bipolar affective, mixed, sev w/ psych (4) Anxiety disorder (5) Impulse control disorder (6) Schizoaffective disorder, bipolar type (7) Impulse control disorder RACHANA BENNETT MD Nov 10, 2017 20:08
[2017-11-10] MEDS: NYSTATIN 100,000 UNIT/GM TOPICAL CREAM 15GM TUBE. TP SCH (20:52)
[2017-11-10] MEDS: DIVALPROEX ER 500 MG TAB.ER.24H PO SCH (20:52)
[2017-11-10] MEDS: risperiDONE 2 MG TABLET. PO SCH (20:53)
[2017-11-10] MEDS: clonazePAM 1 MG TABLET PO SCH (20:55)
[2017-11-10] MEDS: METHYL SALICYLATE/MENTHOL TOPICAL OINTMENT 29GM TUBE. TP PRN (20:59)
[2017-11-11 05:35] VITALS: BP 122/79
[2017-11-11] MEDS: LEVOTHYROXINE 112 MCG TABLET PO SCH (05:54)
[2017-11-11] MEDS: HYDROcodone/APAP 10/325 1 TAB TABLET PO PRN ×3 (05:55→14:15)
[2017-11-11] MEDS: FLUTICASONE 50MCG/NASAL SPRAY 16GM BOTTLE. NS SCH (07:50)
[2017-11-11] MEDS: GLUCOSAMINE/CHOND 500/400MG CAPSULE PO SCH (07:51)
[2017-11-11] MEDS: POLYETHYLENE GLYCOL 3350 17 GM PACKET. PO SCH (07:51)
[2017-11-11] MEDS: OMEGA-3 FATTY ACIDS/FISH OIL 1,000 MG CAPSULE. PO SCH (07:51)
[2017-11-11] MEDS: cycloSPORINE 0.05% OPTH 1 DROP DROPERETTE OU SCH ×2 (07:51→20:13)
[2017-11-11] MEDS: MAGNESIUM OXIDE 400 MG TABLET PO SCH (07:52)
[2017-11-11] MEDS: BACLOFEN 10 MG TABLET PO SCH ×3 (07:52→20:14)
[2017-11-11] MEDS: CYANOCOBALAMIN (VITAMIN B-12) 1,000 MCG TABLET. PO SCH (07:52)
[2017-11-11] MEDS: NYSTATIN 100,000 UNIT/GM TOPICAL CREAM 15GM TUBE. TP SCH ×2 (07:53→20:13)
[2017-11-11] MEDS: oxyCODONE ER 10 MG TAB.ER.12H PO SCH ×2 (07:56→20:14)
[2017-11-11] MEDS: METHYL SALICYLATE/MENTHOL TOPICAL OINTMENT 29GM TUBE. TP PRN (15:20)
[2017-11-11 16:23] VITALS: BP 134/75
[2017-11-11] MEDS: DIVALPROEX ER 500 MG TAB.ER.24H PO SCH (20:13)
[2017-11-11] MEDS: clonazePAM 1 MG TABLET PO SCH (20:14)
[2017-11-11] MEDS: risperiDONE 2 MG TABLET. PO SCH (20:14)
--- NOTE | 2017-11-11 20:24 | PDOC ---
Exam Note: Jermaine Note: Please also refer to the separate dictated note~for this date of service dictated separately.~Patient seen individually. Discussed the patient with Nursing staff reviewed the chart.~Reviewed interim history and current functioning. Reviewed vital signs,~Labs/ Radiology~and current medications noted below. Continue current treatment with the changes noted in the dictated addendum note Assessment: Vital Signs: Vital Signs Date Time Temp Pulse Resp B/P (MAP) Pulse Ox O2 Delivery O2 Flow Rate FiO2 11/11/17 20:14 18 91 11/11/17 16:23 97.7 94 134/75 (94) 11/11/17 14:15 Room Air I&O Intake and Output 11/11/17 07:00 Intake Total 1240 ml Balance 1240 ml Intake Oral 1240 ml Current Medications: Meds: Current Medications Influenza Virus Vaccine (Afluria Trivalent 2122-7052 Syringe) 0.5 ml ONCE ONCE VAX IM Last administered on 10/28/17at 10:00; Start 10/28/17 at 09:00; Stop at 09:01; Status DC Acetaminophen (Tylenol) 650 mg PRN Q6HRS PRN PO PAIN / TEMP; Start 10/27/17 at 11:45 Multi-Ingredient Ointment (Analgesic [place]) 1 stepan PRN QID PRN TP MUSCLE PAIN Last administered on 11/11/17at 15:20; Start 10/27/17 at 11:45 Al Hydroxide/Mg Hydroxide (Mylanta Plus Xs) 15 ml PRN AFTMEALHC PRN PO DYSPEPSIA; Start 10/27/17 at 11:45 Magnesium Hydroxide (Milk Of Magnesia) 2,400 mg PRN QHS PRN PO CONSTIPATION; Start 10/27/17 at 11:45 Cyanocobalamin (Vitamin B-12) 1,000 mcg DAILY PO Last administered on at 07:52; Start 10/28/17 at 09:00 Cyclosporine (Restasis) 1 drop BID OU Last administered on 11/11/17at 20:13; Start 10/27/17 at 21:00 Diclofenac Sodium (Voltaren) 1 stepan PRN TID PRN TP PAIN Last administered on at 01:01; Start 10/27/17 at 12:30 Levothyroxine Sodium (Synthroid) 112 mcg DAILYAC PO Last administered on at 09:49; Start 10/28/17 at 07:30; Stop 10/28/17 at 13:11; Status DC Oxycodone HCl (OxyCONTIN) 10 mg Q12HR PO Last administered on 11/11/17at 20:14; Start 10/27/17 at 21:00 Acetaminophen/ Aspirin/Caffeine (Excedrin Migraine) 2 tab PRN Q24HRS PRN PO MIGRAINE HEADACHE; Start 10/27/17 at 13:00 Baclofen (Lioresal) 5 mg TID PO Last administered on 11/11/17at 20:14; Start at 14:00 Artificial Tears (Refresh Classic) 1 drop PRN BID PRN OU DRY EYE; Start at 13:15 Fluticasone Propionate (Flonase) 1 spray DAILY NS Last administered on 07:50; Start 10/28/17 at 09:00 Glucosamine/ Chondroitin (Glucosamine-Chondroitin 500/400mg) 1 cap DAILY PO Last administered on 11/11/17 07:51; Start 10/28/17 at 09:00 Acetaminophen/ Hydrocodone Bitart (Lortab 10/325) 1 tab PRN Q4HRS PRN PO PAIN Last administered on 11/11/17 14:15; Start 10/27/17 at 13:15 Magnesium Oxide (Magnesium Oxide) 400 mg DAILY PO Last administered on 07:52; Start 10/28/17 at 09:00 Nystatin (Mycostatin) 1 stepan PRN BID PRN TP RASH ON GROIN; Start 10/27/17 at 21: 00 Fish Oil (Fish Oil) 1,000 mg DAILY PO Last administered on 11/11/17 07:51; Start 10/28/17 at 09:00 Polyethylene Glycol (miraLAX) 17 gm DAILY PO Last administered on 11/09/17at 09: 27; Start 10/28/17 at 09:00 Triamcinolone Acetonide (Kenalog) 1 stepan PRN TID PRN TP VAGINAL PAIN; Start at 13:15 Olanzapine (ZyPREXA ZYDIS) 2.5 mg PRN Q2HR PRN PO PSYCHOSIS Last administered on 10/30/17at 11:09; Start 10/27/17 at 12:45 Clonazepam (KlonoPIN) 1 mg QHS PO Last administered on 11/11/17 20:14; Start 10/27/17 at 21:00 Divalproex Sodium (Depakote Er) 1,000 mg QHS PO Last administered on 11/11/17at 20:13; Start 10/27/17 at 21:00 Risperidone (RisperDAL) 2 mg QHS PO Last administered on 11/11/17at 20:14; Start 10/27/17 at 21:00 Estradiol (Estrace) 1 stepan WEEKLY VG ; Start 11/03/17 at 09:00 Levothyroxine Sodium (Synthroid) 112 mcg DAILYAC PO Last administered on at 10:04; Start 10/29/17 at 06:00; Stop 11/01/17 at 15:52; Status DC Sertraline HCl (Zoloft) 25 mg BID92 PO Last administered on 11/05/17 13:24; Start 10/30/17 at 09:00; Stop 11/05/17 at 17:36; Status DC Levothyroxine Sodium (Synthroid) 112 mcg DAILY06 PO Last administered on at 05:54; Start 11/02/17 at 06:00 Fluvoxamine Maleate (Luvox) 25 mg HS PO Last administered on 11/11/17at 20:13; Start 11/05/17 at 21:00 Nystatin (Nystop) 1 stepan PRN BID PRN TP RASH Last administered on 11/09/17 19: 34; Start 11/08/17 at 14:15 Nystatin (Mycostatin) 1 stepan BID TP Last administered on 11/11/17at 20:13; Start 11/10/17 at 21:00 Active Scripts Active Reported [place] 3 1,000 Mg Softgel ([place]-3 Fatty Acids/Fish Oil) 1 Each Capsule 1 Each PO DAILY Oxycontin (Oxycodone HCl) 10 Mg Tab.er.12h 10 Mg PO Q12HR Refresh Optive Eye Drops (Carboxymethylcellulos/Glycerin) 15 Ml Drops 1 Ml OU PRN BID PRN Zyprexa Zydis (Olanzapine) 5 Mg Tab.rapdis 2.5 Mg PO PRN Q2HR PRN Magnesium Oxide 400 Mg Tablet 400 Mg PO DAILY Depakote Er (Divalproex Sodium) 500 Mg Tab.er.24h 1,000 Mg PO QHS Clonazepam 1 Mg Tablet 1 Mg PO QHS Diclofenac Sodium 100 Gm Gel..gram. 100 Gm TP PRN TID Estrace (Estradiol) 42.5 Gm Cream.appl 1 Stepan VG Baclofen 10 Mg Tablet 5 Mg PO TID Excedrin Migraine Caplet (Aspirin/Acetaminophen/Caffeine) 1 Each Tablet 2 Each PO PRN Q24HRS PRN Risperidone 2 Mg Tablet 2 Mg PO QHS Miralax (Polyethylene Glycol 3350) 17 Gm Powd.pack 1 Packet PO DAILY Synthroid (Levothyroxine Sodium) 112 Mcg Tablet 112 Mcg PO DAILYAC Vitamin B-12 (Cyanocobalamin (Vitamin B-12)) 1,000 Mcg Tablet 1,000 Mcg PO DAILY Glucosamine Chondroitin Tab (Gluc Stephen/Chondro Stephen A/Vit C/Mn) 1 Each Tablet 1 Tab PO DAILY [place] 10-325 Tablet (Hydrocodone Bit/Acetaminophen) 1 Each Tablet 1 Tab PO PRN Q4HRS PRN Flonase Allergy Relief (Fluticasone Propionate) 9.9 Ml [place].susp 1 Sprays NS DAILY Restasis (Cyclosporine) 1 Each Droperette 1 Each OU BID Triamcinolone Acetonide 15 Gm Cream..g. 1 Stepan TP PRN TID PRN Nystatin 15 Gm Cream..g. 1 Stepan TP PRN BID PRN I have reviewed the current psychotropics carefully including drug interactions. Risk benefit ratio favors no change other than as noted in my dictated progress note. Diagnosis: Problems: (1) Confusion (2) Delusion (3) Bipolar affective, mixed, sev w/ psych (4) Anxiety disorder (5) Impulse control disorder (6) Schizoaffective disorder, bipolar type (7) Impulse control disorder RACHANA BENNETT MD Nov 11, 2017 20:23
--- NOTE | 2017-11-11 23:09 | PN ---
DATE: 11/09/2017 PSYCHIATRIC PROGRESS NOTE This late entry 11/09/2017 covers elements not covered in my initial note. SUBJECTIVE: I met with the patient in the evening. The patient slept 6-3/4 hours previous evening. Overall, she has been pleasant and cooperative. REVIEW OF SYSTEMS: Ambulation impaired with walker. No CV, , pulmonary, eye, ENT system symptoms on review. MENTAL STATUS EXAM: Reasonably oriented. Speech is coherent, abstraction fair. Computation, able to do two steps on serial 7's, remembers 2 or 3 objects at 3 minutes. She talked at some length about guilt feelings surrounding leaving the adventism and her daughters left the adventism as well after she got together with a younger male. Despite this, she is less tearful and depressed about it and we addressed this. No suicidal or homicidal ideation. Mood and affect is improved. Attention span fair. Language function intact. IMPRESSION: Bipolar 1 disorder, depressed, in partial remission. Rest unchanged. PLAN: Continue psychotropics from initial note. Valproic acid level is therapeutic at 81. MAN Fox BENNETT MD DR: GIGI/taya JOB#: [id number] / [id number]
--- NOTE | 2017-11-11 23:15 | PN ---
DATE: 11/10/2017 PSYCHIATRIC PROGRESS NOTE This late entry 11/10/2017 covers elements not covered in my initial note. SUBJECTIVE: I met with the patient in the evening. The patient slept 6 hours previous night. She is overall doing better, less depressed, less obsessed about the samaritan and affect had on her daughter when she got together with a younger man. REVIEW OF SYSTEMS: Ambulation impaired with walker. No CV, , pulmonary, eye, ENT system symptoms on review. MENTAL STATUS EXAM: Reasonably oriented. Speech is coherent, abstraction fair, computation impaired, language function intact, attention span short. Mood and affect showing improvement, less depressed. LABORATORY DATA: Reviewed. No suicidal ideation. IMPRESSION: Bipolar 1 disorder, depressed, in partial remission. Rest unchanged. PLAN: Continue psychotropics from initial note. Valproic acid level is therapeutic at 81. MAN Fox BENNETT MD DR: GIGI/taya JOB#: [id number] / [id number]
[2017-11-12 05:37] VITALS: BP 123/82
[2017-11-12] MEDS: LEVOTHYROXINE 112 MCG TABLET PO SCH (05:49)
[2017-11-12] MEDS: HYDROcodone/APAP 10/325 1 TAB TABLET PO PRN ×2 (06:30→13:10)
[2017-11-12] MEDS: NYSTATIN TOPICAL POWDER 15GM BOTTLE. TP PRN (10:08)
[2017-11-12] MEDS: OMEGA-3 FATTY ACIDS/FISH OIL 1,000 MG CAPSULE. PO SCH (10:08)
[2017-11-12] MEDS: POLYETHYLENE GLYCOL 3350 17 GM PACKET. PO SCH ×2 (10:08→10:19)
[2017-11-12] MEDS: FLUTICASONE 50MCG/NASAL SPRAY 16GM BOTTLE. NS SCH (10:08)
[2017-11-12] MEDS: BACLOFEN 10 MG TABLET PO SCH ×3 (10:08→20:13)
[2017-11-12] MEDS: cycloSPORINE 0.05% OPTH 1 DROP DROPERETTE OU SCH ×2 (10:09→20:13)
[2017-11-12] MEDS: CYANOCOBALAMIN (VITAMIN B-12) 1,000 MCG TABLET. PO SCH (10:09)
[2017-11-12] MEDS: GLUCOSAMINE/CHOND 500/400MG CAPSULE PO SCH (10:09)
[2017-11-12] MEDS: NYSTATIN 100,000 UNIT/GM TOPICAL CREAM 15GM TUBE. TP SCH ×2 (10:11→20:14)
[2017-11-12] MEDS: MAGNESIUM OXIDE 400 MG TABLET PO SCH (10:11)
[2017-11-12] MEDS: oxyCODONE ER 10 MG TAB.ER.12H PO SCH ×2 (10:11→20:15)
[2017-11-12] MEDS: METHYL SALICYLATE/MENTHOL TOPICAL OINTMENT 29GM TUBE. TP PRN (10:56)
[2017-11-12 16:04] VITALS: BP 138/86
[2017-11-12] MEDS: DIVALPROEX ER 500 MG TAB.ER.24H PO SCH (20:13)
[2017-11-12] MEDS: risperiDONE 2 MG TABLET. PO SCH (20:13)
[2017-11-12] MEDS: clonazePAM 1 MG TABLET PO SCH (20:14)
--- NOTE | 2017-11-12 20:48 | PDOC ---
Exam Note: Jermaine Note: Please also refer to the separate dictated note~for this date of service dictated separately.~Patient seen individually. Discussed the patient with Nursing staff reviewed the chart.~Reviewed interim history and current functioning. Reviewed vital signs,~Labs/ Radiology~and current medications noted below. Continue current treatment with the changes noted in the dictated addendum note Assessment: Vital Signs: Vital Signs Date Time Temp Pulse Resp B/P (MAP) Pulse Ox O2 Delivery O2 Flow Rate FiO2 11/12/17 20:15 18 Room Air 11/12/17 16:04 97.3 70 138/86 (103) 92 I&O Intake and Output 11/12/17 07:00 Intake Total 1440 ml Balance 1440 ml Intake Oral 1440 ml # Bowel Movements 1 Current Medications: Meds: Current Medications Influenza Virus Vaccine (Afluria Trivalent 1700-8020 Syringe) 0.5 ml ONCE ONCE VAX IM Last administered on 10/28/17at 10:00; Start 10/28/17 at 09:00; Stop at 09:01; Status DC Acetaminophen (Tylenol) 650 mg PRN Q6HRS PRN PO PAIN / TEMP; Start 10/27/17 at 11:45 Multi-Ingredient Ointment (Analgesic [place]) 1 stepan PRN QID PRN TP MUSCLE PAIN Last administered on 11/12/17at 10:56; Start 10/27/17 at 11:45 Al Hydroxide/Mg Hydroxide (Mylanta Plus Xs) 15 ml PRN AFTMEALHC PRN PO DYSPEPSIA; Start 10/27/17 at 11:45 Magnesium Hydroxide (Milk Of Magnesia) 2,400 mg PRN QHS PRN PO CONSTIPATION; Start 10/27/17 at 11:45 Cyanocobalamin (Vitamin B-12) 1,000 mcg DAILY PO Last administered on at 10:09; Start 10/28/17 at 09:00 Cyclosporine (Restasis) 1 drop BID OU Last administered on 11/12/17at 20:13; Start 10/27/17 at 21:00 Diclofenac Sodium (Voltaren) 1 stepan PRN TID PRN TP PAIN Last administered on at 01:01; Start 10/27/17 at 12:30 Levothyroxine Sodium (Synthroid) 112 mcg DAILYAC PO Last administered on at 09:49; Start 10/28/17 at 07:30; Stop 10/28/17 at 13:11; Status DC Oxycodone HCl (OxyCONTIN) 10 mg Q12HR PO Last administered on 11/12/17 20:15; Start 10/27/17 at 21:00 Acetaminophen/ Aspirin/Caffeine (Excedrin Migraine) 2 tab PRN Q24HRS PRN PO MIGRAINE HEADACHE; Start 10/27/17 at 13:00 Baclofen (Lioresal) 5 mg TID PO Last administered on 11/12/17 20:13; Start at 14:00 Artificial Tears (Refresh Classic) 1 drop PRN BID PRN OU DRY EYE; Start at 13:15 Fluticasone Propionate (Flonase) 1 spray DAILY NS Last administered on 10:08; Start 10/28/17 at 09:00 Glucosamine/ Chondroitin (Glucosamine-Chondroitin 500/400mg) 1 cap DAILY PO Last administered on 11/12/17 10:09; Start 10/28/17 at 09:00 Acetaminophen/ Hydrocodone Bitart (Lortab 10/325) 1 tab PRN Q4HRS PRN PO PAIN Last administered on 11/12/17 13:10; Start 10/27/17 at 13:15 Magnesium Oxide (Magnesium Oxide) 400 mg DAILY PO Last administered on 10:11; Start 10/28/17 at 09:00 Nystatin (Mycostatin) 1 stepan PRN BID PRN TP RASH ON GROIN; Start 10/27/17 at 21: 00 Fish Oil (Fish Oil) 1,000 mg DAILY PO Last administered on 11/12/17 10:08; Start 10/28/17 at 09:00 Polyethylene Glycol (miraLAX) 17 gm DAILY PO Last administered on 11/09/17 09: 27; Start 10/28/17 at 09:00 Triamcinolone Acetonide (Kenalog) 1 stepan PRN TID PRN TP VAGINAL PAIN; Start at 13:15 Olanzapine (ZyPREXA ZYDIS) 2.5 mg PRN Q2HR PRN PO PSYCHOSIS Last administered on 10/30/17at 11:09; Start 10/27/17 at 12:45 Clonazepam (KlonoPIN) 1 mg QHS PO Last administered on 11/12/17 20:14; Start 10/27/17 at 21:00 Divalproex Sodium (Depakote Er) 1,000 mg QHS PO Last administered on 11/12/17at 20:13; Start 10/27/17 at 21:00 Risperidone (RisperDAL) 2 mg QHS PO Last administered on 11/12/17 20:13; Start 10/27/17 at 21:00 Estradiol (Estrace) 1 stepan WEEKLY VG ; Start 11/03/17 at 09:00 Levothyroxine Sodium (Synthroid) 112 mcg DAILYAC PO Last administered on at 10:04; Start 10/29/17 at 06:00; Stop 11/01/17 at 15:52; Status DC Sertraline HCl (Zoloft) 25 mg BID92 PO Last administered on 11/05/17at 13:24; Start 10/30/17 at 09:00; Stop 11/05/17 at 17:36; Status DC Levothyroxine Sodium (Synthroid) 112 mcg DAILY06 PO Last administered on at 05:49; Start 11/02/17 at 06:00 Fluvoxamine Maleate (Luvox) 25 mg HS PO Last administered on 11/12/17 20:13; Start 11/05/17 at 21:00 Nystatin (Nystop) 1 stepan PRN BID PRN TP RASH Last administered on 11/12/17 10: 08; Start 11/08/17 at 14:15 Nystatin (Mycostatin) 1 stepan BID TP Last administered on 11/12/17at 20:14; Start 11/10/17 at 21:00 Active Scripts Active Reported [place] 3 1,000 Mg Softgel ([place]-3 Fatty Acids/Fish Oil) 1 Each Capsule 1 Each PO DAILY Oxycontin (Oxycodone HCl) 10 Mg Tab.er.12h 10 Mg PO Q12HR Refresh Optive Eye Drops (Carboxymethylcellulos/Glycerin) 15 Ml Drops 1 Ml OU PRN BID PRN Zyprexa Zydis (Olanzapine) 5 Mg Tab.rapdis 2.5 Mg PO PRN Q2HR PRN Magnesium Oxide 400 Mg Tablet 400 Mg PO DAILY Depakote Er (Divalproex Sodium) 500 Mg Tab.er.24h 1,000 Mg PO QHS Clonazepam 1 Mg Tablet 1 Mg PO QHS Diclofenac Sodium 100 Gm Gel..gram. 100 Gm TP PRN TID Estrace (Estradiol) 42.5 Gm Cream.appl 1 Stepan VG Baclofen 10 Mg Tablet 5 Mg PO TID Excedrin Migraine Caplet (Aspirin/Acetaminophen/Caffeine) 1 Each Tablet 2 Each PO PRN Q24HRS PRN Risperidone 2 Mg Tablet 2 Mg PO QHS Miralax (Polyethylene Glycol 3350) 17 Gm Powd.pack 1 Packet PO DAILY Synthroid (Levothyroxine Sodium) 112 Mcg Tablet 112 Mcg PO DAILYAC Vitamin B-12 (Cyanocobalamin (Vitamin B-12)) 1,000 Mcg Tablet 1,000 Mcg PO DAILY Glucosamine Chondroitin Tab (Gluc [place]/Chondro Stephen A/Vit C/Mn) 1 Each Tablet 1 Tab PO DAILY [place] 10-325 Tablet (Hydrocodone Bit/Acetaminophen) 1 Each Tablet 1 Tab PO PRN Q4HRS PRN Flonase Allergy Relief (Fluticasone Propionate) 9.9 Ml [place].susp 1 Sprays NS DAILY Restasis (Cyclosporine) 1 Each Droperette 1 Each OU BID Triamcinolone Acetonide 15 Gm Cream..g. 1 Stepan TP PRN TID PRN Nystatin 15 Gm Cream..g. 1 Stepan TP PRN BID PRN I have reviewed the current psychotropics carefully including drug interactions. Risk benefit ratio favors no change other than as noted in my dictated progress note. Diagnosis: Problems: (1) Confusion (2) Delusion (3) Bipolar affective, mixed, sev w/ psych (4) Anxiety disorder (5) Impulse control disorder (6) Schizoaffective disorder, bipolar type (7) Impulse control disorder RACHANA BENNETT MD Nov 12, 2017 20:48
--- NOTE | 2017-11-12 22:47 | PN ---
DATE: 11/11/2017 This is a late entry for 11/11/2017 covers elements not covered in my initial note. SUBJECTIVE: I met with the patient in the evening. Overall, per nursing report, the patient slept 6-1/2 hours previous night. I discussed with social service staff and family. The patient's daughter has changed the selection of assisted living/independent living from [facility] to [facility] in [place] and we are postponing the discharge to Saturday as opposed to Saturday as arranged by social service staff in coordination with [facility] and the patient's daughter. REVIEW OF SYSTEMS: Ambulation impaired with walker. No CV, , pulmonary, eye system symptoms on review. MENTAL STATUS EXAM: Reasonably oriented. Speech coherent, pleasant, verbal. Abstraction fair. Computation able to do two step serial sevens, remembered 3/3 objects at 3 minutes. No psychotic symptoms, suicidal or homicidal ideation. Mood and affect are improved, less tearful, less anxious. LABORATORY DATA: Reviewed. IMPRESSION: Bipolar 1 disorder, mixed with psychotic features, in partial remission; anxiety disorder, unspecified. We will continue to address some of her guilt feelings about leaving the hoahaoism and the daughter is leaving the hoahaoism as well after she got together with a younger male and she is able to process this more appropriately. PLAN: Continue psychotropics from initial note. Maintain Depakote 1000 mg at bedtime ER, valproic acid level 81, Zyprexa p.r.n., Klonopin 1 mg at bedtime, Risperdal 2 mg at bedtime, Luvox 25 mg at bedtime for some of her mood, anxiety, obsessive symptoms, which are improved. MAN Fox BENNETT MD DR: GIGI/taya JOB#: [id number] / [id number]
[2017-11-13 05:25] VITALS: BP 148/91
[2017-11-13] MEDS: LEVOTHYROXINE 112 MCG TABLET PO SCH (05:51)
[2017-11-13] MEDS: HYDROcodone/APAP 10/325 1 TAB TABLET PO PRN ×3 (05:54→15:03)
[2017-11-13] MEDS: POLYETHYLENE GLYCOL 3350 17 GM PACKET. PO SCH (09:05)
[2017-11-13] MEDS: OMEGA-3 FATTY ACIDS/FISH OIL 1,000 MG CAPSULE. PO SCH (09:05)
[2017-11-13] MEDS: cycloSPORINE 0.05% OPTH 1 DROP DROPERETTE OU SCH ×2 (09:05→20:23)
[2017-11-13] MEDS: BACLOFEN 10 MG TABLET PO SCH ×3 (09:06→20:23)
[2017-11-13] MEDS: CYANOCOBALAMIN (VITAMIN B-12) 1,000 MCG TABLET. PO SCH (09:06)
[2017-11-13] MEDS: NYSTATIN 100,000 UNIT/GM TOPICAL CREAM 15GM TUBE. TP SCH ×2 (09:06→21:00)
[2017-11-13] MEDS: GLUCOSAMINE/CHOND 500/400MG CAPSULE PO SCH (09:06)
[2017-11-13] MEDS: MAGNESIUM OXIDE 400 MG TABLET PO SCH (09:06)
[2017-11-13] MEDS: FLUTICASONE 50MCG/NASAL SPRAY 16GM BOTTLE. NS SCH (09:08)
[2017-11-13] MEDS: oxyCODONE ER 10 MG TAB.ER.12H PO SCH ×2 (09:08→20:26)
[2017-11-13] MEDS: METHYL SALICYLATE/MENTHOL TOPICAL OINTMENT 29GM TUBE. TP PRN (10:00)
[2017-11-13 16:40] VITALS: BP 130/74
[2017-11-13] MEDS: DIVALPROEX ER 500 MG TAB.ER.24H PO SCH (20:21)
[2017-11-13] MEDS: clonazePAM 1 MG TABLET PO SCH (20:22)
[2017-11-13] MEDS: risperiDONE 2 MG TABLET. PO SCH (20:23)
[2017-11-13] MEDS: NYSTATIN TOPICAL POWDER 15GM BOTTLE. TP PRN (20:24)
--- NOTE | 2017-11-13 21:14 | PDOC ---
Exam Note: Jermaine Note: Please also refer to the separate dictated note~for this date of service dictated separately.~Patient seen individually. Discussed the patient with Nursing staff reviewed the chart.~Reviewed interim history and current functioning. Reviewed vital signs,~Labs/ Radiology~and current medications noted below. Continue current treatment with the changes noted in the dictated addendum note Assessment: Vital Signs: Vital Signs Date Time Temp Pulse Resp B/P (MAP) Pulse Ox O2 Delivery O2 Flow Rate FiO2 11/13/17 16:40 97.7 78 18 130/74 (92) 92 Room Air I&O Intake and Output 11/13/17 07:00 Intake Total 840 ml Balance 840 ml Intake Oral 840 ml # Bowel Movements 1 Current Medications: Meds: Current Medications Influenza Virus Vaccine (Afluria Trivalent 3955-3213 Syringe) 0.5 ml ONCE ONCE VAX IM Last administered on 10/28/17 10:00; Start 10/28/17 at 09:00; Stop at 09:01; Status DC Acetaminophen (Tylenol) 650 mg PRN Q6HRS PRN PO PAIN / TEMP; Start 10/27/17 at 11:45 Multi-Ingredient Ointment (Analgesic [place]) 1 stepan PRN QID PRN TP MUSCLE PAIN Last administered on 11/13/17 10:00; Start 10/27/17 at 11:45 Al Hydroxide/Mg Hydroxide (Mylanta Plus Xs) 15 ml PRN AFTMEALHC PRN PO DYSPEPSIA; Start 10/27/17 at 11:45 Magnesium Hydroxide (Milk Of Magnesia) 2,400 mg PRN QHS PRN PO CONSTIPATION; Start 10/27/17 at 11:45 Cyanocobalamin (Vitamin B-12) 1,000 mcg DAILY PO Last administered on 09:06; Start 10/28/17 at 09:00 Cyclosporine (Restasis) 1 drop BID OU Last administered on 11/13/17 20:23; Start 10/27/17 at 21:00 Diclofenac Sodium (Voltaren) 1 stepan PRN TID PRN TP PAIN Last administered on at 01:01; Start 10/27/17 at 12:30 Levothyroxine Sodium (Synthroid) 112 mcg DAILYAC PO Last administered on at 09:49; Start 10/28/17 at 07:30; Stop 10/28/17 at 13:11; Status DC Oxycodone HCl (OxyCONTIN) 10 mg Q12HR PO Last administered on 11/13/17 20:26; Start 10/27/17 at 21:00 Acetaminophen/ Aspirin/Caffeine (Excedrin Migraine) 2 tab PRN Q24HRS PRN PO MIGRAINE HEADACHE; Start 10/27/17 at 13:00 Baclofen (Lioresal) 5 mg TID PO Last administered on 11/13/17 20:23; Start at 14:00 Artificial Tears (Refresh Classic) 1 drop PRN BID PRN OU DRY EYE; Start at 13:15 Fluticasone Propionate (Flonase) 1 spray DAILY NS Last administered on 09:08; Start 10/28/17 at 09:00 Glucosamine/ Chondroitin (Glucosamine-Chondroitin 500/400mg) 1 cap DAILY PO Last administered on 11/13/17 09:06; Start 10/28/17 at 09:00 Acetaminophen/ Hydrocodone Bitart (Lortab 10/325) 1 tab PRN Q4HRS PRN PO PAIN Last administered on 11/13/17 15:03; Start 10/27/17 at 13:15 Magnesium Oxide (Magnesium Oxide) 400 mg DAILY PO Last administered on 09:06; Start 10/28/17 at 09:00 Nystatin (Mycostatin) 1 stepan PRN BID PRN TP RASH ON GROIN; Start 10/27/17 at 21: 00 Fish Oil (Fish Oil) 1,000 mg DAILY PO Last administered on 11/13/17 09:05; Start 10/28/17 at 09:00 Polyethylene Glycol (miraLAX) 17 gm DAILY PO Last administered on 11/13/17 09: 05; Start 10/28/17 at 09:00 Triamcinolone Acetonide (Kenalog) 1 stepan PRN TID PRN TP VAGINAL PAIN; Start at 13:15 Olanzapine (ZyPREXA ZYDIS) 2.5 mg PRN Q2HR PRN PO PSYCHOSIS Last administered on 10/30/17at 11:09; Start 10/27/17 at 12:45 Clonazepam (KlonoPIN) 1 mg QHS PO Last administered on 11/13/17 20:22; Start 10/27/17 at 21:00 Divalproex Sodium (Depakote Er) 1,000 mg QHS PO Last administered on 11/13/17 20:21; Start 10/27/17 at 21:00 Risperidone (RisperDAL) 2 mg QHS PO Last administered on 11/13/17 20:23; Start 10/27/17 at 21:00 Estradiol (Estrace) 1 stepan WEEKLY VG ; Start 11/03/17 at 09:00 Levothyroxine Sodium (Synthroid) 112 mcg DAILYAC PO Last administered on at 10:04; Start 10/29/17 at 06:00; Stop 11/01/17 at 15:52; Status DC Sertraline HCl (Zoloft) 25 mg BID92 PO Last administered on 11/05/17at 13:24; Start 10/30/17 at 09:00; Stop 11/05/17 at 17:36; Status DC Levothyroxine Sodium (Synthroid) 112 mcg DAILY06 PO Last administered on 05:51; Start 11/02/17 at 06:00 Fluvoxamine Maleate (Luvox) 25 mg HS PO Last administered on 11/13/17 20:21; Start 11/05/17 at 21:00 Nystatin (Nystop) 1 stepan PRN BID PRN TP RASH Last administered on 11/13/17 20: 24; Start 11/08/17 at 14:15 Nystatin (Mycostatin) 1 stepan BID TP Last administered on 11/13/17 09:06; Start 11/10/17 at 21:00 Active Scripts Active Reported [place] 3 1,000 Mg Softgel ([place]-3 Fatty Acids/Fish Oil) 1 Each Capsule 1 Each PO DAILY Oxycontin (Oxycodone HCl) 10 Mg Tab.er.12h 10 Mg PO Q12HR Refresh Optive Eye Drops (Carboxymethylcellulos/Glycerin) 15 Ml Drops 1 Ml OU PRN BID PRN Zyprexa Zydis (Olanzapine) 5 Mg Tab.rapdis 2.5 Mg PO PRN Q2HR PRN Magnesium Oxide 400 Mg Tablet 400 Mg PO DAILY Depakote Er (Divalproex Sodium) 500 Mg Tab.er.24h 1,000 Mg PO QHS Clonazepam 1 Mg Tablet 1 Mg PO QHS Diclofenac Sodium 100 Gm Gel..gram. 100 Gm TP PRN TID Estrace (Estradiol) 42.5 Gm Cream.appl 1 Stepan VG Baclofen 10 Mg Tablet 5 Mg PO TID Excedrin Migraine Caplet (Aspirin/Acetaminophen/Caffeine) 1 Each Tablet 2 Each PO PRN Q24HRS PRN Risperidone 2 Mg Tablet 2 Mg PO QHS Miralax (Polyethylene Glycol 3350) 17 Gm Powd.pack 1 Packet PO DAILY Synthroid (Levothyroxine Sodium) 112 Mcg Tablet 112 Mcg PO DAILYAC Vitamin B-12 (Cyanocobalamin (Vitamin B-12)) 1,000 Mcg Tablet 1,000 Mcg PO DAILY Glucosamine Chondroitin Tab (Gluc Stephen/Chondro Stephen A/Vit C/Mn) 1 Each Tablet 1 Tab PO DAILY Joice 10-325 Tablet (Hydrocodone Bit/Acetaminophen) 1 Each Tablet 1 Tab PO PRN Q4HRS PRN Flonase Allergy Relief (Fluticasone Propionate) 9.9 Ml [place].susp 1 Sprays NS DAILY Restasis (Cyclosporine) 1 Each Droperette 1 Each OU BID Triamcinolone Acetonide 15 Gm Cream..g. 1 Stepan TP PRN TID PRN Nystatin 15 Gm Cream..g. 1 Stepan TP PRN BID PRN I have reviewed the current psychotropics carefully including drug interactions. Risk benefit ratio favors no change other than as noted in my dictated progress note. Diagnosis: Problems: (1) Confusion (2) Delusion (3) Bipolar affective, mixed, sev w/ psych (4) Anxiety disorder (5) Impulse control disorder (6) Schizoaffective disorder, bipolar type (7) Impulse control disorder RACHANA BENNETT MD Nov 13, 2017 21:14
[2017-11-14] MEDS ORDERED: ACET325T9 PO (00:38)
[2017-11-14] MEDS ORDERED: MAG30ORA2 PO (00:39)
[2017-11-14] MEDS ORDERED: METH29OI TP (00:40)
[2017-11-14] MEDS ORDERED: MAGN2400 PO (00:40)
[2017-11-14] MEDS ORDERED: FLUV25TA PO (00:41)
--- NOTE | 2017-11-14 00:44 | PN ---
DATE: 11/12/2017 PSYCHIATRIC PROGRESS NOTE This late entry 11/12/2017 covers elements not covered in my initial note. SUBJECTIVE: I met with the patient in the evening. The patient slept 8 hours previous evening. She has been more active in groups, interactive. Denies being depressed, seems more hopeful about discharge plans, and transition to [facility]. REVIEW OF SYSTEMS: Ambulation impaired with walker. No CV, , pulmonary, eye system symptoms on review. MENTAL STATUS EXAM: Reasonably oriented. Speech is coherent, abstraction fair. Computation, able to do two step on serial 7's. Memory is intact, 3/3 objects at 5 minutes. No suicidal or homicidal ideation. Mood and affect is improved. LABORATORY DATA: Reviewed. IMPRESSION: Bipolar 1 disorder, depressed, in partial remission; anxiety disorder, unspecified. Rest unchanged. PLAN: No change from initial note. MAN Fox BENNETT MD DR: GIGI/taya JOB#: [id number] / [id number]
[2017-11-14] MEDS: LEVOTHYROXINE 112 MCG TABLET PO SCH (05:59)
[2017-11-14] MEDS: HYDROcodone/APAP 10/325 1 TAB TABLET PO PRN (05:59)
[2017-11-14 06:07] VITALS: BP 136/78
[2017-11-14] MEDS: NYSTATIN 100,000 UNIT/GM TOPICAL CREAM 15GM TUBE. TP SCH (09:43)
[2017-11-14] MEDS: FLUTICASONE 50MCG/NASAL SPRAY 16GM BOTTLE. NS SCH (09:43)
[2017-11-14] MEDS: OMEGA-3 FATTY ACIDS/FISH OIL 1,000 MG CAPSULE. PO SCH (09:43)
[2017-11-14] MEDS: GLUCOSAMINE/CHOND 500/400MG CAPSULE PO SCH (09:43)
[2017-11-14] MEDS: POLYETHYLENE GLYCOL 3350 17 GM PACKET. PO SCH (09:43)
[2017-11-14] MEDS: BACLOFEN 10 MG TABLET PO SCH (09:43)
[2017-11-14] MEDS: MAGNESIUM OXIDE 400 MG TABLET PO SCH (09:43)
[2017-11-14] MEDS: cycloSPORINE 0.05% OPTH 1 DROP DROPERETTE OU SCH (09:43)
[2017-11-14] MEDS: CYANOCOBALAMIN (VITAMIN B-12) 1,000 MCG TABLET. PO SCH (09:43)
[2017-11-14] MEDS: oxyCODONE ER 10 MG TAB.ER.12H PO SCH (09:43)
--- NOTE | 2017-11-14 23:28 | PN ---
DATE: 11/13/2017 This late entry for 11/13/2017 covers elements not covered in my initial note. SUBJECTIVE: I met with the patient in the evening. The patient slept 7 hours previous evening. She has been fairly appropriate, little anxious about the upcoming discharge, requesting some pain medications. REVIEW OF SYSTEMS: Ambulation impaired with walker. No CV, , pulmonary, eye, ENT system symptoms on review, some vague pain symptoms. MENTAL STATUS EXAM: Reasonably oriented. Speech is coherent, has some latency. Abstraction fair, computation impaired, language function intact. Mood and affect is overall improved. LABORATORY DATA: Reviewed. IMPRESSION: Unchanged from initial note. PLAN: No change from initial note. RACHANA BENNETT MD DR: GIGI/taya JOB#: [id number] / [id number]
--- NOTE | 2017-11-15 21:10 | DS ---
DATE OF DISCHARGE: 11/14/2017 This late entry for 11/14/2017 covers elements not covered in my initial note of 11/14/2017. REASON FOR ADMISSION: Please refer to the admission history for details. Briefly, the patient is an 82-year-old female referred back to us from the [facility] where she presented from home on account of increased anxiety, visual hallucinations, not feeling safe at home, not sleeping, poor appetite. She lives by herself and was overwhelmed with the isolation, markedly more depressed, failed outpatient psychiatric interventions following a recent inpatient psychiatric stabilization with us. SIGNIFICANT FINDINGS AND CLINICAL COURSE: Following admission, the patient was seen daily individually by myself from a psychiatric standpoint, medical followup with Dr. Loera/Dr. Yates. The patient is quite withdrawn, depressed, anxious. Adjustments were made in her psychotropics. Zoloft was added 25 mg a day and then changed to Luvox 25 mg at bedtime on account of her marked obsessiveness. She is also on Depakote 1000 mg at bedtime with a therapeutic valproic acid level at 81, Klonopin 1 mg at bedtime, Risperdal 2 mg at bedtime. CONDITION AT DISCHARGE: Improved prior to discharge. REVIEW OF SYSTEMS: Ambulation impaired with walker. No CV, , pulmonary, eye, ENT system symptoms on review. MENTAL STATUS EXAM: Reasonably oriented. Speech has some latency, coherent, pleasant, verbal. Abstraction fair, computation impaired, language function intact, attention span short. Mood and affect improved. No suicidal or homicidal ideation at discharge. FINAL DIAGNOSES: Bipolar 1 disorder, depressed, in partial remission; anxiety disorder, unspecified; impulse control disorder, unspecified. Rest unchanged from admission. DISCHARGE MEDICATIONS: Please refer to the MRAD. DISCHARGE INSTRUCTIONS: Outpatient psychiatric and medical followup at [facility] where she was transitioned to rather than going back to living alone in her apartment. RACHANA BENNETT MD DR: GIGI/taya JOB#: [id number] / [id number]
== END 2017-11-14 10:40 | DRG 885 ==
LOC: GEROPSY 10-27 10:56
PROVIDERS: ADMIT Psychiatry & Neurology Psychiatry; ATTEND Psychiatry & Neurology Psychiatry
DX: F25.0 Schizoaffective disorder, bipolar type (principal); E03.9 Hypothyroidism, unspecified; F17.200 Nicotine dependence, unspecified, uncomplicated; F31.75 Bipolar disorder, in partial remission, most recent episode depressed; F63.9 Impulse disorder, unspecified; F42.9 Obsessive-compulsive disorder, unspecified; F41.9 Anxiety disorder, unspecified; G89.29 Other chronic pain; M16.12 Unilateral primary osteoarthritis, left hip; N18.2 Chronic kidney disease, stage 2 (mild); Z79.899 Other long term (current) drug therapy; Z80.1 Family history of malignant neoplasm of trachea, bronchus and lung; Z81.8 Family history of other mental and behavioral disorders; Z90.710 Acquired absence of both cervix and uterus; Z90.722 Acquired absence of ovaries, bilateral; Z23 Encounter for immunization
CPT/HCPCS: 36415; 80053; 80164; 83735; 84436; 84443; 84480; 85025; 90471; 90756; 93005; Q2035